=== PATIENT | male | born 1940 | race American Indian/Alaskan Native ===

== ENCOUNTER 2017-07-11 14:10 | Inpatient (IN) | payer MEDICARE, MEDICAID ==
[2017-07-11 15:35] LABS: BASO % 0.4 % (0.0-2.0); EOS % 0.2 % (0.0-4.0); HEMATOCRIT 42.7 % (35.0-51.0); LYMPH # 1.2 K/uL (1.0-4.3); LYMPH % 18.3 % (20.0-40.0); MEAN CELL VOLUME 103.7 fL (80.0-94.0); MEAN CORPUSCULAR HEMOGLOBIN 33.6 pg (27.0-31.0); MEAN CORPUSCULAR HGB CONC 32.4 g/dL (33.0-37.0); MONO # 0.4 K/uL (0.0-0.8); MONO % 6.7 % (0.0-10.0); NRBC % 0.2 % (0.0-2.0); RED CELL DISTRIBUTION WIDTH 15.9 % (11.5-14.5); WHITE BLOOD COUNT 6.5 K/uL (4.8-10.8)
--- NOTE | 2017-07-11 15:38 | C.PDOC ---
History Of Present Illness Jay Aguirre is a 77 y/o male who presents for left knee pain and swelling after falling from standing yesterday. Pain has worsened overnight, with associated worsened swelling of the left upper leg. At baseline patient has lower leg edema, which has been worsening, and increasing dyspnea on exertion which has worsened over the last month. He is compliant with Lasix 40 mg per day and fluid restriction. Time Seen by Provider: 07/11/17 14:55 Chief Complaint (Nursing): Lower Extremity Problem/Injury History Per: Patient History/Exam Limitations: no limitations Onset/Duration Of Symptoms: Worse Since (2 days ago) Current Symptoms Are (Timing): Still Present - Knee Description Of Injury: Fell (from standing) Past Medical History Reviewed: Historical Data, Nursing Documentation, Vital Signs Vital Signs: Last Vital Signs Temp 98.3 F 07/11/17 14:38 Pulse 88 07/11/17 17:35 Resp 18 07/11/17 17:35 BP 121/73 07/11/17 17:35 Pulse Ox 98 07/11/17 18:40 - Medical History PMH: CHF, HTN Other Surgeries: L Knee orthopedic surgery Family History: States: Unknown Family Hx - Social History Hx Tobacco Use: No Hx Alcohol Use: No Hx Substance Use: No - Immunization History Hx Tetanus Toxoid Vaccination: No Hx Influenza Vaccination: No Hx Pneumococcal Vaccination: No Review Of Systems Except As Marked, All Systems Reviewed And Found Negative. Respiratory: Positive for: SOB with Excertion Musculoskeletal: Positive for: Leg Pain (left knee pain and swelling), Other (B/ L lower leg edema, worsening) Physical Exam - Physical Exam Appears: Non-toxic, No Acute Distress, Other (tall, thin, male) Skin: Normal Color, Warm, Dry Head: Atraumatic, Normacephalic Eye(s): bilateral: Normal Inspection, PERRL, EOMI Neck: Other (+ JVD bilaterally) Chest: Symmetrical Cardiovascular: Rhythm Regular Respiratory: Rales Gastrointestinal/Abdominal: Normal Exam, Soft, No Tenderness Extremity: Normal ROM, No Deformity, Swelling (pitting edema to lower legs bilaterally, dependent edema in bilateral thighs) Neurological/Psych: Oriented x3, Normal Speech, Normal Motor, Normal Sensation ED Course And Treatment - Laboratory Results Result Diagrams: 07/11/17 15:30 07/11/17 15:30 Lab Interpretation: Abnormal (d-dimer neg for age, BNP 29,000, trop neg.) ECG: Interpreted By Me ECG Rhythm: Sinus Rhythm ECG Interpretation: Normal Rate From EC O2 Sat by Pulse Oximetry: 98 (RA) Pulse Ox Interpretation: Normal - Radiology CXR: Interpreted by Me CXR Interpretation: Yes: Heart Size (+ megaly, + Mild CHF) - Other Rad L knee X-Ray: Interpreted by Me (no fx, ? small effusion) Lower Ext Venous Dopplers X-Ray: Read By Radiologist (no b/l leg DVT) Progress Note: lasix 40 IV Reevaluation Time: 17:46 Reassessment Condition: Improved - Physician Consult Information Time Consulting Physician Contacted: 15:20 Physician Contacted: Robyn Nguyễn Outcome Of Conversation: d/w Dr. Jeremías De La Paz- defers to Director Of Retail Operations Medicine. d/w Dr. 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 1744 d/w Dr. Dean- Medicine Director Of Retail Operations- ok to admit Medical Decision Making Medical Decision Making: Recent echocardiogram in 07/2016 shows a 35% ejection fraction (severely decreased) and global hypokinesis. Time: 15:15 Plan: EKG Labs Urinalysis Chest x-ray X-ray Left Knee Venous duplex scan of lower extremities Lasix 40 mg IVP 2L of O2 via nasal cannula 1744: minimal urine output after lasix 40 IV, 2nd dose lasix 40 IV ordered Worstening FERNANDEZ and leg edema despite good lasix 40 QD compliance and fluid restriction. 08/13 Card Echo poor EJF 35% with global hypokenisis, pt NOT hypertensive initially. LOW susp of DVT/PE as D-Dimer wnl for age and lower EXt's no DVT's on venous dopplers. Disposition Doctor Will See Patient In The: Office Counseled Patient/Family Regarding: Studies Performed, Diagnosis - Disposition Disposition: HOSPITALIZED Disposition Time: 17:50 Condition: GOOD - Clinical Impression Clinical Impression: CHF (congestive heart failure), Contusion, knee - Scribe Statement The provider has reviewed the documentation as recorded by the Scribe (Daisy Brown) Provider Attestation: All medical record entries made by the Scribe were at my direction and personally dictated by me. I have reviewed the chart and agree that the record accurately reflects my personal performance of the history, physical exam, medical decision making, and the department course for this patient. I have also personally directed, reviewed, and agree with the discharge instructions and disposition.
[2017-07-11 15:44] LABS: INR 1.2
[2017-07-11 15:47] LABS: BILIRUBIN,TOTAL 2.2 mg/dL (0.2-1.3); CALCIUM 8.6 mg/dl (8.6-10.4); POTASSIUM 4.6 mmol/L (3.6-5.2); TOTAL PROTEIN 7.6 g/dL (6.3-8.3)
[2017-07-11 16:00] LABS: TROPONIN I 0.07 ng/mL (0.00-0.120)
[2017-07-11 17:23] LABS: RBC URINE 1 /hpf (0-3); URINE BILIRUBIN NEGATIVE (NEGATIVE); URINE BLOOD NEGATIVE (NEGATIVE); URINE COLOR Straw (YELLOW); URINE GLUCOSE (UA) NORMAL (Normal); URINE KETONE NEGATIVE (NEGATIVE); URINE LEUKOCYTE ESTERASE NEG Leu/uL (Negative); URINE PROTEIN NEGATIVE (NEGATIVE); URINE UROBILINOGEN NORMAL mg/dL (0.2-1.0); WBC URINE < 1 /hpf (0-5)
--- NOTE | 2017-07-11 18:15 | RAD ---
PROCEDURE: CHEST RADIOGRAPH, 1 VIEW HISTORY: SOB COMPARISON: 09/15/2016. FINDINGS: LUNGS: Clear. PLEURA: No pneumothorax or pleural fluid seen. CARDIOVASCULAR: Cardiomegaly. No evidence of acute, significant cardiovascular disease. OSSEOUS STRUCTURES: No significant abnormalities. VISUALIZED UPPER ABDOMEN: Normal. OTHER FINDINGS: None. IMPRESSION: No active disease. No acute/significant interval changes.
--- NOTE | 2017-07-11 18:17 | RAD ---
PROCEDURE: Left Knee Radiographs. HISTORY: Posttraumatic pain COMPARISON: None. FINDINGS: BONES: No acute fracture. Proliferative hypertrophic changes emanating from the femoral condyle and tibial plateau regions. JOINTS: Tricompartmental degenerative changes, severe. JOINT EFFUSION: Small suprapatellar joint effusion. Evidence of osteochondromatosis. OTHER FINDINGS: None. IMPRESSION: No acute findings related to/accounting for the clinical presentation. Concordant results with the preliminary interpretation rendered by the emergency department physician procedure.
[2017-07-11 20:22] VITALS: RESP 20
[2017-07-12] MEDS: Enoxaparin 40 mg Syringe SC SCH (10:06)
[2017-07-13] MEDS: Enoxaparin 40 mg Syringe SC SCH (10:34)
[2017-07-14 06:57] LABS: BASO # 0.1 K/uL (0.0-0.2); BASO % 0.9 % (0.0-2.0); EOS % 0.6 % (0.0-4.0); HEMATOCRIT 36.9 % (35.0-51.0); LYMPH # 1.2 K/uL (1.0-4.3); LYMPH % 20.5 % (20.0-40.0); MEAN CELL VOLUME 102.1 fL (80.0-94.0); MEAN CORPUSCULAR HEMOGLOBIN 34.5 pg (27.0-31.0); MEAN CORPUSCULAR HGB CONC 33.7 g/dL (33.0-37.0); MEAN PLATELET VOLUME 9.8 fL (7.2-11.7); MONO # 0.5 K/uL (0.0-0.8); MONO % 8.1 % (0.0-10.0); NRBC % 0.1 % (0.0-2.0); RED CELL DISTRIBUTION WIDTH 15.1 % (11.5-14.5); WHITE BLOOD COUNT 5.8 K/uL (4.8-10.8)
[2017-07-14 07:44] LABS: ALB/GLOB RATIO 1.2 (1.0-2.1); ALKALINE PHOSPHATASE 50 U/L (38-126); ALT/SGPT 47 U/L (21-72); AST/SGOT 31 U/L (17-59); BILIRUBIN,TOTAL 2.2 mg/dL (0.2-1.3); BLOOD UREA NITROGEN 36 mg/dL (9-20); CALCIUM 7.8 mg/dl (8.6-10.4); CARBON DIOXIDE 27 mmol/L (22-30); CHLORIDE 104 mmol/L (98-107); GFR AFRICAN-AMERICAN > 60; GLUCOSE,RANDOM 86 mg/dL (75-110); MAGNESIUM 1.7 mg/dL (1.6-2.3); PHOSPHOROUS 2.8 mg/dL (2.5-4.5); POTASSIUM 3.8 mmol/L (3.6-5.2); SODIUM 136 mmol/L (132-148)
[2017-07-14] MEDS: Enoxaparin 40 mg Syringe SC SCH (10:12)
--- NOTE | 2017-07-14 10:13 | VASCLAB ---
PROCEDURE: Lower Extremity Venous Duplex Exam. HISTORY: b/l leg edema PRIORS: None. TECHNIQUE: Bilateral common femoral, femoral, popliteal and posterior tibial, peroneal and great saphenous veins were evaluated. Flow was assessed with color Doppler, compressibility, assessment of phasic flow and augmentation response. Report prepared by Jim Mcgovern, RENNY, RVT FINDINGS: RIGHT: 1. Common Femoral Vein: 1.1. Compressibility - Fully compressible: Thrombus - None : Flow - Phasic: Augmentation -Normal: Reflux - None. 2. Femoral Vein: 2.1. Compressibility - Fully compressible: Thrombus - None : Flow - Phasic: Augmentation -Normal: Reflux - None. 3. Popliteal Vein: 3.1. Compressibility - Fully compressible: Thrombus - None : Flow - Phasic: Augmentation -Normal: Reflux - None. 4. Posterior Tibial Vein: 4.1. Compressibility - Fully compressible: Thrombus - None: Flow - Phasic: Augmentation -Normal: Reflux - None. 5. Peroneal Vein: 5.1. Compressibility - Fully compressible: Thrombus - None: Flow - Phasic: Augmentation -Normal: Reflux - None. 6. Great Saphenous Vein: 6.1. Compressibility - Fully compressible: Thrombus - None: Flow - Phasic: Augmentation - Normal: Reflux - None. LEFT: 1. Common Femoral Vein: 1.1. Compressibility - Fully compressible: Thrombus - None: Flow - Phasic: Augmentation -Normal: Reflux - None. 2. Femoral Vein: 2.1. Compressibility - Fully compressible: Thrombus - None: Flow - Phasic: Augmentation -Normal: Reflux - None. 3. Popliteal Vein: 3.1. Compressibility - Fully compressible: Thrombus - None : Flow - Phasic: Augmentation -Normal: Reflux - None. 4. Posterior Tibial Vein: 4.1. Compressibility - Fully compressible: Thrombus - None: Flow - Phasic: Augmentation -Normal: Reflux - None. 5. Peroneal Vein: 5.1. Compressibility - Fully compressible: Thrombus - None: Flow - Phasic: Augmentation -Normal: Reflux - None. 6. Great Saphenous Vein: 6.1. Compressibility - Fully compressible: Thrombus - None: Flow - Phasic: Augmentation - Normal: Reflux - None. OTHER FINDINGS: Right: None significant. Left: None significant. IMPRESSION: Right: No evidence of deep or superficial vein thrombosis of the right lower extremity. Normal valve function noted of the right side. Left: No evidence of deep or superficial vein thrombosis of the left lower extremity. Normal valve function noted of the left side.
--- NOTE | 2017-07-14 10:37 | PN ---
SUBJECTIVE: Patient complaining of knee swelling. This does range of motion. We will order physical therapy. Patient will benefit from inpatient rehab. Leslie Dean MD
--- NOTE | 2017-07-14 10:38 | HP ---
HISTORY OF PRESENT ILLNESS: Mr. Aguirre is a 77-year-old man with history of congestive heart failure, admitted to the hospital with chief complaint of weakness, fatigue, tiredness, and pain in left knee. Patient has . The patient has got severe pain and minimal swelling, unable to walk, came to the ER and advised admission. He has a history of longstanding internal derangement of the left knee injury. Patient uses Lasix for heart failure. PHYSICAL EXAMINATION: GENERAL: Patient is pleasant elderly male. VITAL SIGNS: Temperature 98, pulse 90. HEENT: Within normal limits. NECK: Supple. CHEST: Symmetrical. HEART: Regular. ABDOMEN: Soft. EXTREMITIES: There is swelling noted clinically and the left knee is somewhat swollen, marked decreased range of motion on flexion and extension. ASSESSMENT AND PLAN: Patient suffers from internal derangement of left knee, acute traumatic knee injury, congestive heart failure by history. At this point, gave pain medication, bedrest and evaluation with physical therapy. Leslie Dean MD
--- NOTE | 2017-07-14 12:59 | CP.PCM.PN ---
Subjective - Date & Time of Evaluation Date of Evaluation: 07/14/17 Time of Evaluation: 08:00 - Subjective Subjective: Patient seen and examined at bedside this morning. He stated his breathing was improving. He states he is still having problems bending his knee. He said that he has not seen orthopedics for his leg/knee. States his legs are edematous which is normal for him. He denied fever/chills, SOB, chest pain, abdominal pain. Objective - Vital Signs/Intake and Output Vital Signs (last 24 hours): Temp Pulse Resp BP Pulse Ox 98.1 F 93 H 20 95/76 L 99 07/14/17 08:04 07/14/17 11:39 07/14/17 08:04 07/14/17 10:35 07/14/17 08:04 - Medications Medications: Current Medications Enoxaparin Sodium (Lovenox) 40 mg SC DAILY [facility] Last Admin: 07/14/17 10:12 Dose: 40 mg Furosemide (Lasix) 40 mg PO DAILY [facility] Last Admin: 07/14/17 10:35 Dose: Not Given Losartan Potassium (Cozaar) 50 mg PO DAILY [facility] Last Admin: 07/14/17 10:35 Dose: Not Given Metoprolol Tartrate (Lopressor) 25 mg PO DAILY [facility] Last Admin: 07/14/17 10:35 Dose: Not Given - Labs Labs: 07/14/17 06:46 07/14/17 06:46 PT 13.4 SECONDS (9.7-12.2) H 07/11/17 15:30 INR 1.2 07/11/17 15:30 APTT 32 SECONDS (21-34) 07/11/17 15:30 - Constitutional Appears: Non-toxic, No Acute Distress - Head Exam Head Exam: ATRAUMATIC, NORMAL INSPECTION - Eye Exam Eye Exam: EOMI - ENT Exam ENT Exam: Mucous Membranes Moist - Respiratory Exam Respiratory Exam: Clear to Ausculation Bilateral, NORMAL BREATHING PATTERN. absent: Respiratory Distress - Cardiovascular Exam Cardiovascular Exam: REGULAR RHYTHM, +S1, +S2 - GI/Abdominal Exam GI & Abdominal Exam: Soft, Normal Bowel Sounds. absent: Distended, Firm, Guarding, Tenderness - Extremities Exam Extremities Exam: Pedal Edema. absent: Calf Tenderness Additional comments: Left knee contracted. Sensation in tact, limited range of motion, unable to full extend, mild tenderness throughout joint. Mild effusion, no erythema. - Back Exam Back Exam: NORMAL INSPECTION - Neurological Exam Neurological Exam: Alert, Awake, Oriented x3 - Psychiatric Exam Psychiatric exam: Normal Affect, Normal Mood - Skin Skin Exam: Dry, Intact, Normal Color, Warm Assessment and Plan - Assessment and Plan (Free Text) Assessment: Knee contusion s/p fall Patient is to follow up with orthopedics outpatient X ray - no fracture Physical therapy eval No evidence of DVT CHF chronic with reduced EF f/u repeat Echo cardiology consulted SOB improving BNP [id number] Lasix 40mg SC daily Cozaar 50mg PO daily Lopressor 25 mg PO daily Chest X ray - no active disease Prophylactic Measures Lovenox 40mg SC daily Pepcid 20mg PO BID Heart healthy diet
--- NOTE | 2017-07-14 22:21 | CARD ---
APPROVED REPORT EKG Measurement Heart [id number] <Conclusion> Normal sinus rhythm with sinus arrhythmia Left axis deviation Anterior infarct, age undetermined Abnormal ECG
--- NOTE | 2017-07-14 22:30 | CP.PCM.CON ---
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 Review of Systems - Review of Systems Systems not reviewed;Unavailable: Acuity of Condition - Constitutional Constitutional: Anorexia, Weakness - EENT Eyes: absent: Discharge, Exophthalmos Nose/Mouth/Throat: absent: Nasal Discharge - Cardiovascular Cardiovascular: Dyspnea on Exertion, Edema. absent: Acrocyanosis, Chest Pain, Syncope - Respiratory Respiratory: Dyspnea on Exertion. absent: Cough, Hemoptysis - Gastrointestinal Gastrointestinal: absent: Abdominal Pain, Belching, Diarrhea, Nausea, Vomiting - Genitourinary Genitourinary: absent: Change in Urinary Stream Past Patient History - Infectious Disease Hx of Infectious Diseases: None - Past Medical History & Family History Past Medical History?: Yes - Past Social History Smoking Status: Never Smoked - CARDIAC Hx Congestive Heart Failure: Yes Hx Hypertension: Yes - HEENT Hx HEENT Problems: Yes Hx Glaucoma: Yes Other/Comment: Glaucoma both eyes - MUSCULOSKELETAL/RHEUMATOLOGICAL Hx Falls: Yes - GENITOURINARY/GYNECOLOGICAL Hx Genitourinary Disorders: Yes Hx Prostate Problems: Yes - PSYCHIATRIC Hx Substance Use: No - SURGICAL HISTORY Hx Surgeries: Yes Hx Herniorrhaphy: Yes Hx Orthopedic Surgery: Yes (LEFT KNEE) - ANESTHESIA Hx Anesthesia: Yes Hx Anesthesia Reactions: No Hx Malignant Hyperthermia: No Has any member of the family had a problem w/ anesthesia?: No Meds Allergies/Adverse Reactions: Allergies Allergy/AdvReac Type Severity Reaction Status Date / Time No Known Allergies Allergy Verified 07/11/17 14:40 - Medications Medications: Current Medications Enoxaparin Sodium (Lovenox) 40 mg SC DAILY [facility] Last Admin: 07/14/17 10:12 Dose: 40 mg Famotidine (Pepcid) 20 mg PO BID [facility] Last Admin: 07/14/17 17:38 Dose: Not Given Furosemide (Lasix) 40 mg PO DAILY [facility] Last Admin: 07/14/17 10:35 Dose: Not Given Losartan Potassium (Cozaar) 50 mg PO DAILY [facility] Last Admin: 07/14/17 10:35 Dose: Not Given Metoprolol Tartrate (Lopressor) 25 mg PO DAILY [facility] Last Admin: 07/14/17 10:35 Dose: Not Given Physical Exam - Constitutional Appears: Non-toxic - Head Exam Head Exam: ATRAUMATIC - Eye Exam Eye Exam: EOMI - ENT Exam ENT Exam: Mucous Membranes Moist - Neck Exam Neck exam: Negative for: Lymphadenopathy, Thyromegaly - Respiratory Exam Respiratory Exam: absent: Chest Wall Tenderness, Rales, Wheezes - Cardiovascular Exam Cardiovascular Exam: REGULAR RHYTHM, Systolic Murmur. absent: JVD - GI/Abdominal Exam GI & Abdominal Exam: Normal Bowel Sounds. absent: Organomegaly - Rectal Exam Rectal Exam: Deferred - Extremities Exam Extremities exam: Positive for: normal capillary refill. Negative for: calf tenderness - Neurological Exam Neurological exam: Alert, Oriented x3 - Psychiatric Exam Psychiatric exam: Flat Affect - Skin Skin Exam: Dry Results - Vital Signs Recent Vital Signs: Last Vital Signs Temp 98 F 07/14/17 15:45 Pulse 93 H 07/14/17 16:00 Resp 20 07/14/17 15:45 BP 106/72 07/14/17 15:45 Pulse Ox 96 07/14/17 15:45 - Labs Result Diagrams: 07/14/17 06:46 07/14/17 06:46 Labs: Laboratory Results - last 24 hr 07/14/17 07/14/17 06:46 06:46 WBC 5.8 RBC 3.62 L Hgb 12.5 Hct 36.9 MCV 102.1 H MCH 34.5 H MCHC 33.7 RDW 15.1 H Plt Count 137 MPV 9.8 Neut % (Auto) 69.9 Lymph % (Auto) 20.5 Faulkner % (Auto) 8.1 Eos % (Auto) 0.6 Baso % (Auto) 0.9 Neut # 4.0 Lymph # 1.2 Faulkner # 0.5 Eos # 0.0 Baso # 0.1 Sodium 136 Potassium 3.8 Chloride 104 Carbon Dioxide 27 Anion Gap 8 L BUN 36 H Creatinine 1.3 Est GFR ( Amer) > 60 Est GFR (Non-Af Amer) 54 Random Glucose 86 Calcium 7.8 L Phosphorus 2.8 Magnesium 1.7 Total Bilirubin 2.2 H AST 31 ALT 47 Alkaline Phosphatase 50 Total Protein 5.0 L Albumin 2.7 L D Globulin 2.3 Albumin/Globulin Ratio 1.2 Assessment & Plan (1) CHF (congestive heart failure) Status: Acute Comment: chronic LV syst chf (2) Weakness generalized Status: Acute Comment: low output syndrom
[2017-07-15 01:19] VITALS: O2SAT 97
[2017-07-15 08:32] LABS: BASO % 0.4 % (0.0-2.0); EOS # 0.1 K/uL (0.0-0.7); EOS % 1.7 % (0.0-4.0); HEMATOCRIT 37.8 % (35.0-51.0); LYMPH # 1.8 K/uL (1.0-4.3); LYMPH % 29.1 % (20.0-40.0); MEAN CORPUSCULAR HGB CONC 34.3 g/dL (33.0-37.0); MEAN PLATELET VOLUME 9.3 fL (7.2-11.7); MONO # 0.4 K/uL (0.0-0.8); MONO % 7.2 % (0.0-10.0); NRBC % 0.1 % (0.0-2.0); RED CELL DISTRIBUTION WIDTH 14.5 % (11.5-14.5); WHITE BLOOD COUNT 6.1 K/uL (4.8-10.8)
[2017-07-15 08:48] VITALS: BP 97/65; PULSE 93; TEMP 98
[2017-07-15 08:51] LABS: ALB/GLOB RATIO 0.8 (1.0-2.1); ALKALINE PHOSPHATASE 57 U/L (38-126); ALT/SGPT 48 U/L (21-72); AST/SGOT 34 U/L (17-59); BILIRUBIN,DIRECT 0.5 mg/dL (0.0-0.4); BILIRUBIN,TOTAL 1.2 mg/dL (0.2-1.3); BLOOD UREA NITROGEN 31 mg/dL (9-20); CALCIUM 7.9 mg/dl (8.6-10.4); CARBON DIOXIDE 26 mmol/L (22-30); CHLORIDE 103 mmol/L (98-107); GFR AFRICAN-AMERICAN > 60; GLUCOSE,RANDOM 86 mg/dL (75-110); MAGNESIUM 1.9 mg/dL (1.6-2.3); PHOSPHOROUS 2.8 mg/dL (2.5-4.5); SODIUM 131 mmol/L (132-148); TOTAL PROTEIN 6.4 g/dL (6.3-8.3)
[2017-07-15] MEDS: Enoxaparin 40 mg Syringe SC SCH (11:06)
--- NOTE | 2017-07-15 13:13 | CP.PCM.PN ---
Subjective - Date & Time of Evaluation Date of Evaluation: 07/15/17 Time of Evaluation: 12:00 - Subjective Subjective: Cardiomyopathy on medical treatment doing well, no shortness of breath, for ICD as outpatient, continue therapy for knee pain Objective - Vital Signs/Intake and Output Vital Signs (last 24 hours): Temp Pulse Resp BP Pulse Ox 98 F 93 H 20 97/65 L 97 07/15/17 07:00 07/15/17 07:00 07/15/17 07:00 07/15/17 07:00 07/15/17 07:00 - Medications Medications: Current Medications Enoxaparin Sodium (Lovenox) 40 mg SC DAILY [facility] Last Admin: 07/15/17 11:06 Dose: Not Given Famotidine (Pepcid) 20 mg PO BID [facility] Last Admin: 07/15/17 11:06 Dose: Not Given Furosemide (Lasix) 40 mg PO DAILY [facility] Last Admin: 07/15/17 11:06 Dose: Not Given Losartan Potassium (Cozaar) 50 mg PO DAILY [facility] Last Admin: 07/15/17 11:06 Dose: Not Given Metoprolol Tartrate (Lopressor) 25 mg PO DAILY [facility] Last Admin: 07/15/17 11:06 Dose: Not Given - Labs Labs: 07/15/17 08:17 07/15/17 08:17 PT 13.4 SECONDS (9.7-12.2) H 07/11/17 15:30 INR 1.2 07/11/17 15:30 APTT 32 SECONDS (21-34) 07/11/17 15:30 - Constitutional Appears: Non-toxic - Head Exam Head Exam: ATRAUMATIC - Eye Exam Eye Exam: EOMI - ENT Exam ENT Exam: Mucous Membranes Moist - Neck Exam Neck Exam: absent: Lymphadenopathy, Thyromegaly - Respiratory Exam Respiratory Exam: Clear to Ausculation Bilateral. absent: Rales - Cardiovascular Exam Cardiovascular Exam: REGULAR RHYTHM, Murmur - GI/Abdominal Exam GI & Abdominal Exam: Normal Bowel Sounds. absent: Organomegaly - Rectal Exam Rectal Exam: Deferred - Extremities Exam Extremities Exam: Normal Capillary Refill. absent: Calf Tenderness - Neurological Exam Neurological Exam: Alert, Oriented x3 - Psychiatric Exam Psychiatric exam: Normal Mood - Skin Skin Exam: Dry Assessment and Plan (1) CHF (congestive heart failure) Status: Acute (2) Weakness generalized Status: Acute
--- NOTE | 2017-07-15 13:31 | CP.PCM.PN ---
Subjective - Date & Time of Evaluation Date of Evaluation: 07/15/17 Time of Evaluation: 09:40 - Subjective Subjective: PGY2 Medicine progress note for Dr. Dean Patient seen and examined. Patient admits to pain in quadriceps superior to knee contusion. Patient states he is able to ambulate with physical therapy. Patient refusing admission to [facility] and is agreeable to outpatient physical therapy. Objective - Vital Signs/Intake and Output Vital Signs (last 24 hours): Temp Pulse Resp BP Pulse Ox 98 F 93 H 20 97/65 L 97 07/15/17 07:00 07/15/17 07:00 07/15/17 07:00 07/15/17 07:00 07/15/17 07:00 - Medications Medications: Current Medications Enoxaparin Sodium (Lovenox) 40 mg SC DAILY [facility] Last Admin: 07/15/17 11:06 Dose: Not Given Famotidine (Pepcid) 20 mg PO BID [facility] Last Admin: 07/15/17 11:06 Dose: Not Given Furosemide (Lasix) 40 mg PO DAILY [facility] Last Admin: 07/15/17 11:06 Dose: Not Given Losartan Potassium (Cozaar) 50 mg PO DAILY [facility] Last Admin: 07/15/17 11:06 Dose: Not Given Metoprolol Tartrate (Lopressor) 25 mg PO DAILY [facility] Last Admin: 07/15/17 11:06 Dose: Not Given - Labs Labs: 07/15/17 08:17 07/15/17 08:17 PT 13.4 SECONDS (9.7-12.2) H 07/11/17 15:30 INR 1.2 07/11/17 15:30 APTT 32 SECONDS (21-34) 07/11/17 15:30 - Constitutional Appears: No Acute Distress - Head Exam Head Exam: ATRAUMATIC, NORMOCEPHALIC - Eye Exam Eye Exam: EOMI - ENT Exam ENT Exam: Mucous Membranes Moist - Respiratory Exam Respiratory Exam: Clear to Ausculation Bilateral - Cardiovascular Exam Cardiovascular Exam: +S1, +S2 - GI/Abdominal Exam GI & Abdominal Exam: Soft. absent: Tenderness - Extremities Exam Extremities Exam: Pedal Edema Additional comments: left knee tender to palpation - Neurological Exam Neurological Exam: Alert, Awake - Psychiatric Exam Psychiatric exam: Normal Affect - Skin Skin Exam: Warm Assessment and Plan - Assessment and Plan (Free Text) Assessment: Knee contusion s/p fall Patient is to follow up with orthopedics outpatient X ray - no fracture No evidence of DVT Patient refusing [facility] or TCU as well as home physical therapy. Patient agreeable for outpatient physical therapy CHF chronic with reduced EF Repeat echo report pending pt had stress echo two weeks ago as outpatient per Dr. Nguyễn patient to be discharged home on home medication regimen and follow up as outpatient with Dr. Nguyễn for further evaluation for ICD Lasix 40mg SC daily Cozaar 50mg PO daily Lopressor 25 mg PO daily Chest X ray - no active disease Prophylactic Measures Lovenox 40mg SC daily Pepcid 20mg PO BID Heart healthy diet Patient is stable for discharge home per Dr. Dean and Dr. Nguyễn. Patient is to follow up with his PMD within 7 days of discharge. Patient is to follow up with Dr. Nguyễn within [address] Nguyễn, patient is to resume home cardiac medication regimen. Patient is refusing [facility] or TCU and is agreeable for outpatient physical therapy. Patient is to return to ER if symptoms worsen or reoccur.
--- NOTE | 2017-07-15 18:12 | CARD ---
APPROVED REPORT EXAM: Two-dimensional and M-mode echocardiogram with Doppler and color Doppler. Other Information Quality : GoodRhythm : NSR INDICATION Dyspnea Congestive Heart Failure VERTIGO RISK FACTORS Hypertension 2D DIMENSIONS IVSd1.3 (0.7-1.1cm)Aortic Root (2D)3.7 (2.0-3.7cm) LVDd5.7 (3.9-5.9cm)PWd1.5 (0.7-1.1cm) LVDs5.2 (2.5-4.0cm)FS (%) 9.0 % LVEF (%)19.6 (>50%) M-Mode DIMENSIONS Left Atrium (MM)4.83 (2.5-4.0cm)Aortic Root3.62 (2.2-3.7cm) Aortic Cusp Exc.2.53 (1.5-2.0cm) Aortic Valve AI P 1/2 [id number] Mitral Valve MV E Unknmdqy12.3cm/sMV A Moearuvy60.0cm/sE/A ratio1.9 TDI E/Lateral E'0.0E/Medial E'0.0 Tricuspid Valve TR Peak [id number]/sTR Peak Gr.[id number] LEFT VENTRICLE The left ventricle is mildly dialted. There is mild to moderately increased wall thickness, with deep trabeculations and thicekned papillary muscles The left ventricular function is markedly reduced with diffuse hypokinesis. The left ventricular ejection fraction is about 25%. No regional wall motion abnormalities noted. The left ventricular diastolic function is normal. No left ventricle thrombus noted on this study. There is no ventricular septal defect visualized. There is no left ventricular aneurysm. There is no mass noted in the left ventricle. RIGHT VENTRICLE The right ventricle is moderately dilated. There is normal right ventricular wall thickness. Systolic function is severely reduced. ATRIA The left atrium is severely dilated. The right atrium is moderately dilated. The interatrial septum is intact with no evidence for an atrial septal defect. AORTIC VALVE The aortic valve is normal in structure and function. Mild aortic regurgitation is present. There is no aortic valvular stenosis. There is no aortic valvular vegetation. MITRAL VALVE The mitral valve is normal in structure and function. There is no evidence of mitral valve prolapse. There is no mitral valve stenosis. There is mild mitral valve regurgitation noted. TRICUSPID VALVE The tricuspid valve is normal in structure and function. There is mild tricuspid valve regurgitation noted. Estimated PA systolic pressure is 44 mm Hg There is no tricuspid valve prolapse or vegetation. There is no tricuspid valve stenosis. PULMONIC VALVE The pulmonary valve is normal in structure and function. There is mild pulmonic valvular regurgitation. There is no pulmonic valvular stenosis. GREAT VESSELS The aortic root is normal in size. The ascending aorta is normal in size. The pulmonary artery is normal. The IVC is normal in size and collapses >50% with inspiration. PERICARDIAL EFFUSION The pericardium appears normal. There is no pleural effusion. <Conclusion> There is mild to moderately increased wall thickness, with deep trabeculations and thicekned papillary muscles The left ventricular function is markedly reduced with diffuse hypokinesis. The right ventricle is moderately dilated. Right ventricular Systolic function is severely reduced. The left atrium is severely dilated. The right atrium is moderately dilated. Mild aortic regurgitation is present. There is mild mitral valve regurgitation noted.
== END 2017-07-15 16:30 | disposition home or self-care (01) | DRG 293 ==
LOC: C.ER 14:10 → C.9E 17:43 → C.6T 19:21
PROVIDERS: ADMIT Internal Medicine Pulmonary Disease; ATTEND Internal Medicine Pulmonary Disease
DX: I11.0 Hypertensive heart disease with heart failure (principal); I42.9 Cardiomyopathy, unspecified; I50.23 Acute on chronic systolic (congestive) heart failure; M23.8X2 Other internal derangements of left knee; R53.1 Weakness; Z91.11 Patient's noncompliance with dietary regimen

== ENCOUNTER 2017-09-07 14:53 | Emergency (ER) | payer MEDICARE, MEDICAID ==
[2017-09-07 15:24] VITALS: TEMP 100.7
--- NOTE | 2017-09-07 15:48 | C.PDOC ---
History Of Present Illness 77 y/o male with a past medical history of CHF presents complaining of congestion and coughing, current episode started 3 months ago but subsided and then 2 weeks ago he became increasingly short of breath. Patient has been coughing, but not producing sputum. Associated with chills. Now patient reports he feels weak and fatigued. Patient has severe SOB on exertion. No chest pain or fever. He has chronic swelling of his legs. Time Seen by Provider: 09/07/17 15:22 Chief Complaint (Nursing): Flu-like Symptoms History Per: Patient History/Exam Limitations: no limitations Onset/Duration Of Symptoms: Worse Since (2 weeks ago) Current Symptoms Are (Timing): Still Present Associated Symptoms: Chills, Cough, Nasal Congestion Past Medical History Reviewed: Historical Data, Nursing Documentation, Vital Signs Vital Signs: Last Vital Signs Temp 100.7 F H 09/07/17 15:20 Pulse 97 H 09/07/17 18:23 Resp 24 09/07/17 18:23 BP 129/91 H 09/07/17 18:23 Pulse Ox 97 09/07/17 18:23 - Medical History PMH: CHF, HTN Family History: States: Unknown Family Hx - Social History Hx Tobacco Use: No Hx Alcohol Use: No Hx Substance Use: No - Immunization History Hx Tetanus Toxoid Vaccination: No Hx Influenza Vaccination: No Hx Pneumococcal Vaccination: No Review Of Systems Constitutional: Positive for: Weakness, Other (Fatigue). Negative for: Fever Cardiovascular: Positive for: Edema. Negative for: Chest Pain, Palpitations Respiratory: Positive for: Cough, Shortness of Breath, SOB with Excertion. Negative for: Sputum Gastrointestinal: Negative for: Nausea, Vomiting, Abdominal Pain Physical Exam - Physical Exam Appears: Non-toxic, No Acute Distress, Other (At rest, appears comfortable) Skin: Normal Color, Warm, Dry Head: Atraumatic, Normacephalic Eye(s): bilateral: PERRL, EOMI Chest: Symmetrical Cardiovascular: Rhythm Regular, No Murmur Respiratory: Decreased Breath Sounds (bilaterally), Rales (bibasilar) Gastrointestinal/Abdominal: Normal Exam, Soft, No Tenderness Extremity: Normal ROM, No Deformity, Swelling (Pitting edema up to thighs) Neurological/Psych: Oriented x3, Normal Speech ED Course And Treatment - Laboratory Results Result Diagrams: 09/07/17 16:14 09/07/17 16:14 Lab Interpretation: Abnormal (Renal insufficiency unchanged from prior, BNP 24931, Troponin normal.) ECG: Interpreted By Me ECG Rhythm: Sinus Rhythm (with left axis, Poor R wave to V5 c/w anterior infarct ), ST/T Changes (I, AVL inversion) ECG Interpretation: Abnormal O2 Sat by Pulse Oximetry: 99 (RA) Pulse Ox Interpretation: Normal - Radiology CXR: Viewed By Me, Read By Radiologist CXR Interpretation: Yes: Cardiomegaly Progress Note: Patient given Lasix in ED. Reevaluation Time: 18:43 Reassessment Condition: Unchanged (Patient still with leg swelling and chest congestion. Advised that he should remain in the hopsital for treatment of CHF but he is refusing at this time. 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 He understands that his heart is not functioning normally and he is at risk for OR or cardiac failure including . He is insistent on leaving AMA.) Medical Decision Making Medical Decision Making: Time: 15:34 Initial Plan: * EKG * CMP * Pro BNP * Troponin I * CBC * Chest x-ray * Blood culture * Urinalysis * Lasix 60 mg IVP * Reassessment Disposition Counseled Patient/Family Regarding: Studies Performed, Diagnosis, Need For Followup - Disposition Referrals: Robyn Nguyễn MD [Staff Provider] - Disposition: AGAINST MEDICAL ADVICE Disposition Time: 18:53 Condition: FAIR Instructions: Heart Failure (ED) Forms: [facility] (Monegasque) - Clinical Impression Clinical Impression: CHF (congestive heart failure), Renal insufficiency - Scribe Statement The provider has reviewed the documentation as recorded by the Ko Brown Provider Attestation: All medical record entries made by the Jose Davidibe were at my direction and personally dictated by me. I have reviewed the chart and agree that the record accurately reflects my personal performance of the history, physical exam, medical decision making, and the department course for this patient. I have also personally directed, reviewed, and agree with the discharge instructions and disposition.
--- NOTE | 2017-09-07 16:02 | RAD ---
HISTORY: SOB COMPARISON: Chest x-ray performed 07/11/17 TECHNIQUE: Chest, one view. FINDINGS: Examination limited by habitus. LUNGS: No focal consolidation. Please note that chest x-ray has limited sensitivity for the detection of pulmonary masses. PLEURA: No significant pleural effusion identified. No definite pneumothorax . CARDIOVASCULAR: Cardiomegaly. OSSEOUS STRUCTURES: Degenerative changes. VISUALIZED UPPER ABDOMEN: Unremarkable. OTHER FINDINGS: None. IMPRESSION: Cardiomegaly.
[2017-09-07 16:20] LABS: BASO % 0.9 % (0.0-2.0); EOS % 0.2 % (0.0-4.0); HEMOGLOBIN 12.2 g/dL (12.0-18.0); LYMPH # 0.7 K/uL (1.0-4.3); LYMPH % 18.1 % (20.0-40.0); MEAN CELL VOLUME 103.4 fL (80.0-94.0); MEAN CORPUSCULAR HEMOGLOBIN 34.2 pg (27.0-31.0); MEAN CORPUSCULAR HGB CONC 33.1 g/dL (33.0-37.0); MEAN PLATELET VOLUME 9.7 fL (7.2-11.7); MONO # 0.4 K/uL (0.0-0.8); MONO % 10.4 % (0.0-10.0); NEUT # 2.6 K/uL (1.8-7.0); NEUT % 70.4 % (50.0-75.0); NRBC % 0.2 % (0.0-2.0); RBC 3.57 Mil/uL (4.40-5.90); RED CELL DISTRIBUTION WIDTH 16.3 % (11.5-14.5); WHITE BLOOD COUNT 3.7 K/uL (4.8-10.8)
[2017-09-07 16:37] LABS: ALB/GLOB RATIO 1.1 (1.0-2.1); ALBUMIN 3.3 g/dL (3.5-5.0)
[2017-09-07 16:45] LABS: TROPONIN I 0.106 ng/mL (0.00-0.120)
[2017-09-07 18:24] VITALS: BP 129/91; PULSE 97; RESP 24
[2017-09-07 18:48] VITALS: O2SAT 99
[2017-09-07 19:02] LABS: URINE BACTERIA RARE (<OCC); URINE BILIRUBIN NEGATIVE (NEGATIVE); URINE BLOOD NEGATIVE (NEGATIVE); URINE CLARITY Clear (Clear); URINE COLOR Yellow (YELLOW); URINE GLUCOSE (UA) NORMAL (Normal); URINE LEUKOCYTE ESTERASE NEG Leu/uL (Negative); URINE NITRATE NEGATIVE (NEGATIVE); URINE PROTEIN NEGATIVE (NEGATIVE); URINE UROBILINOGEN NORMAL mg/dL (0.2-1.0)
--- NOTE | 2017-09-08 21:07 | CARD ---
APPROVED REPORT EKG Measurement Heart [id number] <Conclusion> Normal sinus rhythm Left axis deviation Cannot rule out Anterior infarct, age undetermined Lateral ST abnormality, consider ischemia Abnormal ECG
== END 2017-09-07 19:14 | disposition left against medical advice (07) ==
LOC: C.ER 14:53
DX: I50.9 Heart failure, unspecified (principal); N28.9 Disorder of kidney and ureter, unspecified; I10 Essential (primary) hypertension
CPT/HCPCS: 71045; 80053; 81001; 83880; 84484; 85025; 87040; 87149; 87205; 93005; 96374; 99285; J1940

== ENCOUNTER 2017-09-19 18:18 | Emergency (ER) | payer MEDICARE, MEDICAID ==
[2017-09-19 18:34] VITALS: BP 101/70; PULSE 95; RESP 18; TEMP 97.5; O2SAT 98
== END 2017-09-19 18:29 | disposition left against medical advice (07) ==
LOC: C.ER 18:18
DX: Z02.89 Encounter for other administrative examinations (principal); R06.02 Shortness of breath

== ENCOUNTER 2017-12-02 23:52 | Inpatient (IN) | payer MEDICARE, MEDICAID ==
--- NOTE | 2017-12-03 00:46 | C.PDOC ---
History Of Present Illness 77 year old male brought in to the emergency department by [facility] with complaints of worsening shortness of breath and bilateral leg swelling. Patient reports that he is currently on diuretic medications, and states that his shortness of breath is associated with chest pain and is worse when walking. Chief Complaint (Nursing): Shortness Of Breath History Per: Patient History/Exam Limitations: no limitations Current Symptoms Are (Timing): Still Present Quality: "Pain" Exacerbating Factor(s): Other (walking) Current Respiratory Medications: Diuretic Associated Symptoms: Chest Pain, Ankle/Leg Swelling Past Medical History Reviewed: Historical Data, Nursing Documentation, Vital Signs Vital Signs: Last Vital Signs Temp 97.5 F L 12/03/17 00:12 Pulse 103 H 12/03/17 04:13 Resp 20 12/03/17 04:13 BP 128/69 12/03/17 04:13 Pulse Ox 98 12/03/17 04:13 - Medical History PMH: CHF, HTN Surgical History: No Surg Hx Family History: States: No Known Family Hx - Social History Hx Tobacco Use: No Hx Alcohol Use: No Hx Substance Use: No - Immunization History Hx Tetanus Toxoid Vaccination: No Hx Influenza Vaccination: No Hx Pneumococcal Vaccination: No Review Of Systems Except As Marked, All Systems Reviewed And Found Negative. Cardiovascular: Positive for: Chest Pain Respiratory: Positive for: Shortness of Breath Musculoskeletal: Positive for: Leg Pain (swelling) Physical Exam - Physical Exam Appears: Non-toxic, In Acute Distress (mild) Neck: Other (veins are engorged at 45 degree angle) Cardiovascular: Rhythm Irregular Respiratory: Rales Gastrointestinal/Abdominal: Normal Exam, Soft, No Tenderness Extremity: Swelling (bilateral) ED Course And Treatment - Laboratory Results Result Diagrams: 12/03/17 01:17 12/03/17 03:01 O2 Sat by Pulse Oximetry: 98 (RA) Pulse Ox Interpretation: Normal - Radiology CXR: Interpreted by Me, Viewed By Me CXR Interpretation: Yes: Heart Size, Cardiomegaly, Other (no definite pulm. congestion) Medical Decision Making Medical Decision Making: Plan: EKG BNP CMP Troponin CBC CXR Two Views Lasix 40mg IVP Urinalysis Disposition Discussed With : Leslie Dean Doctor Will See Patient In The: Hospital Counseled Patient/Family Regarding: Diagnosis - Disposition Disposition: HOSPITALIZED Disposition Time: 04:34 Condition: STABLE Forms: [facility] (East Timorese) - POA Present On Arrival: None - Clinical Impression Clinical Impression: Congestive heart failure - Scribe Statement The provider has reviewed the documentation as recorded by the Scribe (Antwon Dillon) Provider Attestation: All medical record entries made by the Scribe were at my direction and personally dictated by me. I have reviewed the chart and agree that the record accurately reflects my personal performance of the history, physical exam, medical decision making, and the department course for this patient. I have also personally directed, reviewed, and agree with the discharge instructions and disposition.
[2017-12-03 01:23] LABS: BASO % 0.1 % (0.0-2.0); HEMOGLOBIN 13.8 g/dL (12.0-18.0); LYMPH # 0.7 K/uL (1.0-4.3); LYMPH % 11.4 % (20.0-40.0); MEAN CELL VOLUME 108.9 fL (80.0-94.0); MEAN CORPUSCULAR HEMOGLOBIN 34.9 pg (27.0-31.0); MEAN CORPUSCULAR HGB CONC 32.1 g/dL (33.0-37.0); MEAN PLATELET VOLUME 9.7 fL (7.2-11.7); MONO # 0.3 K/uL (0.0-0.8); MONO % 5.9 % (0.0-10.0); NEUT # 4.8 K/uL (1.8-7.0); NEUT % 82.6 % (50.0-75.0); NRBC % 0.1 % (0.0-2.0); RBC 3.96 Mil/uL (4.40-5.90); RED CELL DISTRIBUTION WIDTH 18.5 % (11.5-14.5); WHITE BLOOD COUNT 5.8 K/uL (4.8-10.8)
[2017-12-03 01:45] LABS: SQUAMOUS EPITHIAL 1 /hpf (0-5); URINE BILIRUBIN NEGATIVE (NEGATIVE); URINE BLOOD NEGATIVE (NEGATIVE); URINE CLARITY Hazy (Clear); URINE COLOR Amber (YELLOW); URINE GLUCOSE (UA) NORMAL (Normal); URINE LEUKOCYTE ESTERASE NEG Leu/uL (Negative); URINE PROTEIN 1+ mg/dL (NEGATIVE)
[2017-12-03 03:36] LABS: TROPONIN I 0.112 ng/mL (0.00-0.120)
[2017-12-03 03:56] LABS: ALBUMIN 3.5 g/dL (3.5-5.0); CALCIUM 9.6 mg/dl (8.6-10.4)
[2017-12-03 07:47] LABS: ALB/GLOB RATIO 0.9 (1.0-2.1); CALCIUM 9.6 mg/dl (8.6-10.4)
--- NOTE | 2017-12-03 09:10 | RAD ---
HISTORY: SOB COMPARISON: Chest radiograph dated 09/07/2017. TECHNIQUE: Chest PA and lateral FINDINGS: LUNGS: Scattered tiny nodular densities both upper lobes. No active pulmonary disease. PLEURA: No significant pleural effusion identified. No pneumothorax apparent. CARDIOVASCULAR: Cardiomediastinal silhouette stably enlarged. OSSEOUS STRUCTURES: Unchanged. VISUALIZED UPPER ABDOMEN: Normal. OTHER FINDINGS: None. IMPRESSION: No active disease. Scattered tiny nodular densities in both upper lobes. CT scan can be obtained for further evaluation on a nonemergent basis. ER notification submitted electronically.
--- NOTE | 2017-12-03 09:40 | CP.PCM.PN ---
Subjective - Date & Time of Evaluation Date of Evaluation: 12/03/17 Time of Evaluation: 09:34 - Subjective Subjective: PGY-[address] Dean's Service Pt seen and examined at bedside. Nursing reports no acute events overnight. Patient admits his SOB has improved after receiving lasix. No chest pain or palpitations, but pt admits legs are "as painful as they've ever been." Patient asking for transfer to [facility] but no accepting doctor at this time. Patient is a 77 yo m, PMHx of severe systolic CHF (refusing ICD), presented to [facility] [place] in early AM on 12/03/17. C/o worsening shortness of breath and bilateral leg swelling. Patient reports that he is currently on diuretic medications, and states that his shortness of breath is associated with chest pain and is worse when walking. Patient on last admission in July was recommended for AICD by Dr. Nguyễn. Pt denies attending follow up appointments with Dr. Nguyễn and states he had his records sent to [facility]. 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 Objective - Vital Signs/Intake and Output Vital Signs (last 24 hours): Temp Pulse Resp BP Pulse Ox 98.0 F 104 H 20 108/73 98 12/03/17 07:35 12/03/17 07:35 12/03/17 07:35 12/03/17 07:35 12/03/17 07:35 Intake and Output: 12/03/17 12/03/17 06:59 18:59 Output Total 200 Balance -200 - Medications Medications: Current Medications Brimonidine Tartrate (Alphagan 0.2% Opht) 0.05 ml OU TID SHAHEED Docusate Sodium (Colace) 100 mg PO BID PRN PRN Reason: Constipation Dorzolamide HCl (Trusopt) 0.05 ml OU AMPM SHAHEED Enoxaparin Sodium (Lovenox) 40 mg SC DAILY SHAHEED Furosemide (Lasix) 40 mg IVP DAILY SHAHEED Home Med (Home Med) 1 unit PO DAILY SHAHEED Home Med (Home Med) 1 unit PO DAILY SHAHEED Home Med (Home Med) 1 unit PO DAILY SHAHEED Home Med (Home Med) 1 unit PO DAILY SHAHEED Latanoprost (Xalatan Opht) 0.05 ml OU HS SHAHEED Losartan Potassium (Cozaar) 100 mg PO DAILY SHAHEED Metoprolol Succinate (Toprol Xl) 25 mg PO DAILY SHAHEED Pneumococcal Polyvalent Vaccine (Pneumovax 23 Vaccine) 0.5 ml IM .ONCE ONE Stop: 12/04/17 10:01 - Labs Labs: 12/03/17 01:17 12/03/17 06:36 - Constitutional Appears: Non-toxic, No Acute Distress - Head Exam Head Exam: ATRAUMATIC, NORMAL INSPECTION - Eye Exam Eye Exam: EOMI. absent: Scleral icterus Pupil Exam: PERRL - ENT Exam ENT Exam: Mucous Membranes Moist - Neck Exam Neck Exam: Full ROM - Respiratory Exam Respiratory Exam: Clear to Ausculation Bilateral, NORMAL BREATHING PATTERN - Cardiovascular Exam Cardiovascular Exam: Tachycardia, +S1, +S2 - GI/Abdominal Exam GI & Abdominal Exam: Soft, Normal Bowel Sounds. absent: Tenderness - Extremities Exam Extremities Exam: Pedal Edema (3+ pitting edema), Tenderness - Back Exam Back Exam: absent: CVA tenderness (L), CVA tenderness (R) - Neurological Exam Neurological Exam: Alert, Awake, Oriented x3 - Psychiatric Exam Psychiatric exam: Normal Affect - Skin Skin Exam: Normal Color (except lower legs as described), Warm Assessment and Plan - Assessment and Plan (Free Text) Plan: HFrEF (Combined CHF exacerbation) Admit on tele Dr. Nguyễn, Cardio Weight Analyst -further evaluation for ICD at last admission in July 2017 - Stress test (08/19/17): EF 21%, global hypokinesis of LV, No ischemia, Dilated cardiomyopathy f/u reccs Troponin negative x 1; f/u x 2 Echo (08/19/17): LV mod dilated, LV severely impaired - EF 10-15%, Grade II filling dynamics, Mild to moderate AR, Mild to moderate MR, Severe pulm HTN EKG (12/03/17): NSR @ 96 bpm; No acute ST changes; Q wave CXR (12/03/17): NAD. Scattered nodular densities in both upper lobes. CT scan for further eval on nonemergent basis. (See full report) Lasix 40mg IV daily HOLD Cozaar 100mg PO daily Lopressor 25 mg PO daily Leg Edema Etiology: most likely 2/2 to chf with chronic venous stasis changes f/u dopplers to R/o DVT GINNA Dr. Chang's group consulted, help appreciated Baseline Cr 1.3, 2 on admission HOLD Cozaar due to pt Cr Glaucoma Dorzolamide drop Brimonidine drop Constipation Colace 100mg PO TID Prophylactic Measures Lovenox 40mg SC daily Pepcid 20mg PO BID SCD C/I Heart healthy diet Disposition: continue diuresis, f/u venous dopplers. f/u trop/ekg x 2. await nephro/cardio consultations. f/u pt speaking w/ [facility] for possible transfer. Vladimir Daily PGY-2 All medical management per Dr. Dean
[2017-12-03] MEDS ORDERED: Home Med 1 UNIT PO SCH ×4 (10:00)
[2017-12-03] MEDS: Dorzolamide 2% Opht Sol 10ml OU SCH ×2 (10:56→18:46)
[2017-12-03] MEDS: Metoprolol Succinate 25 mg XL Tab PO SCH (10:58)
[2017-12-03] MEDS: Brimonidine 0.2% Opth Sol (5ml) OU SCH ×4 (10:58→19:00)
[2017-12-03] MEDS: Enoxaparin 40 mg Syringe SC SCH (10:59)
--- NOTE | 2017-12-03 12:29 | CP.PCM.CON ---
History of Present Illness - History of Present Illness History of Present Illness: 77 year old with dilated ICM, presented with CHF clinically, EST Echo with EF 20 % 08/13, no ischemia improved with medical treatment, yet refused ICD, non compliant with water and NA restriction, admitted with knee pain, after a full, f/u with ortho continue meds, that should include beta kirsten and NICOLE inhibitor , fluid and NA restriction. Daily weights, instruction for further management Review of Systems - Review of Systems Systems not reviewed;Unavailable: Unstable Vital Signs - Constitutional Constitutional: Anorexia, Weakness - EENT Eyes: absent: Discharge Ears: absent: Ear Discharge, Dizziness Nose/Mouth/Throat: absent: Epistaxis - Cardiovascular Cardiovascular: Dyspnea, Leg Edema, Pedal Edema. absent: Acrocyanosis, Diaphoresis, Palpitations, Syncope - Respiratory Respiratory: Dyspnea. absent: Cough, Hemoptysis - Gastrointestinal Gastrointestinal: absent: Abdominal Pain, Diarrhea, Dysphagia, Hematochezia, Nausea, Vomiting - Genitourinary Genitourinary: absent: Change in Urinary Stream Past Patient History - Infectious Disease Hx of Infectious Diseases: None - Past Medical History & Family History Past Medical History?: Yes - Past Social History Smoking Status: Never Smoked - CARDIAC Hx Congestive Heart Failure: Yes Hx Hypertension: Yes - HEENT Hx HEENT Problems: Yes Hx Glaucoma: Yes Other/Comment: Glaucoma both eyes - MUSCULOSKELETAL/RHEUMATOLOGICAL Hx Falls: Yes - GENITOURINARY/GYNECOLOGICAL Hx Genitourinary Disorders: Yes Hx Prostate Problems: Yes - PSYCHIATRIC Hx Substance Use: No - SURGICAL HISTORY Hx Surgeries: Yes Hx Herniorrhaphy: Yes Hx Orthopedic Surgery: Yes (LEFT KNEE) - ANESTHESIA Hx Anesthesia: Yes Hx Anesthesia Reactions: No Hx Malignant Hyperthermia: No Meds Allergies/Adverse Reactions: Allergies Allergy/AdvReac Type Severity Reaction Status Date / Time No Known Allergies Allergy Verified 12/03/17 00:20 - Medications Medications: Current Medications Brimonidine Tartrate (Alphagan 0.2% Opht) 0.05 ml OU TID [facility] Last Admin: 12/03/17 10:58 Dose: 1 drop Docusate Sodium (Colace) 100 mg PO BID PRN PRN Reason: Constipation Dorzolamide HCl (Trusopt) 0.05 ml OU AMPM [facility] Last Admin: 12/03/17 10:56 Dose: 1 drop Enoxaparin Sodium (Lovenox) 40 mg SC DAILY [facility] Last Admin: 12/03/17 10:59 Dose: 40 mg Furosemide (Lasix) 40 mg IVP DAILY [facility] Last Admin: 12/03/17 10:58 Dose: 40 mg Home Med (Home Med) 1 unit PO DAILY [facility] Home Med (Home Med) 1 unit PO DAILY [facility] Home Med (Home Med) 1 unit PO DAILY [facility] Home Med (Home Med) 1 unit PO DAILY [facility] Latanoprost (Xalatan Opht) 0.05 ml OU HS [facility] Losartan Potassium (Cozaar) 100 mg PO HS [facility] Metoprolol Succinate (Toprol Xl) 25 mg PO DAILY [facility] Last Admin: 12/03/17 10:58 Dose: 25 mg Pneumococcal Polyvalent Vaccine (Pneumovax 23 Vaccine) 0.5 ml IM .ONCE ONE Stop: 12/04/17 10:01 Physical Exam - Constitutional Appears: Non-toxic - Head Exam Head Exam: ATRAUMATIC - Eye Exam Eye Exam: EOMI - ENT Exam ENT Exam: Mucous Membranes Moist - Neck Exam Neck exam: Negative for: Lymphadenopathy, Thyromegaly - Respiratory Exam Respiratory Exam: Clear to Auscultation Bilateral, Rales, Wheezes - Cardiovascular Exam Cardiovascular Exam: REGULAR RHYTHM, Systolic Murmur - GI/Abdominal Exam GI & Abdominal Exam: Normal Bowel Sounds. absent: Organomegaly - Rectal Exam Rectal Exam: Deferred - Extremities Exam Extremities exam: Positive for: normal capillary refill. Negative for: calf tenderness - Neurological Exam Neurological exam: Alert, Oriented x3 - Psychiatric Exam Psychiatric exam: Normal Mood - Skin Skin Exam: Dry Results - Vital Signs Recent Vital Signs: Last Vital Signs Temp 98.0 F 12/03/17 07:35 Pulse 101 H 12/03/17 08:00 Resp 20 12/03/17 07:35 BP 108/76 12/03/17 10:58 Pulse Ox 98 12/03/17 07:35 - Labs Result Diagrams: 12/03/17 01:17 12/03/17 06:36 Labs: Laboratory Results - last 24 hr 12/03/17 12/03/17 12/03/17 01:17 01:36 03:01 WBC 5.8 D RBC 3.96 L Hgb 13.8 Hct 43.2 MCV 108.9 H D MCH 34.9 H MCHC 32.1 L RDW 18.5 H Plt Count 160 MPV 9.7 Neut % (Auto) 82.6 H Lymph % (Auto) 11.4 L [place] % (Auto) 5.9 Eos % (Auto) 0.0 Baso % (Auto) 0.1 Neut # (Auto) 4.8 Lymph # (Auto) 0.7 L [place] # (Auto) 0.3 Eos # (Auto) 0.0 Baso # (Auto) 0.0 Sodium 142 Potassium 4.7 Chloride 108 H Carbon Dioxide 17 L Anion Gap 21 H BUN 59 H Creatinine 2.1 H Est GFR ( Amer) 37 Est GFR (Non-Af Amer) 31 Random Glucose 98 Calcium 9.6 Total Bilirubin 5.1 H AST 57 ALT 21 D Alkaline Phosphatase 64 Troponin I NT-Pro-B Natriuret Pep Total Protein 7.0 Albumin 3.5 Globulin 3.5 Albumin/Globulin Ratio 1.0 Urine Color [place]lla Urine Clarity Hazy Urine pH 5.0 Ur Specific [place] 1.018 Urine Protein 1+ H Urine Glucose (UA) Normal Urine Ketones Negative Urine Blood Negative Urine Nitrate Negative Urine Bilirubin Negative Urine Urobilinogen 2.0 Ur Leukocyte Esterase Neg Urine WBC (Auto) 1 Urine RBC (Auto) < 1 Ur Squamous Epith Cells 1 Hyaline Casts 3-5 H 18 12/03/17 03:07 06:36 WBC RBC Hgb Hct MCV MCH MCHC RDW Plt Count MPV Neut % (Auto) Lymph % (Auto) [place] % (Auto) Eos % (Auto) Baso % (Auto) Neut # (Auto) Lymph # (Auto) [place] # (Auto) Eos # (Auto) Baso # (Auto) Sodium 141 Potassium 4.3 Chloride 106 Carbon Dioxide 23 Anion Gap 17 BUN 61 H Creatinine 2.0 H Est GFR ( Amer) 40 Est GFR (Non-Af Amer) 33 Random Glucose 102 Calcium 9.6 Total Bilirubin 4.7 H AST 41 ALT 32 Alkaline Phosphatase 62 Troponin I 0.1120 NT-Pro-B Natriuret Pep 39123 H Total Protein 6.4 Albumin 3.0 L Globulin 3.4 Albumin/Globulin Ratio 0.9 L Urine Color Urine Clarity Urine pH Ur Specific [place] Urine Protein Urine Glucose (UA) Urine Ketones Urine Blood Urine Nitrate Urine Bilirubin Urine Urobilinogen Ur Leukocyte Esterase Urine WBC (Auto) Urine RBC (Auto) Ur Squamous Epith Cells Hyaline Casts Assessment & Plan (1) Acute CHF Status: Acute Comment: Acute over chronic left ventricular systolic heart failure, nonischemic my stress test, on medical management, noncompliant with office visits and diet, refusing ICD.
[2017-12-03] MEDS: Latanoprost 2.5 ml Opht Soln OU SCH (22:19)
--- NOTE | 2017-12-04 02:54 | CP.PCM.PCO ---
Physician Communication Note - Physician Communication Note Physician Communication Note: 10 runs of v tach Assessment & Plan - Assessment and Plan (Free Text) Assessment: Nurse called about patient having 10 runs of v tach on tele monitor. Patient a symptomatic. vital signs checked at the time were BP 110/74, 20 resp and saturating normally. Patient returned to NSR. Will order EKG. - Date & Time Date: 12/04/17 Time: 02:54
[2017-12-04 07:58] LABS: BASO % 0.1 % (0.0-2.0); EOS % 0.1 % (0.0-4.0); HEMOGLOBIN 13.2 g/dL (12.0-18.0); LYMPH # 0.4 K/uL (1.0-4.3); LYMPH % 13.5 % (20.0-40.0); MEAN CORPUSCULAR HEMOGLOBIN 35.2 pg (27.0-31.0); MEAN CORPUSCULAR HGB CONC 34.1 g/dL (33.0-37.0); MEAN PLATELET VOLUME 9.9 fL (7.2-11.7); MONO # 0.1 K/uL (0.0-0.8); MONO % 4.4 % (0.0-10.0); NEUT # 2.3 K/uL (1.8-7.0); NEUT % 81.9 % (50.0-75.0); NRBC % 0.2 % (0.0-2.0); RBC 3.76 Mil/uL (4.40-5.90); RED CELL DISTRIBUTION WIDTH 17.2 % (11.5-14.5)
[2017-12-04 08:02] LABS: MEAN CELL VOLUME 103.1 fL (80.0-94.0); WHITE BLOOD COUNT 2.8 K/uL (4.8-10.8)
[2017-12-04 08:33] LABS: CALCIUM 9.2 mg/dl (8.6-10.4)
[2017-12-04 08:41] LABS: CK-MB 2.17 ng/mL (0.0-3.38)
[2017-12-04 08:46] LABS: TROPONIN I 0.109 ng/mL (0.00-0.120)
[2017-12-04] MEDS ORDERED: Pneumococcal 23-Valent Vaccine IM ONE (10:00)
--- NOTE | 2017-12-04 10:39 | CP.PCM.CON ---
History of Present Illness - History of Present Illness History of Present Illness: 77 year old with dilated ICM, presented with CHF clinically, EST Echo with EF 20 % 08/13, no ischemia improved with medical treatment, yet refused ICD, non compliant with water and NA restriction, admitted with knee pain, after a fall, to f/u with ortho, continue meds, that should include beta kirsten and NICOLE inhibitor, fluid and NA restriction. Daily weights, instruction for further management Has h/o CKD, denies DM, HTN. now s/p venous dopplers- neg for DVT poor historian otherwise Review of Systems - Constitutional Constitutional: Fatigue, Weight Gain, Weakness - EENT Eyes: absent: As Per HPI, Blind Spots, Blurred Vision, Change in Vision, Decreased Night Vision, Diplopia, Discharge, Dry Eye, Exophthalmos, Floaters, Irritation, Itchy Eyes, Loss of Peripheral Vision, Pain, Photophobia, Requires Corrective Lenses, Sees Flashes, Spots in Vision, Tunnel Vision, Other Visual Disturbances, Loss of Vision, Other Ears: absent: As Per HPI, Decreased Hearing, Ear Discharge, Ear Pain, Tinnitus, Abnormal Hearing, Disequilibrium, Dizziness, Other Nose/Mouth/Throat: absent: As Per HPI, Epistaxis, Nasal Congestion, Nasal Discharge, Nasal Obstruction, Nasal Trauma, Nose Pain, Post Nasal Drip, Sinus Pain, Sinus Pressure, Bleeding Gums, Change in Voice, Dental Pain, Dry Mouth, Dysphagia, Halitosis, Hoarsness, Lip Swelling, Mouth Lesions, Mouth Pain, Odynophagia, Sore Throat, Throat Swelling, Tongue Swelling, Facial Pain, Neck Pain, Neck Mass, Other - Cardiovascular Cardiovascular: Dyspnea on Exertion, Orthopnea, Pedal Edema - Respiratory Respiratory: Cough, Dyspnea on Exertion - Gastrointestinal Gastrointestinal: Constipation, Early Satiety - Genitourinary Genitourinary: Change in Urinary Stream - Musculoskeletal Musculoskeletal: Muscle Weakness, Myalgias, Neck Pain - Neurological Neurological: Confusion, Frequent Falls Past Patient History - Infectious Disease Hx of Infectious Diseases: None - Past Medical History & Family History Past Medical History?: Yes - Past Social History Smoking Status: Never Smoked Chewing Tobacco Use: No Cigar Use: No Alcohol: None Drugs: Denies - CARDIAC Hx Congestive Heart Failure: Yes Hx Hypertension: Yes - HEENT Hx HEENT Problems: Yes Hx Glaucoma: Yes Other/Comment: Glaucoma both eyes - MUSCULOSKELETAL/RHEUMATOLOGICAL Hx Falls: Yes - GENITOURINARY/GYNECOLOGICAL Hx Genitourinary Disorders: Yes Hx Prostate Problems: Yes - PSYCHIATRIC Hx Substance Use: No - SURGICAL HISTORY Hx Surgeries: Yes Hx Herniorrhaphy: Yes Hx Orthopedic Surgery: Yes (LEFT KNEE) - ANESTHESIA Hx Anesthesia: Yes Hx Anesthesia Reactions: No Hx Malignant Hyperthermia: No Meds Allergies/Adverse Reactions: Allergies Allergy/AdvReac Type Severity Reaction Status Date / Time No Known Allergies Allergy Verified 12/03/17 00:20 - Medications Medications: Current Medications Brimonidine Tartrate (Alphagan 0.2% Opht) 0.05 ml OU TID [facility] Last Admin: 12/03/17 19:00 Dose: Not Given Docusate Sodium (Colace) 100 mg PO BID PRN PRN Reason: Constipation Dorzolamide HCl (Trusopt) 0.05 ml OU AMPM [facility] Last Admin: 12/03/17 18:46 Dose: 1 drop Enoxaparin Sodium (Lovenox) 40 mg SC DAILY [facility] Last Admin: 12/03/17 10:59 Dose: 40 mg Furosemide (Lasix) 40 mg IVP DAILY [facility] Last Admin: 12/03/17 12:43 Dose: Not Given Latanoprost (Xalatan Opht) 0.05 ml OU HS [facility] Last Admin: 12/03/17 22:19 Dose: 0.05 ml Losartan Potassium (Cozaar) 100 mg PO HS [facility] Metoprolol Succinate (Toprol Xl) 25 mg PO DAILY [facility] Last Admin: 12/03/17 10:58 Dose: 25 mg Pneumococcal Polyvalent Vaccine (Pneumovax 23 Vaccine) 0.5 ml IM .ONCE ONE Stop: 12/06/17 10:01 Physical Exam - Head Exam Head Exam: ATRAUMATIC, NORMAL INSPECTION - Eye Exam Eye Exam: EOMI, Normal appearance - Neck Exam Neck exam: Positive for: Normal Inspection. Negative for: Tenderness - Respiratory Exam Respiratory Exam: Rhonchi, Respiratory Distress - Cardiovascular Exam Cardiovascular Exam: REGULAR RHYTHM, +S1, Systolic Murmur - GI/Abdominal Exam GI & Abdominal Exam: Soft. absent: Tenderness - Extremities Exam Extremities exam: Positive for: pedal edema, tenderness - Neurological Exam Neurological exam: Alert, CN II-XII Intact - Skin Skin Exam: Dry, Warm Results - Vital Signs Recent Vital Signs: Last Vital Signs Temp 97.7 F 12/04/17 09:11 Pulse 99 H 12/04/17 09:11 Resp 20 12/04/17 09:11 BP 99/65 L 12/04/17 09:11 Pulse Ox 96 12/04/17 09:11 - Labs Result Diagrams: 12/04/17 07:16 12/04/17 07:16 Labs: Laboratory Results - last 24 hr 12/03/17 12/03/17 12/04/17 14:21 20:53 07:16 WBC RBC Hgb Hct MCV MCH MCHC RDW Plt Count MPV Neut % (Auto) Lymph % (Auto) [place] % (Auto) Eos % (Auto) Baso % (Auto) Neut # (Auto) Lymph # (Auto) [place] # (Auto) Eos # (Auto) Baso # (Auto) Sodium 141 Potassium 5.5 H Chloride 105 Carbon Dioxide 24 Anion Gap 17 BUN 65 H Creatinine 1.8 H Est GFR ( Amer) 45 Est GFR (Non-Af Amer) 37 Random Glucose 60 L Calcium 9.2 Magnesium 2.7 H Total Creatine Kinase 94 CK-MB (Mass) 2.17 Troponin I 0.1160 0.1140 0.1090 12/04/17 07:16 WBC 2.8 L D RBC 3.76 L Hgb 13.2 Hct 38.8 MCV 103.1 H D MCH 35.2 H MCHC 34.1 RDW 17.2 H Plt Count 177 MPV 9.9 Neut % (Auto) 81.9 H Lymph % (Auto) 13.5 L [place] % (Auto) 4.4 Eos % (Auto) 0.1 Baso % (Auto) 0.1 Neut # (Auto) 2.3 Lymph # (Auto) 0.4 L [place] # (Auto) 0.1 Eos # (Auto) 0.0 Baso # (Auto) 0.0 Sodium Potassium Chloride Carbon Dioxide Anion Gap BUN Creatinine Est GFR ( Amer) Est GFR (Non-Af Amer) Random Glucose Calcium Magnesium Total Creatine Kinase CK-MB (Mass) Troponin I Assessment & Plan (1) Hyperkalemia Status: Acute (2) Cardiorenal disease Status: Acute (3) CKD (chronic kidney disease) stage 3, GFR 30-59 ml/min Status: Acute - Assessment and Plan (Free Text) Plan: rx with diuretics hold NICOLE agents for now as K elevated rx hyperkalemia renal US cardio eval
[2017-12-04] MEDS: Dorzolamide 2% Opht Sol 10ml OU SCH ×2 (10:56→19:33)
[2017-12-04] MEDS: Enoxaparin 40 mg Syringe SC SCH (10:56)
[2017-12-04] MEDS: Brimonidine 0.2% Opth Sol (5ml) OU SCH ×3 (10:56→19:33)
[2017-12-04] MEDS: Metoprolol Succinate 25 mg XL Tab PO SCH (10:56)
[2017-12-04] MEDS: Sod Polystyrene Sulf 15 gm/60 ml Susp PO ONE ×2 (11:17→12:26)
--- NOTE | 2017-12-04 14:57 | CP.PCM.PN ---
Subjective - Date & Time of Evaluation Date of Evaluation: 12/04/17 Time of Evaluation: 11:40 - Subjective Subjective: Progress Note for Dr. Dean Patient seen and examined at bedside. Overnight patient had 2 runs of v-tach (5 and 8 beats), patient was asymptomatic. Patient still reports of fatigue and bilateral LE swelling. Denies shortness of breath or chest pain. Patient refused to take lasix and Kayexalate today. Nursing staff and myself explained to the patient multiple times about the importance of these medication, given his worsening heart condition. Patient became agitated, stating that he does not understand and we are not listening to him. Patient demands to be transfer to [facility]. bark tanner and I explained to the patient in detailed that hospital transfer is not indicated at this time. Patient once again became agitated and wanting to make phone calls to arrange his own transportation with his insurance company. Both patient and I came to an agreement (with nursing staff as witness) if he wants to stay in this hospital, he will be compliant with our treatment plans. Objective - Vital Signs/Intake and Output Vital Signs (last 24 hours): Temp Pulse Resp BP Pulse Ox 97.7 F 102 H 20 95/60 L 96 12/04/17 09:11 12/04/17 12:30 12/04/17 09:11 12/04/17 10:55 12/04/17 09:11 Intake and Output: 12/04/17 12/04/17 06:59 18:59 Intake Total 400 Output Total 600 350 Balance -600 50 - Medications Medications: Current Medications Brimonidine Tartrate (Alphagan 0.2% Opht) 0.05 ml OU TID [facility] Last Admin: 12/04/17 14:28 Dose: 1 drop Docusate Sodium (Colace) 100 mg PO BID PRN PRN Reason: Constipation Dorzolamide HCl (Trusopt) 0.05 ml OU AMPM [facility] Last Admin: 12/04/17 10:56 Dose: 1 drop Enoxaparin Sodium (Lovenox) 40 mg SC DAILY [facility] Last Admin: 12/04/17 10:56 Dose: 40 mg Furosemide (Lasix) 40 mg IVP DAILY [facility] Last Admin: 12/04/17 10:56 Dose: Not Given Latanoprost (Xalatan Opht) 0.05 ml OU HS [facility] Last Admin: 12/03/17 22:19 Dose: 0.05 ml Losartan Potassium (Cozaar) 100 mg PO HS [facility] Metoprolol Succinate (Toprol Xl) 25 mg PO DAILY [facility] Last Admin: 12/04/17 10:56 Dose: Not Given Pneumococcal Polyvalent Vaccine (Pneumovax 23 Vaccine) 0.5 ml IM .ONCE ONE Stop: 12/06/17 10:01 - Labs Labs: 12/04/17 07:16 12/04/17 07:16 - Additional Findings Additional findings: - Constitutional Appears: Non-toxic, No Acute Distress - Head Exam Head Exam: ATRAUMATIC, NORMAL INSPECTION - Eye Exam Eye Exam: EOMI. absent: Scleral icterus Pupil Exam: PERRL - ENT Exam ENT Exam: Mucous Membranes Moist - Neck Exam Neck Exam: Full ROM - Respiratory Exam Respiratory Exam: Clear to Ausculation Bilateral, NORMAL BREATHING PATTERN - Cardiovascular Exam Cardiovascular Exam: Tachycardia, +S1, +S2 - GI/Abdominal Exam GI & Abdominal Exam: Soft, Normal Bowel Sounds. absent: Tenderness - Extremities Exam Extremities Exam: Pedal Edema (3+ pitting edema), Tenderness - Back Exam Back Exam: absent: CVA tenderness (L), CVA tenderness (R) - Neurological Exam Neurological Exam: Alert, Awake, Oriented x3 - Psychiatric Exam Psychiatric exam: Normal Affect - Skin Skin Exam: Warm, dry Assessment and Plan - Assessment and Plan (Free Text) Assessment: HFrEF (Combined CHF exacerbation) Admit on tele Dr. Nguyễn, Cardio Prison Officer -further evaluation for ICD at last admission in July 2017 -Stress test (08/19/17): EF 21%, global hypokinesis of LV, No ischemia, Dilated cardiomyopathy Troponin negative x 3 Echo (08/19/17): LV mod dilated, LV severely impaired - EF 10-15%, Grade II filling dynamics, Mild to moderate AR, Mild to moderate MR, Severe pulm HTN EKG (12/03/17): NSR @ 96 bpm; No acute ST changes; Q wave CXR (12/03/17): NAD. Scattered nodular densities in both upper lobes. CT scan for further eval on nonemergent basis. (See full report) Lasix 40mg IV daily HOLD Cozaar 100mg PO daily Lopressor 25 mg PO daily Poor prognosis, noncompliance Medical noncompliance Refusing Lasix and Kayexalate Patient insists on not understanding the treatment plan after explaining multiple times in layman's term Becomes agitated easily Suspecting impaired capacity to make informed decision Psychiatry consulted, Dr. Bermudez help appreciated CKD stage 3 Dr. Chang's group consulted, help appreciated Baseline Cr 1.3, 2 on admission HOLD Cozaar due to pt Cr Pending renal u/s Hyperkalemia Patient refused kayexalate Avoid NICOLE agents Follow up labs Leg Edema Etiology: most likely 2/2 to chf with chronic venous stasis changes Dopplers negative for DVT Glaucoma Dorzolamide drop Brimonidine drop Constipation Colace 100mg PO TID Prophylactic Measures Lovenox 40mg SC daily Pepcid 20mg PO BID SCD C/I Heart healthy diet Case discussed with attending physician All medical management per Dr. Dean
--- NOTE | 2017-12-04 15:44 | VASCLAB ---
PROCEDURE: Lower Extremity Venous Duplex Exam. HISTORY: Swelling, Pain in limb PRIORS: Lower extremity ultrasound dated 07/11/2017. TECHNIQUE: Bilateral common femoral, femoral, popliteal and posterior tibial, peroneal and great saphenous veins were evaluated. Flow was assessed with color Doppler, compressibility, assessment of phasic flow and augmentation response. Report prepared by SHIRA Lambert FINDINGS: RIGHT: 1. Common Femoral Vein: 1.1. Compressibility - Fully compressible: Thrombus - None : Flow - Phasic: Augmentation -Normal: Reflux - None. 2. Femoral Vein: 2.1. Compressibility - Fully compressible: Thrombus - None : Flow - Phasic: Augmentation -Normal: Reflux - None. 3. Popliteal Vein: 3.1. Compressibility - Fully compressible: Thrombus - None : Flow - Phasic: Augmentation -Normal: Reflux - None. 4. Posterior Tibial Vein: (distal view only) 4.1. Compressibility - Fully compressible: Thrombus - None: Flow - Phasic: Augmentation -Normal: Reflux - None. 5. Peroneal Vein: 5.1. Compressibility - Fully compressible: Thrombus - None: Flow - Phasic: Augmentation -Normal: Reflux - None. 6. Great Saphenous Vein: 6.1. Compressibility - Fully compressible: Thrombus - None: Flow - Phasic: Augmentation - Normal: Reflux - None. LEFT: 1. Common Femoral Vein: 1.1. Compressibility - Fully compressible: Thrombus - None: Flow - Phasic: Augmentation -Normal: Reflux - None. 2. Femoral Vein: 2.1. Compressibility - Fully compressible: Thrombus - None: Flow - Phasic: Augmentation -Normal: Reflux - None. 3. Popliteal Vein: 3.1. Compressibility - Fully compressible: Thrombus - None : Flow - Phasic: Augmentation -Normal: Reflux - None. 4. Posterior Tibial Vein: (distal view only) 4.1. Compressibility - Fully compressible: Thrombus - None: Flow - Phasic: Augmentation -Normal: Reflux - None. 5. Peroneal Vein: 5.1. Unable to visualize due to swelling. 6. Great Saphenous Vein: 6.1. Compressibility - Fully compressible: Thrombus - None: Flow - Phasic: Augmentation - Normal: Reflux - None. OTHER FINDINGS: Right: None significant. Left: None significant. IMPRESSION: Right: No evidence of deep or superficial vein thrombosis of the right lower extremity. Normal valve function noted of the right side. Left: No evidence of deep or superficial vein thrombosis of the left lower extremity. Normal valve function noted of the left side.
--- NOTE | 2017-12-04 17:19 | US ---
PROCEDURE: Ultrasound of the Kidneys HISTORY: Chronic kidney disease. COMPARISON: 07/09/2016 CT abdomen and pelvis. TECHNIQUE: Sonogram of the kidneys. FINDINGS: RIGHT KIDNEY: Measures: 4.9 x 4.7 x 10.4 cm. Normal size kidney, increased echogenicity compatible with medical renal disease. Calculus disease upper pole. Two small calculi none larger than 4 mm identified. Multiple simple renal cysts identified. LEFT KIDNEY: Measures: 5.2 x 5.3 x 11.2 cm. Echogenic left kidney consistent medical Renal disease midpole calculus 4 mm nonobstructing. OTHER FINDINGS: Small volume intra-abdominal ascites. IMPRESSION: No acute findings related to/accounting for the clinical presentation. Additional benign and/or incidental findings described above. Similar findings identified on prior CT scan of the abdomen 07/09/2016
--- NOTE | 2017-12-04 19:55 | CP.PCM.PN ---
Subjective - Date & Time of Evaluation Date of Evaluation: 12/04/17 Time of Evaluation: 14:00 - Subjective Subjective: less sob, had run of NSVT refusing ICD, poor compliance, poor prognosis Objective - Vital Signs/Intake and Output Vital Signs (last 24 hours): Temp Pulse Resp BP Pulse Ox 97.6 F 97 H 20 93/66 L 96 12/04/17 18:21 12/04/17 18:21 12/04/17 18:21 12/04/17 18:21 12/04/17 09:11 Intake and Output: 12/04/17 12/05/17 18:59 06:59 Intake Total 400 Output Total 350 Balance 50 - Medications Medications: Current Medications Brimonidine Tartrate (Alphagan 0.2% Opht) 0.05 ml OU TID [facility] Last Admin: 12/04/17 19:33 Dose: 1 drop Docusate Sodium (Colace) 100 mg PO BID PRN PRN Reason: Constipation Dorzolamide HCl (Trusopt) 0.05 ml OU AMPM [facility] Last Admin: 12/04/17 19:33 Dose: 1 drop Enoxaparin Sodium (Lovenox) 40 mg SC DAILY [facility] Last Admin: 12/04/17 10:56 Dose: 40 mg Furosemide (Lasix) 40 mg IVP DAILY [facility] Last Admin: 12/04/17 10:56 Dose: Not Given Latanoprost (Xalatan Opht) 0.05 ml OU HS [facility] Last Admin: 12/03/17 22:19 Dose: 0.05 ml Losartan Potassium (Cozaar) 100 mg PO [facility] Metoprolol Succinate (Toprol Xl) 25 mg PO DAILY [facility] Last Admin: 12/04/17 10:56 Dose: Not Given Pneumococcal Polyvalent Vaccine (Pneumovax 23 Vaccine) 0.5 ml IM .ONCE ONE Stop: 12/06/17 10:01 - Labs Labs: 12/04/17 07:16 12/04/17 07:16 - Constitutional Appears: Non-toxic - Head Exam Head Exam: ATRAUMATIC - Eye Exam Eye Exam: EOMI - ENT Exam ENT Exam: Mucous Membranes Moist - Neck Exam Neck Exam: absent: Lymphadenopathy, Thyromegaly - Respiratory Exam Respiratory Exam: Clear to Ausculation Bilateral. absent: Rales - Cardiovascular Exam Cardiovascular Exam: REGULAR RHYTHM, Murmur - GI/Abdominal Exam GI & Abdominal Exam: Normal Bowel Sounds. absent: Organomegaly - Rectal Exam Rectal Exam: Deferred - Extremities Exam Extremities Exam: Normal Capillary Refill. absent: Calf Tenderness - Neurological Exam Neurological Exam: Alert, Oriented x3 - Psychiatric Exam Psychiatric exam: Normal Mood - Skin Skin Exam: Dry Assessment and Plan (1) Acute CHF Assessment & Plan: dilated cardiomyopathy poor prognosis Status: Acute
[2017-12-04] MEDS ORDERED: Sod Polystyrene Sulf 15 gm/60 ml Susp PO ONE (20:51)
[2017-12-04] MEDS ORDERED: Calcium Gluconate 4.65 mEq/10 ml Inj IVP ONE (20:51)
[2017-12-04] MEDS: Latanoprost 2.5 ml Opht Soln OU SCH (21:30)
--- NOTE | 2017-12-04 22:12 | CARD ---
APPROVED REPORT EKG Measurement Heart [id number] ID [id number] <Conclusion> Normal sinus rhythm Left axis deviation Low voltage QRS Septal and inferior infarct, age undetermined Abnormal ECG
--- NOTE | 2017-12-04 22:18 | CARD ---
APPROVED REPORT EKG Measurement Heart [id number] <Conclusion> Sinus tachycardia Left axis deviation Low voltage QRS Anteroseptal infarct, age undetermined Abnormal ECG
--- NOTE | 2017-12-04 22:26 | CARD ---
APPROVED REPORT EKG Measurement Heart [id number] <Conclusion> Normal sinus rhythm Left axis deviation Anteroseptal infarct, age undetermined lateral ST abnormality, consider ischemia Abnormal ECG
--- NOTE | 2017-12-05 02:11 | CP.PCM.PCO ---
Physician Communication Note - Physician Communication Note Physician Communication Note: beats of V tach Assessment and Plan - Assessment and Plan (Free Text) Assessment: Paged about pt having 5 episodes of v tach overnight. pt was asymptomatic during the episode. Vital sings were as follows: 97.2, 87/50, 80. Patient denied having any CP, SOB. EKG was ordered which was unchanged from yesterdays EKG. Blood work from this morning showed hyperkalemia, hypermagnesemia. Patient given calcium gluconate and kayexelate.
[2017-12-05 06:19] LABS: HEMOGLOBIN 12.8 g/dL (12.0-18.0); MEAN CELL VOLUME 103.2 fL (80.0-94.0); MEAN CORPUSCULAR HGB CONC 33.9 g/dL (33.0-37.0); MEAN PLATELET VOLUME 10.1 fL (7.2-11.7); RBC 3.64 Mil/uL (4.40-5.90); RED CELL DISTRIBUTION WIDTH 17.5 % (11.5-14.5); WHITE BLOOD COUNT 2.3 K/uL (4.8-10.8)
[2017-12-05 06:37] LABS: IRON 38 ug/dL (49-181)
[2017-12-05 06:39] LABS: ALB/GLOB RATIO 0.9 (1.0-2.1); ALBUMIN 2.9 g/dL (3.5-5.0); CALCIUM 9.2 mg/dl (8.6-10.4)
[2017-12-05 06:45] LABS: TOTAL IRON BINDING CAPACITY 198 ug/dL (250-450)
[2017-12-05 06:48] LABS: % IRON SATURATION 19 (20-55)
[2017-12-05] MEDS: Brimonidine 0.2% Opth Sol (5ml) OU SCH ×3 (09:26→18:23)
[2017-12-05] MEDS: Dorzolamide 2% Opht Sol 10ml OU SCH ×2 (09:27→18:23)
[2017-12-05] MEDS: Metoprolol Succinate 25 mg XL Tab PO SCH (09:28)
[2017-12-05] MEDS: Enoxaparin 40 mg Syringe SC SCH (09:28)
--- NOTE | 2017-12-05 11:58 | PCM.PSYCH ---
Initial Psychiatric Evaluation - Initial Psychiatric Evaluation Type of Admission: Voluntary Legal Status: Capacity History of Present Illness and Precipitating Events: This is a 77 year old male brought in to the emergency department by [facility] with complaints of worsening shortness of breath and bilateral leg swelling. EST Echo with EF 20% 08/13, no ischemia improved with medical treatment, yet refused ICD. Patient was consulted to rule out depression. Patient reports anxiety and irritability because of her medical conditions. However he reports that he wants to know other treatment options, and that's why he refused to testing. He denies any feelings of hopelessness and helplessness. He denies any suicidal ideation or homicidal ideation. He denies any auditory or visual hallucinations or any paranoia. He denies any history of substance abuse. Current Medications: Active Medications Generic Name Dose Route Start Last Admin Trade Name Freq PRN Reason Stop Dose Admin Brimonidine Tartrate 0.05 ml 12/03/17 10:00 12/05/17 09:26 Alphagan 0.2% Opht OU 1 drop TID [facility] Administration Docusate Sodium 100 mg 12/03/17 04:34 Colace PO BID PRN Constipation Dorzolamide HCl 0.05 ml 12/03/17 10:00 12/05/17 09:27 Trusopt OU 1 drop AMPM [facility] Administration Enoxaparin Sodium 40 mg 12/03/17 10:00 12/05/17 09:28 Lovenox SC 40 mg DAILY [facility] Administration Furosemide 40 mg 12/03/17 10:00 12/05/17 09:28 Lasix IVP 40 mg DAILY [facility] Administration Latanoprost 0.05 ml 12/03/17 22:00 12/04/17 21:30 Xalatan Opht OU 0.05 ml HS [facility] Administration Losartan Potassium 100 mg 12/03/17 22:00 Cozaar PO HS [facility] Metoprolol Succinate 25 mg 12/05/17 10:00 12/05/17 09:28 Toprol Xl PO 25 mg DAILY [facility] Administration Pneumococcal Polyvalent Vaccine 0.5 ml 12/06/17 10:00 Pneumovax 23 Vaccine IM 12/06/17 10:01 .ONCE ONE Past Psychiatric History - Past Psychiatric History Previous Treatment History: None Pertinent Medical Hx (Current Medical&Sleep Prob, Allergies): Allergies Allergy/AdvReac Type Severity Reaction Status Date / Time No Known Allergies Allergy Verified 12/03/17 00:20 Alphagan 0.2% Opht 1 d TD DAILY 12/04/13 Azopt 5 ml 1 d BOTHEYES BID 12/04/13 Lumigan 2.5 ml 1 d PO HS 12/04/13 Furosemide [Lasix] 40 mg PO DAILY 09/15/16 Metoprolol Succinate 25 mg PO DAILY 09/15/16 Valsartan [Diovan] 160 mg PO DAILY 07/11/17 Review of Systems - Review of Systems All systems: reviewed and no additional remarkable complaints except - Psychiatric Psychiatric: Anxiety, Irritability. absent: Suicidal Ideation Mental Status Examination - Personal Presentation Personal Presentation: Looks stated age - Affect Affect: Constricted - Motor Activity Motor Activity: Calm - Reliability in Providing Information Reliability in Providing Information: Good - Speech Speech: Organized - Mood Mood: Anxious - Formal Thought Process Formal Thought Process: No Impairment - Obsessions/Compulsions Obsessions: No Compulsions: No - Cognitive Functions Orientation: Person, Place, Situation, Time Sensorium: Alert Attention/Concentration: Attentive Abstract Thinking: [place] Estimate of Intelligence: Below average Judgement: Intact, as evidence by: Good judgement, Intact, as evidence by: Insight regarding need for hospitalization - Risk Risk: Diminished functioning - Limitations Limitations: Living alone DSM 5 DX - DSM 5 DSM 5 Diagnosis: Anxiety disorder NOS - Recommended/Plan of Treatment Treatment Recommendations and Plan of Treatment: Pt psychiatrically stable and cleared for discharge. - Smoking Cessation Smoking Cessation Initiated: No
--- NOTE | 2017-12-05 12:53 | CP.PCM.PN ---
Subjective - Date & Time of Evaluation Date of Evaluation: 12/05/17 Time of Evaluation: 12:00 - Subjective Subjective: Less shortness of breath, noncompliance, refusing ICD. Objective - Vital Signs/Intake and Output Vital Signs (last 24 hours): Temp Pulse Resp BP Pulse Ox 97.3 F L 116 H 20 127/68 96 12/05/17 07:00 12/05/17 09:24 12/05/17 07:00 12/05/17 09:28 12/05/17 07:00 Intake and Output: 12/05/17 12/05/17 06:59 18:59 Intake Total 420 Output Total 750 Balance -330 - Medications Medications: Current Medications Aspirin (Aspirin Chewable) 81 mg PO DAILY [facility] Brimonidine Tartrate (Alphagan 0.2% Opht) 0.05 ml OU TID [facility] Last Admin: 12/05/17 09:26 Dose: 1 drop Docusate Sodium (Colace) 100 mg PO BID PRN PRN Reason: Constipation Dorzolamide HCl (Trusopt) 0.05 ml OU AMPM [facility] Last Admin: 12/05/17 09:27 Dose: 1 drop Enoxaparin Sodium (Lovenox) 40 mg SC DAILY [facility] Last Admin: 12/05/17 09:28 Dose: 40 mg Furosemide (Lasix) 40 mg IVP DAILY [facility] Last Admin: 12/05/17 09:28 Dose: 40 mg Latanoprost (Xalatan Opht) 0.05 ml OU HS [facility] Last Admin: 12/04/17 21:30 Dose: 0.05 ml Losartan Potassium (Cozaar) 100 mg PO [facility] Metoprolol Succinate (Toprol Xl) 25 mg PO DAILY [facility] Last Admin: 12/05/17 09:28 Dose: 25 mg Pneumococcal Polyvalent Vaccine (Pneumovax 23 Vaccine) 0.5 ml IM .ONCE ONE Stop: 12/06/17 10:01 Rosuvastatin Calcium (Crestor) 10 mg PO [facility] - Labs Labs: 12/05/17 06:10 12/05/17 06:10 - Constitutional Appears: Non-toxic - Head Exam Head Exam: ATRAUMATIC - Eye Exam Eye Exam: EOMI - ENT Exam ENT Exam: Mucous Membranes Moist - Neck Exam Neck Exam: absent: Lymphadenopathy, Thyromegaly - Respiratory Exam Respiratory Exam: Clear to Ausculation Bilateral, Rales - Cardiovascular Exam Cardiovascular Exam: REGULAR RHYTHM, Murmur - GI/Abdominal Exam GI & Abdominal Exam: Normal Bowel Sounds. absent: Organomegaly - Rectal Exam Rectal Exam: Deferred - Extremities Exam Extremities Exam: Calf Tenderness, Normal Capillary Refill, Pedal Edema - Neurological Exam Neurological Exam: Alert, Oriented x3 - Psychiatric Exam Psychiatric exam: Normal Mood - Skin Skin Exam: Dry Assessment and Plan (1) Acute CHF Status: Acute
--- NOTE | 2017-12-05 14:33 | CP.PCM.PN ---
<Laura Jefferson - Last Filed: 12/05/17 18:52> Subjective - Date & Time of Evaluation Date of Evaluation: 12/05/17 Time of Evaluation: 10:10 - Subjective Subjective: Progress Note for Dr. Aguillon Patient seen and examined at bedside. Once again patient had runs of v-tach overnight. Patient was asymptomatic. Currently patient complains of worsening bilateral lower extremity edema and fatigue. Patient has been taking medication as prescribed. Had an extensive discussed with the patient about his CHF prognosis if he becomes noncompliant with follow ups and recommendation from cardiology. Objective - Vital Signs/Intake and Output Vital Signs (last 24 hours): Temp Pulse Resp BP Pulse Ox 97.3 F L 116 H 20 127/68 96 12/05/17 07:00 12/05/17 09:24 12/05/17 07:00 12/05/17 09:28 12/05/17 07:00 Intake and Output: 12/05/17 12/05/17 06:59 18:59 Intake Total 420 Output Total 750 Balance -330 - Medications Medications: Current Medications Aspirin (Aspirin Chewable) 81 mg PO DAILY [facility] Brimonidine Tartrate (Alphagan 0.2% Opht) 0.05 ml OU TID [facility] Last Admin: 12/05/17 14:09 Dose: 1 drop Docusate Sodium (Colace) 100 mg PO BID PRN PRN Reason: Constipation Dorzolamide HCl (Trusopt) 0.05 ml OU AMPM [facility] Last Admin: 12/05/17 09:27 Dose: 1 drop Enoxaparin Sodium (Lovenox) 40 mg SC DAILY [facility] Last Admin: 12/05/17 09:28 Dose: 40 mg Furosemide (Lasix) 40 mg IVP DAILY [facility] Last Admin: 12/05/17 09:28 Dose: 40 mg Vancomycin/Sodium Chloride (Vancomycin 1 Gm/Ns 200 Ml) 1 gm in 200 mls @ 133.333 mls/hr IVPB Q24H [facility] PRN Reason: Protocol Stop: 12/10/17 15:31 Latanoprost (Xalatan Opht) 0.05 ml OU HS [facility] Last Admin: 12/04/17 21:30 Dose: 0.05 ml Losartan Potassium (Cozaar) 100 mg PO HS [facility] Metoprolol Succinate (Toprol Xl) 25 mg PO DAILY [facility] Last Admin: 12/05/17 09:28 Dose: 25 mg Pneumococcal Polyvalent Vaccine (Pneumovax 23 Vaccine) 0.5 ml IM .ONCE ONE Stop: 12/06/17 10:01 Rosuvastatin Calcium (Crestor) 10 mg PO HS [facility] - Labs Labs: 12/05/17 06:10 12/05/17 06:10 - Additional Findings Additional findings: - Constitutional Appears: Non-toxic, No Acute Distress - Head Exam Head Exam: ATRAUMATIC, NORMAL INSPECTION - Eye Exam Eye Exam: EOMI. absent: Scleral icterus Pupil Exam: PERRL - ENT Exam ENT Exam: Mucous Membranes Moist - Neck Exam Neck Exam: Full ROM - Respiratory Exam Respiratory Exam: Clear to Ausculation Bilateral, NORMAL BREATHING PATTERN - Cardiovascular Exam Cardiovascular Exam: Tachycardia, +S1, +S2 - GI/Abdominal Exam GI & Abdominal Exam: Soft, Normal Bowel Sounds. absent: Tenderness - Extremities Exam Extremities Exam: Pedal Edema (3+ pitting edema) in bilateral upper and lower extremities, abdomen. Tenderness - Back Exam Back Exam: absent: CVA tenderness (L), CVA tenderness (R) - Neurological Exam Neurological Exam: Alert, Awake, Oriented x3 - Psychiatric Exam Psychiatric exam: Normal Affect - Skin Skin Exam: Warm, bilateral thigh erythema suggesting underlying cellulitis Assessment and Plan - Assessment and Plan (Free Text) Assessment: HFrEF (Combined CHF exacerbation) -Telemetry -Cardiology Consulted, Dr. Nguyễn help appreciated -further evaluation for ICD at last admission in July 2017 -Stress test (08/19/17): EF 21%, global hypokinesis of LV, No ischemia, Dilated cardiomyopathy -Troponin negative x 3 -Echo (08/19/17): LV mod dilated, LV severely impaired - EF 10-15%, Grade II filling dynamics, Mild to moderate AR, Mild to moderate MR, Severe pulm HTN -EKG (12/03/17): NSR @ 96 bpm; No acute ST changes; Q wave -CXR (12/03/17): NAD. Scattered nodular densities in both upper lobes. CT scan for further eval on nonemergent basis. (See full report) -Lasix increased to 40mg IV BID -Lopressor 10 mg PO daily -Daily weight, ins & outs, fluid restriction Leg Edema Etiology: most likely 2/2 to chf with chronic venous stasis changes Dopplers negative for DVT Compression stockings LE elevation B/L LE cellulitis Start Vancomycin 1gm IV daily Start Zosyn 3.375gm IV Q6 Acute on Chronic kidney disease Dr. Chang's group consulted, help appreciated Baseline Cr 1.3, 2 on admission Renal U/S shows no acute findings related to clinical presentation HTN Metoprolol 25mg daily Cozaar 25mg daily TSH normal range ASA 81mg, Crestor 5mg Medical noncompliance Resolved Full capacity to make informed decision Psychiatry consulted, Dr. Bermudez help appreciated Hyperkalemia Stable, 4.0 today Continue to monitor Glaucoma Dorzolamide drop Brimonidine drop Prophylactic Measures Lovenox 40mg SC daily Pepcid 20mg PO BID <Jie Aguillon V - Last Filed: 12/05/17 22:56> Objective - Vital Signs/Intake and Output Vital Signs (last 24 hours): Temp Pulse Resp BP Pulse Ox 97.3 F L 75 22 132/98 H 100 12/05/17 16:00 12/05/17 16:29 12/05/17 16:00 12/05/17 16:00 12/05/17 16:29 Intake and Output: 12/05/17 12/06/17 18:59 06:59 Intake Total 450 Output Total 300 Balance 150 - Medications Medications: Current Medications Aspirin (Aspirin Chewable) 81 mg PO DAILY [facility] Brimonidine Tartrate (Alphagan 0.2% Opht) 0.05 ml OU TID [facility] Last Admin: 12/05/17 18:23 Dose: 1 drop Docusate Sodium (Colace) 100 mg PO BID PRN PRN Reason: Constipation Dorzolamide HCl (Trusopt) 0.05 ml OU AMPM [facility] Last Admin: 12/05/17 18:23 Dose: 1 drop Enoxaparin Sodium (Lovenox) 40 mg SC DAILY [facility] Last Admin: 12/05/17 09:28 Dose: 40 mg Furosemide (Lasix) 40 mg IVP Q12 [facility] Last Admin: 12/05/17 21:27 Dose: Not Given Vancomycin/Sodium Chloride (Vancomycin 1 Gm/Ns 200 Ml) 1 gm in 200 mls @ 133.333 mls/hr IVPB Q24H [facility] PRN Reason: Protocol Stop: 12/10/17 15:31 Last Admin: 12/05/17 18:24 Dose: 133.333 mls/hr Piperacillin Sod/Tazobactam Sod (Zosyn 3.375 Gm Iv Premix) 3.375 gm in 50 mls @ 100 mls/hr IVPB Q6H [facility] PRN Reason: Protocol Last Admin: 12/05/17 18:24 Dose: 100 mls/hr Latanoprost (Xalatan Opht) 0.05 ml OU HS [facility] Last Admin: 12/05/17 21:27 Dose: 0.05 ml Losartan Potassium (Cozaar) 25 mg PO DAILY [facility] Metoprolol Succinate (Toprol Xl) 25 mg PO DAILY [facility] Last Admin: 12/05/17 09:28 Dose: 25 mg Pneumococcal Polyvalent Vaccine (Pneumovax 23 Vaccine) 0.5 ml IM .ONCE ONE Stop: 12/06/17 10:01 Rosuvastatin Calcium (Crestor) 10 mg PO HS [facility] Last Admin: 12/05/17 21:27 Dose: 10 mg - Labs Labs: 12/05/17 06:10 12/05/17 06:10 Attending/Attestation - Attestation I have personally seen and examined this patient.: Yes I have fully participated in the care of the patient.: Yes I have reviewed all pertinent clinical information, including history, physical exam and plan: Yes Notes (Text): Hospitalist Service Covering Dr. Dean until 12/08 This is my first time meeting this patient. Patient comes in following 2 weeks history of bilateral leg swelling. Patient has noted history of noncompliance and has been recommended for AICD by his outpatient epic prelude analyst, Dr Nguyễn. Patient affirms he has refused it in the past and even now. I have explained to the patient that because his heart is weak he will back up fluids in his lungs, abdomen, and even legs. I have advised him he will need fluid restriction, to take his medications, and to heed the advice of his epic prelude analyst in regards to the AICD. Patient's edema is actually at the level of his abdomen and bilateral lower extremities to pit. Patient also has overlying redness over his skin and is quite painful for him on palpation. Will start IV abx to cover for overlying cellulitis. Assessment/Plan 1) Dilated Cardiomyopathy EF: 10-15% * Monitor on Telemetry * Cardiology Consulted, Dr. Nguyễn help appreciated * further evaluation for ICD at last admission in July 2017 * Stress test (1/23/18): EF 21%, global hypokinesis of LV, No ischemia, Dilated cardiomyopathy * Troponin negative x 3 * Echo (08/19/17): LV mod dilated, LV severely impaired - EF 10-15%, Grade II filling dynamics, Mild to moderate AR, Mild to moderate MR, Severe pulm HTN * EKG (12/03/17): NSR @ 96 bpm; No acute ST changes; Q wave * CXR (12/03/17): NAD. Scattered nodular densities in both upper lobes. CT scan for further eval on nonemergent basis. (See full report) * Patient noted to have ventricular tachycardia overnight was asymptomatic; patient refuses AICD today * Daily weight, ins & outs, fluid restriction * Increase lasix 40mg IV Q12H * Aspirin 81mg PO daily * Toprol XL 25mg PO daily * Cozaar 25mg PO daily * Crestor 5mg POqHS 2) Leg Edema * Etiology: most likely 2/2 to chf with chronic venous stasis changes * Dopplers negative for DVT * Compression stockings * LE elevation * Continue diuresis 3) B/L LE cellulitis * Start Vancomycin 1gm IV daily * Start Zosyn 2.25 IV Q 8Hours 4) Acute on Chronic kidney disease * Dr. Chang's group consulted, help appreciated * Baseline Cr 1.3, 2 on admission * Renal U/S shows no acute findings related to clinical presentation * Imrpoving 5) Hypertension * Metoprolol 25mg daily * Cozaar 25mg daily * TSH normal range 6) Medical noncompliance * Psychiatry consulted, Dr. Bermudez help appreciated * Full capacity to make informed decision 7) Hyperkalemia-->resolved * Stable, 4.0 today * Continue to monitor 8) Glaucoma Dorzolamide drop Brimonidine drop 9) Prophylactic Measures Lovenox 40mg SC daily Pepcid 20mg PO daily PT/OT eval Wound care
[2017-12-05] MEDS ORDERED: Piperacill/Tazo 3.375gm in Dex 3.375 GM/50 ML BAG IVPB SCH ×2 (15:00→17:00)
--- NOTE | 2017-12-05 15:04 | CP.PCM.PN ---
Subjective - Date & Time of Evaluation Date of Evaluation: 12/05/17 Time of Evaluation: 15:01 - Subjective Subjective: alert; agitated not dyspneic remains edematous creat same at 1.8 s/p runs of NSVT renal US consistent with CKD Dopplers neg for DVT has proteinuria Objective - Vital Signs/Intake and Output Vital Signs (last 24 hours): Temp Pulse Resp BP Pulse Ox 97.3 F L 116 H 20 127/68 96 12/05/17 07:00 12/05/17 09:24 12/05/17 07:00 12/05/17 09:28 12/05/17 07:00 Intake and Output: 12/05/17 12/05/17 06:59 18:59 Intake Total 420 Output Total 750 Balance -330 - Medications Medications: Current Medications Aspirin (Aspirin Chewable) 81 mg PO DAILY [facility] Brimonidine Tartrate (Alphagan 0.2% Opht) 0.05 ml OU TID [facility] Last Admin: 12/05/17 14:09 Dose: 1 drop Docusate Sodium (Colace) 100 mg PO BID PRN PRN Reason: Constipation Dorzolamide HCl (Trusopt) 0.05 ml OU AMPM [facility] Last Admin: 12/05/17 09:27 Dose: 1 drop Enoxaparin Sodium (Lovenox) 40 mg SC DAILY [facility] [place] Last Admin: 12/05/17 09:28 Dose: 40 mg Furosemide (Lasix) 40 mg IVP DAILY [facility] [place] Last Admin: 12/05/17 09:28 Dose: 40 mg Vancomycin/Sodium Chloride (Vancomycin 1 Gm/Ns 200 Ml) 1 gm in 200 mls @ 133.333 mls/hr IVPB Q24H [facility] PRN Reason: Protocol Stop: 12/10/17 15:31 Piperacillin Sod/Tazobactam Sod (Zosyn 3.375 Gm Iv Premix) 3.375 gm in 50 mls @ 100 mls/hr IVPB Q6H [facility] [place] PRN Reason: Protocol Latanoprost (Xalatan Opht) 0.05 ml OU HS [facility] [place] Last Admin: 12/04/17 21:30 Dose: 0.05 ml Losartan Potassium (Cozaar) 100 mg PO HS [facility] [place] Metoprolol Succinate (Toprol Xl) 25 mg PO DAILY [facility] [place] Last Admin: 12/05/17 09:28 Dose: 25 mg Pneumococcal Polyvalent Vaccine (Pneumovax 23 Vaccine) 0.5 ml IM .ONCE ONE Stop: 12/06/17 10:01 Rosuvastatin Calcium (Crestor) 10 mg PO HS [facility] - Labs Labs: 12/05/17 06:10 12/05/17 06:10 - Constitutional Appears: No Acute Distress, Chronically Ill - Head Exam Head Exam: ATRAUMATIC, NORMAL INSPECTION - Eye Exam Eye Exam: EOMI, Normal appearance - Neck Exam Neck Exam: Normal Inspection. absent: Tenderness - Respiratory Exam Respiratory Exam: Clear to Ausculation Bilateral, NORMAL BREATHING PATTERN - Cardiovascular Exam Cardiovascular Exam: REGULAR RHYTHM, +S1 - GI/Abdominal Exam GI & Abdominal Exam: Soft. absent: Tenderness - Neurological Exam Neurological Exam: Awake, CN II-XII Intact - Skin Skin Exam: Dry, Warm Assessment and Plan (1) Hyperkalemia Status: Acute (2) Cardiorenal disease Status: Acute (3) CKD (chronic kidney disease) stage 3, GFR 30-59 ml/min Status: Acute - Assessment and Plan (Free Text) Plan: Re-add ARB as K normalized Continue diuretics quantify protein excretion f/u chemistries
[2017-12-05] MEDS: Vancomycin 1 gm/NS 200 ml 1 GM/200 ML BAG IVPB SCH (18:24)
--- NOTE | 2017-12-05 19:27 | CARD ---
APPROVED REPORT EKG Measurement Heart [id number] <Conclusion> Sinus rhythm with premature supraventricular complexes Left axis deviation Low voltage QRS Cannot rule out Anteroseptal infarct, age undetermined Nonspecific ST segment abnormality Abnormal ECG
--- NOTE | 2017-12-05 19:28 | CARD ---
APPROVED REPORT EKG Measurement Heart [id number] [place] [id number] <Conclusion> Sinus tachycardia with premature atrial complexes Left axis deviation Low voltage QRS Cannot rule out Anteroseptal infarct, age undetermined Nonspecific ST segment abnormality Abnormal ECG
[2017-12-05] MEDS: Latanoprost 2.5 ml Opht Soln OU SCH (21:27)
[2017-12-05] MEDS ORDERED: Enoxaparin 30 mg Syringe SC SCH (22:58)
[2017-12-06] MEDS: Piperacill/Tazo 2.25gm in Dex 2.25 GM/50 ML BAG IVPB SCH ×3 (02:58→18:12)
[2017-12-06 06:36] LABS: HEMOGLOBIN 11.6 g/dL (12.0-18.0); MEAN CELL VOLUME 102.1 fL (80.0-94.0); MEAN CORPUSCULAR HEMOGLOBIN 34.8 pg (27.0-31.0); MEAN CORPUSCULAR HGB CONC 34.1 g/dL (33.0-37.0); MEAN PLATELET VOLUME 10.4 fL (7.2-11.7); RBC 3.32 Mil/uL (4.40-5.90); RED CELL DISTRIBUTION WIDTH 17.9 % (11.5-14.5); WHITE BLOOD COUNT 2.3 K/uL (4.8-10.8)
[2017-12-06 06:53] LABS: ALB/GLOB RATIO 0.8 (1.0-2.1); ALBUMIN 2.7 g/dL (3.5-5.0); CALCIUM 8.8 mg/dl (8.6-10.4)
[2017-12-06] MEDS ORDERED: Dextrose 50% SYRINGE Inj (50 ml) IV STA (07:04)
--- NOTE | 2017-12-06 08:51 | CP.PCM.PN ---
Subjective - Date & Time of Evaluation Date of Evaluation: 12/06/17 Time of Evaluation: 08:48 - Subjective Subjective: pt seen and examined in bed, no SOB at rest legs swollen says lasix does not work no chest pain or palpitations labs noted 24 hr urine collection in progress ROS- as per HPI, rest 10 point ROS negative Objective - Vital Signs/Intake and Output Vital Signs (last 24 hours): Temp Pulse Resp BP Pulse Ox 97.0 F L 96 H 20 102/70 95 12/06/17 08:13 12/06/17 08:13 12/06/17 08:13 12/06/17 08:13 12/06/17 08:13 Intake and Output: 12/06/17 12/06/17 06:59 18:59 Intake Total 370 Output Total 200 Balance 170 - Medications Medications: Current Medications Aspirin (Aspirin Chewable) 81 mg PO DAILY [facility] Brimonidine Tartrate (Alphagan 0.2% Opht) 0.05 ml OU TID [facility] Last Admin: 12/05/17 18:23 Dose: 1 drop Docusate Sodium (Colace) 100 mg PO BID PRN PRN Reason: Constipation Dorzolamide HCl (Trusopt) 0.05 ml OU AMPM [facility] Last Admin: 12/05/17 18:23 Dose: 1 drop Enoxaparin Sodium (Lovenox) 30 mg SC DAILY [facility] Furosemide (Lasix) 40 mg IVP Q12 [facility] Last Admin: 12/05/17 21:27 Dose: Not Given Vancomycin/Sodium Chloride (Vancomycin 1 Gm/Ns 200 Ml) 1 gm in 200 mls @ 133.333 mls/hr IVPB Q24H [facility] PRN Reason: Protocol Stop: 12/10/17 15:31 Last Admin: 12/05/17 18:24 Dose: 133.333 mls/hr Piperacillin Sod/Tazobactam Sod (Zosyn 2.25 Gm Iv Premix) 2.25 gm in 50 mls @ 100 mls/hr IVPB Q8H [facility] PRN Reason: Protocol Last Admin: 12/06/17 02:58 Dose: 100 mls/hr Latanoprost (Xalatan Opht) 0.05 ml OU HS [facility] Last Admin: 12/05/17 21:27 Dose: 0.05 ml Losartan Potassium (Cozaar) 25 mg PO DAILY [facility] Metoprolol Succinate (Toprol Xl) 25 mg PO DAILY [facility] Last Admin: 12/05/17 09:28 Dose: 25 mg Pneumococcal Polyvalent Vaccine (Pneumovax 23 Vaccine) 0.5 ml IM .ONCE ONE Stop: 12/06/17 10:01 Rosuvastatin Calcium (Crestor) 10 mg PO HS [facility] Last Admin: 12/05/17 21:27 Dose: 10 mg - Labs Labs: 12/06/17 06:32 12/06/17 06:32 - Constitutional Appears: Non-toxic, Chronically Ill - Head Exam Head Exam: ATRAUMATIC, NORMOCEPHALIC - Eye Exam Eye Exam: EOMI, PERRL - ENT Exam ENT Exam: Mucous Membranes Moist - Neck Exam Neck Exam: absent: Lymphadenopathy - Respiratory Exam Respiratory Exam: Clear to Ausculation Bilateral, Wheezes - Cardiovascular Exam Cardiovascular Exam: REGULAR RHYTHM, +S1, +S2 - GI/Abdominal Exam GI & Abdominal Exam: Soft. absent: Distended, Tenderness - Extremities Exam Extremities Exam: Pedal Edema. absent: Tenderness - Neurological Exam Neurological Exam: Alert, Awake, Oriented x3 - Psychiatric Exam Psychiatric exam: Depressed - Skin Skin Exam: Dry, Intact Assessment and Plan (1) Volume overload Status: Acute (2) CHF (congestive heart failure) Status: Acute (3) CKD (chronic kidney disease) stage 3, GFR 30-59 ml/min Status: Acute (4) Cardiorenal disease Status: Acute (5) Hyperkalemia Status: Acute - Assessment and Plan (Free Text) Plan: cr stable - monitor on low dose ARB continue lasix quantify proteinruia fluid restriction daily chemistry
[2017-12-06] MEDS ORDERED: Glucagon Recombinant 1 mg Inj IM PRN (09:06)
[2017-12-06] MEDS ORDERED: Pneumococcal 23-Valent Vaccine IM ONE (10:00)
[2017-12-06] MEDS: Metoprolol Succinate 25 mg XL Tab PO SCH (10:20)
[2017-12-06] MEDS: Dorzolamide 2% Opht Sol 10ml OU SCH ×2 (10:21→18:13)
[2017-12-06] MEDS: Brimonidine 0.2% Opth Sol (5ml) OU SCH ×3 (10:21→18:13)
--- NOTE | 2017-12-06 12:10 | RAD ---
HISTORY: CHF COMPARISON: No prior. FINDINGS: LUNGS: No active pulmonary disease. PLEURA: No significant pleural effusion identified, no pneumothorax apparent. CARDIOVASCULAR: Prominent cardiomegaly appears stable. No pulmonary vascular derangement appreciable. OSSEOUS STRUCTURES: No significant abnormalities. VISUALIZED UPPER ABDOMEN: Normal. OTHER FINDINGS: None. IMPRESSION: Stable cardiomegaly. No acute infiltrate bilaterally.
[2017-12-06] MEDS: Dextrose 50% SYRINGE Inj (50 ml) IVP PRN ×3 (12:16→20:51)
--- NOTE | 2017-12-06 12:56 | CP.PCM.PN ---
<Radha Brand - Last Filed: 12/06/17 12:53> Subjective - Date & Time of Evaluation Date of Evaluation: 12/06/17 Time of Evaluation: 09:00 - Subjective Subjective: Medicine Note for Hospitalist- Dr. Aguillon Patient was and seen and examined at bedside. Patient is lying in bed. No acute complaints. Denied fever, chills, headache, chest pain, abdominal pain, n/v/d/c/ , or urinary symptoms. Objective - Vital Signs/Intake and Output Vital Signs (last 24 hours): Temp Pulse Resp BP Pulse Ox 97.0 F L 96 H 20 102/70 95 12/06/17 08:13 12/06/17 08:13 12/06/17 08:13 12/06/17 10:19 12/06/17 08:13 Intake and Output: 12/06/17 12/06/17 06:59 18:59 Intake Total 370 Output Total 200 Balance 170 - Medications Medications: Current Medications Aspirin (Aspirin Chewable) 81 mg PO DAILY [facility] Last Admin: 12/06/17 10:19 Dose: 81 mg Brimonidine Tartrate (Alphagan 0.2% Opht) 0.05 ml OU TID [facility] Last Admin: 12/06/17 10:21 Dose: 1 drop Dextrose (Dextrose 50% Inj) 0 ml IVP .STAT PRN; Protocol PRN Reason: Hypoglycemia Protocol Last Admin: 12/06/17 12:16 Dose: 50 ml Dextrose (Glutose 15) 0 gm PO .ONCE PRN; Protocol PRN Reason: Hypoglycemia Protocol Docusate Sodium (Colace) 100 mg PO BID PRN PRN Reason: Constipation Dorzolamide HCl (Trusopt) 0.05 ml OU AMPM [facility] Last Admin: 12/06/17 10:21 Dose: 1 drop Enoxaparin Sodium (Lovenox) 30 mg SC DAILY [facility] Last Admin: 12/06/17 10:20 Dose: 30 mg Furosemide (Lasix) 40 mg IVP Q12 [facility] Last Admin: 12/06/17 10:19 Dose: 40 mg Glucagon (Glucagen Diagnostic Kit) 0 mg IM .STAT PRN; Protocol PRN Reason: Hypoglycemia Protocol Vancomycin/Sodium Chloride (Vancomycin 1 Gm/Ns 200 Ml) 1 gm in 200 mls @ 133.333 mls/hr IVPB Q24H [facility] PRN Reason: Protocol Stop: 12/10/17 15:31 Last Admin: 12/05/17 18:24 Dose: 133.333 mls/hr Piperacillin Sod/Tazobactam Sod (Zosyn 2.25 Gm Iv Premix) 2.25 gm in 50 mls @ 100 mls/hr IVPB Q8H [facility] PRN Reason: Protocol Last Admin: 12/06/17 10:38 Dose: 100 mls/hr Dextrose (Dextrose 5% In Water 1000 Ml) 1,000 mls @ 0 mls/hr IV .Q0M PRN; Protocol; Per Protocol PRN Reason: Hypoglycemia Protocol Latanoprost (Xalatan Opht) 0.05 ml OU HS [facility] Last Admin: 12/05/17 21:27 Dose: 0.05 ml Losartan Potassium (Cozaar) 25 mg PO DAILY [facility] Last Admin: 12/06/17 10:20 Dose: 25 mg Metoprolol Succinate (Toprol Xl) 25 mg PO DAILY [facility] Last Admin: 12/06/17 10:20 Dose: 25 mg Rosuvastatin Calcium (Crestor) 10 mg PO HS [facility] Last Admin: 12/05/17 21:27 Dose: 10 mg - Labs Labs: 12/06/17 06:32 12/06/17 06:32 - Additional Findings Additional findings: - Constitutional Appears: Non-toxic, No Acute Distress - Head Exam Head Exam: ATRAUMATIC, NORMAL INSPECTION - Eye Exam Eye Exam: EOMI. absent: Scleral icterus Pupil Exam: PERRL - ENT Exam ENT Exam: Mucous Membranes Moist - Neck Exam Neck Exam: Full ROM - Respiratory Exam Respiratory Exam: Clear to Ausculation Bilateral, NORMAL BREATHING PATTERN - Cardiovascular Exam Cardiovascular Exam: Tachycardia, +S1, +S2 - GI/Abdominal Exam GI & Abdominal Exam: Soft, Normal Bowel Sounds. absent: Tenderness - Extremities Exam Extremities Exam: Pedal Edema (3+ pitting edema) in bilateral upper and lower extremities, abdomen. Tenderness - Back Exam Back Exam: absent: CVA tenderness (L), CVA tenderness (R) - Neurological Exam Neurological Exam: Alert, Awake, Oriented x3 - Psychiatric Exam Psychiatric exam: Normal Affect - Skin Skin Exam: Warm, bilateral thigh erythema suggesting underlying cellulitis; edema bilaterally up to the upper thigh extending to the abdomen Assessment and Plan - Assessment and Plan (Free Text) Plan: 1) Dilated Cardiomyopathy EF: 10-15% * Monitor on Telemetry * Cardiology Consulted, Dr. Nguyễn help appreciated * further evaluation for ICD at last admission in July 2017 * Stress test (08/19/17): EF 21%, global hypokinesis of LV, No ischemia, Dilated cardiomyopathy * Troponin negative x 3 * Echo (08/19/17): LV mod dilated, LV severely impaired - EF 10-15%, Grade II filling dynamics, Mild to moderate AR, Mild to moderate MR, Severe pulm HTN * EKG (12/03/17): NSR @ 96 bpm; No acute ST changes; Q wave * CXR (12/03/17): NAD. Scattered nodular densities in both upper lobes. CT scan for further eval on nonemergent basis. (See full report) * Patient noted to have ventricular tachycardia overnight was asymptomatic; patient refuses AICD today * Daily weight, ins & outs, fluid restriction * Increase lasix 40mg IV Q12H * Aspirin 81mg PO daily * Toprol XL 25mg PO daily * Cozaar 25mg PO daily * Crestor 5mg POqHS 2) Leg Edema * Etiology: most likely 2/2 to chf with chronic venous stasis changes * Dopplers negative for DVT * Compression stockings * LE elevation * Continue diuresis 3) B/L LE cellulitis * Start Vancomycin 1gm IV daily * Start Zosyn 2.25 IV Q 8Hours 4) Acute on Chronic kidney disease * Dr. Chang's group consulted, help appreciated * Baseline Cr 1.3, 2 on admission * Renal U/S shows no acute findings related to clinical presentation * Imrpoving 5) Hypertension * Metoprolol 25mg daily * Cozaar 25mg daily * TSH normal range 6) Medical noncompliance * Psychiatry consulted, Dr. Bermudez help appreciated * Full capacity to make informed decision 7) Hyperkalemia-->resolved * Stable, 4.0 today * Continue to monitor 8) Glaucoma * Dorzolamide drop * Brimonidine drop 9) Prophylactic Measures * Lovenox 40mg SC daily * Pepcid 20mg PO daily * PT/OT eval * Wound care Disposition: Will speak to cardiology about possibly starting a IV diuretic to further diurese DW Radha Canseco DO, PGY-1 <Jie Aguillon V - Last Filed: 12/07/17 08:43> Objective - Vital Signs/Intake and Output Vital Signs (last 24 hours): Temp Pulse Resp BP Pulse Ox 97.0 F L 86 18 75/58 L 99 12/06/17 16:00 12/07/17 07:00 12/07/17 07:00 12/07/17 07:00 12/07/17 07:00 Intake and Output: 12/07/17 12/07/17 06:59 18:59 Intake Total 740 Output Total 151 Balance 589 - Medications Medications: Current Medications Aspirin (Aspirin Chewable) 81 mg PO DAILY [facility] Last Admin: 12/06/17 10:19 Dose: 81 mg Brimonidine Tartrate (Alphagan 0.2% Opht) 0.05 ml OU TID [facility] Last Admin: 12/06/17 18:13 Dose: 1 drop Dextrose (Dextrose 50% Inj) 0 ml IVP .STAT PRN; Protocol PRN Reason: Hypoglycemia Protocol Last Admin: 12/07/17 06:58 Dose: 50 ml Dextrose (Glutose 15) 0 gm PO .ONCE PRN; Protocol PRN Reason: Hypoglycemia Protocol Docusate Sodium (Colace) 100 mg PO BID PRN PRN Reason: Constipation Dorzolamide HCl (Trusopt) 0.05 ml OU AMPM [facility] Last Admin: 12/06/17 18:13 Dose: 1 drop Enoxaparin Sodium (Lovenox) 30 mg SC DAILY [facility] Last Admin: 12/06/17 10:20 Dose: 30 mg Furosemide (Lasix) 40 mg IVP Q12 [facility] Glucagon (Glucagen Diagnostic Kit) 0 mg IM .STAT PRN; Protocol PRN Reason: Hypoglycemia Protocol Vancomycin/Sodium Chloride (Vancomycin 1 Gm/Ns 200 Ml) 1 gm in 200 mls @ 133.333 mls/hr IVPB Q24H [facility] PRN Reason: Protocol Stop: 12/10/17 15:31 Last Admin: 12/06/17 16:34 Dose: 133.333 mls/hr Piperacillin Sod/Tazobactam Sod (Zosyn 2.25 Gm Iv Premix) 2.25 gm in 50 mls @ 100 mls/hr IVPB Q8H [facility] PRN Reason: Protocol Last Admin: 12/07/17 02:28 Dose: 100 mls/hr Dextrose (Dextrose 5% In Water 1000 Ml) 1,000 mls @ 0 mls/hr IV .Q0M PRN; Protocol; Per Protocol PRN Reason: Hypoglycemia Protocol Latanoprost (Xalatan Opht) 0.05 ml OU HS [facility] Last Admin: 12/06/17 22:33 Dose: 0.05 ml Losartan Potassium (Cozaar) 25 mg PO DAILY [facility] Metoprolol Succinate (Toprol Xl) 25 mg PO DAILY [facility] Last Admin: 12/06/17 10:20 Dose: 25 mg Rosuvastatin Calcium (Crestor) 10 mg PO HS [facility] Last Admin: 12/06/17 22:33 Dose: Not Given - Labs Labs: 12/06/17 06:32 12/06/17 06:32 Attending/Attestation - Attestation I have personally seen and examined this patient.: Yes I have fully participated in the care of the patient.: Yes I have reviewed all pertinent clinical information, including history, physical exam and plan: Yes Notes (Text): Hospitalist Service Covering Dr. Dean (until 12/08). This is my second time meeting this patient. Patient comes in following 2 weeks history of bilateral leg swelling. Patient has noted history of noncompliance and has been recommended for AICD by his outpatient flex o writer operator, Dr Nguyễn. Patient affirms he has refused it in the past and continues to refuse today. I have explained to the patient that because his heart is weak he will back up fluids in his lungs, abdomen, and even legs. I have advised him he will need fluid restriction, to take his medications, and to heed the advice of his flex o writer operator in regards to the AICD. Patient's edema is actually at the level of his abdomen and bilateral lower extremities to pit. It is decreasing but minimally. Patient refused Lasix overnight. Patient was hypoglycemic but asymptomatic. Patient does not want us to touch his legs though we have explained it is due to his heart. Patient also has overlying redness over his skin and is quite painful for him on palpation. Will start IV abx to cover for overlying cellulitis. Nephrology has ordered for 24 hour urine collection. Assessment/Plan 1) Dilated Cardiomyopathy EF: 10-15% * Monitor on Telemetry * Cardiology Consulted, Dr. Nguyễn help appreciated * further evaluation for ICD at last admission in July 2017 * Stress test (08/19/17): EF 21%, global hypokinesis of LV, No ischemia, Dilated cardiomyopathy * Troponin negative x 3 * Echo (08/19/17): LV mod dilated, LV severely impaired - EF 10-15%, Grade II filling dynamics, Mild to moderate AR, Mild to moderate MR, Severe pulm HTN * EKG (12/03/17): NSR @ 96 bpm; No acute ST changes; Q wave * CXR (12/03/17): NAD. Scattered nodular densities in both upper lobes. CT scan for further eval on nonemergent basis. (See full report) * Patient noted to have ventricular tachycardia two nights ago; asymptomatic; patient continues to refuse AICD today * Daily weight, ins & outs, fluid restriction * Increase lasix 40mg IV Q12H-->refused dose last night * Aspirin 81mg PO daily * Toprol XL 25mg PO daily-->hold secondary to hypotension * Cozaar 25mg PO daily * Crestor 5mg POqHS 2) Leg Edema * Etiology: most likely 2/2 to chf with chronic venous stasis changes * Dopplers negative for DVT * Compression stockings * LE elevation * Continue diuresis 3) B/L LE cellulitis * Start Vancomycin 1gm IV daily * Start Zosyn 2.25 IV Q 8Hours 4) Acute on Chronic kidney disease * Dr. Chang's group consulted, help appreciated * Baseline Cr 1.3, 2 on admission * Renal U/S shows no acute findings related to clinical presentation * ordered for 24hour urine collection 5) Hypertension * Metoprolol 25mg daily * Cozaar 25mg daily * TSH normal range 6) Medical noncompliance * Psychiatry consulted, Dr. Bermudez help appreciated * Full capacity to make informed decision 7) Hyperkalemia-->resolved * continue to monitor 8) Glaucoma Dorzolamide drop Brimonidine drop 9) Prophylactic Measures Lovenox 40mg SC daily Pepcid 20mg PO daily PT/OT eval Wound care
[2017-12-06] MEDS: Vancomycin 1 gm/NS 200 ml 1 GM/200 ML BAG IVPB SCH (16:34)
[2017-12-06] MEDS: Latanoprost 2.5 ml Opht Soln OU SCH (22:33)
[2017-12-07] MEDS: Dextrose 50% SYRINGE Inj (50 ml) IVP PRN ×5 (02:20→20:37)
[2017-12-07] MEDS: Piperacill/Tazo 2.25gm in Dex 2.25 GM/50 ML BAG IVPB SCH ×2 (02:28→11:17)
[2017-12-07 08:35] LABS: ARTERIAL BLOOD GAS HEMOGLOBIN 11.9 g/dL (11.7-17.4); ARTERIAL BLOOD GAS O2 SAT 99.6 % (95-98); ARTERIAL BLOOD GAS PCO2 26 mm/Hg (35-45); ARTERIAL BLOOD GAS PH 7.44 (7.35-7.45); ARTERIAL BLOOD GAS PO2 194 mm/Hg (80-100); ARTERIAL BLOOD GAS TCO2 18.5 mmol/L (22-28)
[2017-12-07 08:48] LABS: LYMPH # 0.2 K/uL (1.0-4.3); MONO # 0.1 K/uL (0.0-0.8)
[2017-12-07] MEDS ORDERED: DOPamine 400mg/250ml D5W 400 MG/250 ML BAG IV PRN (08:49)
[2017-12-07 08:53] LABS: BASO % 0.2 % (0.0-2.0); EOS % 0.2 % (0.0-4.0); HEMOGLOBIN 12.2 g/dL (12.0-18.0); LYMPH % 3.4 % (20.0-40.0); MEAN CELL VOLUME 100.6 fL (80.0-94.0); MEAN CORPUSCULAR HEMOGLOBIN 35.5 pg (27.0-31.0); MEAN CORPUSCULAR HGB CONC 35.3 g/dL (33.0-37.0); MEAN PLATELET VOLUME 10.2 fL (7.2-11.7); MONO % 1.7 % (0.0-10.0); NEUT # 5.6 K/uL (1.8-7.0); NEUT % 94.5 % (50.0-75.0); RBC 3.44 Mil/uL (4.40-5.90); RED CELL DISTRIBUTION WIDTH 17.8 % (11.5-14.5); WHITE BLOOD COUNT 5.9 K/uL (4.8-10.8)
[2017-12-07 08:55] LABS: PLATELET COUNT 60 K/uL (130-400)
[2017-12-07] MEDS ORDERED: DOBUTamine 500mg/250ml D5W 500 MG/250 ML BAG IV SCH (09:00)
[2017-12-07 09:06] LABS: ALB/GLOB RATIO 0.8 (1.0-2.1); ALBUMIN 2.6 g/dL (3.5-5.0); CALCIUM 8.3 mg/dl (8.6-10.4)
[2017-12-07 09:12] LABS: TROPONIN I 0.09 ng/mL (0.00-0.120)
[2017-12-07] MEDS ORDERED: Digoxin 500 mcg/2ml (0.5 mg/2ml) Inj IVP ONE (09:15)
--- NOTE | 2017-12-07 09:17 | PCM.RRT ---
BREAD DOUGH MIXER Nurses Assessment - Situation Date: 12/07/17 Time BREAD DOUGH MIXER was called: 07:45 BREAD DOUGH M[employer]ER Responder Arrival Time:: 07:46 BREAD DOUGH M[employer]ER Location:: Med/Surg Room Number: 664B [employer] Reason for Call: Hypotension BREAD DOUGH MIXER Called By: RN - IV IV Inserted during BREAD DOUGH MIXER?: No New IV Insertion Tolerance: Good - Respiratory BREAD DOUGH MIXER Delivery Method: Room Air Received Nebulizer Treatments: No Was the Patient Ventilated with Bag/Mask 100% O2?: No Secretions Suctioned?: No Was the Patient Intubated?: No Was the Patient Placed on a Ventilator?: No - Diagnostic Test Ordered EKG: Yes Chest X-Ray: No CT Scan: No - Stat Labs Ordered [employer]READ DOUGH MIXER Stat Labs Ordered: CBC, BMP, TROPONIN, ABG CPR started during BREAD DOUGH MIXER?: No - Vital Signs Vital Signs: Rapid Response Vital Sign Blood Pressure 78/54 Pulse Rate 83 Respiratory Rate 18 - Sepsis Screen Part 1 Sepsis Screen Part 1: Hypotensive - Time BREAD DOUGH MIXER Ended Time BREAD DOUGH MIXER Ended: 08:31 - Vital Signs at end of BREAD DOUGH MIXER Vital Signs at end of BREAD DOUGH MIXER: Rapid Response End Vital Sign Blood Pressure 78/58 Pulse Rate 83 - Recommendations 5) BREAD DOUGH MIXER Level of Care Recommendations: Transfer to ICU Notifications: Attending Physician I.Reason for BREAD DOUGH MIXER - A) Acute Change in Patient: (Select all that apply): Acute change in SBP below - Neurological Status (Select all that apply): Alert, Responsive, Oriented, Verbal, Follows Commands - Respiratory Oxygen Delivery Method: Room Air - Constitutional Appears: Non-toxic, No Acute Distress - Head Head Exam: NORMAL INSPECTION - Eyes Eye Exam: EOMI - Respiratory Exam Respiratory Exam: Decreased Breath Sounds, NORMAL BREATHING PATTERN. absent: Rhonchi, Wheezes, Respiratory Distress - Cardiovascular Exam Cardiovascular Exam: REGULAR RHYTHM, +S1, +S2 - GI/Abdominal Exam GI & Abdominal Exam: Soft, Normal Bowel Sounds. absent: Distended, Firm, Guarding, Rigid, Tenderness, Rebound Additional comments: pitting edema over the lower quadrants - Neurological Exam Neurological Exam: Alert, Awake, Oriented x3 - Extremities Exam Extremities Exam: Pedal Edema, Tenderness (+3 pitting b/l lower extremities up to the abdomen; erythematous) Plan - Assessment of Findings&Treatment Plan Reason called: hypotension Awaiting blood works from this morning result. Unable to give fluid bolus given patient is in acute heart failure at 10-15 percent ejection fraction with apparent edema over the abdomen and lower extremities. patient is aware and alert. Patient placed in [place]. Patient is yelling at us to not touch his legs. Blood pressure: 80s/50s and on repeat 79/50s. Blood pressure medications held. Patient's sugar is 102. Overnight, per nursing patient had urine output of 50cc. We have attempted tripp at bedside; but is swollen, and unable to see any urine out inspite of tripp insertion. in addition for bloodworks for the morning, ordered for LINUS and troponin and ABG. On insect control inspector, patient appears in sinus and no events overnight Critical care consult: patient is hypotension suspecting secondary to congestive heart failure. Patient transferred to critical care for further monitoring and pressors. Attending/Attestation - Attestation I have personally seen and examined this patient.: Yes I have fully participated in the care of the patient.: Yes I have reviewed all pertinent clinical information, including history, physical exam and plan: Yes Notes (Text): Patient was a rapid response for today. Patient had hypotension; blood pressure medications are held. Unable to give fluids since he is in acute CHF. Patient's mental status has not changed. Awake, alert, oriented X3. Patient is hard of hearing which is his baseline. Critical care consult for hypotension. Patient transferred to critical care unit. I have explained to the patient that because his heart is weak he will back up fluids in his lungs, abdomen, and even legs for the past couple of days. I have urged him that he will need a special IV lines to give him medications since his heart is weak. Patient is aware he is recommended for AICD, but has been refusing since I have been seeing him for the past couple of days. Nephrology has ordered for 24 hour urine collection. Nurse reports he is has noted unable to collect urine. Per nursing, patient reported to have 50 cc overnight. We have attempted to insert tripp on the floor but unable to get any return unclear if due to renal function or because is swollen over genitalia to allow for tripp to work. Assessment/Plan 1) Dilated Cardiomyopathy EF: 10-15% * Monitor on Telemetry--->transferred to ICU 12/07 given hypotension * Cardiology Consulted, Dr. Nguyễn help appreciated * further evaluation for ICD at last admission in July 2017 * Stress test (08/19/17): EF 21%, global hypokinesis of LV, No ischemia, Dilated cardiomyopathy * Troponin negative x 3 * Echo (08/19/17): LV mod dilated, LV severely impaired - EF 10-15%, Grade II filling dynamics, Mild to moderate AR, Mild to moderate MR, Severe pulm HTN * EKG (12/03/17): NSR @ 96 bpm; No acute ST changes; Q wave * CXR (12/03/17): NAD. Scattered nodular densities in both upper lobes. CT scan for further eval on nonemergent basis. (See full report) * Patient noted to have ventricular tachycardia two nights ago; asymptomatic; patient continues to refuse AICD today * Daily weight, ins & outs, fluid restriction * Increase lasix 40mg IV Q12H-->refused dose last night * Aspirin 81mg PO daily Held * Toprol XL 25mg PO daily-->hold secondary to hypotension * Cozaar 25mg PO daily * Crestor 5mg POqHS 2) Leg Edema * Etiology: most likely 2/2 to chf with chronic venous stasis changes * Dopplers negative for DVT * Compression stockings * LE elevation * Continue diuresis * Improving mildly 3) B/L LE cellulitis * Start Vancomycin 1gm IV daily * Start Zosyn 2.25 IV Q 8Hours 4) Acute on Chronic kidney disease * Dr. Chang's group consulted, help appreciated * Awaiting blood works from this morning * Renal U/S shows no acute findings related to clinical presentation * ordered for 24hour urine collection 5) Hypertension, history of * 12/07: blood pressure medications held secondary to hypotension * Metoprolol 25mg daily * Cozaar 25mg daily * TSH normal range 6) Medical noncompliance * Psychiatry consulted, Dr. Bermudez help appreciated * Full capacity to make informed decision 7) Hyperkalemia-->resolved * Awaiting blood works from this morning 8) Glaucoma * Dorzolamide drop * Brimonidine drop 9) Prophylactic Measures * Lovenox 30mg SC daily * Pepcid 20mg PO daily * PT/OT eval * Wound care * Fluid restriction * I and Os
[2017-12-07 09:47] VITALS: PULSE 82
[2017-12-07 10:32] LABS: ANISOCYTOSIS SLIGHT; BANDS 21 % (0-2); LYMPHOCYTE 11 % (20-40); METAMYELOCYTE 5 % (0-0); MONOCYTE 4 % (0-10); MYELOCYTE 1 % (0-0); NEUTROPHIL 58 % (50-75); PLATELET ESTIMATE DECREASED (NORMAL); TOTAL CELLS COUNTED 100
[2017-12-07 10:33] LABS: MICROCYTOSIS SLIGHT; POIKILOCYTOSIS MODERATE; POLYCHROMIC SLIGHT
[2017-12-07 10:34] LABS: BURR CELLS SLIGHT; OVALOCYTES MODERATE; SCHISTOCYTES SLIGHT; SPHEROCYTES SLIGHT
--- NOTE | 2017-12-07 10:39 | RAD ---
HISTORY: SOB COMPARISON: No prior. FINDINGS: LUNGS: No active pulmonary disease. PLEURA: No significant pleural effusion identified, no pneumothorax apparent. CARDIOVASCULAR: Prominent cardiomegaly is appears stable. No definite pulmonary vascular congestion. OSSEOUS STRUCTURES: Gross degenerative changes bilateral shoulders. VISUALIZED UPPER ABDOMEN: Normal. OTHER FINDINGS: None. IMPRESSION: Stable cardiomegaly. No acute pulmonary disease appreciable grossly.
[2017-12-07] MEDS: Dorzolamide 2% Opht Sol 10ml OU SCH ×2 (10:45→18:51)
[2017-12-07] MEDS: Brimonidine 0.2% Opth Sol (5ml) OU SCH ×3 (10:45→18:51)
--- NOTE | 2017-12-07 12:37 | PCM.PROC ---
Procedures Attestation:: I certify that I have explained the specified Operation(s) or Procedure(s), risks, benefits and reasonable alternatives to the Patient and/or other person responsible. The opportunity was given to ask questions and all questions answered - Central Line Placement Right Internal Jugular Triple Lumen Catheter Aseptic technique was employed throughout the procedure: Full sterile barriers ( mask, hair cover, sterile gown, sterile gloves), Full body sterile drape, Chloraprep Antiseptic: 30 second prep for IJ or SC sites CVP Time Out Performed: Yes Pt. Placed on Pulse Ox Monitor: Yes Central Line Prep: Chlorhexidine-Alcohol Combination Local Anesthesia Used: Lidocaine 1% Amount of Anesthesia Used (mls): 8 Ultrasound Used for Placement: Yes Central Line Lumen Inserted: triple Central Line Length: 20 cm Post Procedure: Sutured in Place, Good Blood Return, All Ports Aspirated, Flushed, Capped, Sterile Dressing Applied Secured by: Suture Post procedure dressing: Gauze, Clear vapor permeable, Chlorhexidine disc ( Biopatch) Post Procedure X-Ray: Yes Patient Tolerated Procedure: Well Immediate Complications: None
--- NOTE | 2017-12-07 12:43 | CP.PCM.CON ---
History of Present Illness - History of Present Illness History of Present Illness: 77 year old male with pmx of CKD, dilated ICM (refused AICD/Bi-V pacing) (EF ~20 %) presented to [facility] with c/o knee pain. Patient was being treated for heart failur with diuretics and ACEI. 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 Patient was seen and examined at bedside. Patient denies any chest pain, c/o (+)SOB. Patient denies any fevers, denies any dysuria. Patient could not state whether he took any sleeping or pain medications. Limited and unreliable history Review of Systems - Constitutional Constitutional: As Per HPI - Cardiovascular Cardiovascular: Dyspnea on Exertion, Leg Edema, Paroxysmal Nocturnal Dyspnea. absent: Irregular Heart Rhythm - Respiratory Respiratory: Dyspnea - Gastrointestinal Gastrointestinal: absent: Abdominal Pain Past Patient History - Infectious Disease Hx of Infectious Diseases: None - Past Medical History & Family History Past Medical History?: Yes - Past Social History Smoking Status: Never Smoked Chewing Tobacco Use: No Cigar Use: No Alcohol: None Drugs: Denies - CARDIAC Hx Congestive Heart Failure: Yes Hx Hypertension: Yes - HEENT Hx HEENT Problems: Yes Hx Glaucoma: Yes Other/Comment: Glaucoma both eyes - MUSCULOSKELETAL/RHEUMATOLOGICAL Hx Falls: Yes - GENITOURINARY/GYNECOLOGICAL Hx Genitourinary Disorders: Yes Hx Prostate Problems: Yes - PSYCHIATRIC Hx Substance Use: No - SURGICAL HISTORY Hx Surgeries: Yes Hx Herniorrhaphy: Yes Hx Orthopedic Surgery: Yes (LEFT KNEE) - ANESTHESIA Hx Anesthesia: Yes Hx Anesthesia Reactions: No Hx Malignant Hyperthermia: No Meds Allergies/Adverse Reactions: Allergies Allergy/AdvReac Type Severity Reaction Status Date / Time No Known Allergies Allergy Verified 12/03/17 00:20 - Medications Medications: Current Medications Aspirin (Aspirin Chewable) 81 mg PO DAILY [facility] Last Admin: 12/07/17 09:47 Dose: 81 mg Brimonidine Tartrate (Alphagan 0.2% Opht) 0.05 ml OU TID [facility] Last Admin: 12/07/17 10:45 Dose: 1 drop Dextrose (Dextrose 50% Inj) 0 ml IVP .STAT PRN; Protocol PRN Reason: Hypoglycemia Protocol Last Admin: 12/07/17 11:38 Dose: 50 ml Dextrose (Glutose 15) 0 gm PO .ONCE PRN; Protocol PRN Reason: Hypoglycemia Protocol Docusate Sodium (Colace) 100 mg PO BID PRN PRN Reason: Constipation Dorzolamide HCl (Trusopt) 0.05 ml OU AMPM [facility] Last Admin: 12/07/17 10:45 Dose: 1 drop Furosemide (Lasix) 40 mg IVP Q12 [facility] Glucagon (Glucagen Diagnostic Kit) 0 mg IM .STAT PRN; Protocol PRN Reason: Hypoglycemia Protocol Vancomycin/Sodium Chloride (Vancomycin 1 Gm/Ns 200 Ml) 1 gm in 200 mls @ 133.333 mls/hr IVPB Q24H [facility] PRN Reason: Protocol Stop: 12/10/17 15:31 Last Admin: 12/06/17 16:34 Dose: 133.333 mls/hr Piperacillin Sod/Tazobactam Sod (Zosyn 2.25 Gm Iv Premix) 2.25 gm in 50 mls @ 100 mls/hr IVPB Q8H [facility] PRN Reason: Protocol Last Admin: 12/07/17 11:17 Dose: 100 mls/hr Dextrose (Dextrose 5% In Water 1000 Ml) 1,000 mls @ 0 mls/hr IV .Q0M PRN; Protocol; Per Protocol PRN Reason: Hypoglycemia Protocol Dopamine HCl/Dextrose (Dopamine 400mg/250ml D5w) 400 mg in 250 mls @ 7.62 mls/ hr IV .Q24H PRN; Protocol; 2 MCG/KG/MIN PRN Reason: TITRATE PER MD ORDER Last Titration: 12/07/17 10:10 Dose: 5 mcg/kg/min, 19.051 mls/hr Dobutamine HCl/Dextrose (Dobutamine/Dextrose 5% 500mg/250ml) 500 mg in 250 mls @ 7.62 mls/hr IV .Q24H [facility]; 2.5 MCG/KG/MIN PRN Reason: Protocol Last Admin: 12/07/17 09:46 Dose: 2.5 mcg/kg/min, 7.62 mls/hr Latanoprost (Xalatan Opht) 0.05 ml OU HS [facility] Last Admin: 12/06/17 22:33 Dose: 0.05 ml Losartan Potassium (Cozaar) 25 mg PO DAILY [facility] Metoprolol Succinate (Toprol Xl) 25 mg PO DAILY [facility] Last Admin: 12/06/17 10:20 Dose: 25 mg Multivitamins/Minerals (Therapeutic-M Tab) 1 tab PO 0800 [facility] Rosuvastatin Calcium (Crestor) 10 mg PO HS [facility] Last Admin: 12/06/17 22:33 Dose: Not Given Physical Exam - Constitutional Appears: Non-toxic - Head Exam Head Exam: ATRAUMATIC, NORMAL INSPECTION Additional comments: (+)JVD - Respiratory Exam Respiratory Exam: Rales - Cardiovascular Exam Cardiovascular Exam: +S1, +S2, Systolic Murmur - GI/Abdominal Exam GI & Abdominal Exam: Normal Bowel Sounds Additional comments: obese - Extremities Exam Extremities exam: Positive for: pedal edema - Neurological Exam Neurological exam: Alert, CN II-XII Intact, Oriented x3 - Skin Skin Exam: Intact Results - Vital Signs Recent Vital Signs: Last Vital Signs Temp 97.0 F L 12/06/17 16:00 Pulse 82 12/07/17 09:46 Resp 202 H 12/07/17 09:46 BP 79/50 L 12/07/17 09:46 Pulse Ox 99 12/07/17 07:00 - Labs Result Diagrams: 12/07/17 08:39 12/07/17 08:39 Labs: Laboratory Results - last 24 hr 12/06/17 12/06/17 12/06/17 16:19 16:21 16:47 WBC RBC Hgb Hct MCV MCH MCHC RDW Plt Count MPV Neut % (Auto) Lymph % (Auto) Banner % (Auto) Eos % (Auto) Baso % (Auto) Neut # (Auto) Lymph # (Auto) Banner # (Auto) Eos # (Auto) Baso # (Auto) Neutrophils % (Manual) Band Neutrophils % Lymphocytes % (Manual) Monocytes % (Manual) Metamyelocytes % Myelocytes % Platelet Estimate Polychromasia Poikilocytosis (manual Anisocytosis (manual) Microcytosis (manual) Macrocytosis (manual) Spherocytes Ovalocytes Sagola Cells Schistocytes Puncture Site pCO2 pO2 HCO3 ABG pH ABG Total CO2 ABG O2 Saturation ABG Base Excess ABG Hemoglobin ABG Carboxyhemoglobin POC ABG HHb (Measured) ABG Methemoglobin Chavez Test A-a O2 Difference Respiratory Index Hgb O2 Saturation Liter Flow FiO2 Sodium Potassium Chloride Carbon Dioxide Anion Gap BUN Creatinine Est GFR ( Amer) Est GFR (Non-Af Amer) POC Glucose (mg/dL) 38 L* 38 L* 122 H Random Glucose Lactic Acid Calcium Phosphorus Magnesium Total Bilirubin AST ALT Alkaline Phosphatase Troponin I Total Protein Albumin Globulin Albumin/Globulin Ratio TSH 3rd Generation 12/06/17 12/06/17 12/06/17 20:40 20:41 21:19 WBC RBC Hgb Hct MCV MCH MCHC RDW Plt Count MPV Neut % (Auto) Lymph % (Auto) Banner % (Auto) Eos % (Auto) Baso % (Auto) Neut # (Auto) Lymph # (Auto) Banner # (Auto) Eos # (Auto) Baso # (Auto) Neutrophils % (Manual) Band Neutrophils % Lymphocytes % (Manual) Monocytes % (Manual) Metamyelocytes % Myelocytes % Platelet Estimate Polychromasia Poikilocytosis (manual Anisocytosis (manual) Microcytosis (manual) Macrocytosis (manual) Spherocytes Ovalocytes Viv Cells Schistocytes Puncture Site pCO2 pO2 HCO3 ABG pH ABG Total CO2 ABG O2 Saturation ABG Base Excess ABG Hemoglobin ABG Carboxyhemoglobin POC ABG HHb (Measured) ABG Methemoglobin Chavez Test A-a O2 Difference Respiratory Index Hgb O2 Saturation Liter Flow FiO2 Sodium Potassium Chloride Carbon Dioxide Anion Gap BUN Creatinine Est GFR ( Amer) Est GFR (Non-Af Amer) POC Glucose (mg/dL) 52 L 54 L 107 Random Glucose Lactic Acid Calcium Phosphorus Magnesium Total Bilirubin AST ALT Alkaline Phosphatase Troponin I Total Protein Albumin Globulin Albumin/Globulin Ratio [facility] 3rd Generation 12/07/17 12/07/17 12/07/17 02:13 02:17 02:49 WBC RBC Hgb Hct MCV MCH MCHC RDW Plt Count MPV Neut % (Auto) Lymph % (Auto) Banner % (Auto) Eos % (Auto) Baso % (Auto) Neut # (Auto) Lymph # (Auto) Banner # (Auto) Eos # (Auto) Baso # (Auto) Neutrophils % (Manual) Band Neutrophils % Lymphocytes % (Manual) Monocytes % (Manual) Metamyelocytes % Myelocytes % Platelet Estimate Polychromasia Poikilocytosis (manual Anisocytosis (manual) Microcytosis (manual) Macrocytosis (manual) Spherocytes Ovalocytes Sagola Cells Schistocytes Puncture Site pCO2 pO2 HCO3 ABG pH ABG Total CO2 ABG O2 Saturation ABG Base Excess ABG Hemoglobin ABG Carboxyhemoglobin POC ABG HHb (Measured) ABG Methemoglobin Chavez Test A-a O2 Difference Respiratory Index Hgb O2 Saturation Liter Flow FiO2 Sodium Potassium Chloride Carbon Dioxide Anion Gap BUN Creatinine Est GFR ( Amer) Est GFR (Non-Af Amer) POC Glucose (mg/dL) 50 L 49 L 104 Random Glucose Lactic Acid Calcium Phosphorus Magnesium Total Bilirubin AST ALT Alkaline Phosphatase Troponin I Total Protein Albumin Globulin Albumin/Globulin Ratio [facility] 3rd Generation 12/07/17 12/07/17 12/07/17 06:49 06:52 07:42 WBC RBC Hgb Hct MCV MCH MCHC RDW Plt Count MPV Neut % (Auto) Lymph % (Auto) Banner % (Auto) Eos % (Auto) Baso % (Auto) Neut # (Auto) Lymph # (Auto) Banner # (Auto) Eos # (Auto) Baso # (Auto) Neutrophils % (Manual) Band Neutrophils % Lymphocytes % (Manual) Monocytes % (Manual) Metamyelocytes % Myelocytes % Platelet Estimate Polychromasia Poikilocytosis (manual Anisocytosis (manual) Microcytosis (manual) Macrocytosis (manual) Spherocytes Ovalocytes Viv Cells Schistocytes Puncture Site pCO2 pO2 HCO3 ABG pH ABG Total CO2 ABG O2 Saturation ABG Base Excess ABG Hemoglobin ABG Carboxyhemoglobin POC ABG HHb (Measured) ABG Methemoglobin Chavez Test A-a O2 Difference Respiratory Index Hgb O2 Saturation Liter Flow FiO2 Sodium Potassium Chloride Carbon Dioxide Anion Gap BUN Creatinine Est GFR ( Amer) Est GFR (Non-Af Amer) POC Glucose (mg/dL) 68 68 102 Random Glucose Lactic Acid Calcium Phosphorus Magnesium Total Bilirubin AST ALT Alkaline Phosphatase Troponin I Total Protein Albumin Globulin Albumin/Globulin Ratio [facility] 3rd Generation 12/07/17 12/07/17 12/07/17 08:25 08:39 08:39 WBC 5.9 D RBC 3.44 L Hgb 12.2 Hct 34.5 L MCV 100.6 H MCH 35.5 H MCHC 35.3 RDW 17.8 H Plt Count 60 L D MPV 10.2 Neut % (Auto) 94.5 H Lymph % (Auto) 3.4 L Banner % (Auto) 1.7 Eos % (Auto) 0.2 Baso % (Auto) 0.2 Neut # (Auto) 5.6 Lymph # (Auto) 0.2 L Banner # (Auto) 0.1 Eos # (Auto) 0.0 Baso # (Auto) 0.0 Neutrophils % (Manual) 58 Band Neutrophils % 21 H* Lymphocytes % (Manual) 11 L Monocytes % (Manual) 4 Metamyelocytes % 5 H Myelocytes % 1 H Platelet Estimate Decreased L Polychromasia Slight Poikilocytosis (manual Moderate Anisocytosis (manual) Slight Microcytosis (manual) Slight Macrocytosis (manual) Slight Spherocytes Slight Ovalocytes Moderate Sagola Cells Slight Schistocytes Slight Puncture Site Right rad pCO2 26 L pO2 194 H HCO3 21.0 ABG pH 7.44 ABG Total CO2 18.5 L ABG O2 Saturation 99.6 H ABG Base Excess -5.1 L ABG Hemoglobin 11.9 ABG Carboxyhemoglobin 1.6 H POC ABG HHb (Measured) 0.4 ABG Methemoglobin 1.0 Chavez Test Na A-a O2 Difference 23.0 Respiratory Index 0.1 Hgb O2 Saturation 97.0 Liter Flow 5.0 FiO2 35.0 Sodium 139 Potassium 3.4 L Chloride 103 Carbon Dioxide 19 L Anion Gap 20 BUN 79 H Creatinine 2.1 H Est GFR ( Amer) 37 Est GFR (Non-Af Amer) 31 POC Glucose (mg/dL) Random Glucose 74 L Lactic Acid Calcium 8.3 L Phosphorus 5.0 H Magnesium 2.7 H Total Bilirubin 6.3 H AST 51 ALT 28 Alkaline Phosphatase 42 Troponin I 0.0900 Total Protein 5.6 L Albumin 2.6 L Globulin 3.0 Albumin/Globulin Ratio 0.8 L TSH 3rd Generation 2.53 12/07/17 12/07/17 12/07/17 10:11 11:33 11:35 WBC RBC Hgb Hct MCV MCH MCHC RDW Plt Count MPV Neut % (Auto) Lymph % (Auto) Banner % (Auto) Eos % (Auto) Baso % (Auto) Neut # (Auto) Lymph # (Auto) Banner # (Auto) Eos # (Auto) Baso # (Auto) Neutrophils % (Manual) Band Neutrophils % Lymphocytes % (Manual) Monocytes % (Manual) Metamyelocytes % Myelocytes % Platelet Estimate Polychromasia Poikilocytosis (manual Anisocytosis (manual) Microcytosis (manual) Macrocytosis (manual) Spherocytes Ovalocytes Sagola Cells Schistocytes Puncture Site pCO2 pO2 HCO3 ABG pH ABG Total CO2 ABG O2 Saturation ABG Base Excess ABG Hemoglobin ABG Carboxyhemoglobin POC ABG HHb (Measured) ABG Methemoglobin Chavez Test A-a O2 Difference Respiratory Index Hgb O2 Saturation Liter Flow FiO2 Sodium Potassium Chloride Carbon Dioxide Anion Gap BUN Creatinine Est GFR ( Amer) Est GFR (Non-Af Amer) POC Glucose (mg/dL) 61 L 59 L Random Glucose Lactic Acid 2.4 H Calcium Phosphorus Magnesium Total Bilirubin AST ALT Alkaline Phosphatase Troponin I Total Protein Albumin Globulin Albumin/Globulin Ratio TSH 3rd Generation 12/07/17 11:56 WBC RBC Hgb Hct MCV MCH MCHC RDW Plt Count MPV Neut % (Auto) Lymph % (Auto) Banner % (Auto) Eos % (Auto) Baso % (Auto) Neut # (Auto) Lymph # (Auto) Banner # (Auto) Eos # (Auto) Baso # (Auto) Neutrophils % (Manual) Band Neutrophils % Lymphocytes % (Manual) Monocytes % (Manual) Metamyelocytes % Myelocytes % Platelet Estimate Polychromasia Poikilocytosis (manual Anisocytosis (manual) Microcytosis (manual) Macrocytosis (manual) Spherocytes Ovalocytes Viv Cells Schistocytes Puncture Site pCO2 pO2 HCO3 ABG pH ABG Total CO2 ABG O2 Saturation ABG Base Excess ABG Hemoglobin ABG Carboxyhemoglobin POC ABG HHb (Measured) ABG Methemoglobin Chavez Test A-a O2 Difference Respiratory Index Hgb O2 Saturation Liter Flow FiO2 Sodium Potassium Chloride Carbon Dioxide Anion Gap BUN Creatinine Est GFR ( Amer) Est GFR (Non-Af Amer) POC Glucose (mg/dL) 120 H Random Glucose Lactic Acid Calcium Phosphorus Magnesium Total Bilirubin AST ALT Alkaline Phosphatase Troponin I Total Protein Albumin Globulin Albumin/Globulin Ratio [facility] 3rd Generation Assessment & Plan - Assessment and Plan (Free Text) Assessment: -Hypotension: likely combination of cardiogenic and ?septic shock, being diuresed on floor then developed hypotension and brought to ICU after 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[employer]ER LEADER, check serial lactic, keep SCVO2 >70, start norepi to keep MAP >65 and dobutamine to keep SCVO2 >70 -Severe systolic heart failure with cardiorenal syndrome: improve cardiac index , possible combination of inotrope (milrionoe and /or dobutamine), avoid fluids overloaded states, decrease pre-load and after load -CKD: cardiorenal syndrome, avoid nephrotoxic drugs, check UA -Chronic end stage heart failure: Patient will benefit from a heart failure facility where LVAD offered and or bi-V pacing available -?sepsis: leukopenia: continue abx, check vanco per level, and switch from zosyn to cefepime (less salt) -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 cc time 45 minutes Addendum: DOpamine and dobutamine started and patient's HR increased to 130s, will placed central line and start norepi. - Date & Time Date: 12/07/17 Time: 15:27
--- NOTE | 2017-12-07 13:09 | RAD ---
PROCEDURE: CHEST RADIOGRAPH, 1 VIEW HISTORY: Central line insertion COMPARISON: Portable chest 12/07/2017 FINDINGS: LUNGS: Right central venous lines in place by an apparent internal jugular approach with tip turning at the distal superior vena cava. No acute infiltrate identified bilaterally. PLEURA: No pneumothorax or pleural fluid seen. CARDIOVASCULAR: Stable cardiomegaly. No pulmonary vascular congestion appreciable. OSSEOUS STRUCTURES: No significant abnormalities. VISUALIZED UPPER ABDOMEN: Normal. OTHER FINDINGS: None. IMPRESSION: Interval right central venous line placement. No pneumothorax bilaterally. Stable cardiomegaly.
[2017-12-07] MEDS ORDERED: Sodium Chloride 0.9% 500 ML IV ONE (15:11)
[2017-12-07 15:31] LABS: VENOUS BLOOD GAS BASE EXCESS -4.5 mmol/L (0.0-2.0); VENOUS BLOOD GAS PCO2 43 mmHg (40-60); VENOUS BLOOD GAS PO2 37 mm/Hg (30-55); VENOUS BLOOD PH 7.31 (7.32-7.43)
[2017-12-07] MEDS: Vancomycin 1 gm/NS 200 ml 1 GM/200 ML BAG IVPB SCH (15:44)
[2017-12-07] MEDS ORDERED: Dexamethasone 4 mg/1 ml IVP STA (16:08)
[2017-12-07] MEDS: Cefepime IV 1 gm in Dextrose 1 GM/50 ML BAG IVPB SCH (16:31)
[2017-12-07] MEDS ORDERED: Vasopressin 40 UNITS in Dextrose 5% In Water 40 ML IV SCH (17:45)
[2017-12-07 20:15] LABS: SQUAMOUS EPITHIAL < 1 /hpf (0-5); URINE BILIRUBIN NEGATIVE (NEGATIVE); URINE BLOOD NEGATIVE (NEGATIVE); URINE CLARITY Hazy (Clear); URINE COLOR Amber (YELLOW); URINE GLUCOSE (UA) NORMAL (Normal); URINE LEUKOCYTE ESTERASE NEG Leu/uL (Negative); URINE PROTEIN 1+ mg/dL (NEGATIVE); URINE UROBILINOGEN NORMAL mg/dL (0.2-1.0)
[2017-12-07] MEDS: Latanoprost 2.5 ml Opht Soln OU SCH (21:15)
[2017-12-08] MEDS: Cefepime IV 1 gm in Dextrose 1 GM/50 ML BAG IVPB SCH ×2 (03:59→15:54)
[2017-12-08 06:45] LABS: BASO % 0.2 % (0.0-2.0); HEMOGLOBIN 11.5 g/dL (12.0-18.0); LYMPH # 0.1 K/uL (1.0-4.3); LYMPH % 0.9 % (20.0-40.0); MEAN CORPUSCULAR HEMOGLOBIN 34.9 pg (27.0-31.0); MEAN CORPUSCULAR HGB CONC 34.6 g/dL (33.0-37.0); MEAN PLATELET VOLUME 10.8 fL (7.2-11.7); MONO # 0.1 K/uL (0.0-0.8); MONO % 1.6 % (0.0-10.0); NEUT # 8.8 K/uL (1.8-7.0); NEUT % 97.3 % (50.0-75.0); PLATELET COUNT 45 K/uL (130-400); RBC 3.29 Mil/uL (4.40-5.90); RED CELL DISTRIBUTION WIDTH 17.8 % (11.5-14.5)
[2017-12-08 07:02] LABS: ALB/GLOB RATIO 0.8 (1.0-2.1); ALBUMIN 2.2 g/dL (3.5-5.0); CALCIUM 8.3 mg/dl (8.6-10.4)
[2017-12-08] MEDS: Multivitamin With Minerals Tab PO SCH (07:46)
[2017-12-08 08:19] LABS: ANISOCYTOSIS SLIGHT; BANDS 31 % (0-2); BURR CELLS MODERATE; LYMPHOCYTE 1 % (20-40); MONOCYTE 2 % (0-10); NEUTROPHIL 66 % (50-75); OVALOCYTES MODERATE; PLATELET ESTIMATE DECREASED (NORMAL); POIKILOCYTOSIS SLIGHT; TOTAL CELLS COUNTED 100
[2017-12-08 08:20] LABS: TOXIC GRANULATION PRESENT
--- NOTE | 2017-12-08 08:27 | RAD ---
HISTORY: congestion COMPARISON: 12/07/2017 FINDINGS: LUNGS: No active pulmonary disease. PLEURA: No significant pleural effusion identified, no pneumothorax apparent. CARDIOVASCULAR: Borderline heart size. No change right IJ central venous catheter. No congestive change. OSSEOUS STRUCTURES: No significant abnormalities. VISUALIZED UPPER ABDOMEN: Normal. OTHER FINDINGS: None. IMPRESSION: No active disease.
[2017-12-08] MEDS: Sodium Chloride 0.9% 1,000 ML IV SCH (09:56)
[2017-12-08] MEDS: Brimonidine 0.2% Opth Sol (5ml) OU SCH ×3 (09:58→17:21)
[2017-12-08] MEDS: Dorzolamide 2% Opht Sol 10ml OU SCH ×2 (09:59→17:22)
[2017-12-08] MEDS: Clotrimazole 1% Cream(30 gm) TOP SCH ×2 (10:03→17:21)
--- NOTE | 2017-12-08 11:32 | CP.PCM.PN ---
Subjective - Date & Time of Evaluation Date of Evaluation: 12/08/17 Time of Evaluation: 11:30 - Subjective Subjective: Events noted Transferred to ICU due to hypotension Pressors changed to levo 15 mcg/min and IV vaso 2.4 mg renal function about same Renal US c/w CKD Low EF noted Same PE- very edematous Confused now Objective - Vital Signs/Intake and Output Vital Signs (last 24 hours): Temp Pulse Resp BP Pulse Ox 98.6 F 118 H 19 98/59 L 99 12/08/17 08:00 12/08/17 08:00 12/08/17 08:00 12/08/17 07:59 12/08/17 08:00 Intake and Output: 12/08/17 12/08/17 06:59 18:59 Intake Total 818.8 31.3 Output Total 400 0 Balance 418.8 31.3 - Medications Medications: Current Medications Aspirin (Aspirin Chewable) 81 mg PO DAILY [facility] Last Admin: 12/08/17 09:58 Dose: 81 mg Brimonidine Tartrate (Alphagan 0.2% Opht) 0.05 ml OU TID [facility] Last Admin: 12/08/17 09:58 Dose: 1 drop Clotrimazole (Lotrimin 1%) 0 gm TOP BID [facility] Last Admin: 12/08/17 10:03 Dose: 1 applic Dextrose (Dextrose 50% Inj) 0 ml IVP .STAT PRN; Protocol PRN Reason: Hypoglycemia Protocol Last Admin: 12/07/17 20:37 Dose: 50 ml Dextrose (Glutose 15) 0 gm PO .ONCE PRN; Protocol PRN Reason: Hypoglycemia Protocol Docusate Sodium (Colace) 100 mg PO BID PRN PRN Reason: Constipation Dorzolamide HCl (Trusopt) 0.05 ml OU AMPM [facility] Last Admin: 12/08/17 09:59 Dose: 1 drop Glucagon (Glucagen Diagnostic Kit) 0 mg IM .STAT PRN; Protocol PRN Reason: Hypoglycemia Protocol Hydrocortisone Sodium Succinate (Solu-Cortef) 100 mg IV Q8H [facility] Last Admin: 12/08/17 06:43 Dose: 100 mg Vancomycin/Sodium Chloride (Vancomycin 1 Gm/Ns 200 Ml) 1 gm in 200 mls @ 133.333 mls/hr IVPB Q24H [facility] PRN Reason: Protocol Stop: 12/10/17 15:31 Last Admin: 12/07/17 15:44 Dose: 133.333 mls/hr Dextrose (Dextrose 5% In Water 1000 Ml) 1,000 mls @ 0 mls/hr IV .Q0M PRN; Protocol; Per Protocol PRN Reason: Hypoglycemia Protocol Cefepime HCl (Maxipime Iv 1 Gm Premix) 1 gm in 50 mls @ 100 mls/hr IVPB Q12H [facility] PRN Reason: Protocol Last Admin: 12/08/17 03:59 Dose: 100 mls/hr Doxycycline Hyclate 100 mg/ (Sodium Chloride) 100 mls @ 100 mls/hr IVPB Q12H [facility] PRN Reason: Protocol Last Admin: 12/08/17 01:23 Dose: 100 mls/hr Norepinephrine Bitartrate 8 mg (/ Dextrose) 258 mls @ 7.74 mls/hr IV .Q24H PRN ; Protocol; 4 MCG/MIN PRN Reason: TITRATE PER MD ORDER Last Admin: 12/08/17 04:08 Dose: 14.52 mcg/min, 28.1 mls/hr Vasopressin 40 units/ Sodium (Chloride) 42 mls @ 2.52 mls/hr IV .[id number] [facility]; 0.04 UNITS/MIN PRN Reason: Protocol Last Admin: 12/07/17 20:52 Dose: 0.04 units/min, 2.52 mls/hr Sodium Chloride (Sodium Chloride 0.9%) 1,000 mls @ 40 mls/hr IV .Q24H [facility] Last Admin: 12/08/17 09:56 Dose: 40 mls/hr Latanoprost (Xalatan Opht) 0.05 ml OU HS [facility] Last Admin: 12/07/17 21:15 Dose: 0.05 ml Multivitamins/Minerals (Therapeutic-M Tab) 1 tab PO 0800 [facility] Last Admin: 12/08/17 07:46 Dose: 1 tab Rosuvastatin Calcium (Crestor) 10 mg PO HS [facility] Last Admin: 12/07/17 21:14 Dose: 10 mg - Labs Labs: 12/08/17 06:33 12/08/17 06:33 - Constitutional Appears: In Acute Distress, Confused, Chronically Ill - Head Exam Head Exam: ATRAUMATIC, NORMAL INSPECTION - Eye Exam Eye Exam: EOMI, Normal appearance - Neck Exam Neck Exam: Normal Inspection. absent: Tenderness - Respiratory Exam Respiratory Exam: Rhonchi, Respiratory Distress - Cardiovascular Exam Cardiovascular Exam: REGULAR RHYTHM, +S1 - GI/Abdominal Exam GI & Abdominal Exam: Soft. absent: Tenderness - Extremities Exam Extremities Exam: Pedal Edema, Tenderness - Neurological Exam Neurological Exam: Altered, Awake - Skin Skin Exam: Dry, Warm Assessment and Plan (1) Hyperkalemia Status: Acute (2) Cardiorenal disease Status: Acute (3) CKD (chronic kidney disease) stage 3, GFR 30-59 ml/min Status: Acute - Assessment and Plan (Free Text) Plan: Pressor support as per cardio UO low- would retry lasix IV follow chemistries cardiac status poor
[2017-12-08] MEDS: Dextrose 50% SYRINGE Inj (50 ml) IVP PRN (11:53)
--- NOTE | 2017-12-08 12:28 | CP.CCUPN ---
CCU Subjective - Physician Review Subjective (Free Text): Patient seen and examined at bedside. No overnight events reported. Patient more lethargic than yesterday per nursing staff. Patient denies any chest pain or SOB. CCU Objective - Vital Signs / Intake & Output Intake and Output (Last 8hrs): Intake & Output 12/07/17 12/08/17 12/08/17 22:59 06:59 14:59 Intake Total 903.1 592.7 31.3 Output Total 100 300 0 Balance 803.1 292.7 31.3 Weight 220 lb Intake: IV 98 220 Intake, IV Amount 655.1 372.7 31.3 Right Distal Port 339.5 263.1 28.9 Right Forearm 0 Right Medial Port 250 50 Right Proximal Port 60.8 47.6 2.4 right distal port y 4.8 12.0 Oral 150 Output: Urine 100 300 0 Urine, Voided 100 300 0 Other: # Voids Urine, Voided 1 # Bowel Movements 0 - Physical Exam Other physical findings (Free Text): - Constitutional Appears: Confused, Chronically Ill - Head Exam Head Exam: ATRAUMATIC, NORMAL INSPECTION - Eye Exam Eye Exam: EOMI, Normal appearance - Neck Exam Neck Exam: Normal Inspection. absent: Tenderness - Respiratory Exam Respiratory Exam: Rhonchi, Respiratory Distress - Cardiovascular Exam Cardiovascular Exam: REGULAR RHYTHM, Tachycardia, +S1/S2 - GI/Abdominal Exam GI & Abdominal Exam: Soft. absent: Tenderness - Extremities Exam Extremities Exam: Pedal Edema, Tenderness - Neurological Exam Neurological Exam: Altered, Awake - Skin Skin Exam: Dry, Warm - Medications Active Medications: Active Medications Generic Name Dose Route Start Last Admin Trade Name Freq PRN Reason Stop Dose Admin Aspirin 81 mg 12/06/17 10:00 12/08/17 09:58 Aspirin Chewable PO 81 mg DAILY SHAHEED Administration Brimonidine Tartrate 0.05 ml 12/03/17 10:00 12/08/17 09:58 Alphagan 0.2% Opht OU 1 drop TID SHAHEED Administration Clotrimazole 0 gm 12/08/17 10:12/08/17 10:03 Lotrimin 1% TOP 1 applic BID SHAHEED Administration Dextrose 0 ml 12/06/17 09:06 12/08/17 11:53 Dextrose 50% Inj IVP 50 ml .STAT PRN Administration Hypoglycemia Protocol Protocol Dextrose 0 gm 12/06/17 09:06 Glutose 15 PO .ONCE PRN Hypoglycemia Protocol Protocol Docusate Sodium 100 mg 12/03/17 04:34 Colace PO BID PRN Constipation Dorzolamide HCl 0.05 ml 12/03/17 10:00 12/08/17 09:59 Trusopt OU 1 drop AMPM SHAHEED Administration Furosemide 40 mg 12/08/17 11:45 Lasix IVP DAILY SHAHEED Glucagon 0 mg 12/06/17 09:06 Glucagen Diagnostic Kit IM .STAT PRN Hypoglycemia Protocol Protocol Hydrocortisone Sodium Succinate 100 mg 12/08/17 04:30 12/08/17 11:59 Solu-Cortef IV 100 mg Q8H SHAHEED Administration Vancomycin/Sodium Chloride 1 gm in 200 mls @ 133.333 mls/hr 12/05/17 15:30 15:44 Vancomycin 1 Gm/Ns 200 Ml IVPB 12/10/17 15:31 133.333 mls/hr Q24H SHAHEED Administration Protocol Dextrose 1,000 mls @ 0 mls/hr 12/06/17 09:06 Dextrose 5% In Water 1000 Ml IV .Q0M PRN Hypoglycemia Protocol Protocol Per Protocol Cefepime HCl 1 gm in 50 mls @ 100 mls/hr 12/07/17 16:00 12/08/17 03:59 Maxipime Iv 1 Gm Premix IVPB 100 mls/hr Q12H SHAHEED Administration Protocol Doxycycline Hyclate 100 mg/ 100 mls @ 100 mls/hr 12/07/17 14:00 12/08/17 01: 23 Sodium Chloride IVPB 100 mls/hr Q12H SHAHEED Administration Protocol Norepinephrine Bitartrate 8 mg 258 mls @ 7.74 mls/hr 12/07/17 17:47 12/08/17 04:08 / Dextrose IV 14.52 mcg/min .Q24H PRN 28.1 mls/hr TITRATE PER MD ORDER Administration Protocol 4 MCG/MIN Vasopressin 40 units/ Sodium 42 mls @ 2.52 mls/hr 12/07/17 20:45 12/07/17 20: 52 Chloride IV 0.04 units/min .[id number] SHAHEED 2.52 mls/hr Protocol Administration 0.04 UNITS/MIN Sodium Chloride 1,000 mls @ 40 mls/hr 12/08/17 09:45 12/08/17 09:56 Sodium Chloride 0.9% IV 40 mls/hr .Q24H SHAHEED Administration Latanoprost 0.05 ml 12/03/17 22:00 12/07/17 21:15 Xalatan Opht OU 0.05 ml HS SHAHEED Administration Multivitamins/Minerals 1 tab 12/08/17 08:00 12/08/17 07:46 Therapeutic-M Tab PO 1 tab 0800 SHAHEED Administration Rosuvastatin Calcium 10 mg 12/05/17 22:00 12/07/17 21:14 Crestor PO 10 mg HS SHAHEED Administration - Patient Studies Lab Studies: Lab Studies 12/08/17 12/08/17 12/08/17 Range/Units 11:50 11:48 07:32 WBC (4.8-10.8) K/uL RBC (4.40-5.90) Mil/uL Hgb (12.0-18.0) g/dL Hct (35.0-51.0) % MCV (80.0-94.0) fL MCH (27.0-31.0) pg MCHC (33.0-37.0) g/dL RDW (11.5-14.5) % Plt Count (130-400) K/uL MPV (7.2-11.7) fL Neut % (Auto) (50.0-75.0) % Lymph % (Auto) (20.0-40.0) % [place] % (Auto) (0.0-10.0) % Eos % (Auto) (0.0-4.0) % Baso % (Auto) (0.0-2.0) % Neut # (Auto) (1.8-7.0) K/uL Lymph # (Auto) (1.0-4.3) K/uL [place] # (Auto) (0.0-0.8) K/uL Eos # (Auto) (0.0-0.7) K/uL Baso # (Auto) (0.0-0.2) K/uL Neutrophils % (Manual) (50-75) % Band Neutrophils % (0-2) % Lymphocytes % (Manual) (20-40) % Monocytes % (Manual) (0-10) % Toxic Granulation Dohle Bodies Platelet Estimate (NORMAL) Poikilocytosis (manual Anisocytosis (manual) Macrocytosis (manual) Ovalocytes Minor Hill Cells pO2 (30-55) mm/Hg VBG pH (7.32-7.43) VBG pCO2 (40-60) mmHg VBG HCO3 mmol/L VBG Total CO2 (22-28) mmol/L VBG O2 Sat (Calc) (40-65) % VBG Base Excess (0.0-2.0) mmol/L VBG Potassium (3.6-5.2) mmol/L Sodium (132-148) mmol/l Chloride (98-107) mmol/L Glucose (75-110) mg/dl Lactate (0.7-2.1) mmol/L FiO2 % Potassium (3.6-5.2) mmol/L Carbon Dioxide (22-30) mmol/L Anion Gap (10-20) BUN (9-20) mg/dL Creatinine (0.8-1.5) mg/dL Est GFR ( Amer) Est GFR (Non-Af Amer) POC Glucose (mg/dL) 69 66 86 (65-110) mg/dL Random Glucose (75-110) mg/dL Hemoglobin A1c (4.2-6.5) % Lactic Acid (0.7-2.1) mmol/L Calcium (8.6-10.4) mg/dl Phosphorus (2.5-4.5) mg/dL Magnesium (1.6-2.3) mg/dL Total Bilirubin (0.2-1.3) mg/dL AST (17-59) U/L ALT (21-72) U/L Alkaline Phosphatase (38-126) U/L Ammonia (9-33) umol/L Troponin I (0.00-0.120) ng/mL Total Protein (6.3-8.3) g/dL Albumin (3.5-5.0) g/dL Globulin (2.2-3.9) gm/dL Albumin/Globulin Ratio (1.0-2.1) Plasma Cortisol PM (1.7-14.1) ug/dL Venous Blood Potassium (3.6-5.2) mmol/L Urine Color (YELLOW) Urine Clarity (Clear) Urine pH (5.0-8.0) Ur Specific Bison (1.003-1.030) Urine Protein (NEGATIVE) mg/dL Urine Glucose (UA) (Normal) mg/dL Urine Ketones (NEGATIVE) mg/dL Urine Blood (NEGATIVE) Urine Nitrate (NEGATIVE) Urine Bilirubin (NEGATIVE) Urine Urobilinogen (0.2-1.0) mg/dL Ur Leukocyte Esterase (Negative) Paula/uL Urine WBC (Auto) (0-5) /hpf Urine RBC (Auto) (0-3) /hpf Ur Squamous Epith Cells (0-5) /hpf 12/08/17 12/08/17 12/08/17 Range/Units 06:36 06:33 06:33 WBC (4.8-10.8) K/uL RBC (4.40-5.90) Mil/uL Hgb (12.0-18.0) g/dL Hct (35.0-51.0) % MCV (80.0-94.0) fL MCH (27.0-31.0) pg MCHC (33.0-37.0) g/dL RDW (11.5-14.5) % Plt Count (130-400) K/uL MPV (7.2-11.7) fL Neut % (Auto) (50.0-75.0) % Lymph % (Auto) (20.0-40.0) % [place] % (Auto) (0.0-10.0) % Eos % (Auto) (0.0-4.0) % Baso % (Auto) (0.0-2.0) % Neut # (Auto) (1.8-7.0) K/uL Lymph # (Auto) (1.0-4.3) K/uL [place] # (Auto) (0.0-0.8) K/uL Eos # (Auto) (0.0-0.7) K/uL Baso # (Auto) (0.0-0.2) K/uL Neutrophils % (Manual) (50-75) % Band Neutrophils % (0-2) % Lymphocytes % (Manual) (20-40) % Monocytes % (Manual) (0-10) % Toxic Granulation Dohle Bodies Platelet Estimate (NORMAL) Poikilocytosis (manual Anisocytosis (manual) Macrocytosis (manual) Ovalocytes Minor Hill Cells pO2 (30-55) mm/Hg VBG pH (7.32-7.43) VBG pCO2 (40-60) mmHg VBG HCO3 mmol/L VBG Total CO2 (22-28) mmol/L VBG O2 Sat (Calc) (40-65) % VBG Base Excess (0.0-2.0) mmol/L VBG Potassium (3.6-5.2) mmol/L Sodium (132-148) mmol/l Chloride (98-107) mmol/L Glucose (75-110) mg/dl Lactate (0.7-2.1) mmol/L FiO2 % Potassium (3.6-5.2) mmol/L Carbon Dioxide (22-30) mmol/L Anion Gap (10-20) BUN (9-20) mg/dL Creatinine (0.8-1.5) mg/dL Est GFR ( Amer) Est GFR (Non-Af Amer) POC Glucose (mg/dL) (65-110) mg/dL Random Glucose (75-110) mg/dL Hemoglobin A1c 6.2 (4.2-6.5) % Lactic Acid 1.6 (0.7-2.1) mmol/L Calcium (8.6-10.4) mg/dl Phosphorus (2.5-4.5) mg/dL Magnesium (1.6-2.3) mg/dL Total Bilirubin (0.2-1.3) mg/dL AST (17-59) U/L ALT (21-72) U/L Alkaline Phosphatase (38-126) U/L Ammonia (9-33) umol/L Troponin I 0.0780 (0.00-0.120) ng/mL Total Protein (6.3-8.3) g/dL Albumin (3.5-5.0) g/dL Globulin (2.2-3.9) gm/dL Albumin/Globulin Ratio (1.0-2.1) Plasma Cortisol PM (1.7-14.1) ug/dL Venous Blood Potassium (3.6-5.2) mmol/L Urine Color (YELLOW) Urine Clarity (Clear) Urine pH (5.0-8.0) Ur Specific Bison (1.003-1.030) Urine Protein (NEGATIVE) mg/dL Urine Glucose (UA) (Normal) mg/dL Urine Ketones (NEGATIVE) mg/dL Urine Blood (NEGATIVE) Urine Nitrate (NEGATIVE) Urine Bilirubin (NEGATIVE) Urine Urobilinogen (0.2-1.0) mg/dL Ur Leukocyte Esterase (Negative) Paula/uL Urine WBC (Auto) (0-5) /hpf Urine RBC (Auto) (0-3) /hpf Ur Squamous Epith Cells (0-5) /hpf 12/08/17 12/08/17 12/08/17 Range/Units 06:33 06:33 06:33 WBC 9.0 D (4.8-10.8) K/uL RBC 3.29 L (4.40-5.90) Mil/uL Hgb 11.5 L (12.0-18.0) g/dL Hct 33.2 L (35.0-51.0) % MCV 101.0 H (80.0-94.0) fL MCH 34.9 H (27.0-31.0) pg MCHC 34.6 (33.0-37.0) g/dL RDW 17.8 H (11.5-14.5) % Plt Count 45 L (130-400) K/uL MPV 10.8 (7.2-11.7) fL Neut % (Auto) 97.3 H (50.0-75.0) % Lymph % (Auto) 0.9 L (20.0-40.0) % [place] % (Auto) 1.6 (0.0-10.0) % Eos % (Auto) 0.0 (0.0-4.0) % Baso % (Auto) 0.2 (0.0-2.0) % Neut # (Auto) 8.8 H (1.8-7.0) K/uL Lymph # (Auto) 0.1 L (1.0-4.3) K/uL [place] # (Auto) 0.1 (0.0-0.8) K/uL Eos # (Auto) 0.0 (0.0-0.7) K/uL Baso # (Auto) 0.0 (0.0-0.2) K/uL Neutrophils % (Manual) 66 (50-75) % Band Neutrophils % 31 H* (0-2) % Lymphocytes % (Manual) 1 L (20-40) % Monocytes % (Manual) 2 (0-10) % Toxic Granulation Present Dohle Bodies Present Platelet Estimate Decreased L (NORMAL) Poikilocytosis (manual Slight Anisocytosis (manual) Slight Macrocytosis (manual) Moderate Ovalocytes Moderate Minor Hill Cells Moderate pO2 (30-55) mm/Hg VBG pH (7.32-7.43) VBG pCO2 (40-60) mmHg VBG HCO3 mmol/L VBG Total CO2 (22-28) mmol/L VBG O2 Sat (Calc) (40-65) % VBG Base Excess (0.0-2.0) mmol/L VBG Potassium (3.6-5.2) mmol/L Sodium 138 (132-148) mmol/l Chloride 104 (98-107) mmol/L Glucose (75-110) mg/dl Lactate (0.7-2.1) mmol/L FiO2 % Potassium 4.2 (3.6-5.2) mmol/L Carbon Dioxide 24 (22-30) mmol/L Anion Gap 14 (10-20) BUN 87 H (9-20) mg/dL Creatinine 2.0 H (0.8-1.5) mg/dL Est GFR ( Amer) 40 Est GFR (Non-Af Amer) 33 POC Glucose (mg/dL) (65-110) mg/dL Random Glucose 67 L (75-110) mg/dL Hemoglobin A1c (4.2-6.5) % Lactic Acid (0.7-2.1) mmol/L Calcium 8.3 L (8.6-10.4) mg/dl Phosphorus 5.3 H (2.5-4.5) mg/dL Magnesium 2.5 H (1.6-2.3) mg/dL Total Bilirubin 5.7 H (0.2-1.3) mg/dL AST 39 (17-59) U/L ALT 43 (21-72) U/L Alkaline Phosphatase 36 L (38-126) U/L Ammonia 26 (9-33) umol/L Troponin I (0.00-0.120) ng/mL Total Protein 5.0 L (6.3-8.3) g/dL Albumin 2.2 L (3.5-5.0) g/dL Globulin 2.8 (2.2-3.9) gm/dL Albumin/Globulin Ratio 0.8 L (1.0-2.1) Plasma Cortisol PM (1.7-14.1) ug/dL Venous Blood Potassium (3.6-5.2) mmol/L Urine Color (YELLOW) Urine Clarity (Clear) Urine pH (5.0-8.0) Ur Specific Bison (1.003-1.030) Urine Protein (NEGATIVE) mg/dL Urine Glucose (UA) (Normal) mg/dL Urine Ketones (NEGATIVE) mg/dL Urine Blood (NEGATIVE) Urine Nitrate (NEGATIVE) Urine Bilirubin (NEGATIVE) Urine Urobilinogen (0.2-1.0) mg/dL Ur Leukocyte Esterase (Negative) Paula/uL Urine WBC (Auto) (0-5) /hpf Urine RBC (Auto) (0-3) /hpf Ur Squamous Epith Cells (0-5) /hpf 12/08/17 12/08/17 12/07/17 Range/Units 05:20 00:05 20:59 WBC (4.8-10.8) K/uL RBC (4.40-5.90) Mil/uL Hgb (12.0-18.0) g/dL Hct (35.0-51.0) % MCV (80.0-94.0) fL MCH (27.0-31.0) pg MCHC (33.0-37.0) g/dL RDW (11.5-14.5) % Plt Count (130-400) K/uL MPV (7.2-11.7) fL Neut % (Auto) (50.0-75.0) % Lymph % (Auto) (20.0-40.0) % [place] % (Auto) (0.0-10.0) % Eos % (Auto) (0.0-4.0) % Baso % (Auto) (0.0-2.0) % Neut # (Auto) (1.8-7.0) K/uL Lymph # (Auto) (1.0-4.3) K/uL [place] # (Auto) (0.0-0.8) K/uL Eos # (Auto) (0.0-0.7) K/uL Baso # (Auto) (0.0-0.2) K/uL Neutrophils % (Manual) (50-75) % Band Neutrophils % (0-2) % Lymphocytes % (Manual) (20-40) % Monocytes % (Manual) (0-10) % Toxic Granulation Dohle Bodies Platelet Estimate (NORMAL) Poikilocytosis (manual Anisocytosis (manual) Macrocytosis (manual) Ovalocytes Minor Hill Cells pO2 (30-55) mm/Hg VBG pH (7.32-7.43) VBG pCO2 (40-60) mmHg VBG HCO3 mmol/L VBG Total CO2 (22-28) mmol/L VBG O2 Sat (Calc) (40-65) % VBG Base Excess (0.0-2.0) mmol/L VBG Potassium (3.6-5.2) mmol/L Sodium (132-148) mmol/l Chloride (98-107) mmol/L Glucose (75-110) mg/dl Lactate (0.7-2.1) mmol/L FiO2 % Potassium (3.6-5.2) mmol/L Carbon Dioxide (22-30) mmol/L Anion Gap (10-20) BUN (9-20) mg/dL Creatinine (0.8-1.5) mg/dL Est GFR ( Amer) Est GFR (Non-Af Amer) POC Glucose (mg/dL) 71 90 110 (65-110) mg/dL Random Glucose (75-110) mg/dL Hemoglobin A1c (4.2-6.5) % Lactic Acid (0.7-2.1) mmol/L Calcium (8.6-10.4) mg/dl Phosphorus (2.5-4.5) mg/dL Magnesium (1.6-2.3) mg/dL Total Bilirubin (0.2-1.3) mg/dL AST (17-59) U/L ALT (21-72) U/L Alkaline Phosphatase (38-126) U/L Ammonia (9-33) umol/L Troponin I (0.00-0.120) ng/mL Total Protein (6.3-8.3) g/dL Albumin (3.5-5.0) g/dL Globulin (2.2-3.9) gm/dL Albumin/Globulin Ratio (1.0-2.1) Plasma Cortisol PM (1.7-14.1) ug/dL Venous Blood Potassium (3.6-5.2) mmol/L Urine Color (YELLOW) Urine Clarity (Clear) Urine pH (5.0-8.0) Ur Specific Bison (1.003-1.030) Urine Protein (NEGATIVE) mg/dL Urine Glucose (UA) (Normal) mg/dL Urine Ketones (NEGATIVE) mg/dL Urine Blood (NEGATIVE) Urine Nitrate (NEGATIVE) Urine Bilirubin (NEGATIVE) Urine Urobilinogen (0.2-1.0) mg/dL Ur Leukocyte Esterase (Negative) Paula/uL Urine WBC (Auto) (0-5) /hpf Urine RBC (Auto) (0-3) /hpf Ur Squamous Epith Cells (0-5) /hpf 12/07/17 12/07/17 12/07/17 Range/Units 20:34 20:31 19:58 WBC (4.8-10.8) K/uL RBC (4.40-5.90) Mil/uL Hgb (12.0-18.0) g/dL Hct (35.0-51.0) % MCV (80.0-94.0) fL MCH (27.0-31.0) pg MCHC (33.0-37.0) g/dL RDW (11.5-14.5) % Plt Count (130-400) K/uL MPV (7.2-11.7) fL Neut % (Auto) (50.0-75.0) % Lymph % (Auto) (20.0-40.0) % [place] % (Auto) (0.0-10.0) % Eos % (Auto) (0.0-4.0) % Baso % (Auto) (0.0-2.0) % Neut # (Auto) (1.8-7.0) K/uL Lymph # (Auto) (1.0-4.3) K/uL [place] # (Auto) (0.0-0.8) K/uL Eos # (Auto) (0.0-0.7) K/uL Baso # (Auto) (0.0-0.2) K/uL Neutrophils % (Manual) (50-75) % Band Neutrophils % (0-2) % Lymphocytes % (Manual) (20-40) % Monocytes % (Manual) (0-10) % Toxic Granulation Dohle Bodies Platelet Estimate (NORMAL) Poikilocytosis (manual Anisocytosis (manual) Macrocytosis (manual) Ovalocytes Minor Hill Cells pO2 (30-55) mm/Hg VBG pH (7.32-7.43) VBG pCO2 (40-60) mmHg VBG HCO3 mmol/L VBG Total CO2 (22-28) mmol/L VBG O2 Sat (Calc) (40-65) % VBG Base Excess (0.0-2.0) mmol/L VBG Potassium (3.6-5.2) mmol/L Sodium (132-148) mmol/l Chloride (98-107) mmol/L Glucose (75-110) mg/dl Lactate (0.7-2.1) mmol/L FiO2 % Potassium (3.6-5.2) mmol/L Carbon Dioxide (22-30) mmol/L Anion Gap (10-20) BUN (9-20) mg/dL Creatinine (0.8-1.5) mg/dL Est GFR ( Amer) Est GFR (Non-Af Amer) POC Glucose (mg/dL) 53 L 50 L (65-110) mg/dL Random Glucose (75-110) mg/dL Hemoglobin A1c (4.2-6.5) % Lactic Acid (0.7-2.1) mmol/L Calcium (8.6-10.4) mg/dl Phosphorus (2.5-4.5) mg/dL Magnesium (1.6-2.3) mg/dL Total Bilirubin (0.2-1.3) mg/dL AST (17-59) U/L ALT (21-72) U/L Alkaline Phosphatase (38-126) U/L Ammonia (9-33) umol/L Troponin I (0.00-0.120) ng/mL Total Protein (6.3-8.3) g/dL Albumin (3.5-5.0) g/dL Globulin (2.2-3.9) gm/dL Albumin/Globulin Ratio (1.0-2.1) Plasma Cortisol PM (1.7-14.1) ug/dL Venous Blood Potassium (3.6-5.2) mmol/L Urine Color [place]lla (YELLOW) Urine Clarity Hazy (Clear) Urine pH 5.0 (5.0-8.0) Ur Specific Bison 1.012 (1.003-1.030) Urine Protein 1+ H (NEGATIVE) mg/dL Urine Glucose (UA) Normal (Normal) mg/dL Urine Ketones Negative (NEGATIVE) mg/dL Urine Blood Negative (NEGATIVE) Urine Nitrate Negative (NEGATIVE) Urine Bilirubin Negative (NEGATIVE) Urine Urobilinogen Normal (0.2-1.0) mg/dL Ur Leukocyte Esterase Neg (Negative) Paula/uL Urine WBC (Auto) 2 (0-5) /hpf Urine RBC (Auto) 1 (0-3) /hpf Ur Squamous Epith Cells < 1 (0-5) /hpf 12/07/17 12/07/17 12/07/17 Range/Units 16:31 16:31 16:26 WBC (4.8-10.8) K/uL RBC (4.40-5.90) Mil/uL Hgb (12.0-18.0) g/dL Hct (35.0-51.0) % MCV (80.0-94.0) fL MCH (27.0-31.0) pg MCHC (33.0-37.0) g/dL RDW (11.5-14.5) % Plt Count (130-400) K/uL MPV (7.2-11.7) fL Neut % (Auto) (50.0-75.0) % Lymph % (Auto) (20.0-40.0) % [place] % (Auto) (0.0-10.0) % Eos % (Auto) (0.0-4.0) % Baso % (Auto) (0.0-2.0) % Neut # (Auto) (1.8-7.0) K/uL Lymph # (Auto) (1.0-4.3) K/uL [place] # (Auto) (0.0-0.8) K/uL Eos # (Auto) (0.0-0.7) K/uL Baso # (Auto) (0.0-0.2) K/uL Neutrophils % (Manual) (50-75) % Band Neutrophils % (0-2) % Lymphocytes % (Manual) (20-40) % Monocytes % (Manual) (0-10) % Toxic Granulation Dohle Bodies Platelet Estimate (NORMAL) Poikilocytosis (manual Anisocytosis (manual) Macrocytosis (manual) Ovalocytes Minor Hill Cells pO2 (30-55) mm/Hg VBG pH (7.32-7.43) VBG pCO2 (40-60) mmHg VBG HCO3 mmol/L VBG Total CO2 (22-28) mmol/L VBG O2 Sat (Calc) (40-65) % VBG Base Excess (0.0-2.0) mmol/L VBG Potassium (3.6-5.2) mmol/L Sodium (132-148) mmol/l Chloride (98-107) mmol/L Glucose (75-110) mg/dl Lactate (0.7-2.1) mmol/L FiO2 % Potassium (3.6-5.2) mmol/L Carbon Dioxide (22-30) mmol/L Anion Gap (10-20) BUN (9-20) mg/dL Creatinine (0.8-1.5) mg/dL Est GFR ( Amer) Est GFR (Non-Af Amer) POC Glucose (mg/dL) 109 (65-110) mg/dL Random Glucose (75-110) mg/dL Hemoglobin A1c (4.2-6.5) % Lactic Acid 1.7 (0.7-2.1) mmol/L Calcium (8.6-10.4) mg/dl Phosphorus (2.5-4.5) mg/dL Magnesium (1.6-2.3) mg/dL Total Bilirubin (0.2-1.3) mg/dL AST (17-59) U/L ALT (21-72) U/L Alkaline Phosphatase (38-126) U/L Ammonia (9-33) umol/L Troponin I (0.00-0.120) ng/mL Total Protein (6.3-8.3) g/dL Albumin (3.5-5.0) g/dL Globulin (2.2-3.9) gm/dL Albumin/Globulin Ratio (1.0-2.1) Plasma Cortisol PM 85.4 H (1.7-14.1) ug/dL Venous Blood Potassium (3.6-5.2) mmol/L Urine Color (YELLOW) Urine Clarity (Clear) Urine pH (5.0-8.0) Ur Specific Bison (1.003-1.030) Urine Protein (NEGATIVE) mg/dL Urine Glucose (UA) (Normal) mg/dL Urine Ketones (NEGATIVE) mg/dL Urine Blood (NEGATIVE) Urine Nitrate (NEGATIVE) Urine Bilirubin (NEGATIVE) Urine Urobilinogen (0.2-1.0) mg/dL Ur Leukocyte Esterase (Negative) Paula/uL Urine WBC (Auto) (0-5) /hpf Urine RBC (Auto) (0-3) /hpf Ur Squamous Epith Cells (0-5) /hpf 12/07/17 12/07/17 12/07/17 Range/Units 16:04 16:02 15:25 WBC (4.8-10.8) K/uL RBC (4.40-5.90) Mil/uL Hgb (12.0-18.0) g/dL Hct (35.0-51.0) % MCV (80.0-94.0) fL MCH (27.0-31.0) pg MCHC (33.0-37.0) g/dL RDW (11.5-14.5) % Plt Count (130-400) K/uL MPV (7.2-11.7) fL Neut % (Auto) (50.0-75.0) % Lymph % (Auto) (20.0-40.0) % [place] % (Auto) (0.0-10.0) % Eos % (Auto) (0.0-4.0) % Baso % (Auto) (0.0-2.0) % Neut # (Auto) (1.8-7.0) K/uL Lymph # (Auto) (1.0-4.3) K/uL [place] # (Auto) (0.0-0.8) K/uL Eos # (Auto) (0.0-0.7) K/uL Baso # (Auto) (0.0-0.2) K/uL Neutrophils % (Manual) (50-75) % Band Neutrophils % (0-2) % Lymphocytes % (Manual) (20-40) % Monocytes % (Manual) (0-10) % Toxic Granulation Dohle Bodies Platelet Estimate (NORMAL) Poikilocytosis (manual Anisocytosis (manual) Macrocytosis (manual) Ovalocytes [place] Cells pO2 37 (30-55) mm/Hg VBG pH 7.31 L (7.32-7.43) VBG pCO2 43 (40-60) mmHg VBG HCO3 20.5 mmol/L VBG Total CO2 23.0 (22-28) mmol/L VBG O2 Sat (Calc) 68.8 H (40-65) % VBG Base Excess -4.5 L (0.0-2.0) mmol/L VBG Potassium 3.3 L (3.6-5.2) mmol/L Sodium 137.0 (132-148) mmol/l Chloride 104.0 (98-107) mmol/L Glucose 53 L (75-110) mg/dl Lactate 1.6 (0.7-2.1) mmol/L FiO2 21.0 % Potassium (3.6-5.2) mmol/L Carbon Dioxide (22-30) mmol/L Anion Gap (10-20) BUN (9-20) mg/dL Creatinine (0.8-1.5) mg/dL Est GFR ( Amer) Est GFR (Non-Af Amer) POC Glucose (mg/dL) 52 L 56 L (65-110) mg/dL Random Glucose (75-110) mg/dL Hemoglobin A1c (4.2-6.5) % Lactic Acid (0.7-2.1) mmol/L Calcium (8.6-10.4) mg/dl Phosphorus (2.5-4.5) mg/dL Magnesium (1.6-2.3) mg/dL Total Bilirubin (0.2-1.3) mg/dL AST (17-59) U/L ALT (21-72) U/L Alkaline Phosphatase (38-126) U/L Ammonia (9-33) umol/L Troponin I (0.00-0.120) ng/mL Total Protein (6.3-8.3) g/dL Albumin (3.5-5.0) g/dL Globulin (2.2-3.9) gm/dL Albumin/Globulin Ratio (1.0-2.1) Plasma Cortisol PM (1.7-14.1) ug/dL Venous Blood Potassium 3.3 L (3.6-5.2) mmol/L Urine Color (YELLOW) Urine Clarity (Clear) Urine pH (5.0-8.0) Ur Specific Bison (1.003-1.030) Urine Protein (NEGATIVE) mg/dL Urine Glucose (UA) (Normal) mg/dL Urine Ketones (NEGATIVE) mg/dL Urine Blood (NEGATIVE) Urine Nitrate (NEGATIVE) Urine Bilirubin (NEGATIVE) Urine Urobilinogen (0.2-1.0) mg/dL Ur Leukocyte Esterase (Negative) Paula/uL Urine WBC (Auto) (0-5) /hpf Urine RBC (Auto) (0-3) /hpf Ur Squamous Epith Cells (0-5) /hpf 12/07/17 Range/Units 13:40 WBC (4.8-10.8) K/uL RBC (4.40-5.90) Mil/uL Hgb (12.0-18.0) g/dL Hct (35.0-51.0) % MCV (80.0-94.0) fL MCH (27.0-31.0) pg MCHC (33.0-37.0) g/dL RDW (11.5-14.5) % Plt Count (130-400) K/uL MPV (7.2-11.7) fL Neut % (Auto) (50.0-75.0) % Lymph % (Auto) (20.0-40.0) % [place] % (Auto) (0.0-10.0) % Eos % (Auto) (0.0-4.0) % Baso % (Auto) (0.0-2.0) % Neut # (Auto) (1.8-7.0) K/uL Lymph # (Auto) (1.0-4.3) K/uL [place] # (Auto) (0.0-0.8) K/uL Eos # (Auto) (0.0-0.7) K/uL Baso # (Auto) (0.0-0.2) K/uL Neutrophils % (Manual) (50-75) % Band Neutrophils % (0-2) % Lymphocytes % (Manual) (20-40) % Monocytes % (Manual) (0-10) % Toxic Granulation Dohle Bodies Platelet Estimate (NORMAL) Poikilocytosis (manual Anisocytosis (manual) Macrocytosis (manual) Ovalocytes Viv Cells pO2 (30-55) mm/Hg VBG pH (7.32-7.43) VBG pCO2 (40-60) mmHg VBG HCO3 mmol/L VBG Total CO2 (22-28) mmol/L VBG O2 Sat (Calc) (40-65) % VBG Base Excess (0.0-2.0) mmol/L VBG Potassium (3.6-5.2) mmol/L Sodium (132-148) mmol/l Chloride (98-107) mmol/L Glucose (75-110) mg/dl Lactate (0.7-2.1) mmol/L FiO2 % Potassium (3.6-5.2) mmol/L Carbon Dioxide (22-30) mmol/L Anion Gap (10-20) BUN (9-20) mg/dL Creatinine (0.8-1.5) mg/dL Est GFR ( Amer) Est GFR (Non-Af Amer) POC Glucose (mg/dL) (65-110) mg/dL Random Glucose (75-110) mg/dL Hemoglobin A1c (4.2-6.5) % Lactic Acid 1.9 (0.7-2.1) mmol/L Calcium (8.6-10.4) mg/dl Phosphorus (2.5-4.5) mg/dL Magnesium (1.6-2.3) mg/dL Total Bilirubin (0.2-1.3) mg/dL AST (17-59) U/L ALT (21-72) U/L Alkaline Phosphatase (38-126) U/L Ammonia (9-33) umol/L Troponin I (0.00-0.120) ng/mL Total Protein (6.3-8.3) g/dL Albumin (3.5-5.0) g/dL Globulin (2.2-3.9) gm/dL Albumin/Globulin Ratio (1.0-2.1) Plasma Cortisol PM (1.7-14.1) ug/dL Venous Blood Potassium (3.6-5.2) mmol/L Urine Color (YELLOW) Urine Clarity (Clear) Urine pH (5.0-8.0) Ur Specific Bison (1.003-1.030) Urine Protein (NEGATIVE) mg/dL Urine Glucose (UA) (Normal) mg/dL Urine Ketones (NEGATIVE) mg/dL Urine Blood (NEGATIVE) Urine Nitrate (NEGATIVE) Urine Bilirubin (NEGATIVE) Urine Urobilinogen (0.2-1.0) mg/dL Ur Leukocyte Esterase (Negative) Paula/uL Urine WBC (Auto) (0-5) /hpf Urine RBC (Auto) (0-3) /hpf Ur Squamous Epith Cells (0-5) /hpf Laboratory Results - last 24 hr 12/07/17 12/07/17 12/07/17 13:40 15:25 16:02 WBC RBC Hgb Hct MCV MCH MCHC RDW Plt Count MPV Neut % (Auto) Lymph % (Auto) [place] % (Auto) Eos % (Auto) Baso % (Auto) Neut # (Auto) Lymph # (Auto) [place] # (Auto) Eos # (Auto) Baso # (Auto) Neutrophils % (Manual) Band Neutrophils % Lymphocytes % (Manual) Monocytes % (Manual) Toxic Granulation Dohle Bodies Platelet Estimate Poikilocytosis (manual Anisocytosis (manual) Macrocytosis (manual) Ovalocytes Viv Cells pO2 37 VBG pH 7.31 L VBG pCO2 43 VBG HCO3 20.5 VBG Total CO2 23.0 VBG O2 Sat (Calc) 68.8 H VBG Base Excess -4.5 L VBG Potassium 3.3 L Sodium 137.0 Chloride 104.0 Glucose 53 L Lactate 1.6 FiO2 21.0 Potassium Carbon Dioxide Anion Gap BUN Creatinine Est GFR ( Amer) Est GFR (Non-Af Amer) POC Glucose (mg/dL) 56 L Random Glucose Hemoglobin A1c Lactic Acid 1.9 Calcium Phosphorus Magnesium Total Bilirubin AST ALT Alkaline Phosphatase Ammonia Troponin I Total Protein Albumin Globulin Albumin/Globulin Ratio Plasma Cortisol PM Venous Blood Potassium 3.3 L Urine Color Urine Clarity Urine pH Ur Specific Bison Urine Protein Urine Glucose (UA) Urine Ketones Urine Blood Urine Nitrate Urine Bilirubin Urine Urobilinogen Ur Leukocyte Esterase Urine WBC (Auto) Urine RBC (Auto) Ur Squamous Epith Cells 12/07/17 12/07/17 12/07/17 16:04 16:26 16:31 WBC RBC Hgb Hct MCV MCH MCHC RDW Plt Count MPV Neut % (Auto) Lymph % (Auto) [place] % (Auto) Eos % (Auto) Baso % (Auto) Neut # (Auto) Lymph # (Auto) [place] # (Auto) Eos # (Auto) Baso # (Auto) Neutrophils % (Manual) Band Neutrophils % Lymphocytes % (Manual) Monocytes % (Manual) Toxic Granulation Dohle Bodies Platelet Estimate Poikilocytosis (manual Anisocytosis (manual) Macrocytosis (manual) Ovalocytes Viv Cells pO2 VBG pH VBG pCO2 VBG HCO3 VBG Total CO2 VBG O2 Sat (Calc) VBG Base Excess VBG Potassium Sodium Chloride Glucose Lactate FiO2 Potassium Carbon Dioxide Anion Gap BUN Creatinine Est GFR ( Amer) Est GFR (Non-Af Amer) POC Glucose (mg/dL) 52 L 109 Random Glucose Hemoglobin A1c Lactic Acid 1.7 Calcium Phosphorus Magnesium Total Bilirubin AST ALT Alkaline Phosphatase Ammonia Troponin I Total Protein Albumin Globulin Albumin/Globulin Ratio Plasma Cortisol PM Venous Blood Potassium Urine Color Urine Clarity Urine pH Ur Specific Bison Urine Protein Urine Glucose (UA) Urine Ketones Urine Blood Urine Nitrate Urine Bilirubin Urine Urobilinogen Ur Leukocyte Esterase Urine WBC (Auto) Urine RBC (Auto) Ur Squamous Epith Cells 12/07/17 12/07/17 12/07/17 16:31 19:58 20:31 WBC RBC Hgb Hct MCV MCH MCHC RDW Plt Count MPV Neut % (Auto) Lymph % (Auto) [place] % (Auto) Eos % (Auto) Baso % (Auto) Neut # (Auto) Lymph # (Auto) [place] # (Auto) Eos # (Auto) Baso # (Auto) Neutrophils % (Manual) Band Neutrophils % Lymphocytes % (Manual) Monocytes % (Manual) Toxic Granulation Dohle Bodies Platelet Estimate Poikilocytosis (manual Anisocytosis (manual) Macrocytosis (manual) Ovalocytes Viv Cells pO2 VBG pH VBG pCO2 VBG HCO3 VBG Total CO2 VBG O2 Sat (Calc) VBG Base Excess VBG Potassium Sodium Chloride Glucose Lactate FiO2 Potassium Carbon Dioxide Anion Gap BUN Creatinine Est GFR ( Amer) Est GFR (Non-Af Amer) POC Glucose (mg/dL) 50 L Random Glucose Hemoglobin A1c Lactic Acid Calcium Phosphorus Magnesium Total Bilirubin AST ALT Alkaline Phosphatase Ammonia Troponin I Total Protein Albumin Globulin Albumin/Globulin Ratio Plasma Cortisol PM 85.4 H Venous Blood Potassium Urine Color [place] Urine Clarity Hazy Urine pH 5.0 Ur Specific Bison 1.012 Urine Protein 1+ H Urine Glucose (UA) Normal Urine Ketones Negative Urine Blood Negative Urine Nitrate Negative Urine Bilirubin Negative Urine Urobilinogen Normal Ur Leukocyte Esterase Neg Urine WBC (Auto) 2 Urine RBC (Auto) 1 Ur Squamous Epith Cells < 1 12/07/17 12/07/17 12/08/17 20:34 20:59 00:05 WBC RBC Hgb Hct MCV MCH MCHC RDW Plt Count MPV Neut % (Auto) Lymph % (Auto) [place] % (Auto) Eos % (Auto) Baso % (Auto) Neut # (Auto) Lymph # (Auto) [place] # (Auto) Eos # (Auto) Baso # (Auto) Neutrophils % (Manual) Band Neutrophils % Lymphocytes % (Manual) Monocytes % (Manual) Toxic Granulation Dohle Bodies Platelet Estimate Poikilocytosis (manual Anisocytosis (manual) Macrocytosis (manual) Ovalocytes [place] Cells pO2 VBG pH VBG pCO2 VBG HCO3 VBG Total CO2 VBG O2 Sat (Calc) VBG Base Excess VBG Potassium Sodium Chloride Glucose Lactate FiO2 Potassium Carbon Dioxide Anion Gap BUN Creatinine Est GFR ( Amer) Est GFR (Non-Af Amer) POC Glucose (mg/dL) 53 L 110 90 Random Glucose Hemoglobin A1c Lactic Acid Calcium Phosphorus Magnesium Total Bilirubin AST ALT Alkaline Phosphatase Ammonia Troponin I Total Protein Albumin Globulin Albumin/Globulin Ratio Plasma Cortisol PM Venous Blood Potassium Urine Color Urine Clarity Urine pH Ur Specific [place] Urine Protein Urine Glucose (UA) Urine Ketones Urine Blood Urine Nitrate Urine Bilirubin Urine Urobilinogen Ur Leukocyte Esterase Urine WBC (Auto) Urine RBC (Auto) Ur Squamous Epith Cells 12/08/17 12/08/17 12/08/17 05:20 06:33 06:33 WBC 9.0 D RBC 3.29 L Hgb 11.5 L Hct 33.2 L MCV 101.0 H MCH 34.9 H MCHC 34.6 RDW 17.8 H Plt Count 45 L MPV 10.8 Neut % (Auto) 97.3 H Lymph % (Auto) 0.9 L [place] % (Auto) 1.6 Eos % (Auto) 0.0 Baso % (Auto) 0.2 Neut # (Auto) 8.8 H Lymph # (Auto) 0.1 L [place] # (Auto) 0.1 Eos # (Auto) 0.0 Baso # (Auto) 0.0 Neutrophils % (Manual) 66 Band Neutrophils % 31 H* Lymphocytes % (Manual) 1 L Monocytes % (Manual) 2 Toxic Granulation Present Dohle Bodies Present Platelet Estimate Decreased L Poikilocytosis (manual Slight Anisocytosis (manual) Slight Macrocytosis (manual) Moderate Ovalocytes Moderate Viv Cells Moderate pO2 VBG pH VBG pCO2 VBG HCO3 VBG Total CO2 VBG O2 Sat (Calc) VBG Base Excess VBG Potassium Sodium 138 Chloride 104 Glucose Lactate FiO2 Potassium 4.2 Carbon Dioxide 24 Anion Gap 14 BUN 87 H Creatinine 2.0 H Est GFR ( Amer) 40 Est GFR (Non-Af Amer) 33 POC Glucose (mg/dL) 71 Random Glucose 67 L Hemoglobin A1c Lactic Acid Calcium 8.3 L Phosphorus 5.3 H Magnesium 2.5 H Total Bilirubin 5.7 H AST 39 ALT 43 Alkaline Phosphatase 36 L Ammonia Troponin I Total Protein 5.0 L Albumin 2.2 L Globulin 2.8 Albumin/Globulin Ratio 0.8 L Plasma Cortisol PM Venous Blood Potassium Urine Color Urine Clarity Urine pH Ur Specific [place] Urine Protein Urine Glucose (UA) Urine Ketones Urine Blood Urine Nitrate Urine Bilirubin Urine Urobilinogen Ur Leukocyte Esterase Urine WBC (Auto) Urine RBC (Auto) Ur Squamous Epith Cells 12/08/17 12/08/17 12/08/17 06:33 06:33 06:33 WBC RBC Hgb Hct MCV MCH MCHC RDW Plt Count MPV Neut % (Auto) Lymph % (Auto) [place] % (Auto) Eos % (Auto) Baso % (Auto) Neut # (Auto) Lymph # (Auto) [place] # (Auto) Eos # (Auto) Baso # (Auto) Neutrophils % (Manual) Band Neutrophils % Lymphocytes % (Manual) Monocytes % (Manual) Toxic Granulation Dohle Bodies Platelet Estimate Poikilocytosis (manual Anisocytosis (manual) Macrocytosis (manual) Ovalocytes Viv Cells pO2 VBG pH VBG pCO2 VBG HCO3 VBG Total CO2 VBG O2 Sat (Calc) VBG Base Excess VBG Potassium Sodium Chloride Glucose Lactate FiO2 Potassium Carbon Dioxide Anion Gap BUN Creatinine Est GFR ( Amer) Est GFR (Non-Af Amer) POC Glucose (mg/dL) Random Glucose Hemoglobin A1c 6.2 Lactic Acid Calcium Phosphorus Magnesium Total Bilirubin AST ALT Alkaline Phosphatase Ammonia 26 Troponin I 0.0780 Total Protein Albumin Globulin Albumin/Globulin Ratio Plasma Cortisol PM Venous Blood Potassium Urine Color Urine Clarity Urine pH Ur Specific [place] Urine Protein Urine Glucose (UA) Urine Ketones Urine Blood Urine Nitrate Urine Bilirubin Urine Urobilinogen Ur Leukocyte Esterase Urine WBC (Auto) Urine RBC (Auto) Ur Squamous Epith Cells 12/08/17 12/08/17 12/08/17 06:36 07:32 11:48 WBC RBC Hgb Hct MCV MCH MCHC RDW Plt Count MPV Neut % (Auto) Lymph % (Auto) [place] % (Auto) Eos % (Auto) Baso % (Auto) Neut # (Auto) Lymph # (Auto) [place] # (Auto) Eos # (Auto) Baso # (Auto) Neutrophils % (Manual) Band Neutrophils % Lymphocytes % (Manual) Monocytes % (Manual) Toxic Granulation Dohle Bodies Platelet Estimate Poikilocytosis (manual Anisocytosis (manual) Macrocytosis (manual) Ovalocytes [place] Cells pO2 VBG pH VBG pCO2 VBG HCO3 VBG Total CO2 VBG O2 Sat (Calc) VBG Base Excess VBG Potassium Sodium Chloride Glucose Lactate FiO2 Potassium Carbon Dioxide Anion Gap BUN Creatinine Est GFR ( Amer) Est GFR (Non-Af Amer) POC Glucose (mg/dL) 86 66 Random Glucose Hemoglobin A1c Lactic Acid 1.6 Calcium Phosphorus Magnesium Total Bilirubin AST ALT Alkaline Phosphatase Ammonia Troponin I Total Protein Albumin Globulin Albumin/Globulin Ratio Plasma Cortisol PM Venous Blood Potassium Urine Color Urine Clarity Urine pH Ur Specific [place] Urine Protein Urine Glucose (UA) Urine Ketones Urine Blood Urine Nitrate Urine Bilirubin Urine Urobilinogen Ur Leukocyte Esterase Urine WBC (Auto) Urine RBC (Auto) Ur Squamous Epith Cells 12/08/17 11:50 WBC RBC Hgb Hct MCV MCH MCHC RDW Plt Count MPV Neut % (Auto) Lymph % (Auto) [place] % (Auto) Eos % (Auto) Baso % (Auto) Neut # (Auto) Lymph # (Auto) [place] # (Auto) Eos # (Auto) Baso # (Auto) Neutrophils % (Manual) Band Neutrophils % Lymphocytes % (Manual) Monocytes % (Manual) Toxic Granulation Dohle Bodies Platelet Estimate Poikilocytosis (manual Anisocytosis (manual) Macrocytosis (manual) Ovalocytes Viv Cells pO2 VBG pH VBG pCO2 VBG HCO3 VBG Total CO2 VBG O2 Sat (Calc) VBG Base Excess VBG Potassium Sodium Chloride Glucose Lactate FiO2 Potassium Carbon Dioxide Anion Gap BUN Creatinine Est GFR ( Amer) Est GFR (Non-Af Amer) POC Glucose (mg/dL) 69 Random Glucose Hemoglobin A1c Lactic Acid Calcium Phosphorus Magnesium Total Bilirubin AST ALT Alkaline Phosphatase Ammonia Troponin I Total Protein Albumin Globulin Albumin/Globulin Ratio Plasma Cortisol PM Venous Blood Potassium Urine Color Urine Clarity Urine pH Ur Specific [place] Urine Protein Urine Glucose (UA) Urine Ketones Urine Blood Urine Nitrate Urine Bilirubin Urine Urobilinogen Ur Leukocyte Esterase Urine WBC (Auto) Urine RBC (Auto) Ur Squamous Epith Cells Fingerstick Blood Sugar Results: 86 Review of Systems - Cardiovascular Cardiovascular: absent: Chest Pain, Dyspnea - Respiratory Respiratory: UNREMARKABLE. absent: Cough, Dyspnea - Gastrointestinal Gastrointestinal: UNREMARKABLE. absent: Abdominal Pain, Change in Bowel Habits - Genitourinary Genitourinary: absent: Flank Pain, Urinary Frequency Critical Care Progress Note - Nutrition Nutrition: Nutrition Category Date Time Status Heart Healthy Diet [DIET] Diets 12/03/17 Breakfast Active Assessment/Plan - Assessment and Plan (Free Text) Assessment: 77 year old male with PMHx of CKD, CHF, HTN admitted to ICU for evaluation and treatment of Hypotension (on 2 pressors) Plan: Neuro: GCS 14 Cardio A: Hypotension, Chronic End-Stage HF, HLD Continues Vasopressin/Levophed Continue Daily Lasix 40 IV NEGATIVE Troponin today. ASA 81 Crestor Daily Pulm CXR today shows no Active Disease On Venti-mask. GI No Acute Issues. Renal A: CKD, Cardiorenal syndrome Avoid Nephrotoxic Agents US confrimed CKD Nephrology on Consult. Gentle Hydration. 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 Hold Anti-coags. Consider Heme/Onc. Consult. ID B/L Lower extremity Cellulitis Cont. Doxycycline, Meropenem, and Cefepime Wound Care Normal Lactic Acid today F/U [employer]. Endo D50 PRN Proph SCD contraindicated due to lower extremety ulcers No pharmacological DVT proph due to low Plts.
--- NOTE | 2017-12-08 12:41 | CARD ---
APPROVED REPORT EKG Measurement Heart [id number] <Conclusion> Normal sinus rhythm Left axis deviation Low voltage QRS Cannot rule out Anteroseptal infarct, age undetermined Abnormal ECG
[2017-12-08] MEDS: Albumin Human 25% (12.5 gm/50 ml) IV SCH ×5 (14:46→21:55)
[2017-12-08] MEDS: Vancomycin 1 gm/NS 200 ml 1 GM/200 ML BAG IVPB SCH (14:54)
--- NOTE | 2017-12-08 15:40 | CP.PCM.PN ---
Subjective - Date & Time of Evaluation Date of Evaluation: 12/08/17 Time of Evaluation: 15:30 - Subjective Subjective: Patient was seen and examined by me. Hospitalist service is covering Dr Dean today. The patient's prognosis is not good. He has a history of a very low EF and it has not improved with medication (the previous notes report of non compliance)) The patient has had this low EF for sometime and also he has been refusing to have an AICD. Review of telemetry today shows several episodes of VT. He has been moved to the ICU last night after having an episode of severe hypotention. He remains on two IV pressors at this time. He is awake, alert - however confused. Objective - Vital Signs/Intake and Output Vital Signs (last 24 hours): Temp Pulse Resp BP Pulse Ox 98.6 F 115 H 20 84/36 L 96 12/08/17 08:00 12/08/17 13:42 12/08/17 13:30 12/08/17 13:42 12/08/17 13:30 Intake and Output: 12/08/17 12/08/17 06:59 18:59 Intake Total 818.8 331.3 Output Total 400 0 Balance 418.8 331.3 - Medications Medications: Current Medications Albumin Human (Albumin Human 25% (12.5 Gm/50 Ml)) 12.5 gm IV Q2H [facility] Stop: 12/09/17 12:46 Last Admin: 12/08/17 14:46 Dose: 12.5 gm Aspirin (Aspirin Chewable) 81 mg PO DAILY [facility] Last Admin: 12/08/17 09:58 Dose: 81 mg Brimonidine Tartrate (Alphagan 0.2% Opht) 0.05 ml OU TID [facility] Last Admin: 12/08/17 13:19 Dose: 1 drop Clotrimazole (Lotrimin 1%) 0 gm TOP BID [facility] Last Admin: 12/08/17 10:03 Dose: 1 applic Dextrose (Dextrose 50% Inj) 0 ml IVP .STAT PRN; Protocol PRN Reason: Hypoglycemia Protocol Last Admin: 12/08/17 11:53 Dose: 50 ml Dextrose (Glutose 15) 0 gm PO .ONCE PRN; Protocol PRN Reason: Hypoglycemia Protocol Docusate Sodium (Colace) 100 mg PO BID PRN PRN Reason: Constipation Dorzolamide HCl (Trusopt) 0.05 ml OU AMPM SHAHEED Last Admin: 12/08/17 09:59 Dose: 1 drop Furosemide (Lasix) 40 mg IVP DAILY SHAHEED Glucagon (Glucagen Diagnostic Kit) 0 mg IM .STAT PRN; Protocol PRN Reason: Hypoglycemia Protocol Hydrocortisone Sodium Succinate (Solu-Cortef) 100 mg IV Q8H SHAHEED Last Admin: 12/08/17 11:59 Dose: 100 mg Dextrose (Dextrose 5% In Water 1000 Ml) 1,000 mls @ 0 mls/hr IV .Q0M PRN; Protocol; Per Protocol PRN Reason: Hypoglycemia Protocol Cefepime HCl (Maxipime Iv 1 Gm Premix) 1 gm in 50 mls @ 100 mls/hr IVPB Q12H SHAHEED PRN Reason: Protocol Last Admin: 12/08/17 03:59 Dose: 100 mls/hr Doxycycline Hyclate 100 mg/ (Sodium Chloride) 100 mls @ 100 mls/hr IVPB Q12H SHAHEED PRN Reason: Protocol Last Admin: 12/08/17 13:14 Dose: 100 mls/hr Norepinephrine Bitartrate 8 mg (/ Dextrose) 258 mls @ 7.74 mls/hr IV .Q24H PRN ; Protocol; 4 MCG/MIN PRN Reason: TITRATE PER MD ORDER Last Admin: 12/08/17 13:42 Dose: 20 mcg/min, 38.7 mls/hr Vasopressin 40 units/ Sodium (Chloride) 42 mls @ 2.52 mls/hr IV .[id number] SHAHEED; 0.04 UNITS/MIN PRN Reason: Protocol Last Admin: 12/08/17 13:30 Dose: 0.04 units/min, 2.52 mls/hr Sodium Chloride (Sodium Chloride 0.9%) 1,000 mls @ 40 mls/hr IV .Q24H SHAHEED Last Admin: 12/08/17 09:56 Dose: 40 mls/hr Latanoprost (Xalatan Opht) 0.05 ml OU HS [facility] Last Admin: 12/07/17 21:15 Dose: 0.05 ml Multivitamins/Minerals (Therapeutic-M Tab) 1 tab PO 0800 SHAHEED Last Admin: 12/08/17 07:46 Dose: 1 tab Rosuvastatin Calcium (Crestor) 10 mg PO HS [facility] Last Admin: 12/07/17 21:14 Dose: 10 mg - Labs Labs: 12/08/17 06:33 12/08/17 06:33 - Constitutional Appears: Unkempt, Agitated, Chronically Ill - Head Exam Head Exam: NORMAL INSPECTION - Eye Exam Eye Exam: EOMI, Normal appearance - Respiratory Exam Respiratory Exam: Decreased Breath Sounds - Cardiovascular Exam Cardiovascular Exam: Tachycardia - GI/Abdominal Exam GI & Abdominal Exam: Soft, Normal Bowel Sounds - Neurological Exam Neurological Exam: Alert, Awake Neuro motor strength exam: Left Upper Extremity: 4, Right Upper Extremity: 4 Assessment and Plan - Assessment and Plan (Free Text) Assessment: Assessment/Plan 1) Dilated Cardiomyopathy EF: 10-15% * 12/08: Patient now moved to ICU after having SUB MASTER due to hypotention. As mentioned previously he does not want ICD. He is still having short runs of VT on telemetry. There is a pending palliative care consult, because of the runs of VTAC as well as low EF and refusal for ICD. * further evaluation for ICD at last admission in July 2017 * Stress test (08/19/17): EF 21%, global hypokinesis of LV, No ischemia, Dilated cardiomyopathy * Troponin negative x 3 * Echo (08/19/17): LV mod dilated, LV severely impaired - EF 10-15%, Grade II filling dynamics, Mild to moderate AR, Mild to moderate MR, Severe pulm HTN * EKG (12/03/17): NSR @ 96 bpm; No acute ST changes; Q wave * CXR (12/03/17): NAD. Scattered nodular densities in both upper lobes. CT scan for further eval on nonemergent basis. (See full report) * Patient noted to have ventricular tachycardia two nights ago; asymptomatic; patient continues to refuse AICD today * Daily weight, ins & outs, fluid restriction * Aspirin 81mg PO daily * Crestor 5mg POqHS 2) Hypotension, low EF 12/08: Currently on two IV pressor medications. 3) Leg Edema * Etiology: most likely 2/2 to chf with chronic venous stasis changes * Dopplers negative for DVT * Compression stockings * LE elevation 4) B/L LE cellulitis * Start Vancomycin 1gm IV daily * Start Zosyn 2.25 IV Q 8Hours 5) Acute on Chronic kidney disease * Dr. Chang's group consulted, help appreciated * Baseline Cr 1.3, 2 on admission * Renal U/S shows no acute findings related to clinical presentation * ordered for 24hour urine collection 6) Medical noncompliance * Psychiatry consulted, Dr. Bermudez help appreciated * Full capacity to make informed decision 7) Hyperkalemia-->resolved * continue to monitor 8) Glaucoma Dorzolamide drop Brimonidine drop 9) Prophylactic Measures Lovenox 40mg SC daily Pepcid 20mg PO daily PT/OT eval Wound care
--- NOTE | 2017-12-08 15:47 | CP.PCM.CON ---
History of Present Illness - History of Present Illness History of Present Illness: Palliative consult requested by Doctor Lange for goals of care discussion Patient is a 77 yo male admitted with SOB and worsening of LEs edema. SOB was getting worse with walking. CXR and doppler of LEs were non conclusive. Patient was treated for fluid overload and developed Hypotension. ENGINEERING TEST MECHANIC was called X 2 for Low BP. Last ENGINEERING TEST MECHANIC called for BP of 98/59. Patient that transferred to ICU. The tele showd hew runs of v tach while patent was asymptomatic. Patient is treated for Heart faillure, administrative assistant data entry on board. PMH: CHF, HTN Soc. Hx: single, lives alone, one brother in [facility]. hx: Mother from " tumor, pressing on her liver', per bother. Review of Systems - Constitutional Constitutional: Daytime Sleepiness - EENT Eyes: absent: As Per HPI, Blind Spots, Blurred Vision, Change in Vision, Decreased Night Vision, Diplopia, Discharge, Dry Eye, Exophthalmos, Floaters, Irritation, Itchy Eyes, Loss of Peripheral Vision, Pain, Photophobia, Requires Corrective Lenses, Sees Flashes, Spots in Vision, Tunnel Vision, Other Visual Disturbances, Loss of Vision, Other Ears: absent: As Per HPI, Decreased Hearing, Ear Discharge, Ear Pain, Tinnitus, Abnormal Hearing, Disequilibrium, Dizziness, Other Nose/Mouth/Throat: absent: As Per HPI, Epistaxis, Nasal Congestion, Nasal Discharge, Nasal Obstruction, Nasal Trauma, Nose Pain, Post Nasal Drip, Sinus Pain, Sinus Pressure, Bleeding Gums, Change in Voice, Dental Pain, Dry Mouth, Dysphagia, Halitosis, Hoarsness, Lip Swelling, Mouth Lesions, Mouth Pain, Odynophagia, Sore Throat, Throat Swelling, Tongue Swelling, Facial Pain, Neck Pain, Neck Mass, Other - Cardiovascular Cardiovascular: Irregular Heart Rhythm - Respiratory Respiratory: Dyspnea on Exertion, Chest Congestion - Gastrointestinal Gastrointestinal: absent: As Per HPI, Abdominal Pain, Belching, Bloating, Change in Bowel Habits, Change in Stool Character, Coffee Ground Emesis, Constipation, Cramping, Diarrhea, Dyspepsia, Dysphagia, Early Satiety, Excessive Flatus, Fecal Incontinence, Heartburn, Hematemesis, Hematochezia, Loose Stools, Melena, Nausea, Odynophagia, Temesmus, Vomiting, Other - Genitourinary Genitourinary: absent: As Per HPI, Change in Urinary Stream, Difficulty Urinating, Dysuria, Flank Pain, Hematuria, Pyuria, Nocturia, Urinary Incontinence, Urinary Frequency, Urinary Hesitance, Urinary Urgency, Voiding Freq/Small Amts, Freq UTI, Hx Renal/Bladder Calculi, Hx /Renal Surgery, Bladder Distension, Other - Musculoskeletal Musculoskeletal: Limited Range of Motion - Integumentary Integumentary: Dry Skin - Neurological Neurological: Loss of Vision, Weakness - Psychiatric Psychiatric: absent: As Per HPI, Abnormal Sleep Pattern, Anhedonia, Anxiety, Auditory Hallucinations, Behavioral Changes, Change in Appetite, Change in Libido, Confusion, Depression, Difficulty Concentrating, Hallucinations, Homicidal Ideation, Hopelessness, Irritability, Memory Loss, Mood Swings, Panic Attacks, Paranoia, Suicidal Ideation, Visual Hallucinations, Tactile Hallucinations, Other - Endocrine Endocrine: absent: As Per HPI, Change in Body Appearance, Change in Libido, Cold Intolorance, Deepening of Voice, Excessive Sweating, Fatigue, Flushing, Heat Intolorance, Increase in Ring/Shoe/Hat Size, Palpitations, Polydipsia, Polyphagia, Polyuria, Other - Hematologic/Lymphatic Hematologic: absent: As Per HPI, Easy Bleeding, Easy Bruising, Lymphadenopathy, Other Past Patient History - Infectious Disease Hx of Infectious Diseases: None - Past Medical History & Family History Past Medical History?: Yes - Past Social History Smoking Status: Never Smoked Chewing Tobacco Use: No Cigar Use: No Alcohol: None Drugs: Denies - CARDIAC Hx Congestive Heart Failure: Yes Hx Hypertension: Yes - HEENT Hx HEENT Problems: Yes Hx Glaucoma: Yes Other/Comment: Glaucoma both eyes - MUSCULOSKELETAL/RHEUMATOLOGICAL Hx Falls: Yes - GENITOURINARY/GYNECOLOGICAL Hx Genitourinary Disorders: Yes Hx Prostate Problems: Yes - PSYCHIATRIC Hx Substance Use: No - SURGICAL HISTORY Hx Surgeries: Yes Hx Herniorrhaphy: Yes Hx Orthopedic Surgery: Yes (LEFT KNEE) - ANESTHESIA Hx Anesthesia: Yes Hx Anesthesia Reactions: No Hx Malignant Hyperthermia: No Meds Allergies/Adverse Reactions: Allergies Allergy/AdvReac Type Severity Reaction Status Date / Time No Known Allergies Allergy Verified 12/03/17 00:20 - Medications Medications: Current Medications Albumin Human (Albumin Human 25% (12.5 Gm/50 Ml)) 12.5 gm IV Q2H SHAHEED Stop: 12/09/17 12:46 Last Admin: 12/08/17 14:46 Dose: 12.5 gm Aspirin (Aspirin Chewable) 81 mg PO DAILY [facility] Last Admin: 12/08/17 09:58 Dose: 81 mg Brimonidine Tartrate (Alphagan 0.2% Opht) 0.05 ml OU TID [facility] Last Admin: 12/08/17 13:19 Dose: 1 drop Clotrimazole (Lotrimin 1%) 0 gm TOP BID [facility] Last Admin: 12/08/17 10:03 Dose: 1 applic Dextrose (Dextrose 50% Inj) 0 ml IVP .STAT PRN; Protocol PRN Reason: Hypoglycemia Protocol Last Admin: 12/08/17 11:53 Dose: 50 ml Dextrose (Glutose 15) 0 gm PO .ONCE PRN; Protocol PRN Reason: Hypoglycemia Protocol Docusate Sodium (Colace) 100 mg PO BID PRN PRN Reason: Constipation Dorzolamide HCl (Trusopt) 0.05 ml OU AMPM [facility] Last Admin: 12/08/17 09:59 Dose: 1 drop Furosemide (Lasix) 40 mg IVP DAILY [facility] Glucagon (Glucagen Diagnostic Kit) 0 mg IM .STAT PRN; Protocol PRN Reason: Hypoglycemia Protocol Hydrocortisone Sodium Succinate (Solu-Cortef) 100 mg IV Q8H [facility] Last Admin: 12/08/17 11:59 Dose: 100 mg Dextrose (Dextrose 5% In Water 1000 Ml) 1,000 mls @ 0 mls/hr IV .Q0M PRN; Protocol; Per Protocol PRN Reason: Hypoglycemia Protocol Cefepime HCl (Maxipime Iv 1 Gm Premix) 1 gm in 50 mls @ 100 mls/hr IVPB Q12H SHAHEED PRN Reason: Protocol Last Admin: 12/08/17 03:59 Dose: 100 mls/hr Doxycycline Hyclate 100 mg/ (Sodium Chloride) 100 mls @ 100 mls/hr IVPB Q12H [facility] PRN Reason: Protocol Last Admin: 12/08/17 13:14 Dose: 100 mls/hr Norepinephrine Bitartrate 8 mg (/ Dextrose) 258 mls @ 7.74 mls/hr IV .Q24H PRN ; Protocol; 4 MCG/MIN PRN Reason: TITRATE PER MD ORDER Last Admin: 12/08/17 13:42 Dose: 20 mcg/min, 38.7 mls/hr Vasopressin 40 units/ Sodium (Chloride) 42 mls @ 2.52 mls/hr IV .[id number] SHAHEED; 0.04 UNITS/MIN PRN Reason: Protocol Last Admin: 12/08/17 13:30 Dose: 0.04 units/min, 2.52 mls/hr Sodium Chloride (Sodium Chloride 0.9%) 1,000 mls @ 40 mls/hr IV .Q24H [facility] Last Admin: 12/08/17 09:56 Dose: 40 mls/hr Latanoprost (Xalatan Opht) 0.05 ml OU HS [facility] Last Admin: 12/07/17 21:15 Dose: 0.05 ml Multivitamins/Minerals (Therapeutic-M Tab) 1 tab PO 0800 [facility] Last Admin: 12/08/17 07:46 Dose: 1 tab Rosuvastatin Calcium (Crestor) 10 mg PO HS [facility] Last Admin: 12/07/17 21:14 Dose: 10 mg Physical Exam - Constitutional Appears: Chronically Ill - Head Exam Head Exam: ATRAUMATIC, NORMAL INSPECTION, NORMOCEPHALIC - Eye Exam Eye Exam: EOMI, Normal appearance, PERRL Pupil Exam: NORMAL ACCOMODATION, PERRL - ENT Exam ENT Exam: Mucous Membranes Dry - Neck Exam Neck exam: Positive for: Normal Inspection - Respiratory Exam Respiratory Exam: Decreased Breath Sounds - Cardiovascular Exam Cardiovascular Exam: Irregular Rhythm - GI/Abdominal Exam GI & Abdominal Exam: Normal Bowel Sounds - Rectal Exam Rectal Exam: Deferred - Exam Exam: NORMAL INSPECTION - Extremities Exam Extremities exam: Positive for: pedal edema - Back Exam Back exam: NORMAL INSPECTION - Neurological Exam Neurological exam: Alert, Oriented x3 - Psychiatric Exam Psychiatric exam: Normal Affect, Normal Mood - Skin Skin Exam: Normal Color Results - Vital Signs Recent Vital Signs: Last Vital Signs Temp 98.6 F 12/08/17 08:00 Pulse 115 H 12/08/17 13:42 Resp 20 12/08/17 13:30 BP 84/36 L 12/08/17 13:42 Pulse Ox 96 12/08/17 13:30 - Labs Result Diagrams: 12/08/17 06:33 12/08/17 06:33 Labs: Laboratory Results - last 24 hr 12/05/17 12/07/17 12/07/17 06:10 16:02 16:04 WBC RBC Hgb Hct MCV MCH MCHC RDW Plt Count MPV Neut % (Auto) Lymph % (Auto) Morehouse % (Auto) Eos % (Auto) Baso % (Auto) Neut # (Auto) Lymph # (Auto) Morehouse # (Auto) Eos # (Auto) Baso # (Auto) Neutrophils % (Manual) Band Neutrophils % Lymphocytes % (Manual) Monocytes % (Manual) Toxic Granulation Dohle Bodies Platelet Estimate Poikilocytosis (manual Anisocytosis (manual) Macrocytosis (manual) Ovalocytes Blanco Cells D-Dimer, Quantitative Sodium Potassium Chloride Carbon Dioxide Anion Gap BUN Creatinine Est GFR ( Amer) Est GFR (Non-Af Amer) POC Glucose (mg/dL) 56 L 52 L Random Glucose Hemoglobin A1c Lactic Acid Calcium Phosphorus Magnesium Total Bilirubin AST ALT Alkaline Phosphatase Ammonia Troponin I Total Protein Albumin Globulin Albumin/Globulin Ratio PTH Intact Whole Molec 21 Plasma Cortisol PM Urine Color Urine Clarity Urine pH Ur Specific Harrison Urine Protein Urine Glucose (UA) Urine Ketones Urine Blood Urine Nitrate Urine Bilirubin Urine Urobilinogen Ur Leukocyte Esterase Urine WBC (Auto) Urine RBC (Auto) Ur Squamous Epith Cells 12/07/17 12/07/17 12/07/17 16:26 16:31 16:31 WBC RBC Hgb Hct MCV MCH MCHC RDW Plt Count MPV Neut % (Auto) Lymph % (Auto) Morehouse % (Auto) Eos % (Auto) Baso % (Auto) Neut # (Auto) Lymph # (Auto) Morehouse # (Auto) Eos # (Auto) Baso # (Auto) Neutrophils % (Manual) Band Neutrophils % Lymphocytes % (Manual) Monocytes % (Manual) Toxic Granulation Dohle Bodies Platelet Estimate Poikilocytosis (manual Anisocytosis (manual) Macrocytosis (manual) Ovalocytes Viv Cells D-Dimer, Quantitative Sodium Potassium Chloride Carbon Dioxide Anion Gap BUN Creatinine Est GFR ( Amer) Est GFR (Non-Af Amer) POC Glucose (mg/dL) 109 Random Glucose Hemoglobin A1c Lactic Acid 1.7 Calcium Phosphorus Magnesium Total Bilirubin AST ALT Alkaline Phosphatase Ammonia Troponin I Total Protein Albumin Globulin Albumin/Globulin Ratio PTH Intact Whole Molec Plasma Cortisol PM 85.4 H Urine Color Urine Clarity Urine pH Ur Specific Harrison Urine Protein Urine Glucose (UA) Urine Ketones Urine Blood Urine Nitrate Urine Bilirubin Urine Urobilinogen Ur Leukocyte Esterase Urine WBC (Auto) Urine RBC (Auto) Ur Squamous Epith Cells 12/07/17 12/07/17 12/07/17 19:58 20:31 20:34 WBC RBC Hgb Hct MCV MCH MCHC RDW Plt Count MPV Neut % (Auto) Lymph % (Auto) Morehouse % (Auto) Eos % (Auto) Baso % (Auto) Neut # (Auto) Lymph # (Auto) Morehouse # (Auto) Eos # (Auto) Baso # (Auto) Neutrophils % (Manual) Band Neutrophils % Lymphocytes % (Manual) Monocytes % (Manual) Toxic Granulation Dohle Bodies Platelet Estimate Poikilocytosis (manual Anisocytosis (manual) Macrocytosis (manual) Ovalocytes Viv Cells D-Dimer, Quantitative Sodium Potassium Chloride Carbon Dioxide Anion Gap BUN Creatinine Est GFR ( Amer) Est GFR (Non-Af Amer) POC Glucose (mg/dL) 50 L 53 L Random Glucose Hemoglobin A1c Lactic Acid Calcium Phosphorus Magnesium Total Bilirubin AST ALT Alkaline Phosphatase Ammonia Troponin I Total Protein Albumin Globulin Albumin/Globulin Ratio PTH Intact Whole Molec Plasma Cortisol PM Urine Color Fiorella Urine Clarity Hazy Urine pH 5.0 Ur Specific Harrison 1.012 Urine Protein 1+ H Urine Glucose (UA) Normal Urine Ketones Negative Urine Blood Negative Urine Nitrate Negative Urine Bilirubin Negative Urine Urobilinogen Normal Ur Leukocyte Esterase Neg Urine WBC (Auto) 2 Urine RBC (Auto) 1 Ur Squamous Epith Cells < 1 12/07/17 12/08/17 12/08/17 20:59 00:05 05:20 WBC RBC Hgb Hct MCV MCH MCHC RDW Plt Count MPV Neut % (Auto) Lymph % (Auto) Morehouse % (Auto) Eos % (Auto) Baso % (Auto) Neut # (Auto) Lymph # (Auto) Morehouse # (Auto) Eos # (Auto) Baso # (Auto) Neutrophils % (Manual) Band Neutrophils % Lymphocytes % (Manual) Monocytes % (Manual) Toxic Granulation Dohle Bodies Platelet Estimate Poikilocytosis (manual Anisocytosis (manual) Macrocytosis (manual) Ovalocytes Blanco Cells D-Dimer, Quantitative Sodium Potassium Chloride Carbon Dioxide Anion Gap BUN Creatinine Est GFR ( Amer) Est GFR (Non-Af Amer) POC Glucose (mg/dL) 110 90 71 Random Glucose Hemoglobin A1c Lactic Acid Calcium Phosphorus Magnesium Total Bilirubin AST ALT Alkaline Phosphatase Ammonia Troponin I Total Protein Albumin Globulin Albumin/Globulin Ratio PTH Intact Whole Molec Plasma Cortisol PM Urine Color Urine Clarity Urine pH Ur Specific Harrison Urine Protein Urine Glucose (UA) Urine Ketones Urine Blood Urine Nitrate Urine Bilirubin Urine Urobilinogen Ur Leukocyte Esterase Urine WBC (Auto) Urine RBC (Auto) Ur Squamous Epith Cells 12/08/17 12/08/17 12/08/17 06:33 06:33 06:33 WBC 9.0 D RBC 3.29 L Hgb 11.5 L Hct 33.2 L MCV 101.0 H MCH 34.9 H MCHC 34.6 RDW 17.8 H Plt Count 45 L MPV 10.8 Neut % (Auto) 97.3 H Lymph % (Auto) 0.9 L Morehouse % (Auto) 1.6 Eos % (Auto) 0.0 Baso % (Auto) 0.2 Neut # (Auto) 8.8 H Lymph # (Auto) 0.1 L Morehouse # (Auto) 0.1 Eos # (Auto) 0.0 Baso # (Auto) 0.0 Neutrophils % (Manual) 66 Band Neutrophils % 31 H* Lymphocytes % (Manual) 1 L Monocytes % (Manual) 2 Toxic Granulation Present Dohle Bodies Present Platelet Estimate Decreased L Poikilocytosis (manual Slight Anisocytosis (manual) Slight Macrocytosis (manual) Moderate Ovalocytes Moderate Blanco Cells Moderate D-Dimer, Quantitative Sodium 138 Potassium 4.2 Chloride 104 Carbon Dioxide 24 Anion Gap 14 BUN 87 H Creatinine 2.0 H Est GFR ( Amer) 40 Est GFR (Non-Af Amer) 33 POC Glucose (mg/dL) Random Glucose 67 L Hemoglobin A1c Lactic Acid Calcium 8.3 L Phosphorus 5.3 H Magnesium 2.5 H Total Bilirubin 5.7 H AST 39 ALT 43 Alkaline Phosphatase 36 L Ammonia 26 Troponin I Total Protein 5.0 L Albumin 2.2 L Globulin 2.8 Albumin/Globulin Ratio 0.8 L PTH Intact Whole Molec Plasma Cortisol PM Urine Color Urine Clarity Urine pH Ur Specific Harrison Urine Protein Urine Glucose (UA) Urine Ketones Urine Blood Urine Nitrate Urine Bilirubin Urine Urobilinogen Ur Leukocyte Esterase Urine WBC (Auto) Urine RBC (Auto) Ur Squamous Epith Cells 12/08/17 12/08/17 12/08/17 06:33 06:33 06:36 WBC RBC Hgb Hct MCV MCH MCHC RDW Plt Count MPV Neut % (Auto) Lymph % (Auto) Morehouse % (Auto) Eos % (Auto) Baso % (Auto) Neut # (Auto) Lymph # (Auto) Morehouse # (Auto) Eos # (Auto) Baso # (Auto) Neutrophils % (Manual) Band Neutrophils % Lymphocytes % (Manual) Monocytes % (Manual) Toxic Granulation Dohle Bodies Platelet Estimate Poikilocytosis (manual Anisocytosis (manual) Macrocytosis (manual) Ovalocytes Viv Cells D-Dimer, Quantitative Sodium Potassium Chloride Carbon Dioxide Anion Gap BUN Creatinine Est GFR ( Amer) Est GFR (Non-Af Amer) POC Glucose (mg/dL) Random Glucose Hemoglobin A1c 6.2 Lactic Acid 1.6 Calcium Phosphorus Magnesium Total Bilirubin AST ALT Alkaline Phosphatase Ammonia Troponin I 0.0780 Total Protein Albumin Globulin Albumin/Globulin Ratio PTH Intact Whole Molec Plasma Cortisol PM Urine Color Urine Clarity Urine pH Ur Specific Harrison Urine Protein Urine Glucose (UA) Urine Ketones Urine Blood Urine Nitrate Urine Bilirubin Urine Urobilinogen Ur Leukocyte Esterase Urine WBC (Auto) Urine RBC (Auto) Ur Squamous Epith Cells 12/08/17 12/08/17 12/08/17 07:32 11:48 11:50 WBC RBC Hgb Hct MCV MCH MCHC RDW Plt Count MPV Neut % (Auto) Lymph % (Auto) [place]house % (Auto) Eos % (Auto) Baso % (Auto) Neut # (Auto) Lymph # (Auto) Morehouse # (Auto) Eos # (Auto) Baso # (Auto) Neutrophils % (Manual) Band Neutrophils % Lymphocytes % (Manual) Monocytes % (Manual) Toxic Granulation Dohle Bodies Platelet Estimate Poikilocytosis (manual Anisocytosis (manual) Macrocytosis (manual) Ovalocytes Blanco Cells D-Dimer, Quantitative Sodium Potassium Chloride Carbon Dioxide Anion Gap BUN Creatinine Est GFR ( Amer) Est GFR (Non-Af Amer) POC Glucose (mg/dL) 86 66 69 Random Glucose Hemoglobin A1c Lactic Acid Calcium Phosphorus Magnesium Total Bilirubin AST ALT Alkaline Phosphatase Ammonia Troponin I Total Protein Albumin Globulin Albumin/Globulin Ratio PTH Intact Whole Molec Plasma Cortisol PM Urine Color Urine Clarity Urine pH Ur Specific Harrison Urine Protein Urine Glucose (UA) Urine Ketones Urine Blood Urine Nitrate Urine Bilirubin Urine Urobilinogen Ur Leukocyte Esterase Urine WBC (Auto) Urine RBC (Auto) Ur Squamous Epith Cells 12/08/17 12/08/17 12:24 14:54 WBC RBC Hgb Hct MCV MCH MCHC RDW Plt Count MPV Neut % (Auto) Lymph % (Auto) [place]house % (Auto) Eos % (Auto) Baso % (Auto) Neut # (Auto) Lymph # (Auto) [place]house # (Auto) Eos # (Auto) Baso # (Auto) Neutrophils % (Manual) Band Neutrophils % Lymphocytes % (Manual) Monocytes % (Manual) Toxic Granulation Dohle Bodies Platelet Estimate Poikilocytosis (manual Anisocytosis (manual) Macrocytosis (manual) Ovalocytes Blanco Cells D-Dimer, Quantitative 1036 H Sodium Potassium Chloride Carbon Dioxide Anion Gap BUN Creatinine Est GFR ( Amer) Est GFR (Non-Af Amer) POC Glucose (mg/dL) 136 H Random Glucose Hemoglobin A1c Lactic Acid Calcium Phosphorus Magnesium Total Bilirubin AST ALT Alkaline Phosphatase Ammonia Troponin I Total Protein Albumin Globulin Albumin/Globulin Ratio PTH Intact Whole Molec Plasma Cortisol PM Urine Color Urine Clarity Urine pH Ur Specific Harrison Urine Protein Urine Glucose (UA) Urine Ketones Urine Blood Urine Nitrate Urine Bilirubin Urine Urobilinogen Ur Leukocyte Esterase Urine WBC (Auto) Urine RBC (Auto) Ur Squamous Epith Cells Assessment & Plan - Assessment and Plan (Free Text) Assessment: palliative consult Full Code, there is no Advance directive on chart, PPS 30% I reviewed medical records, all diagnostic studies, examined and interviewed patient in the bed Patient is alert, lethargic, with O2via mask on. Patient is alert to se;f but said he was in [place]. Patient knew he was at the hospital. Patient was seen by psych and determined to have decision making capacity. Breath sounds are diminished. Patient able to speak in short sentences. Often patient closes his eyes during discussion and need to be aroused again to continue conversation. Patient seems tired and lethargic. HR are irregular, 118. Abdomen is softly distended. LEs are very swollen. PP not palpable. Doppler exam _ DVT. I felt that further discussion with patient would not be productive due to his frequent falling asleep and I asked if I could talk to his brother about goals of care. With patient's permission I discussed his condition over the phone with his brother Timothy Delacruz, who lives [facility]. Mr. Kavin Aguirre admitted not seeing his brother for about 1 year but often speaking to him . I reviewed patient's clinical presentation and diagnosis of heart failure. I chucho concerns abut poor cardiac condition and risks involved with it, one of them being cardiac arrest. I questioned Mr. Kavin Aguirre if he would want to be a electrical contacts adjuster for the patient in case patient loses decision making capacity. he agreed. Code status discussed. POL introduced. Mr.R. Aguirre suggested that he would want his brother to be resuscitated if it should be needed. ICU contact number as well as my contact number shared with the brother if he would want to further fallow up on his brother's condition. Impression * Chronically ill man with acute worsening of SOB * Edema of LEs * lethargy * Limited mobility * Lack of family support Suggestion * Elevate HOB * Promote skin integrity, turn and reposition * Elevate LEs * Full Code I will return to patient tomorrow and continue goals of care discussion, if patient more able to participate in it. Advance care planing 30 min
[2017-12-08 18:50] LABS: ABG ALLEN TEST UNABLE; ARTERIAL BLOOD GAS HCO3 21.3 mmol/L (21-28); ARTERIAL BLOOD GAS HEMOGLOBIN 11.6 g/dL (11.7-17.4); ARTERIAL BLOOD GAS O2 SAT 99.2 % (95-98); ARTERIAL BLOOD GAS PCO2 31 mm/Hg (35-45); ARTERIAL BLOOD GAS PO2 124 mm/Hg (80-100); ARTERIAL BLOOD GAS TCO2 20.2 mmol/L (22-28)
[2017-12-08] MEDS: Latanoprost 2.5 ml Opht Soln OU SCH (22:00)
[2017-12-09] MEDS: Albumin Human 25% (12.5 gm/50 ml) IV SCH ×7 (00:20→12:53)
[2017-12-09] MEDS: Cefepime IV 1 gm in Dextrose 1 GM/50 ML BAG IVPB SCH ×2 (04:36→16:50)
[2017-12-09 06:47] LABS: BASO # 0.2 K/uL (0.0-0.2); BASO % 0.7 % (0.0-2.0); HEMOGLOBIN 11.2 g/dL (12.0-18.0); LYMPH # 0.4 K/uL (1.0-4.3); LYMPH % 1.8 % (20.0-40.0); MEAN CELL VOLUME 100.9 fL (80.0-94.0); MEAN CORPUSCULAR HEMOGLOBIN 34.3 pg (27.0-31.0); MEAN PLATELET VOLUME 10.3 fL (7.2-11.7); MONO # 0.3 K/uL (0.0-0.8); MONO % 1.2 % (0.0-10.0); NEUT % 96.3 % (50.0-75.0); PLATELET COUNT 31 K/uL (130-400); RBC 3.27 Mil/uL (4.40-5.90); RED CELL DISTRIBUTION WIDTH 17.7 % (11.5-14.5); WHITE BLOOD COUNT 23.9 K/uL (4.8-10.8)
[2017-12-09 07:00] LABS: ALB/GLOB RATIO 1.2 (1.0-2.1); ALBUMIN 3.3 g/dL (3.5-5.0); CALCIUM 8.3 mg/dl (8.6-10.4)
[2017-12-09 08:25] LABS: ANISOCYTOSIS SLIGHT; BANDS 31 % (0-2); MONOCYTE 3 % (0-10); NEUTROPHIL 66 % (50-75); PLATELET ESTIMATE MARKEDLY DECREASED (NORMAL); TOTAL CELLS COUNTED 100
[2017-12-09 08:26] LABS: TOXIC GRANULATION PRESENT
[2017-12-09] MEDS: Multivitamin With Minerals Tab PO SCH (08:35)
[2017-12-09] MEDS: Sodium Chloride 0.9% 1,000 ML IV SCH ×2 (09:45→14:58)
[2017-12-09] MEDS: Clotrimazole 1% Cream(30 gm) TOP SCH ×2 (09:59→18:48)
[2017-12-09] MEDS: Brimonidine 0.2% Opth Sol (5ml) OU SCH ×3 (10:00→18:51)
[2017-12-09] MEDS: Dorzolamide 2% Opht Sol 10ml OU SCH ×2 (10:01→18:48)
--- NOTE | 2017-12-09 10:07 | US ---
HISTORY: ?spleenomegaly, ?nutmeg liver COMPARISON: None. TECHNIQUE: Sonographic evaluation of the abdomen. FINDINGS: LIVER: Measures 17.0 cm. Diffusely increased echogenicity of the liver parenchyma. Consistent with fatty infiltration. No mass. Smooth contour. No biliary dilatation. Normal hepatopetal portal venous flow. Hepatic veins are demonstrated to be patent. GALLBLADDER: Sludge. No cholelithiasis. Diffusely thickened wall, up to 6 mm. No pericholecystic fluid. Negative sonographic Aguirre sign. COMMON BILE DUCT: Measures 3 mm. No stones. No dilatation. PANCREAS: Unremarkable as visualized. No mass. No ductal dilatation. RIGHT KIDNEY: Measures 10.3cm. There are 2 nonobstructing upper pole calcifications, 4 mm each. Upper pole cortical cyst, 1.5 x 1.9 by 1.6 cm. Lower pole cortical cyst, 2.1 x 2.2 x 1.7 cm. No solid mass. No hydronephrosis. Diffusely increased cortical echogenicity. LEFT KIDNEY: Measures 9.3cm. Upper pole cortical cyst, 8 x 9 x 10 mm. No solid mass. No calculus or hydronephrosis. Diffusely increased cortical echogenicity. SPLEEN: Normal in size and contour. No mass. AORTA: No aneurysmal dilatation. IVC: Unremarkable. OTHER FINDINGS: Extensive ascites. IMPRESSION: Diffusely increased renal cortical echogenicity bilaterally consistent with diffuse medical renal disease. No evidence of hepatic veno-occlusive disease. Bilateral renal cortical cysts. Two small nonobstructing right renal calculi. Extensive ascites. Gallbladder sludge with diffuse mural thickening common nonspecific.
--- NOTE | 2017-12-09 10:27 | RAD ---
Chest x-ray single frontal view History: Congestive heart failure. Comparison: 12/08/2017 Findings: Right central venous catheter with tip extending into the right atrium. Moderate venous congestion. Bibasilar airspace opacities with small bilateral pleural effusions. Cardiomegaly. Degenerative changes in the spine and shoulders. Impression: Right central venous catheter with tip extending into the right atrium. Moderate venous congestion. Bibasilar airspace opacities with small bilateral pleural effusions. Cardiomegaly.
--- NOTE | 2017-12-09 11:57 | CP.PCM.PN ---
Subjective - Date & Time of Evaluation Date of Evaluation: 12/09/17 Time of Evaluation: 11:54 - Subjective Subjective: seen and brother, brother at bedside pt is lethargic, responding to questions slowly unable to obtain ros denies any pain anuric at this time labs noted discussed w/ icu team Objective - Vital Signs/Intake and Output Vital Signs (last 24 hours): Temp Pulse Resp BP Pulse Ox 97.4 F L 111 H 20 95/67 L 93 L 12/09/17 08:00 12/09/17 08:00 12/09/17 08:00 12/09/17 09:58 12/09/17 08:00 Intake and Output: 12/09/17 12/09/17 06:59 18:59 Intake Total 1816.8 532.1 Output Total 0 Balance 1816.8 532.1 - Medications Medications: Current Medications Albumin Human (Albumin Human 25% (12.5 Gm/50 Ml)) 12.5 gm IV Q2H [facility] Stop: 12/09/17 12:46 Last Admin: 12/09/17 10:33 Dose: 12.5 gm Aspirin (Aspirin Chewable) 81 mg PO DAILY [facility] Last Admin: 12/09/17 09:58 Dose: 81 mg Brimonidine Tartrate (Alphagan 0.2% Opht) 0.05 ml OU TID [facility] Last Admin: 12/09/17 10:00 Dose: 1 drop Clotrimazole (Lotrimin 1%) 0 gm TOP BID [facility] Last Admin: 12/09/17 09:59 Dose: 1 applic Dextrose (Dextrose 50% Inj) 0 ml IVP .STAT PRN; Protocol PRN Reason: Hypoglycemia Protocol Last Admin: 12/08/17 11:53 Dose: 50 ml Dextrose (Glutose 15) 0 gm PO .ONCE PRN; Protocol PRN Reason: Hypoglycemia Protocol Docusate Sodium (Colace) 100 mg PO BID PRN PRN Reason: Constipation Dorzolamide HCl (Trusopt) 0.05 ml OU AMPM [facility] Last Admin: 12/09/17 10:01 Dose: 1 drop Furosemide (Lasix) 40 mg IVP DAILY [facility] Last Admin: 12/09/17 09:58 Dose: 40 mg Glucagon (Glucagen Diagnostic Kit) 0 mg IM .STAT PRN; Protocol PRN Reason: Hypoglycemia Protocol Hydrocortisone Sodium Succinate (Solu-Cortef) 100 mg IV Q8H [facility] Last Admin: 12/09/17 04:42 Dose: 100 mg Cefepime HCl (Maxipime Iv 1 Gm Premix) 1 gm in 50 mls @ 100 mls/hr IVPB Q12H [facility] PRN Reason: Protocol Last Admin: 12/09/17 04:36 Dose: 100 mls/hr Doxycycline Hyclate 100 mg/ (Sodium Chloride) 100 mls @ 100 mls/hr IVPB Q12H [facility] PRN Reason: Protocol Last Admin: 12/09/17 03:00 Dose: 100 mls/hr Norepinephrine Bitartrate 8 mg (/ Dextrose) 258 mls @ 7.74 mls/hr IV .Q24H PRN ; Protocol; 4 MCG/MIN PRN Reason: TITRATE PER MD ORDER Last Admin: 12/09/17 05:57 Dose: 20 mcg/min, 38.7 mls/hr Vasopressin 40 units/ Sodium (Chloride) 42 mls @ 2.52 mls/hr IV .[id number] [facility]; 0.04 UNITS/MIN PRN Reason: Protocol Last Admin: 12/09/17 05:59 Dose: 0.04 units/min, 2.52 mls/hr Sodium Chloride (Sodium Chloride 0.9%) 1,000 mls @ 40 mls/hr IV .Q24H [facility] Last Admin: 12/09/17 09:45 Dose: Not Given Latanoprost (Xalatan Opht) 0.05 ml OU HS [facility] Last Admin: 12/08/17 22:00 Dose: 0.05 ml Multivitamins/Minerals (Therapeutic-M Tab) 1 tab PO 0800 [facility] Last Admin: 12/09/17 08:35 Dose: 1 tab Rosuvastatin Calcium (Crestor) 10 mg PO HS [facility] Last Admin: 12/08/17 21:56 Dose: 10 mg - Labs Labs: 12/09/17 06:39 12/09/17 06:39 - Constitutional Appears: No Acute Distress, Confused, Chronically Ill - Head Exam Head Exam: NORMAL INSPECTION, NORMOCEPHALIC - Eye Exam Eye Exam: Normal appearance Pupil Exam: PERRL - ENT Exam ENT Exam: Mucous Membranes Dry - Neck Exam Neck Exam: Normal Inspection - Respiratory Exam Respiratory Exam: NORMAL BREATHING PATTERN (decreased breath sounds b/l bases) - Cardiovascular Exam Cardiovascular Exam: Tachycardia, REGULAR RHYTHM - GI/Abdominal Exam GI & Abdominal Exam: Distended, Soft - Extremities Exam Extremities Exam: Pedal Edema (3+ b/l edema ) - Neurological Exam Neurological Exam: Awake. absent: Alert - Skin Skin Exam: Intact (b/l legs wrapped in dressing) Assessment and Plan (1) CHF (congestive heart failure) Status: Acute (2) CKD (chronic kidney disease) stage 3, GFR 30-59 ml/min Status: Acute (3) Cardiorenal disease Status: Acute (4) Volume overload Status: Acute (5) Acute CHF Status: Acute (6) Lethargy Status: Acute - Assessment and Plan (Free Text) Assessment: severe cmp / cardiorenal syndrome. on pressors anuric recommend: bladder scan and tripp if urinary retention\ pt is a poor candidate for hd given extremely low ef and hypotension requiring pressors consider palliative care. very poor prognosis
--- NOTE | 2017-12-09 15:20 | CP.PCM.PN ---
Subjective - Date & Time of Evaluation Date of Evaluation: 12/09/17 Time of Evaluation: 14:58 - Subjective Subjective: Confused. Objective - Vital Signs/Intake and Output Vital Signs (last 24 hours): Temp Pulse Resp BP Pulse Ox 97 F L 108 H 20 89/59 L 85 L 12/09/17 12:00 12/09/17 13:00 12/09/17 13:00 12/09/17 13:00 12/09/17 13:00 Intake and Output: 12/09/17 12/09/17 06:59 18:59 Intake Total 1816.8 1139.8 Output Total 0 Balance 1816.8 1139.8 - Medications Medications: Current Medications Aspirin (Aspirin Chewable) 81 mg PO DAILY [facility] Last Admin: 12/09/17 09:58 Dose: 81 mg Brimonidine Tartrate (Alphagan 0.2% Opht) 0.05 ml OU TID [facility] Last Admin: 12/09/17 13:05 Dose: 1 drop Clotrimazole (Lotrimin 1%) 0 gm TOP BID [facility] Last Admin: 12/09/17 09:59 Dose: 1 applic Dextrose (Dextrose 50% Inj) 0 ml IVP .STAT PRN; Protocol PRN Reason: Hypoglycemia Protocol Last Admin: 12/08/17 11:53 Dose: 50 ml Dextrose (Glutose 15) 0 gm PO .ONCE PRN; Protocol PRN Reason: Hypoglycemia Protocol Docusate Sodium (Colace) 100 mg PO BID PRN PRN Reason: Constipation Dorzolamide HCl (Trusopt) 0.05 ml OU AMPM [facility] Last Admin: 12/09/17 10:01 Dose: 1 drop Furosemide (Lasix) 40 mg IVP DAILY [facility] Last Admin: 12/09/17 09:58 Dose: 40 mg Glucagon (Glucagen Diagnostic Kit) 0 mg IM .STAT PRN; Protocol PRN Reason: Hypoglycemia Protocol Hydrocortisone Sodium Succinate (Solu-Cortef) 100 mg IV Q8H [facility] Last Admin: 12/09/17 13:00 Dose: 100 mg Cefepime HCl (Maxipime Iv 1 Gm Premix) 1 gm in 50 mls @ 100 mls/hr IVPB Q12H [facility] PRN Reason: Protocol Last Admin: 12/09/17 04:36 Dose: 100 mls/hr Doxycycline Hyclate 100 mg/ (Sodium Chloride) 100 mls @ 100 mls/hr IVPB Q12H [facility] PRN Reason: Protocol Last Admin: 12/09/17 13:12 Dose: 100 mls/hr Norepinephrine Bitartrate 8 mg (/ Dextrose) 258 mls @ 7.74 mls/hr IV .Q24H PRN ; Protocol; 4 MCG/MIN PRN Reason: TITRATE PER MD ORDER Last Admin: 12/09/17 12:55 Dose: 20 mcg/min, 38.7 mls/hr Vasopressin 40 units/ Sodium (Chloride) 42 mls @ 2.52 mls/hr IV .[id number] [facility]; 0.04 UNITS/MIN PRN Reason: Protocol Last Admin: 12/09/17 05:59 Dose: 0.04 units/min, 2.52 mls/hr Sodium Chloride (Sodium Chloride 0.9%) 1,000 mls @ 40 mls/hr IV .Q24H [facility] Last Admin: 12/09/17 09:45 Dose: Not Given Latanoprost (Xalatan Opht) 0.05 ml OU [facility] Last Admin: 12/08/17 22:00 Dose: 0.05 ml Multivitamins/Minerals (Therapeutic-M Tab) 1 tab PO 0800 [facility] Last Admin: 12/09/17 08:35 Dose: 1 tab Rosuvastatin Calcium (Crestor) 10 mg PO HS [facility] Last Admin: 12/08/17 21:56 Dose: 10 mg - Labs Labs: 12/09/17 06:39 12/09/17 06:39 - Constitutional Appears: In Acute Distress, Chronically Ill - Head Exam Head Exam: ATRAUMATIC, NORMAL INSPECTION, NORMOCEPHALIC - Eye Exam Eye Exam: EOMI, Normal appearance, PERRL Pupil Exam: NORMAL ACCOMODATION, PERRL - ENT Exam ENT Exam: Mucous Membranes Dry - Neck Exam Neck Exam: Normal Inspection - Respiratory Exam Respiratory Exam: Decreased Breath Sounds, Respiratory Distress - Cardiovascular Exam Cardiovascular Exam: Tachycardia - GI/Abdominal Exam GI & Abdominal Exam: Hypoactive Bowel Sounds - Rectal Exam Rectal Exam: Deferred - Extremities Exam Extremities Exam: Joint Swelling, Pedal Edema - Back Exam Back Exam: NORMAL INSPECTION - Neurological Exam Neurological Exam: Alert, Altered Neuro motor strength exam: Left Upper Extremity: 2/1, Right Upper Extremity: 2/1 , Left Lower Extremity: 2/1, Right Lower Extremity: 08/28 - Psychiatric Exam Psychiatric exam: Flat Affect - Skin Skin Exam: Normal Color Assessment and Plan - Assessment and Plan (Free Text) Assessment: Patient seen and examined in bed. His brother Mr. Timothy Delacruz from [facility] is present. Patient is very confused, more than yesterday. Patient did not recognize his brother. Looks lethargic. O2 Sat drops very low to 70% once the mask taken off. Patient has difficulties eating as it causes respiratory status even worse. The kidney functions are worsening. Platelets level is dangerously low, placing huge risk of bleeding. Edema to LEs persisting. Patient appears to have low back pain due to prolonged bed rest. When was to be repositioned patient screamed in pain asking to be left alone. BP low , in 90'. patient's clinical presentation reviewed with the brother at bed side. I offered more information on poor kidney functions, EF of 15%, and its affect on respirator functions. patient's inability to eat due to respiratory distress discussed as well. The options of HD, and PEG vs. comfort care only ,discussed with the brother Mr. Jayme Aguirre is concerned with his brother's quality of life. He will talk to his sister over the phone and by tomorrow ge will decision about goals of care. Mr. Aguirre is flying back home tomorrow by 3 pm and wishes the goals of care were established at that time. This was shared with Doctor Ulrich and ICU team. Impression * Respiratory distress * Lethargy * Poor PO intake due to respiratory distress * Limited mobility * Back pain * pedal edema * Worsening kidney functions Suggestions * Continue O2 supplemt via mask * Offer soft diet only and assist with feedings, small, frequent meals * Promote skin integrity, turn to side using wedge for support * Oral care * Comfort care only would be appropriate level of care for this sick man with multi organ failure Goals of care discussion to be continued tomorrow in am Advance planing time 30 min
--- NOTE | 2017-12-09 18:25 | CP.CCUPN ---
<Emelia Garrison - Last Filed: 12/10/17 11:40> CCU Subjective - Physician Review Subjective (Free Text): Patient seen and examined at bedside. No overnight events reported. Patient is less lethargic than yesterday. Patient denies any chest pain or SOB. CCU Objective - Vital Signs / Intake & Output Vital Signs (Last 4 hours): Vital Signs Temp Pulse Resp BP Pulse Ox 12/09/17 18:01 90 10 L 125/75 82 L 12/09/17 18:00 89 15 85 L 12/09/17 17:21 90 12/09/17 17:00 93 H 16 96/53 L 89 L 12/09/17 16:00 97.2 F L 92 H 16 102/61 96 12/09/17 15:01 90 18 101/39 L 12/09/17 15:00 91 H 19 105/70 95 Intake and Output (Last 8hrs): Intake & Output 12/09/17 12/09/17 12/09/17 06:59 14:59 22:59 Intake Total 1139.2 1219.7 319.6 Output Total 0 Balance 1139.2 1219.7 319.6 Weight 226 lb 3.108 oz Intake: IV 300 258 Intake, IV Amount 839.2 811.7 319.6 Right Distal Port 300.0 262.5 150.0 Right Medial Port 320 380 160 Right Proximal Port 19.2 19.2 9.6 right distal port y 200 150 Oral 150 0 Output: Urine 0 Urine, Voided 0 Other: # Bowel Movements 1 - Physical Exam Head: Positive for: Atraumatic, Normocephalic Extroacular Muscles: Positive for: EOMI Conjunctiva: Positive for: Normal Respiratory/Chest: Positive for: Clear to Auscultation, Accessory Muscle Use Cardiovascular: Positive for: Regular Rate and Rhythm, Normal S1, S2 Abdomen: Positive for: Normal Bowel Sounds. Negative for: Tenderness, Distention Lower Extremity: Positive for: Edema, Tenderness Neurological: Positive for: GCS=15 Psychiatric: Positive for: Alert, Oriented x 3 - Medications Active Medications: Active Medications Generic Name Dose Route Start Last Admin Trade Name Freq PRN Reason Stop Dose Admin Aspirin 81 mg 12/06/17 10:00 12/09/17 09:58 Aspirin Chewable PO 81 mg DAILY SHAHEED Administration Brimonidine Tartrate 0.05 ml 12/03/17 10:00 12/09/17 13:05 Alphagan 0.2% Opht OU 1 drop TID SHAHEED Administration Clotrimazole 0 gm 12/08/17 10:00 12/09/17 09:59 Lotrimin 1% TOP 1 applic BID SHAHEED Administration Dextrose 0 ml 12/06/17 09:06 12/08/17 11:53 Dextrose 50% Inj IVP 50 ml .STAT PRN Administration Hypoglycemia Protocol Protocol Dextrose 0 gm 12/06/17 09:06 Glutose 15 PO .ONCE PRN Hypoglycemia Protocol Protocol Docusate Sodium 100 mg 12/03/17 04:34 Colace PO BID PRN Constipation Dorzolamide HCl 0.05 ml 12/03/17 10:00 12/09/17 10:01 Trusopt OU 1 drop AMPM SHAHEED Administration Furosemide 40 mg 12/08/17 11:45 12/09/17 09:58 Lasix IVP 40 mg DAILY SHAHEED Administration Glucagon 0 mg 12/06/17 09:06 Glucagen Diagnostic Kit IM .STAT PRN Hypoglycemia Protocol Protocol Hydrocortisone Sodium Succinate 100 mg 12/08/17 04:30 12/09/17 13:00 Solu-Cortef IV 100 mg Q8H SHAHEED Administration Cefepime HCl 1 gm in 50 mls @ 100 mls/hr 12/07/17 16:00 12/09/17 16:50 Maxipime Iv 1 Gm Premix IVPB 100 mls/hr Q12H SHAHEED Administration Protocol Doxycycline Hyclate 100 mg/ 100 mls @ 100 mls/hr 12/07/17 14:00 12/09/17 13: 12 Sodium Chloride IVPB 100 mls/hr Q12H SHAHEED Administration Protocol Norepinephrine Bitartrate 8 mg 258 mls @ 7.74 mls/hr 12/07/17 17:47 12/09/17 12:55 / Dextrose IV 20 mcg/min .Q24H PRN 38.7 mls/hr TITRATE PER MD ORDER Administration Protocol 4 MCG/MIN Vasopressin 40 units/ Sodium 42 mls @ 2.52 mls/hr 12/07/17 20:45 12/09/17 05: 59 Chloride IV 0.04 units/min .[id number] SHAHEED 2.52 mls/hr Protocol Administration 0.04 UNITS/MIN Sodium Chloride 1,000 mls @ 40 mls/hr 12/08/17 09:45 12/09/17 14:58 Sodium Chloride 0.9% IV 40 mls/hr .Q24H SHAHEED Administration Latanoprost 0.05 ml 12/03/17 22:00 12/08/17 22:00 Xalatan Opht OU 0.05 ml HS SHAHEED Administration Multivitamins/Minerals 1 tab 12/08/17 08:00 12/09/17 08:35 Therapeutic-M Tab PO 1 tab 0800 SHAHEED Administration Rosuvastatin Calcium 10 mg 12/05/17 22:00 12/08/17 21:56 Crestor PO 10 mg HS SHAHEED Administration - Patient Studies Lab Studies: Microbiology Studies 12/07/17 13:40 Blood Culture - Preliminary Blood-Venous NO GROWTH AFTER 48 HOURS 12/07/17 13:40 Blood Culture - Preliminary Blood-Venous NO GROWTH AFTER 48 HOURS Lab Studies 12/09/17 12/09/17 12/09/17 Range/Units 17:37 16:16 12:04 WBC (4.8-10.8) K/uL RBC (4.40-5.90) Mil/uL Hgb (12.0-18.0) g/dL Hct (35.0-51.0) % MCV (80.0-94.0) fL MCH (27.0-31.0) pg MCHC (33.0-37.0) g/dL RDW (11.5-14.5) % Plt Count (130-400) K/uL MPV (7.2-11.7) fL Neut % (Auto) (50.0-75.0) % Lymph % (Auto) (20.0-40.0) % Guthrie % (Auto) (0.0-10.0) % Eos % (Auto) (0.0-4.0) % Baso % (Auto) (0.0-2.0) % Neut # (Auto) (1.8-7.0) K/uL Lymph # (Auto) (1.0-4.3) K/uL Guthrie # (Auto) (0.0-0.8) K/uL Eos # (Auto) (0.0-0.7) K/uL Baso # (Auto) (0.0-0.2) K/uL Neutrophils % (Manual) (50-75) % Band Neutrophils % (0-2) % Lymphocytes % (Manual) Monocytes % (Manual) (0-10) % Toxic Granulation Dohle Bodies Platelet Estimate (NORMAL) Anisocytosis (manual) Macrocytosis (manual) Puncture Site pCO2 (35-45) mm/Hg pO2 (80-100) mm/Hg HCO3 (21-28) mmol/L ABG pH (7.35-7.45) ABG Total CO2 (22-28) mmol/L ABG O2 Saturation (95-98) % ABG Base Excess (-2.0-3.0) mmol/L ABG Hemoglobin (11.7-17.4) g/dL ABG Carboxyhemoglobin (0.5-1.5) % POC ABG HHb (Measured) (0.0-5.0) % ABG Methemoglobin (0.0-3.0) % Chavez Test A-a O2 Difference mm/Hg Respiratory Index Hgb O2 Saturation (95.0-98.0) % FiO2 % Sodium (132-148) mmol/L Potassium (3.6-5.2) mmol/L Chloride (98-107) mmol/L Carbon Dioxide (22-30) mmol/L Anion Gap (10-20) BUN (9-20) mg/dL Creatinine (0.8-1.5) mg/dL Est GFR ( Amer) Est GFR (Non-Af Amer) POC Glucose (mg/dL) 96 101 112 H (65-110) mg/dL Random Glucose (75-110) mg/dL Calcium (8.6-10.4) mg/dl Phosphorus (2.5-4.5) mg/dL Magnesium (1.6-2.3) mg/dL Total Bilirubin (0.2-1.3) mg/dL AST (17-59) U/L ALT (21-72) U/L Alkaline Phosphatase (38-126) U/L Total Protein (6.3-8.3) g/dL Albumin (3.5-5.0) g/dL Globulin (2.2-3.9) gm/dL Albumin/Globulin Ratio (1.0-2.1) 12/09/17 12/09/17 12/09/17 Range/Units 07:21 06:39 06:39 WBC 23.9 H D (4.8-10.8) K/uL RBC 3.27 L (4.40-5.90) Mil/uL Hgb 11.2 L (12.0-18.0) g/dL Hct 33.0 L (35.0-51.0) % MCV 100.9 H (80.0-94.0) fL MCH 34.3 H (27.0-31.0) pg MCHC 34.0 (33.0-37.0) g/dL RDW 17.7 H (11.5-14.5) % Plt Count 31 L (130-400) K/uL MPV 10.3 (7.2-11.7) fL Neut % (Auto) 96.3 H (50.0-75.0) % Lymph % (Auto) 1.8 L (20.0-40.0) % Guthrie % (Auto) 1.2 (0.0-10.0) % Eos % (Auto) 0.0 (0.0-4.0) % Baso % (Auto) 0.7 (0.0-2.0) % Neut # (Auto) 23.0 H (1.8-7.0) K/uL Lymph # (Auto) 0.4 L (1.0-4.3) K/uL Guthrie # (Auto) 0.3 (0.0-0.8) K/uL Eos # (Auto) 0.0 (0.0-0.7) K/uL Baso # (Auto) 0.2 (0.0-0.2) K/uL Neutrophils % (Manual) 66 (50-75) % Band Neutrophils % 31 H* (0-2) % Lymphocytes % (Manual) TEST NOT PERFORMED Monocytes % (Manual) 3 (0-10) % Toxic Granulation Present Dohle Bodies Present Platelet Estimate Markedly decreased L (NORMAL) Anisocytosis (manual) Slight Macrocytosis (manual) Moderate Puncture Site pCO2 (35-45) mm/Hg pO2 (80-100) mm/Hg HCO3 (21-28) mmol/L ABG pH (7.35-7.45) ABG Total CO2 (22-28) mmol/L ABG O2 Saturation (95-98) % ABG Base Excess (-2.0-3.0) mmol/L ABG Hemoglobin (11.7-17.4) g/dL ABG Carboxyhemoglobin (0.5-1.5) % POC ABG HHb (Measured) (0.0-5.0) % ABG Methemoglobin (0.0-3.0) % Chavez Test A-a O2 Difference mm/Hg Respiratory Index Hgb O2 Saturation (95.0-98.0) % FiO2 % Sodium 141 (132-148) mmol/L Potassium 4.6 (3.6-5.2) mmol/L Chloride 103 (98-107) mmol/L Carbon Dioxide 20 L (22-30) mmol/L Anion Gap 23 H (10-20) BUN 92 H (9-20) mg/dL Creatinine 2.4 H (0.8-1.5) mg/dL Est GFR ( Amer) 32 Est GFR (Non-Af Amer) 27 POC Glucose (mg/dL) 81 (65-110) mg/dL Random Glucose 83 (75-110) mg/dL Calcium 8.3 L (8.6-10.4) mg/dl Phosphorus 6.4 H (2.5-4.5) mg/dL Magnesium 2.7 H (1.6-2.3) mg/dL Total Bilirubin 6.2 H (0.2-1.3) mg/dL AST 39 (17-59) U/L ALT 33 (21-72) U/L Alkaline Phosphatase 43 (38-126) U/L Total Protein 6.1 L (6.3-8.3) g/dL Albumin 3.3 L D (3.5-5.0) g/dL Globulin 2.8 (2.2-3.9) gm/dL Albumin/Globulin Ratio 1.2 (1.0-2.1) 12/09/17 12/08/17 12/08/17 Range/Units 04:41 23:28 20:21 WBC (4.8-10.8) K/uL RBC (4.40-5.90) Mil/uL Hgb (12.0-18.0) g/dL Hct (35.0-51.0) % MCV (80.0-94.0) fL MCH (27.0-31.0) pg MCHC (33.0-37.0) g/dL RDW (11.5-14.5) % Plt Count (130-400) K/uL MPV (7.2-11.7) fL Neut % (Auto) (50.0-75.0) % Lymph % (Auto) (20.0-40.0) % Guthrie % (Auto) (0.0-10.0) % Eos % (Auto) (0.0-4.0) % Baso % (Auto) (0.0-2.0) % Neut # (Auto) (1.8-7.0) K/uL Lymph # (Auto) (1.0-4.3) K/uL Guthrie # (Auto) (0.0-0.8) K/uL Eos # (Auto) (0.0-0.7) K/uL Baso # (Auto) (0.0-0.2) K/uL Neutrophils % (Manual) (50-75) % Band Neutrophils % (0-2) % Lymphocytes % (Manual) Monocytes % (Manual) (0-10) % Toxic Granulation Dohle Bodies Platelet Estimate (NORMAL) Anisocytosis (manual) Macrocytosis (manual) Puncture Site pCO2 (35-45) mm/Hg pO2 (80-100) mm/Hg HCO3 (21-28) mmol/L ABG pH (7.35-7.45) ABG Total CO2 (22-28) mmol/L ABG O2 Saturation (95-98) % ABG Base Excess (-2.0-3.0) mmol/L ABG Hemoglobin (11.7-17.4) g/dL ABG Carboxyhemoglobin (0.5-1.5) % POC ABG HHb (Measured) (0.0-5.0) % ABG Methemoglobin (0.0-3.0) % Chavez Test A-a O2 Difference mm/Hg Respiratory Index Hgb O2 Saturation (95.0-98.0) % FiO2 % Sodium (132-148) mmol/L Potassium (3.6-5.2) mmol/L Chloride (98-107) mmol/L Carbon Dioxide (22-30) mmol/L Anion Gap (10-20) BUN (9-20) mg/dL Creatinine (0.8-1.5) mg/dL Est GFR ( Amer) Est GFR (Non-Af Amer) POC Glucose (mg/dL) 70 97 94 (65-110) mg/dL Random Glucose (75-110) mg/dL Calcium (8.6-10.4) mg/dl Phosphorus (2.5-4.5) mg/dL Magnesium (1.6-2.3) mg/dL Total Bilirubin (0.2-1.3) mg/dL AST (17-59) U/L ALT (21-72) U/L Alkaline Phosphatase (38-126) U/L Total Protein (6.3-8.3) g/dL Albumin (3.5-5.0) g/dL Globulin (2.2-3.9) gm/dL Albumin/Globulin Ratio (1.0-2.1) / Range/Units 18:47 WBC (4.8-10.8) K/uL RBC (4.40-5.90) Mil/uL Hgb (12.0-18.0) g/dL Hct (35.0-51.0) % MCV (80.0-94.0) fL MCH (27.0-31.0) pg MCHC (33.0-37.0) g/dL RDW (11.5-14.5) % Plt Count (130-400) K/uL MPV (7.2-11.7) fL Neut % (Auto) (50.0-75.0) % Lymph % (Auto) (20.0-40.0) % Guthrie % (Auto) (0.0-10.0) % Eos % (Auto) (0.0-4.0) % Baso % (Auto) (0.0-2.0) % Neut # (Auto) (1.8-7.0) K/uL Lymph # (Auto) (1.0-4.3) K/uL Guthrie # (Auto) (0.0-0.8) K/uL Eos # (Auto) (0.0-0.7) K/uL Baso # (Auto) (0.0-0.2) K/uL Neutrophils % (Manual) (50-75) % Band Neutrophils % (0-2) % Lymphocytes % (Manual) Monocytes % (Manual) (0-10) % Toxic Granulation Dohle Bodies Platelet Estimate (NORMAL) Anisocytosis (manual) Macrocytosis (manual) Puncture Site Rr pCO2 31 L (35-45) mm/Hg pO2 124 H (80-100) mm/Hg HCO3 21.3 (21-28) mmol/L ABG pH 7.40 (7.35-7.45) ABG Total CO2 20.2 L (22-28) mmol/L ABG O2 Saturation 99.2 H (95-98) % ABG Base Excess -4.7 L (-2.0-3.0) mmol/L ABG Hemoglobin 11.6 L (11.7-17.4) g/dL ABG Carboxyhemoglobin 1.3 (0.5-1.5) % POC ABG HHb (Measured) 0.8 (0.0-5.0) % ABG Methemoglobin 1.2 (0.0-3.0) % Chavez Test Unable A-a O2 Difference 122.0 mm/Hg Respiratory Index 1.0 Hgb O2 Saturation 96.7 (95.0-98.0) % FiO2 40.0 % Sodium (132-148) mmol/L Potassium (3.6-5.2) mmol/L Chloride (98-107) mmol/L Carbon Dioxide (22-30) mmol/L Anion Gap (10-20) BUN (9-20) mg/dL Creatinine (0.8-1.5) mg/dL Est GFR ( Amer) Est GFR (Non-Af Amer) POC Glucose (mg/dL) (65-110) mg/dL Random Glucose (75-110) mg/dL Calcium (8.6-10.4) mg/dl Phosphorus (2.5-4.5) mg/dL Magnesium (1.6-2.3) mg/dL Total Bilirubin (0.2-1.3) mg/dL AST (17-59) U/L ALT (21-72) U/L Alkaline Phosphatase (38-126) U/L Total Protein (6.3-8.3) g/dL Albumin (3.5-5.0) g/dL Globulin (2.2-3.9) gm/dL Albumin/Globulin Ratio (1.0-2.1) Laboratory Results - last 24 hr 12/08/17 12/08/17 12/08/17 18:47 20:21 23:28 WBC RBC Hgb Hct MCV MCH MCHC RDW Plt Count MPV Neut % (Auto) Lymph % (Auto) Guthrie % (Auto) Eos % (Auto) Baso % (Auto) Neut # (Auto) Lymph # (Auto) Guthrie # (Auto) Eos # (Auto) Baso # (Auto) Neutrophils % (Manual) Band Neutrophils % Lymphocytes % (Manual) Monocytes % (Manual) Toxic Granulation Dohle Bodies Platelet Estimate Anisocytosis (manual) Macrocytosis (manual) Puncture Site Rr pCO2 31 L pO2 124 H HCO3 21.3 ABG pH 7.40 ABG Total CO2 20.2 L ABG O2 Saturation 99.2 H ABG Base Excess -4.7 L ABG Hemoglobin 11.6 L ABG Carboxyhemoglobin 1.3 POC ABG HHb (Measured) 0.8 ABG Methemoglobin 1.2 Chavez Test Unable A-a O2 Difference 122.0 Respiratory Index 1.0 Hgb O2 Saturation 96.7 FiO2 40.0 Sodium Potassium Chloride Carbon Dioxide Anion Gap BUN Creatinine Est GFR ( Amer) Est GFR (Non-Af Amer) POC Glucose (mg/dL) 94 97 Random Glucose Calcium Phosphorus Magnesium Total Bilirubin AST ALT Alkaline Phosphatase Total Protein Albumin Globulin Albumin/Globulin Ratio 12/09/17 12/09/17 12/09/17 04:41 06:39 06:39 WBC 23.9 H D RBC 3.27 L Hgb 11.2 L Hct 33.0 L MCV 100.9 H MCH 34.3 H MCHC 34.0 RDW 17.7 H Plt Count 31 L MPV 10.3 Neut % (Auto) 96.3 H Lymph % (Auto) 1.8 L Guthrie % (Auto) 1.2 Eos % (Auto) 0.0 Baso % (Auto) 0.7 Neut # (Auto) 23.0 H Lymph # (Auto) 0.4 L Guthrie # (Auto) 0.3 Eos # (Auto) 0.0 Baso # (Auto) 0.2 Neutrophils % (Manual) 66 Band Neutrophils % 31 H* Lymphocytes % (Manual) TEST NOT PERFORMED Monocytes % (Manual) 3 Toxic Granulation Present Dohle Bodies Present Platelet Estimate Markedly decreased L Anisocytosis (manual) Slight Macrocytosis (manual) Moderate Puncture Site pCO2 pO2 HCO3 ABG pH ABG Total CO2 ABG O2 Saturation ABG Base Excess ABG Hemoglobin ABG Carboxyhemoglobin POC ABG HHb (Measured) ABG Methemoglobin Chavez Test A-a O2 Difference Respiratory Index Hgb O2 Saturation FiO2 Sodium 141 Potassium 4.6 Chloride 103 Carbon Dioxide 20 L Anion Gap 23 H BUN 92 H Creatinine 2.4 H Est GFR ( Amer) 32 Est GFR (Non-Af Amer) 27 POC Glucose (mg/dL) 70 Random Glucose 83 Calcium 8.3 L Phosphorus 6.4 H Magnesium 2.7 H Total Bilirubin 6.2 H AST 39 ALT 33 Alkaline Phosphatase 43 Total Protein 6.1 L Albumin 3.3 L D Globulin 2.8 Albumin/Globulin Ratio 1.2 12/09/17 12/09/17 12/09/17 07:21 12:04 16:16 WBC RBC Hgb Hct MCV MCH MCHC RDW Plt Count MPV Neut % (Auto) Lymph % (Auto) Guthrie % (Auto) Eos % (Auto) Baso % (Auto) Neut # (Auto) Lymph # (Auto) Guthrie # (Auto) Eos # (Auto) Baso # (Auto) Neutrophils % (Manual) Band Neutrophils % Lymphocytes % (Manual) Monocytes % (Manual) Toxic Granulation Dohle Bodies Platelet Estimate Anisocytosis (manual) Macrocytosis (manual) Puncture Site pCO2 pO2 HCO3 ABG pH ABG Total CO2 ABG O2 Saturation ABG Base Excess ABG Hemoglobin ABG Carboxyhemoglobin POC ABG HHb (Measured) ABG Methemoglobin Chavez Test A-a O2 Difference Respiratory Index Hgb O2 Saturation FiO2 Sodium Potassium Chloride Carbon Dioxide Anion Gap BUN Creatinine Est GFR ( Amer) Est GFR (Non-Af Amer) POC Glucose (mg/dL) 81 112 H 101 Random Glucose Calcium Phosphorus Magnesium Total Bilirubin AST ALT Alkaline Phosphatase Total Protein Albumin Globulin Albumin/Globulin Ratio 12/09/17 17:37 WBC RBC Hgb Hct MCV MCH MCHC RDW Plt Count MPV Neut % (Auto) Lymph % (Auto) Guthrie % (Auto) Eos % (Auto) Baso % (Auto) Neut # (Auto) Lymph # (Auto) Guthrie # (Auto) Eos # (Auto) Baso # (Auto) Neutrophils % (Manual) Band Neutrophils % Lymphocytes % (Manual) Monocytes % (Manual) Toxic Granulation Dohle Bodies Platelet Estimate Anisocytosis (manual) Macrocytosis (manual) Puncture Site pCO2 pO2 HCO3 ABG pH ABG Total CO2 ABG O2 Saturation ABG Base Excess ABG Hemoglobin ABG Carboxyhemoglobin POC ABG HHb (Measured) ABG Methemoglobin Chavez Test A-a O2 Difference Respiratory Index Hgb O2 Saturation FiO2 Sodium Potassium Chloride Carbon Dioxide Anion Gap BUN Creatinine Est GFR ( Amer) Est GFR (Non-Af Amer) POC Glucose (mg/dL) 96 Random Glucose Calcium Phosphorus Magnesium Total Bilirubin AST ALT Alkaline Phosphatase Total Protein Albumin Globulin Albumin/Globulin Ratio Fingerstick Blood Sugar Results: 96 Review of Systems - Constitutional Constitutional: absent: Fever, Chills - Cardiovascular Cardiovascular: absent: Chest Pain, Irregular Heart Rhythm - Respiratory Respiratory: Dyspnea - Gastrointestinal Gastrointestinal: absent: Abdominal Pain, Nausea, Vomiting - Genitourinary Genitourinary: Difficulty Urinating Critical Care Progress Note - Nutrition Nutrition: Nutrition Category Date Time Status Heart Healthy Diet [DIET] Diets 12/03/17 Breakfast Active Assessment/Plan - Assessment and Plan (Free Text) Assessment: 77 year old male with PMHx of CKD, CHF, HTN admitted to ICU for evaluation and treatment of Hypotension (on 2 pressors) Plan: Neuro: GCS 14 Cardio A: Hypotension, Chronic End-Stage HF, HLD Continues Vasopressin/Levophed Continue Daily Lasix 40 IV NEGATIVE Troponin today. ASA 81 Crestor Daily Pulm CXR today shows no Active Disease On Venti-mask. GI No Acute Issues. Renal A: CKD, Cardiorenal syndrome Avoid Nephrotoxic Agents US confrimed CKD Nephrology on Consult. Gentle Hydration. 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 Hold Anti-coags. Consider Heme/Onc. Consult Consider Plt Transfusion. ID B/L Lower extremity Cellulitis Cont. Doxycycline, Meropenem, and Cefepime Wound Care Normal Lactic Acid today Wound Culture shows Gram Positive Cocci. Will F/U sensitivities Blood Cultures NEGATIVE Endo D50 PRN Proph SCD contraindicated due to lower extremety ulcers No pharmacological DVT proph due to low Plts. <Jefferson Ulrich - Last Filed: 12/10/17 16:48> CCU Objective - Vital Signs / Intake & Output Vital Signs (Last 4 hours): Vital Signs Pulse Resp BP Pulse Ox 12/10/17 16:11 83 20 117/57 L 88 L 12/10/17 15:50 82 15 92 L 12/10/17 15:40 82 16 93 L 12/10/17 15:30 94 H 24 12/10/17 15:20 79 19 92 L 12/10/17 15:10 79 9 L 77 L 12/10/17 15:00 80 13 12/10/17 14:59 81 19 110/53 L 83 L 12/10/17 14:50 81 15 94 L 12/10/17 14:40 87 10 L 12/10/17 14:30 88 14 12/10/17 14:20 88 14 74 L 12/10/17 14:10 97 H 18 12/10/17 14:00 89 16 12/10/17 13:59 90 16 98/56 L 12/10/17 13:50 88 16 12/10/17 13:40 82 16 12/10/17 13:33 88 12 103/62 12/10/17 13:30 92 H 20 12/10/17 13:20 85 15 12/10/17 13:10 87 12 12/10/17 13:00 91 H 17 100/15 L 71 L 12/10/17 12:50 102 H 13 Intake and Output (Last 8hrs): Intake & Output 12/10/17 12/10/17 12/10/17 06:59 14:59 22:59 Intake Total 615.7 854.4 180.6 Output Total 10 10 Balance 615.7 844.4 170.6 Weight 227 lb 1 oz Intake: IV 258 42 Intake, IV Amount 357.7 604.4 138.6 Right Distal Port 198.5 135.2 33.8 Right Medial Port 140 450 100 Right Proximal Port 19.2 19.2 4.8 Oral 250 Output: Urine 10 10 Urethral (Andersen) 10 10 Stool 0 Other: # Bowel Movements 1 - Medications Active Medications: Active Medications Generic Name Dose Route Start Last Admin Trade Name Freq PRN Reason Stop Dose Admin Aspirin 81 mg 12/06/17 10:00 12/10/17 09:20 Aspirin Chewable PO 81 mg DAILY SHAHEED Administration Brimonidine Tartrate 0.05 ml 12/03/17 10:00 12/10/17 13:35 Alphagan 0.2% Opht OU 1 drop TID SHAHEED Administration Clotrimazole 0 gm 12/08/17 10:00 12/10/17 10:00 Lotrimin 1% TOP 1 applic BID SHAHEED Administration Dextrose 0 ml 12/06/17 09:06 12/10/17 08:20 Dextrose 50% Inj IVP 50 ml .STAT PRN Administration Hypoglycemia Protocol Protocol Dextrose 0 gm 12/06/17 09:06 Glutose 15 PO .ONCE PRN Hypoglycemia Protocol Protocol Docusate Sodium 100 mg 12/03/17 04:34 Colace PO BID PRN Constipation Dorzolamide HCl 0.05 ml 12/03/17 10:00 12/10/17 09:12 Trusopt OU 1 drop AMPM SHAHEED Administration Furosemide 40 mg 12/10/17 18:00 Lasix IVP BID SHAHEED Glucagon 0 mg 12/06/17 09:06 Glucagen Diagnostic Kit IM .STAT PRN Hypoglycemia Protocol Protocol Hydrocortisone Sodium Succinate 100 mg 12/08/17 04:30 12/10/17 13:21 Solu-Cortef IV 100 mg Q8H SHAHEED Administration Norepinephrine Bitartrate 8 mg 258 mls @ 7.74 mls/hr 12/07/17 17:47 12/10/17 07:41 / Dextrose IV 20 mcg/min .Q24H PRN 38.7 mls/hr TITRATE PER MD ORDER Administration Protocol 4 MCG/MIN Vasopressin 40 units/ Sodium 42 mls @ 2.52 mls/hr 12/07/17 20:45 12/10/17 16: 11 Chloride IV 0.04 units/min .[id number] SHAHEED 2.52 mls/hr Protocol Administration 0.04 UNITS/MIN Sodium Chloride 1,000 mls @ 40 mls/hr 12/08/17 09:45 12/09/17 14:58 Sodium Chloride 0.9% IV 40 mls/hr .Q24H SHAHEED Administration Latanoprost 0.05 ml 12/03/17 22:00 12/09/17 21:15 Xalatan Opht OU 0.05 ml HS SHAHEED Administration Multivitamins/Minerals 1 tab 12/08/17 08:00 12/10/17 08:07 Therapeutic-M Tab PO 1 tab 0800 SHAHEED Administration Rosuvastatin Calcium 10 mg 12/05/17 22:00 12/09/17 21:49 Crestor PO 10 mg HS SHAHEED Administration - Patient Studies Lab Studies: Microbiology Studies 12/07/17 13:40 Blood Culture - Preliminary Blood-Venous NO GROWTH AFTER 3 DAYS 12/07/17 13:40 Blood Culture - Preliminary Blood-Venous NO GROWTH AFTER 3 DAYS 12/09/17 12:37 Blood Culture - Preliminary Blood NO GROWTH AFTER 24 HOURS 12/09/17 10:30 Blood Culture - Preliminary Blood NO GROWTH AFTER 24 HOURS 12/09/17 12:37 Wound Culture - Preliminary Leg - Right Gram Positive Cocci Lab Studies 12/10/17 12/10/17 12/10/17 Range/Units 16:09 15:54 13:21 WBC (4.8-10.8) K/uL RBC (4.40-5.90) Mil/uL Hgb (12.0-18.0) g/dL Hct (35.0-51.0) % MCV (80.0-94.0) fL MCH (27.0-31.0) pg MCHC (33.0-37.0) g/dL RDW (11.5-14.5) % Plt Count (130-400) K/uL MPV (7.2-11.7) fL Neut % (Auto) (50.0-75.0) % Lymph % (Auto) (20.0-40.0) % Guthrie % (Auto) (0.0-10.0) % Eos % (Auto) (0.0-4.0) % Baso % (Auto) (0.0-2.0) % Neut # (Auto) (1.8-7.0) K/uL Lymph # (Auto) (1.0-4.3) K/uL Guthrie # (Auto) (0.0-0.8) K/uL Eos # (Auto) (0.0-0.7) K/uL Baso # (Auto) (0.0-0.2) K/uL Neutrophils % (Manual) (50-75) % Band Neutrophils % (0-2) % Lymphocytes % (Manual) (20-40) % Monocytes % (Manual) (0-10) % Metamyelocytes % (0-0) % Toxic Granulation Platelet Estimate (NORMAL) Anisocytosis (manual) Macrocytosis (manual) Ovalocytes Viv Cells Puncture Site Rr pCO2 22 L (35-45) mm/Hg pO2 188 H (80-100) mm/Hg HCO3 17.2 L (21-28) mmol/L ABG pH 7.38 (7.35-7.45) ABG Total CO2 13.7 L (22-28) mmol/L ABG O2 Saturation 100.0 H (95-98) % ABG Base Excess -10.0 L (-2.0-3.0) mmol/L Chavez Test Pos ABG Potassium 4.7 (3.6-5.2) mmol/L A-a O2 Difference 141.0 mm/Hg Respiratory Index 0.8 Glucose 124 H (75-110) mg/dl Lactate 2.4 H (0.7-2.1) mmol/L Vent Mode Bipap FiO2 50.0 % Inspiratory BiPAP 12 Expiratory BiPAP 6 Sodium 136.0 (132-148) mmol/L Potassium (3.6-5.2) mmol/L Chloride 108.0 H (98-107) mmol/L Carbon Dioxide (22-30) mmol/L Anion Gap (10-20) BUN (9-20) mg/dL Creatinine (0.8-1.5) mg/dL Est GFR ( Amer) Est GFR (Non-Af Amer) POC Glucose (mg/dL) 95 (65-110) mg/dL Random Glucose (75-110) mg/dL Lactic Acid 2.0 (0.7-2.1) mmol/L Calcium (8.6-10.4) mg/dl Phosphorus (2.5-4.5) mg/dL Magnesium (1.6-2.3) mg/dL Total Bilirubin (0.2-1.3) mg/dL AST (17-59) U/L ALT (21-72) U/L Alkaline Phosphatase (38-126) U/L Total Protein (6.3-8.3) g/dL Albumin (3.5-5.0) g/dL Globulin (2.2-3.9) gm/dL Albumin/Globulin Ratio (1.0-2.1) Arterial Blood Potassium 4.7 (3.6-5.2) mmol/L Urine Color (YELLOW) Urine Clarity (Clear) Urine pH (5.0-8.0) Ur Specific [place] (1.003-1.030) Urine Protein (NEGATIVE) mg/dL Urine Glucose (UA) (Normal) mg/dL Urine Ketones (NEGATIVE) mg/dL Urine Blood (NEGATIVE) Urine Nitrate (NEGATIVE) Urine Bilirubin (NEGATIVE) Urine Urobilinogen (0.2-1.0) mg/dL Ur Leukocyte Esterase (Negative) Paula/uL Urine RBC (Auto) (0-3) /hpf Ur Squamous Epith Cells (0-5) /hpf Amorphous Sediment (<OCC) /ul Urine Bacteria (<OCC) Hyaline Casts (0-2) /lpf Blood Type Antibody Screen 12/10/17 12/10/17 12/10/17 Range/Units 11:22 11:04 10:18 WBC (4.8-10.8) K/uL RBC (4.40-5.90) Mil/uL Hgb (12.0-18.0) g/dL Hct (35.0-51.0) % MCV (80.0-94.0) fL MCH (27.0-31.0) pg MCHC (33.0-37.0) g/dL RDW (11.5-14.5) % Plt Count (130-400) K/uL MPV (7.2-11.7) fL Neut % (Auto) (50.0-75.0) % Lymph % (Auto) (20.0-40.0) % Guthrie % (Auto) (0.0-10.0) % Eos % (Auto) (0.0-4.0) % Baso % (Auto) (0.0-2.0) % Neut # (Auto) (1.8-7.0) K/uL Lymph # (Auto) (1.0-4.3) K/uL Guthrie # (Auto) (0.0-0.8) K/uL Eos # (Auto) (0.0-0.7) K/uL Baso # (Auto) (0.0-0.2) K/uL Neutrophils % (Manual) (50-75) % Band Neutrophils % (0-2) % Lymphocytes % (Manual) (20-40) % Monocytes % (Manual) (0-10) % Metamyelocytes % (0-0) % Toxic Granulation Platelet Estimate (NORMAL) Anisocytosis (manual) Macrocytosis (manual) Ovalocytes Viv Cells Puncture Site pCO2 (35-45) mm/Hg pO2 (80-100) mm/Hg HCO3 (21-28) mmol/L ABG pH (7.35-7.45) ABG Total CO2 (22-28) mmol/L ABG O2 Saturation (95-98) % ABG Base Excess (-2.0-3.0) mmol/L Chavez Test ABG Potassium (3.6-5.2) mmol/L A-a O2 Difference mm/Hg Respiratory Index Glucose (75-110) mg/dl Lactate (0.7-2.1) mmol/L Vent Mode FiO2 % Inspiratory BiPAP Expiratory BiPAP Sodium (132-148) mmol/L Potassium (3.6-5.2) mmol/L Chloride (98-107) mmol/L Carbon Dioxide (22-30) mmol/L Anion Gap (10-20) BUN (9-20) mg/dL Creatinine (0.8-1.5) mg/dL Est GFR ( Amer) Est GFR (Non-Af Amer) POC Glucose (mg/dL) 131 H (65-110) mg/dL Random Glucose (75-110) mg/dL Lactic Acid (0.7-2.1) mmol/L Calcium (8.6-10.4) mg/dl Phosphorus (2.5-4.5) mg/dL Magnesium (1.6-2.3) mg/dL Total Bilirubin (0.2-1.3) mg/dL AST (17-59) U/L ALT (21-72) U/L Alkaline Phosphatase (38-126) U/L Total Protein (6.3-8.3) g/dL Albumin (3.5-5.0) g/dL Globulin (2.2-3.9) gm/dL Albumin/Globulin Ratio (1.0-2.1) Arterial Blood Potassium (3.6-5.2) mmol/L Urine Color [place] (YELLOW) Urine Clarity Turbid (Clear) Urine pH 5.0 (5.0-8.0) Ur Specific [place] 1.017 (1.003-1.030) Urine Protein 2+ H (NEGATIVE) mg/dL Urine Glucose (UA) 1+ H (Normal) mg/dL Urine Ketones Negative (NEGATIVE) mg/dL Urine Blood Negative (NEGATIVE) Urine Nitrate Negative (NEGATIVE) Urine Bilirubin Negative (NEGATIVE) Urine Urobilinogen 2.0 (0.2-1.0) mg/dL Ur Leukocyte Esterase Neg (Negative) Paula/uL Urine RBC (Auto) 4 H (0-3) /hpf Ur Squamous Epith Cells 2 (0-5) /hpf Amorphous Sediment Rare H (<OCC) /ul Urine Bacteria Occ H (<OCC) Hyaline Casts 0-2 (0-2) /lpf Blood Type O POSITIVE Antibody Screen Negative 12/10/17 12/10/17 12/10/17 Range/Units 09:47 08:10 08:08 WBC (4.8-10.8) K/uL RBC (4.40-5.90) Mil/uL Hgb (12.0-18.0) g/dL Hct (35.0-51.0) % MCV (80.0-94.0) fL MCH (27.0-31.0) pg MCHC (33.0-37.0) g/dL RDW (11.5-14.5) % Plt Count (130-400) K/uL MPV (7.2-11.7) fL Neut % (Auto) (50.0-75.0) % Lymph % (Auto) (20.0-40.0) % [place] % (Auto) (0.0-10.0) % Eos % (Auto) (0.0-4.0) % Baso % (Auto) (0.0-2.0) % Neut # (Auto) (1.8-7.0) K/uL Lymph # (Auto) (1.0-4.3) K/uL [place] # (Auto) (0.0-0.8) K/uL Eos # (Auto) (0.0-0.7) K/uL Baso # (Auto) (0.0-0.2) K/uL Neutrophils % (Manual) (50-75) % Band Neutrophils % (0-2) % Lymphocytes % (Manual) (20-40) % Monocytes % (Manual) (0-10) % Metamyelocytes % (0-0) % Toxic Granulation Platelet Estimate (NORMAL) Anisocytosis (manual) Macrocytosis (manual) Ovalocytes Viv Cells Puncture Site Rr pCO2 24 L (35-45) mm/Hg pO2 289 H (80-100) mm/Hg HCO3 18.8 L (21-28) mmol/L ABG pH 7.40 (7.35-7.45) ABG Total CO2 15.6 L (22-28) mmol/L ABG O2 Saturation 100.4 H (95-98) % ABG Base Excess -8.0 L (-2.0-3.0) mmol/L Chavez Test Pos ABG Potassium 5.2 (3.6-5.2) mmol/L A-a O2 Difference 180.0 mm/Hg Respiratory Index 0.6 Glucose 138 H (75-110) mg/dl Lactate 2.3 H (0.7-2.1) mmol/L Vent Mode Bipap FiO2 70.0 % Inspiratory BiPAP 12 Expiratory BiPAP 6 Sodium 132.0 (132-148) mmol/L Potassium (3.6-5.2) mmol/L Chloride 103.0 (98-107) mmol/L Carbon Dioxide (22-30) mmol/L Anion Gap (10-20) BUN (9-20) mg/dL Creatinine (0.8-1.5) mg/dL Est GFR ( Amer) Est GFR (Non-Af Amer) POC Glucose (mg/dL) 56 L 62 L (65-110) mg/dL Random Glucose (75-110) mg/dL Lactic Acid (0.7-2.1) mmol/L Calcium (8.6-10.4) mg/dl Phosphorus (2.5-4.5) mg/dL Magnesium (1.6-2.3) mg/dL Total Bilirubin (0.2-1.3) mg/dL AST (17-59) U/L ALT (21-72) U/L Alkaline Phosphatase (38-126) U/L Total Protein (6.3-8.3) g/dL Albumin (3.5-5.0) g/dL Globulin (2.2-3.9) gm/dL Albumin/Globulin Ratio (1.0-2.1) Arterial Blood Potassium 5.2 (3.6-5.2) mmol/L Urine Color (YELLOW) Urine Clarity (Clear) Urine pH (5.0-8.0) Ur Specific [place] (1.003-1.030) Urine Protein (NEGATIVE) mg/dL Urine Glucose (UA) (Normal) mg/dL Urine Ketones (NEGATIVE) mg/dL Urine Blood (NEGATIVE) Urine Nitrate (NEGATIVE) Urine Bilirubin (NEGATIVE) Urine Urobilinogen (0.2-1.0) mg/dL Ur Leukocyte Esterase (Negative) Paula/uL Urine RBC (Auto) (0-3) /hpf Ur Squamous Epith Cells (0-5) /hpf Amorphous Sediment (<OCC) /ul Urine Bacteria (<OCC) Hyaline Casts (0-2) /lpf Blood Type Antibody Screen 12/10/17 12/10/17 12/10/17 Range/Units 07:33 07:31 06:31 WBC (4.8-10.8) K/uL RBC (4.40-5.90) Mil/uL Hgb (12.0-18.0) g/dL Hct (35.0-51.0) % MCV (80.0-94.0) fL MCH (27.0-31.0) pg MCHC (33.0-37.0) g/dL RDW (11.5-14.5) % Plt Count (130-400) K/uL MPV (7.2-11.7) fL Neut % (Auto) (50.0-75.0) % Lymph % (Auto) (20.0-40.0) % [place] % (Auto) (0.0-10.0) % Eos % (Auto) (0.0-4.0) % Baso % (Auto) (0.0-2.0) % Neut # (Auto) (1.8-7.0) K/uL Lymph # (Auto) (1.0-4.3) K/uL [place] # (Auto) (0.0-0.8) K/uL Eos # (Auto) (0.0-0.7) K/uL Baso # (Auto) (0.0-0.2) K/uL Neutrophils % (Manual) (50-75) % Band Neutrophils % (0-2) % Lymphocytes % (Manual) (20-40) % Monocytes % (Manual) (0-10) % Metamyelocytes % (0-0) % Toxic Granulation Platelet Estimate (NORMAL) Anisocytosis (manual) Macrocytosis (manual) Ovalocytes [place] Cells Puncture Site pCO2 (35-45) mm/Hg pO2 (80-100) mm/Hg HCO3 (21-28) mmol/L ABG pH (7.35-7.45) ABG Total CO2 (22-28) mmol/L ABG O2 Saturation (95-98) % ABG Base Excess (-2.0-3.0) mmol/L Chavez Test ABG Potassium (3.6-5.2) mmol/L A-a O2 Difference mm/Hg Respiratory Index Glucose (75-110) mg/dl Lactate (0.7-2.1) mmol/L Vent Mode FiO2 % Inspiratory BiPAP Expiratory BiPAP Sodium (132-148) mmol/L Potassium (3.6-5.2) mmol/L Chloride (98-107) mmol/L Carbon Dioxide (22-30) mmol/L Anion Gap (10-20) BUN (9-20) mg/dL Creatinine (0.8-1.5) mg/dL Est GFR ( Amer) Est GFR (Non-Af Amer) POC Glucose (mg/dL) 66 62 L 80 (65-110) mg/dL Random Glucose (75-110) mg/dL Lactic Acid (0.7-2.1) mmol/L Calcium (8.6-10.4) mg/dl Phosphorus (2.5-4.5) mg/dL Magnesium (1.6-2.3) mg/dL Total Bilirubin (0.2-1.3) mg/dL AST (17-59) U/L ALT (21-72) U/L Alkaline Phosphatase (38-126) U/L Total Protein (6.3-8.3) g/dL Albumin (3.5-5.0) g/dL Globulin (2.2-3.9) gm/dL Albumin/Globulin Ratio (1.0-2.1) Arterial Blood Potassium (3.6-5.2) mmol/L Urine Color (YELLOW) Urine Clarity (Clear) Urine pH (5.0-8.0) Ur Specific [place] (1.003-1.030) Urine Protein (NEGATIVE) mg/dL Urine Glucose (UA) (Normal) mg/dL Urine Ketones (NEGATIVE) mg/dL Urine Blood (NEGATIVE) Urine Nitrate (NEGATIVE) Urine Bilirubin (NEGATIVE) Urine Urobilinogen (0.2-1.0) mg/dL Ur Leukocyte Esterase (Negative) Paula/uL Urine RBC (Auto) (0-3) /hpf Ur Squamous Epith Cells (0-5) /hpf Amorphous Sediment (<OCC) /ul Urine Bacteria (<OCC) Hyaline Casts (0-2) /lpf Blood Type Antibody Screen 12/10/17 12/10/17 12/10/17 Range/Units 06:15 06:13 04:28 WBC 28.1 H (4.8-10.8) K/uL RBC 3.37 L (4.40-5.90) Mil/uL Hgb 11.5 L (12.0-18.0) g/dL Hct 34.2 L (35.0-51.0) % MCV 101.3 H (80.0-94.0) fL MCH 34.1 H (27.0-31.0) pg MCHC 33.7 (33.0-37.0) g/dL RDW 18.0 H (11.5-14.5) % Plt Count 27 L* (130-400) K/uL MPV 10.3 (7.2-11.7) fL Neut % (Auto) 97.2 H (50.0-75.0) % Lymph % (Auto) 1.1 L (20.0-40.0) % [place] % (Auto) 1.6 (0.0-10.0) % Eos % (Auto) 0.0 (0.0-4.0) % Baso % (Auto) 0.1 (0.0-2.0) % Neut # (Auto) 27.3 H (1.8-7.0) K/uL Lymph # (Auto) 0.3 L (1.0-4.3) K/uL [place] # (Auto) 0.5 (0.0-0.8) K/uL Eos # (Auto) 0.0 (0.0-0.7) K/uL Baso # (Auto) 0.0 (0.0-0.2) K/uL Neutrophils % (Manual) 72 (50-75) % Band Neutrophils % 25 H* (0-2) % Lymphocytes % (Manual) 1 L (20-40) % Monocytes % (Manual) 1 (0-10) % Metamyelocytes % 1 H (0-0) % Toxic Granulation Present Platelet Estimate Markedly decreased L (NORMAL) Anisocytosis (manual) Moderate Macrocytosis (manual) Moderate Ovalocytes Moderate Viv Cells Moderate Puncture Site pCO2 (35-45) mm/Hg pO2 (80-100) mm/Hg HCO3 (21-28) mmol/L ABG pH (7.35-7.45) ABG Total CO2 (22-28) mmol/L ABG O2 Saturation (95-98) % ABG Base Excess (-2.0-3.0) mmol/L Chavez Test ABG Potassium (3.6-5.2) mmol/L A-a O2 Difference mm/Hg Respiratory Index Glucose (75-110) mg/dl Lactate (0.7-2.1) mmol/L Vent Mode FiO2 % Inspiratory BiPAP Expiratory BiPAP Sodium 139 (132-148) mmol/L Potassium 5.4 H (3.6-5.2) mmol/L Chloride 103 (98-107) mmol/L Carbon Dioxide 19 L (22-30) mmol/L Anion Gap 22 H (10-20) BUN 110 H* (9-20) mg/dL Creatinine 3.2 H (0.8-1.5) mg/dL Est GFR ( Amer) 23 Est GFR (Non-Af Amer) 19 POC Glucose (mg/dL) 52 L (65-110) mg/dL Random Glucose 79 (75-110) mg/dL Lactic Acid (0.7-2.1) mmol/L Calcium 7.6 L (8.6-10.4) mg/dl Phosphorus 7.5 H (2.5-4.5) mg/dL Magnesium 2.9 H (1.6-2.3) mg/dL Total Bilirubin 6.3 H (0.2-1.3) mg/dL AST 63 H D (17-59) U/L ALT 37 (21-72) U/L Alkaline Phosphatase 77 (38-126) U/L Total Protein 5.8 L (6.3-8.3) g/dL Albumin 3.0 L (3.5-5.0) g/dL Globulin 2.7 (2.2-3.9) gm/dL Albumin/Globulin Ratio 1.1 (1.0-2.1) Arterial Blood Potassium (3.6-5.2) mmol/L Urine Color (YELLOW) Urine Clarity (Clear) Urine pH (5.0-8.0) Ur Specific [place] (1.003-1.030) Urine Protein (NEGATIVE) mg/dL Urine Glucose (UA) (Normal) mg/dL Urine Ketones (NEGATIVE) mg/dL Urine Blood (NEGATIVE) Urine Nitrate (NEGATIVE) Urine Bilirubin (NEGATIVE) Urine Urobilinogen (0.2-1.0) mg/dL Ur Leukocyte Esterase (Negative) Paula/uL Urine RBC (Auto) (0-3) /hpf Ur Squamous Epith Cells (0-5) /hpf Amorphous Sediment (<OCC) /ul Urine Bacteria (<OCC) Hyaline Casts (0-2) /lpf Blood Type Antibody Screen 12/10/17 12/09/17 12/09/17 Range/Units 04:25 23:59 21:03 WBC (4.8-10.8) K/uL RBC (4.40-5.90) Mil/uL Hgb (12.0-18.0) g/dL Hct (35.0-51.0) % MCV (80.0-94.0) fL MCH (27.0-31.0) pg MCHC (33.0-37.0) g/dL RDW (11.5-14.5) % Plt Count (130-400) K/uL MPV (7.2-11.7) fL Neut % (Auto) (50.0-75.0) % Lymph % (Auto) (20.0-40.0) % [place] % (Auto) (0.0-10.0) % Eos % (Auto) (0.0-4.0) % Baso % (Auto) (0.0-2.0) % Neut # (Auto) (1.8-7.0) K/uL Lymph # (Auto) (1.0-4.3) K/uL [place] # (Auto) (0.0-0.8) K/uL Eos # (Auto) (0.0-0.7) K/uL Baso # (Auto) (0.0-0.2) K/uL Neutrophils % (Manual) (50-75) % Band Neutrophils % (0-2) % Lymphocytes % (Manual) (20-40) % Monocytes % (Manual) (0-10) % Metamyelocytes % (0-0) % Toxic Granulation Platelet Estimate (NORMAL) Anisocytosis (manual) Macrocytosis (manual) Ovalocytes [place] Cells Puncture Site pCO2 (35-45) mm/Hg pO2 (80-100) mm/Hg HCO3 (21-28) mmol/L ABG pH (7.35-7.45) ABG Total CO2 (22-28) mmol/L ABG O2 Saturation (95-98) % ABG Base Excess (-2.0-3.0) mmol/L Chavez Test ABG Potassium (3.6-5.2) mmol/L A-a O2 Difference mm/Hg Respiratory Index Glucose (75-110) mg/dl Lactate (0.7-2.1) mmol/L Vent Mode FiO2 % Inspiratory BiPAP Expiratory BiPAP Sodium (132-148) mmol/L Potassium (3.6-5.2) mmol/L Chloride (98-107) mmol/L Carbon Dioxide (22-30) mmol/L Anion Gap (10-20) BUN (9-20) mg/dL Creatinine (0.8-1.5) mg/dL Est GFR ( Amer) Est GFR (Non-Af Amer) POC Glucose (mg/dL) 40 L 93 76 (65-110) mg/dL Random Glucose (75-110) mg/dL Lactic Acid (0.7-2.1) mmol/L Calcium (8.6-10.4) mg/dl Phosphorus (2.5-4.5) mg/dL Magnesium (1.6-2.3) mg/dL Total Bilirubin (0.2-1.3) mg/dL AST (17-59) U/L ALT (21-72) U/L Alkaline Phosphatase (38-126) U/L Total Protein (6.3-8.3) g/dL Albumin (3.5-5.0) g/dL Globulin (2.2-3.9) gm/dL Albumin/Globulin Ratio (1.0-2.1) Arterial Blood Potassium (3.6-5.2) mmol/L Urine Color (YELLOW) Urine Clarity (Clear) Urine pH (5.0-8.0) Ur Specific [place] (1.003-1.030) Urine Protein (NEGATIVE) mg/dL Urine Glucose (UA) (Normal) mg/dL Urine Ketones (NEGATIVE) mg/dL Urine Blood (NEGATIVE) Urine Nitrate (NEGATIVE) Urine Bilirubin (NEGATIVE) Urine Urobilinogen (0.2-1.0) mg/dL Ur Leukocyte Esterase (Negative) Paula/uL Urine RBC (Auto) (0-3) /hpf Ur Squamous Epith Cells (0-5) /hpf Amorphous Sediment (<OCC) /ul Urine Bacteria (<OCC) Hyaline Casts (0-2) /lpf Blood Type Antibody Screen 12/09/17 Range/Units 17:37 WBC (4.8-10.8) K/uL RBC (4.40-5.90) Mil/uL Hgb (12.0-18.0) g/dL Hct (35.0-51.0) % MCV (80.0-94.0) fL MCH (27.0-31.0) pg MCHC (33.0-37.0) g/dL RDW (11.5-14.5) % Plt Count (130-400) K/uL MPV (7.2-11.7) fL Neut % (Auto) (50.0-75.0) % Lymph % (Auto) (20.0-40.0) % [place] % (Auto) (0.0-10.0) % Eos % (Auto) (0.0-4.0) % Baso % (Auto) (0.0-2.0) % Neut # (Auto) (1.8-7.0) K/uL Lymph # (Auto) (1.0-4.3) K/uL [place] # (Auto) (0.0-0.8) K/uL Eos # (Auto) (0.0-0.7) K/uL Baso # (Auto) (0.0-0.2) K/uL Neutrophils % (Manual) (50-75) % Band Neutrophils % (0-2) % Lymphocytes % (Manual) (20-40) % Monocytes % (Manual) (0-10) % Metamyelocytes % (0-0) % Toxic Granulation Platelet Estimate (NORMAL) Anisocytosis (manual) Macrocytosis (manual) Ovalocytes Viv Cells Puncture Site pCO2 (35-45) mm/Hg pO2 (80-100) mm/Hg HCO3 (21-28) mmol/L ABG pH (7.35-7.45) ABG Total CO2 (22-28) mmol/L ABG O2 Saturation (95-98) % ABG Base Excess (-2.0-3.0) mmol/L Chavez Test ABG Potassium (3.6-5.2) mmol/L A-a O2 Difference mm/Hg Respiratory Index Glucose (75-110) mg/dl Lactate (0.7-2.1) mmol/L Vent Mode FiO2 % Inspiratory BiPAP Expiratory BiPAP Sodium (132-148) mmol/L Potassium (3.6-5.2) mmol/L Chloride (98-107) mmol/L Carbon Dioxide (22-30) mmol/L Anion Gap (10-20) BUN (9-20) mg/dL Creatinine (0.8-1.5) mg/dL Est GFR ( Amer) Est GFR (Non-Af Amer) POC Glucose (mg/dL) 96 (65-110) mg/dL Random Glucose (75-110) mg/dL Lactic Acid (0.7-2.1) mmol/L Calcium (8.6-10.4) mg/dl Phosphorus (2.5-4.5) mg/dL Magnesium (1.6-2.3) mg/dL Total Bilirubin (0.2-1.3) mg/dL AST (17-59) U/L ALT (21-72) U/L Alkaline Phosphatase (38-126) U/L Total Protein (6.3-8.3) g/dL Albumin (3.5-5.0) g/dL Globulin (2.2-3.9) gm/dL Albumin/Globulin Ratio (1.0-2.1) Arterial Blood Potassium (3.6-5.2) mmol/L Urine Color (YELLOW) Urine Clarity (Clear) Urine pH (5.0-8.0) Ur Specific [place] (1.003-1.030) Urine Protein (NEGATIVE) mg/dL Urine Glucose (UA) (Normal) mg/dL Urine Ketones (NEGATIVE) mg/dL Urine Blood (NEGATIVE) Urine Nitrate (NEGATIVE) Urine Bilirubin (NEGATIVE) Urine Urobilinogen (0.2-1.0) mg/dL Ur Leukocyte Esterase (Negative) Paula/uL Urine RBC (Auto) (0-3) /hpf Ur Squamous Epith Cells (0-5) /hpf Amorphous Sediment (<OCC) /ul Urine Bacteria (<OCC) Hyaline Casts (0-2) /lpf Blood Type Antibody Screen Laboratory Results - last 24 hr 12/09/17 12/09/17 12/09/17 17:37 21:03 23:59 WBC RBC Hgb Hct MCV MCH MCHC RDW Plt Count MPV Neut % (Auto) Lymph % (Auto) [place] % (Auto) Eos % (Auto) Baso % (Auto) Neut # (Auto) Lymph # (Auto) [place] # (Auto) Eos # (Auto) Baso # (Auto) Neutrophils % (Manual) Band Neutrophils % Lymphocytes % (Manual) Monocytes % (Manual) Metamyelocytes % Toxic Granulation Platelet Estimate Anisocytosis (manual) Macrocytosis (manual) Ovalocytes [place] Cells Puncture Site pCO2 pO2 HCO3 ABG pH ABG Total CO2 ABG O2 Saturation ABG Base Excess Chavez Test ABG Potassium A-a O2 Difference Respiratory Index Glucose Lactate Vent Mode FiO2 Inspiratory BiPAP Expiratory BiPAP Sodium Potassium Chloride Carbon Dioxide Anion Gap BUN Creatinine Est GFR ( Amer) Est GFR (Non-Af Amer) POC Glucose (mg/dL) 96 76 93 Random Glucose Lactic Acid Calcium Phosphorus Magnesium Total Bilirubin AST ALT Alkaline Phosphatase Total Protein Albumin Globulin Albumin/Globulin Ratio Arterial Blood Potassium Urine Color Urine Clarity Urine pH Ur Specific [place] Urine Protein Urine Glucose (UA) Urine Ketones Urine Blood Urine Nitrate Urine Bilirubin Urine Urobilinogen Ur Leukocyte Esterase Urine RBC (Auto) Ur Squamous Epith Cells Amorphous Sediment Urine Bacteria Hyaline Casts Blood Type Antibody Screen 12/10/17 12/10/17 12/10/17 04:25 04:28 06:13 WBC 28.1 H RBC 3.37 L Hgb 11.5 L Hct 34.2 L MCV 101.3 H MCH 34.1 H MCHC 33.7 RDW 18.0 H Plt Count 27 L* MPV 10.3 Neut % (Auto) 97.2 H Lymph % (Auto) 1.1 L [place] % (Auto) 1.6 Eos % (Auto) 0.0 Baso % (Auto) 0.1 Neut # (Auto) 27.3 H Lymph # (Auto) 0.3 L [place] # (Auto) 0.5 Eos # (Auto) 0.0 Baso # (Auto) 0.0 Neutrophils % (Manual) 72 Band Neutrophils % 25 H* Lymphocytes % (Manual) 1 L Monocytes % (Manual) 1 Metamyelocytes % 1 H Toxic Granulation Present Platelet Estimate Markedly decreased L Anisocytosis (manual) Moderate Macrocytosis (manual) Moderate Ovalocytes Moderate Viv Cells Moderate Puncture Site pCO2 pO2 HCO3 ABG pH ABG Total CO2 ABG O2 Saturation ABG Base Excess Chavez Test ABG Potassium A-a O2 Difference Respiratory Index Glucose Lactate Vent Mode FiO2 Inspiratory BiPAP Expiratory BiPAP Sodium Potassium Chloride Carbon Dioxide Anion Gap BUN Creatinine Est GFR ( Amer) Est GFR (Non-Af Amer) POC Glucose (mg/dL) 40 L 52 L Random Glucose Lactic Acid Calcium Phosphorus Magnesium Total Bilirubin AST ALT Alkaline Phosphatase Total Protein Albumin Globulin Albumin/Globulin Ratio Arterial Blood Potassium Urine Color Urine Clarity Urine pH Ur Specific [place] Urine Protein Urine Glucose (UA) Urine Ketones Urine Blood Urine Nitrate Urine Bilirubin Urine Urobilinogen Ur Leukocyte Esterase Urine RBC (Auto) Ur Squamous Epith Cells Amorphous Sediment Urine Bacteria Hyaline Casts Blood Type Antibody Screen 12/10/17 12/10/17 12/10/17 06:15 06:31 07:31 WBC RBC Hgb Hct MCV MCH MCHC RDW Plt Count MPV Neut % (Auto) Lymph % (Auto) [place] % (Auto) Eos % (Auto) Baso % (Auto) Neut # (Auto) Lymph # (Auto) [place] # (Auto) Eos # (Auto) Baso # (Auto) Neutrophils % (Manual) Band Neutrophils % Lymphocytes % (Manual) Monocytes % (Manual) Metamyelocytes % Toxic Granulation Platelet Estimate Anisocytosis (manual) Macrocytosis (manual) Ovalocytes [place] Cells Puncture Site pCO2 pO2 HCO3 ABG pH ABG Total CO2 ABG O2 Saturation ABG Base Excess Chavez Test ABG Potassium A-a O2 Difference Respiratory Index Glucose Lactate Vent Mode FiO2 Inspiratory BiPAP Expiratory BiPAP Sodium 139 Potassium 5.4 H Chloride 103 Carbon Dioxide 19 L Anion Gap 22 H BUN 110 H* Creatinine 3.2 H Est GFR ( Amer) 23 Est GFR (Non-Af Amer) 19 POC Glucose (mg/dL) 80 62 L Random Glucose 79 Lactic Acid Calcium 7.6 L Phosphorus 7.5 H Magnesium 2.9 H Total Bilirubin 6.3 H AST 63 H D ALT 37 Alkaline Phosphatase 77 Total Protein 5.8 L Albumin 3.0 L Globulin 2.7 Albumin/Globulin Ratio 1.1 Arterial Blood Potassium Urine Color Urine Clarity Urine pH Ur Specific [place] Urine Protein Urine Glucose (UA) Urine Ketones Urine Blood Urine Nitrate Urine Bilirubin Urine Urobilinogen Ur Leukocyte Esterase Urine RBC (Auto) Ur Squamous Epith Cells Amorphous Sediment Urine Bacteria Hyaline Casts Blood Type Antibody Screen 12/10/17 12/10/17 12/10/17 07:33 08:08 08:10 WBC RBC Hgb Hct MCV MCH MCHC RDW Plt Count MPV Neut % (Auto) Lymph % (Auto) [place] % (Auto) Eos % (Auto) Baso % (Auto) Neut # (Auto) Lymph # (Auto) [place] # (Auto) Eos # (Auto) Baso # (Auto) Neutrophils % (Manual) Band Neutrophils % Lymphocytes % (Manual) Monocytes % (Manual) Metamyelocytes % Toxic Granulation Platelet Estimate Anisocytosis (manual) Macrocytosis (manual) Ovalocytes Viv Cells Puncture Site pCO2 pO2 HCO3 ABG pH ABG Total CO2 ABG O2 Saturation ABG Base Excess Chavez Test ABG Potassium A-a O2 Difference Respiratory Index Glucose Lactate Vent Mode FiO2 Inspiratory BiPAP Expiratory BiPAP Sodium Potassium Chloride Carbon Dioxide Anion Gap BUN Creatinine Est GFR ( Amer) Est GFR (Non-Af Amer) POC Glucose (mg/dL) 66 62 L 56 L Random Glucose Lactic Acid Calcium Phosphorus Magnesium Total Bilirubin AST ALT Alkaline Phosphatase Total Protein Albumin Globulin Albumin/Globulin Ratio Arterial Blood Potassium Urine Color Urine Clarity Urine pH Ur Specific [place] Urine Protein Urine Glucose (UA) Urine Ketones Urine Blood Urine Nitrate Urine Bilirubin Urine Urobilinogen Ur Leukocyte Esterase Urine RBC (Auto) Ur Squamous Epith Cells Amorphous Sediment Urine Bacteria Hyaline Casts Blood Type Antibody Screen 12/10/17 12/10/17 12/10/17 09:47 10:18 11:04 WBC RBC Hgb Hct MCV MCH MCHC RDW Plt Count MPV Neut % (Auto) Lymph % (Auto) [place] % (Auto) Eos % (Auto) Baso % (Auto) Neut # (Auto) Lymph # (Auto) [place] # (Auto) Eos # (Auto) Baso # (Auto) Neutrophils % (Manual) Band Neutrophils % Lymphocytes % (Manual) Monocytes % (Manual) Metamyelocytes % Toxic Granulation Platelet Estimate Anisocytosis (manual) Macrocytosis (manual) Ovalocytes Viv Cells Puncture Site Rr pCO2 24 L pO2 289 H HCO3 18.8 L ABG pH 7.40 ABG Total CO2 15.6 L ABG O2 Saturation 100.4 H ABG Base Excess -8.0 L Chavez Test Pos ABG Potassium 5.2 A-a O2 Difference 180.0 Respiratory Index 0.6 Glucose 138 H Lactate 2.3 H Vent Mode Bipap FiO2 70.0 Inspiratory BiPAP 12 Expiratory BiPAP 6 Sodium 132.0 Potassium Chloride 103.0 Carbon Dioxide Anion Gap BUN Creatinine Est GFR ( Amer) Est GFR (Non-Af Amer) POC Glucose (mg/dL) Random Glucose Lactic Acid Calcium Phosphorus Magnesium Total Bilirubin AST ALT Alkaline Phosphatase Total Protein Albumin Globulin Albumin/Globulin Ratio Arterial Blood Potassium 5.2 Urine Color [place] Urine Clarity Turbid Urine pH 5.0 Ur Specific [place] 1.017 Urine Protein 2+ H Urine Glucose (UA) 1+ H Urine Ketones Negative Urine Blood Negative Urine Nitrate Negative Urine Bilirubin Negative Urine Urobilinogen 2.0 Ur Leukocyte Esterase Neg Urine RBC (Auto) 4 H Ur Squamous Epith Cells 2 Amorphous Sediment Rare H Urine Bacteria Occ H Hyaline Casts 0-2 Blood Type O POSITIVE Antibody Screen Negative 12/10/17 12/10/17 12/10/17 11:22 13:21 15:54 WBC RBC Hgb Hct MCV MCH MCHC RDW Plt Count MPV Neut % (Auto) Lymph % (Auto) [place] % (Auto) Eos % (Auto) Baso % (Auto) Neut # (Auto) Lymph # (Auto) [place] # (Auto) Eos # (Auto) Baso # (Auto) Neutrophils % (Manual) Band Neutrophils % Lymphocytes % (Manual) Monocytes % (Manual) Metamyelocytes % Toxic Granulation Platelet Estimate Anisocytosis (manual) Macrocytosis (manual) Ovalocytes [place] Cells Puncture Site Rr pCO2 22 L pO2 188 H HCO3 17.2 L ABG pH 7.38 ABG Total CO2 13.7 L ABG O2 Saturation 100.0 H ABG Base Excess -10.0 L Chavez Test Pos ABG Potassium 4.7 A-a O2 Difference 141.0 Respiratory Index 0.8 Glucose 124 H Lactate 2.4 H Vent Mode Bipap FiO2 50.0 Inspiratory BiPAP 12 Expiratory BiPAP 6 Sodium 136.0 Potassium Chloride 108.0 H Carbon Dioxide Anion Gap BUN Creatinine Est GFR ( Amer) Est GFR (Non-Af Amer) POC Glucose (mg/dL) 131 H Random Glucose Lactic Acid 2.0 Calcium Phosphorus Magnesium Total Bilirubin AST ALT Alkaline Phosphatase Total Protein Albumin Globulin Albumin/Globulin Ratio Arterial Blood Potassium 4.7 Urine Color Urine Clarity Urine pH Ur Specific [place] Urine Protein Urine Glucose (UA) Urine Ketones Urine Blood Urine Nitrate Urine Bilirubin Urine Urobilinogen Ur Leukocyte Esterase Urine RBC (Auto) Ur Squamous Epith Cells Amorphous Sediment Urine Bacteria Hyaline Casts Blood Type Antibody Screen 12/10/17 16:09 WBC RBC Hgb Hct MCV MCH MCHC RDW Plt Count MPV Neut % (Auto) Lymph % (Auto) [place] % (Auto) Eos % (Auto) Baso % (Auto) Neut # (Auto) Lymph # (Auto) [place] # (Auto) Eos # (Auto) Baso # (Auto) Neutrophils % (Manual) Band Neutrophils % Lymphocytes % (Manual) Monocytes % (Manual) Metamyelocytes % Toxic Granulation Platelet Estimate Anisocytosis (manual) Macrocytosis (manual) Ovalocytes [place] Cells Puncture Site pCO2 pO2 HCO3 ABG pH ABG Total CO2 ABG O2 Saturation ABG Base Excess Chavez Test ABG Potassium A-a O2 Difference Respiratory Index Glucose Lactate Vent Mode FiO2 Inspiratory BiPAP Expiratory BiPAP Sodium Potassium Chloride Carbon Dioxide Anion Gap BUN Creatinine Est GFR ( Amer) Est GFR (Non-Af Amer) POC Glucose (mg/dL) 95 Random Glucose Lactic Acid Calcium Phosphorus Magnesium Total Bilirubin AST ALT Alkaline Phosphatase Total Protein Albumin Globulin Albumin/Globulin Ratio Arterial Blood Potassium Urine Color Urine Clarity Urine pH Ur Specific [place] Urine Protein Urine Glucose (UA) Urine Ketones Urine Blood Urine Nitrate Urine Bilirubin Urine Urobilinogen Ur Leukocyte Esterase Urine RBC (Auto) Ur Squamous Epith Cells Amorphous Sediment Urine Bacteria Hyaline Casts Blood Type Antibody Screen Critical Care Progress Note - Nutrition Nutrition: Nutrition Category Date Time Status Heart Healthy Diet [DIET] Diets 12/03/17 Breakfast Active Attending/Attestation - Attestation I have personally seen and examined this patient.: Yes I have fully participated in the care of the patient.: Yes I have reviewed all pertinent clinical information: Yes Notes (Text): patient seen and examined in the intensive care unit. Case discussed with house staff in the morning around. Patient on BiPAP placed last night for shortness of breath Extremely low ejection fraction Worsening renal function and may need dialysis Dropping platelet count most likely sepsis On IV antibiotics
[2017-12-09] MEDS: Latanoprost 2.5 ml Opht Soln OU SCH (21:15)
[2017-12-10] MEDS: Cefepime IV 1 gm in Dextrose 1 GM/50 ML BAG IVPB SCH ×3 (03:04→22:44)
[2017-12-10 06:19] LABS: BASO % 0.1 % (0.0-2.0); HEMOGLOBIN 11.5 g/dL (12.0-18.0); LYMPH # 0.3 K/uL (1.0-4.3); LYMPH % 1.1 % (20.0-40.0); MEAN CELL VOLUME 101.3 fL (80.0-94.0); MEAN CORPUSCULAR HEMOGLOBIN 34.1 pg (27.0-31.0); MEAN CORPUSCULAR HGB CONC 33.7 g/dL (33.0-37.0); MEAN PLATELET VOLUME 10.3 fL (7.2-11.7); MONO # 0.5 K/uL (0.0-0.8); MONO % 1.6 % (0.0-10.0); NEUT # 27.3 K/uL (1.8-7.0); NEUT % 97.2 % (50.0-75.0); RBC 3.37 Mil/uL (4.40-5.90); WHITE BLOOD COUNT 28.1 K/uL (4.8-10.8)
[2017-12-10 06:29] LABS: PLATELET COUNT 27 K/uL (130-400)
[2017-12-10 06:52] LABS: ALB/GLOB RATIO 1.1 (1.0-2.1); CALCIUM 7.6 mg/dl (8.6-10.4)
[2017-12-10] MEDS: Multivitamin With Minerals Tab PO SCH (08:07)
[2017-12-10] MEDS ORDERED: Dextrose 50% SYRINGE Inj (50 ml) IV STA (08:13)
[2017-12-10 08:15] LABS: ANISOCYTOSIS MODERATE; BANDS 25 % (0-2); LYMPHOCYTE 1 % (20-40); METAMYELOCYTE 1 % (0-0); MONOCYTE 1 % (0-10); NEUTROPHIL 72 % (50-75); PLATELET ESTIMATE MARKEDLY DECREASED (NORMAL); TOTAL CELLS COUNTED 100
[2017-12-10 08:16] LABS: BURR CELLS MODERATE; OVALOCYTES MODERATE; TOXIC GRANULATION PRESENT
[2017-12-10] MEDS: Dextrose 50% SYRINGE Inj (50 ml) IVP PRN (08:20)
--- NOTE | 2017-12-10 09:11 | CP.PCM.CON ---
Past Patient History - Infectious Disease Hx of Infectious Diseases: None - Past Medical History & Family History Past Medical History?: Yes - Past Social History Smoking Status: Never Smoked Chewing Tobacco Use: No Cigar Use: No Alcohol: None Drugs: Denies - CARDIAC Hx Congestive Heart Failure: Yes Hx Hypertension: Yes - HEENT Hx HEENT Problems: Yes Hx Glaucoma: Yes Other/Comment: Glaucoma both eyes - MUSCULOSKELETAL/RHEUMATOLOGICAL Hx Falls: Yes - GENITOURINARY/GYNECOLOGICAL Hx Genitourinary Disorders: Yes Hx Prostate Problems: Yes - PSYCHIATRIC Hx Substance Use: No - SURGICAL HISTORY Hx Surgeries: Yes Hx Herniorrhaphy: Yes Hx Orthopedic Surgery: Yes (LEFT KNEE) - ANESTHESIA Hx Anesthesia: Yes Hx Anesthesia Reactions: No Hx Malignant Hyperthermia: No Meds Allergies/Adverse Reactions: Allergies Allergy/AdvReac Type Severity Reaction Status Date / Time No Known Allergies Allergy Verified 12/03/17 00:20 - Medications Medications: Current Medications Aspirin (Aspirin Chewable) 81 mg PO DAILY [facility] Last Admin: 12/09/17 09:58 Dose: 81 mg Brimonidine Tartrate (Alphagan 0.2% Opht) 0.05 ml OU TID [facility] Last Admin: 12/09/17 18:51 Dose: 1 drop Clotrimazole (Lotrimin 1%) 0 gm TOP BID [facility] Last Admin: 12/09/17 18:48 Dose: 1 applic Dextrose (Dextrose 50% Inj) 0 ml IVP .STAT PRN; Protocol PRN Reason: Hypoglycemia Protocol Last Admin: 12/10/17 08:20 Dose: 50 ml Dextrose (Glutose 15) 0 gm PO .ONCE PRN; Protocol PRN Reason: Hypoglycemia Protocol Docusate Sodium (Colace) 100 mg PO BID PRN PRN Reason: Constipation Dorzolamide HCl (Trusopt) 0.05 ml OU AMPM [facility] Last Admin: 12/09/17 18:48 Dose: 1 drop Furosemide (Lasix) 40 mg IVP DAILY [facility] Last Admin: 12/09/17 09:58 Dose: 40 mg Glucagon (Glucagen Diagnostic Kit) 0 mg IM .STAT PRN; Protocol PRN Reason: Hypoglycemia Protocol Hydrocortisone Sodium Succinate (Solu-Cortef) 100 mg IV Q8H [facility] Last Admin: 12/10/17 04:35 Dose: 100 mg Cefepime HCl (Maxipime Iv 1 Gm Premix) 1 gm in 50 mls @ 100 mls/hr IVPB Q12H [facility] PRN Reason: Protocol Last Admin: 12/10/17 03:04 Dose: 100 mls/hr Doxycycline Hyclate 100 mg/ (Sodium Chloride) 100 mls @ 100 mls/hr IVPB Q12H [facility] PRN Reason: Protocol Last Admin: 12/10/17 01:00 Dose: 100 mls/hr Norepinephrine Bitartrate 8 mg (/ Dextrose) 258 mls @ 7.74 mls/hr IV .Q24H PRN ; Protocol; 4 MCG/MIN PRN Reason: TITRATE PER MD ORDER Last Admin: 12/10/17 07:41 Dose: 20 mcg/min, 38.7 mls/hr Vasopressin 40 units/ Sodium (Chloride) 42 mls @ 2.52 mls/hr IV .[id number] [facility]; 0.04 UNITS/MIN PRN Reason: Protocol Last Admin: 12/09/17 22:27 Dose: 0.04 units/min, 2.52 mls/hr Sodium Chloride (Sodium Chloride 0.9%) 1,000 mls @ 40 mls/hr IV .Q24H [facility] Last Admin: 12/09/17 14:58 Dose: 40 mls/hr Dextrose (Dextrose 5% In Water) 500 mls @ 50 mls/hr IV .Q10H [facility] Stop: 12/10/17 14:59 Last Admin: 12/10/17 05:00 Dose: 50 mls/hr Latanoprost (Xalatan Opht) 0.05 ml OU HS [facility] Last Admin: 12/09/17 21:15 Dose: 0.05 ml Multivitamins/Minerals (Therapeutic-M Tab) 1 tab PO 0800 [facility] Last Admin: 12/10/17 08:07 Dose: 1 tab Rosuvastatin Calcium (Crestor) 10 mg PO HS [facility] Last Admin: 12/09/17 21:49 Dose: 10 mg Results - Vital Signs Recent Vital Signs: Last Vital Signs Temp 98.5 F 12/10/17 04:00 Pulse 86 12/10/17 07:40 Resp 17 12/10/17 07:41 BP 95/71 L 12/10/17 07:58 Pulse Ox 88 L 12/10/17 07:40 - Labs Result Diagrams: 12/10/17 06:13 12/10/17 06:15 Labs: Laboratory Results - last 24 hr 12/09/17 12/09/17 12/09/17 12:04 16:16 17:37 WBC RBC Hgb Hct MCV MCH MCHC RDW Plt Count MPV Neut % (Auto) Lymph % (Auto) [place] % (Auto) Eos % (Auto) Baso % (Auto) Neut # (Auto) Lymph # (Auto) [place] # (Auto) Eos # (Auto) Baso # (Auto) Neutrophils % (Manual) Band Neutrophils % Lymphocytes % (Manual) Monocytes % (Manual) Metamyelocytes % Toxic Granulation Platelet Estimate Anisocytosis (manual) Macrocytosis (manual) Ovalocytes [place] Cells Sodium Potassium Chloride Carbon Dioxide Anion Gap BUN Creatinine Est GFR ( Amer) Est GFR (Non-Af Amer) POC Glucose (mg/dL) 112 H 101 96 Random Glucose Calcium Phosphorus Magnesium Total Bilirubin AST ALT Alkaline Phosphatase Total Protein Albumin Globulin Albumin/Globulin Ratio 12/09/17 12/09/17 12/10/17 21:03 23:59 04:25 WBC RBC Hgb Hct MCV MCH MCHC RDW Plt Count MPV Neut % (Auto) Lymph % (Auto) [place] % (Auto) Eos % (Auto) Baso % (Auto) Neut # (Auto) Lymph # (Auto) [place] # (Auto) Eos # (Auto) Baso # (Auto) Neutrophils % (Manual) Band Neutrophils % Lymphocytes % (Manual) Monocytes % (Manual) Metamyelocytes % Toxic Granulation Platelet Estimate Anisocytosis (manual) Macrocytosis (manual) Ovalocytes [place] Cells Sodium Potassium Chloride Carbon Dioxide Anion Gap BUN Creatinine Est GFR ( Amer) Est GFR (Non-Af Amer) POC Glucose (mg/dL) 76 93 40 L Random Glucose Calcium Phosphorus Magnesium Total Bilirubin AST ALT Alkaline Phosphatase Total Protein Albumin Globulin Albumin/Globulin Ratio 12/10/17 12/10/17 12/10/17 04:28 06:13 06:15 WBC 28.1 H RBC 3.37 L Hgb 11.5 L Hct 34.2 L MCV 101.3 H MCH 34.1 H MCHC 33.7 RDW 18.0 H Plt Count 27 L* MPV 10.3 Neut % (Auto) 97.2 H Lymph % (Auto) 1.1 L [place] % (Auto) 1.6 Eos % (Auto) 0.0 Baso % (Auto) 0.1 Neut # (Auto) 27.3 H Lymph # (Auto) 0.3 L [place] # (Auto) 0.5 Eos # (Auto) 0.0 Baso # (Auto) 0.0 Neutrophils % (Manual) 72 Band Neutrophils % 25 H* Lymphocytes % (Manual) 1 L Monocytes % (Manual) 1 Metamyelocytes % 1 H Toxic Granulation Present Platelet Estimate Markedly decreased L Anisocytosis (manual) Moderate Macrocytosis (manual) Moderate Ovalocytes Moderate Viv Cells Moderate Sodium 139 Potassium 5.4 H Chloride 103 Carbon Dioxide 19 L Anion Gap 22 H BUN 110 H* Creatinine 3.2 H Est GFR ( Amer) 23 Est GFR (Non-Af Amer) 19 POC Glucose (mg/dL) 52 L Random Glucose 79 Calcium 7.6 L Phosphorus 7.5 H Magnesium 2.9 H Total Bilirubin 6.3 H AST 63 H D ALT 37 Alkaline Phosphatase 77 Total Protein 5.8 L Albumin 3.0 L Globulin 2.7 Albumin/Globulin Ratio 1.1 12/10/17 12/10/17 12/10/17 06:31 07:31 07:33 WBC RBC Hgb Hct MCV MCH MCHC RDW Plt Count MPV Neut % (Auto) Lymph % (Auto) [place] % (Auto) Eos % (Auto) Baso % (Auto) Neut # (Auto) Lymph # (Auto) [place] # (Auto) Eos # (Auto) Baso # (Auto) Neutrophils % (Manual) Band Neutrophils % Lymphocytes % (Manual) Monocytes % (Manual) Metamyelocytes % Toxic Granulation Platelet Estimate Anisocytosis (manual) Macrocytosis (manual) Ovalocytes [place] Cells Sodium Potassium Chloride Carbon Dioxide Anion Gap BUN Creatinine Est GFR ( Amer) Est GFR (Non-Af Amer) POC Glucose (mg/dL) 80 62 L 66 Random Glucose Calcium Phosphorus Magnesium Total Bilirubin AST ALT Alkaline Phosphatase Total Protein Albumin Globulin Albumin/Globulin Ratio 12/10/17 12/10/17 08:08 08:10 WBC RBC Hgb Hct MCV MCH MCHC RDW Plt Count MPV Neut % (Auto) Lymph % (Auto) [place] % (Auto) Eos % (Auto) Baso % (Auto) Neut # (Auto) Lymph # (Auto) [place] # (Auto) Eos # (Auto) Baso # (Auto) Neutrophils % (Manual) Band Neutrophils % Lymphocytes % (Manual) Monocytes % (Manual) Metamyelocytes % Toxic Granulation Platelet Estimate Anisocytosis (manual) Macrocytosis (manual) Ovalocytes [place] Cells Sodium Potassium Chloride Carbon Dioxide Anion Gap BUN Creatinine Est GFR ( Amer) Est GFR (Non-Af Amer) POC Glucose (mg/dL) 62 L 56 L Random Glucose Calcium Phosphorus Magnesium Total Bilirubin AST ALT Alkaline Phosphatase Total Protein Albumin Globulin Albumin/Globulin Ratio Assessment & Plan - Assessment and Plan (Free Text) Assessment: IMP: CHF CKD Edema Phimosis Andersen catheter inserted YS - Date & Time Date: 12/10/17 Time: 08:50
[2017-12-10] MEDS: Dorzolamide 2% Opht Sol 10ml OU SCH ×2 (09:12→19:00)
[2017-12-10] MEDS: Brimonidine 0.2% Opth Sol (5ml) OU SCH ×3 (09:12→18:54)
[2017-12-10 10:00] LABS: ABG ALLEN TEST POS; ARTERIAL BLOOD GAS HCO3 18.8 mmol/L (21-28); ARTERIAL BLOOD GAS O2 SAT 100.4 % (95-98); ARTERIAL BLOOD GAS PCO2 24 mm/Hg (35-45); ARTERIAL BLOOD GAS PO2 289 mm/Hg (80-100); ARTERIAL BLOOD GAS TCO2 15.6 mmol/L (22-28)
[2017-12-10] MEDS: Clotrimazole 1% Cream(30 gm) TOP SCH ×2 (10:00→18:54)
--- NOTE | 2017-12-10 10:27 | CP.PCM.PN ---
Subjective - Date & Time of Evaluation Date of Evaluation: 12/10/17 Time of Evaluation: 10:15 - Subjective Subjective: Patient seen and examined in bed, lethargic, on 60 % o2 via Bipap. BP remains low, still on pressors. Andersen Cath inserted by Doctor Hubbard and urine output significantly low, about 10 oz only over 2 hr period. Patient's brother Jayme Aguirre at bed side. He reports that at some point yesterday when patient was more alert, he spoke to him about his condition and its severity. Per brother, patient was clearly saying that he would want all agressive measures to be done, including HD, CPR, and intubation. Another meeting held this morning attended by brother, Doctor Ulrich and myself. Doctor Ulrich presented very complex condition of the patient due to multi organ failure. We reassured the brother that patient's wishes will be respected to the best possible level. I chucho concerns that despite all aggressive interventions, patient may as result of very poor condition. Brother sated understanding. Impression * Lethargy worse than yesterday * Acute respiratory faillure, on BiPap * Edema * Urinary retention * Hypotension * The brother is undecided about goals of care, as he tries to fallow patient's wishes for Full Code * I feel that patient may on this admission due to multi organ failure, and further agressive interventions will only prolong his suffering Suggestions * Continue biPap * Continue Pressors * Full Code * Intubate if neccassary, Patient's brother may be leaving today for [facility]. I shared contact information with him for further goals of care discussion Advance planing 30 min. Objective - Vital Signs/Intake and Output Vital Signs (last 24 hours): Temp Pulse Resp BP Pulse Ox 98.5 F 86 17 111/63 88 L 12/10/17 04:00 12/10/17 07:40 12/10/17 07:41 12/10/17 09:24 12/10/17 07:40 Intake and Output: 12/10/17 12/10/17 06:59 18:59 Intake Total 1235.3 69.3 Balance 1235.3 69.3 - Medications Medications: Current Medications Aspirin (Aspirin Chewable) 81 mg PO DAILY [facility] Last Admin: 12/10/17 09:20 Dose: 81 mg Brimonidine Tartrate (Alphagan 0.2% Opht) 0.05 ml OU TID [facility] Last Admin: 12/10/17 09:12 Dose: 1 drop Clotrimazole (Lotrimin 1%) 0 gm TOP BID [facility] Last Admin: 12/09/17 18:48 Dose: 1 applic Dextrose (Dextrose 50% Inj) 0 ml IVP .STAT PRN; Protocol PRN Reason: Hypoglycemia Protocol Last Admin: 12/10/17 08:20 Dose: 50 ml Dextrose (Glutose 15) 0 gm PO .ONCE PRN; Protocol PRN Reason: Hypoglycemia Protocol Docusate Sodium (Colace) 100 mg PO BID PRN PRN Reason: Constipation Dorzolamide HCl (Trusopt) 0.05 ml OU AMPM [facility] Last Admin: 12/10/17 09:12 Dose: 1 drop Furosemide (Lasix) 40 mg IVP DAILY [facility] Last Admin: 12/10/17 09:24 Dose: 40 mg Glucagon (Glucagen Diagnostic Kit) 0 mg IM .STAT PRN; Protocol PRN Reason: Hypoglycemia Protocol Hydrocortisone Sodium Succinate (Solu-Cortef) 100 mg IV Q8H [facility] Last Admin: 12/10/17 04:35 Dose: 100 mg Cefepime HCl (Maxipime Iv 1 Gm Premix) 1 gm in 50 mls @ 100 mls/hr IVPB Q12H [facility] PRN Reason: Protocol Last Admin: 12/10/17 03:04 Dose: 100 mls/hr Doxycycline Hyclate 100 mg/ (Sodium Chloride) 100 mls @ 100 mls/hr IVPB Q12H [facility] PRN Reason: Protocol Last Admin: 12/10/17 01:00 Dose: 100 mls/hr Norepinephrine Bitartrate 8 mg (/ Dextrose) 258 mls @ 7.74 mls/hr IV .Q24H PRN ; Protocol; 4 MCG/MIN PRN Reason: TITRATE PER MD ORDER Last Admin: 12/10/17 07:41 Dose: 20 mcg/min, 38.7 mls/hr Vasopressin 40 units/ Sodium (Chloride) 42 mls @ 2.52 mls/hr IV .[id number] [facility]; 0.04 UNITS/MIN PRN Reason: Protocol Last Admin: 12/09/17 22:27 Dose: 0.04 units/min, 2.52 mls/hr Sodium Chloride (Sodium Chloride 0.9%) 1,000 mls @ 40 mls/hr IV .Q24H [facility] Last Admin: 12/09/17 14:58 Dose: 40 mls/hr Dextrose (Dextrose 5% In Water) 500 mls @ 50 mls/hr IV .Q10H [facility] Stop: 12/10/17 14:59 Last Admin: 12/10/17 05:00 Dose: 50 mls/hr Latanoprost (Xalatan Opht) 0.05 ml OU [facility] Last Admin: 12/09/17 21:15 Dose: 0.05 ml Multivitamins/Minerals (Therapeutic-M Tab) 1 tab PO 0800 [facility] Last Admin: 12/10/17 08:07 Dose: 1 tab Rosuvastatin Calcium (Crestor) 10 mg PO HS [facility] Last Admin: 12/09/17 21:49 Dose: 10 mg - Labs Labs: 12/10/17 06:13 12/10/17 06:15
[2017-12-10 10:53] LABS: SQUAMOUS EPITHIAL 2 /hpf (0-5); URINE AMORPHOUS SEDIMENT RARE /ul (<OCC); URINE BACTERIA OCC (<OCC); URINE BILIRUBIN NEGATIVE (NEGATIVE); URINE BLOOD NEGATIVE (NEGATIVE); URINE CLARITY Turbid (Clear); URINE COLOR Amber (YELLOW); URINE GLUCOSE (UA) 1+ mg/dL (Normal); URINE HYALINE CAST 0-2 /lpf (0-2); URINE LEUKOCYTE ESTERASE NEG Leu/uL (Negative); URINE PROTEIN 2+ mg/dL (NEGATIVE)
--- NOTE | 2017-12-10 11:40 | CP.CCUPN ---
<Emelia Garrison - Last Filed: 12/10/17 12:21> CCU Subjective - Physician Review Subjective (Free Text): Patient seen and examined at bedside. No overnight events reported. Currently tolerating BiPAP. Denies any chest pain. States his dyspnea has not improved. He denies any abdominal pain or nausea. Complains of difficulty urinating. CCU Objective - Vital Signs / Intake & Output Vital Signs (Last 4 hours): Vital Signs Temp Pulse Resp BP Pulse Ox 12/10/17 11:30 91 H 19 79 L 12/10/17 11:20 91 H 14 12/10/17 11:10 95 H 13 12/10/17 11:00 92 H 15 107/36 L 96 12/10/17 10:50 91 H 16 76 L 12/10/17 10:40 91 H 15 12/10/17 10:30 86 13 100 12/10/17 10:20 86 13 100 12/10/17 10:10 86 20 91 L 12/10/17 10:00 87 20 100 12/10/17 09:58 88 17 103/67 87 L 12/10/17 09:50 85 12 12/10/17 09:40 84 14 75 L 12/10/17 09:30 84 14 69 L 12/10/17 09:24 111/63 12/10/17 09:20 85 19 80 L 12/10/17 09:10 91 H 17 84 L 12/10/17 09:00 85 15 78 L 12/10/17 08:58 84 16 111/63 83 L 12/10/17 08:50 84 18 82 L 12/10/17 08:40 85 13 77 L 12/10/17 08:30 84 18 83 L 12/10/17 08:20 85 16 91 L 12/10/17 08:10 84 13 93 L 12/10/17 08:00 96.8 F L 84 18 87 L 12/10/17 07:58 95/71 L 12/10/17 07:41 17 100/56 L 12/10/17 07:40 86 14 88 L Intake and Output (Last 8hrs): Intake & Output 12/09/17 12/10/17 12/10/17 22:59 06:59 14:59 Intake Total 939.2 615.7 596.5 Output Total 10 Balance 939.2 615.7 586.5 Weight 227 lb 1 oz Intake: IV 300 258 Intake, IV Amount 639.2 357.7 346.5 Right Distal Port 300.0 198.5 84.5 Right Medial Port 320 140 250 Right Proximal Port 19.2 19.2 12.0 Oral 0 250 Output: Urine 10 Urethral (Andersen) 10 Stool 0 Other: # Bowel Movements 1 - Physical Exam Head: Positive for: Atraumatic, Normocephalic. Negative for: Tenderness Extroacular Muscles: Positive for: EOMI Conjunctiva: Positive for: Normal Mouth: Positive for: Moist Mucous Membranes Respiratory/Chest: Positive for: Accessory Muscle Use, Decreased Breath Sounds, Rhonchi. Negative for: Clear to Auscultation, Wheezes Cardiovascular: Positive for: Regular Rate and Rhythm, Normal S1, S2 Abdomen: Positive for: Distention, Other (Firm with Hypoactive Bowel Sounds. ). Negative for: Tenderness Lower Extremity: Positive for: Edema Neurological: Negative for: GCS=15 (GCS =14) Psychiatric: Positive for: Alert, Oriented x 3, Anxious, Agitated - Medications Active Medications: Active Medications Generic Name Dose Route Start Last Admin Trade Name Freq PRN Reason Stop Dose Admin Aspirin 81 mg 12/06/17 10:00 12/10/17 09:20 Aspirin Chewable PO 81 mg DAILY SHAHEED Administration Brimonidine Tartrate 0.05 ml 12/03/17 10:00 12/10/17 09:12 Alphagan 0.2% Opht OU 1 drop TID SHAHEED Administration Clotrimazole 0 gm 12/08/17 10:00 12/09/17 18:48 Lotrimin 1% TOP 1 applic BID SHAHEED Administration Dextrose 0 ml 12/06/17 09:06 12/10/17 08:20 Dextrose 50% Inj IVP 50 ml .STAT PRN Administration Hypoglycemia Protocol Protocol Dextrose 0 gm 12/06/17 09:06 Glutose 15 PO .ONCE PRN Hypoglycemia Protocol Protocol Docusate Sodium 100 mg 12/03/17 04:34 Colace PO BID PRN Constipation Dorzolamide HCl 0.05 ml 12/03/17 10:00 12/10/17 09:12 Trusopt OU 1 drop AMPM SHAHEED Administration Furosemide 40 mg 12/08/17 11:45 12/10/17 09:24 Lasix IVP 40 mg DAILY SHAHEED Administration Glucagon 0 mg 12/06/17 09:06 Glucagen Diagnostic Kit IM .STAT PRN Hypoglycemia Protocol Protocol Hydrocortisone Sodium Succinate 100 mg 12/08/17 04:30 12/10/17 04:35 Solu-Cortef IV 100 mg Q8H SHAHEED Administration Cefepime HCl 1 gm in 50 mls @ 100 mls/hr 12/07/17 16:00 12/10/17 03:04 Maxipime Iv 1 Gm Premix IVPB 100 mls/hr Q12H SHAHEED Administration Protocol Doxycycline Hyclate 100 mg/ 100 mls @ 100 mls/hr 12/07/17 14:00 12/10/17 01: 00 Sodium Chloride IVPB 100 mls/hr Q12H SHAHEED Administration Protocol Norepinephrine Bitartrate 8 mg 258 mls @ 7.74 mls/hr 12/07/17 17:47 12/10/17 07:41 / Dextrose IV 20 mcg/min .Q24H PRN 38.7 mls/hr TITRATE PER MD ORDER Administration Protocol 4 MCG/MIN Vasopressin 40 units/ Sodium 42 mls @ 2.52 mls/hr 12/07/17 20:45 12/09/17 22: 27 Chloride IV 0.04 units/min .[id number] SHAHEED 2.52 mls/hr Protocol Administration 0.04 UNITS/MIN Sodium Chloride 1,000 mls @ 40 mls/hr 12/08/17 09:45 12/09/17 14:58 Sodium Chloride 0.9% IV 40 mls/hr .Q24H SHAHEED Administration Dextrose 500 mls @ 50 mls/hr 12/10/17 05:00 12/10/17 05:00 Dextrose 5% In Water IV 12/10/17 14:59 50 mls/hr .Q10H SHAHEED Administration Latanoprost 0.05 ml 12/03/17 22:00 12/09/17 21:15 Xalatan Opht OU 0.05 ml HS SHAHEED Administration Multivitamins/Minerals 1 tab 12/08/17 08:00 12/10/17 08:07 Therapeutic-M Tab PO 1 tab 0800 SHAHEED Administration Rosuvastatin Calcium 10 mg 12/05/17 22:00 12/09/17 21:49 Crestor PO 10 mg HS SHAHEED Administration - Patient Studies Lab Studies: Microbiology Studies 12/09/17 12:37 Wound Culture - Preliminary Leg - Right Gram Positive Cocci 12/07/17 13:40 Blood Culture - Preliminary Blood-Venous NO GROWTH AFTER 48 HOURS 12/07/17 13:40 Blood Culture - Preliminary Blood-Venous NO GROWTH AFTER 48 HOURS Lab Studies 12/10/17 12/10/17 12/10/17 Range/Units 11:22 10:18 09:47 WBC (4.8-10.8) K/uL RBC (4.40-5.90) Mil/uL Hgb (12.0-18.0) g/dL Hct (35.0-51.0) % MCV (80.0-94.0) fL MCH (27.0-31.0) pg MCHC (33.0-37.0) g/dL RDW (11.5-14.5) % Plt Count (130-400) K/uL MPV (7.2-11.7) fL Neut % (Auto) (50.0-75.0) % Lymph % (Auto) (20.0-40.0) % [place] % (Auto) (0.0-10.0) % Eos % (Auto) (0.0-4.0) % Baso % (Auto) (0.0-2.0) % Neut # (Auto) (1.8-7.0) K/uL Lymph # (Auto) (1.0-4.3) K/uL [place] # (Auto) (0.0-0.8) K/uL Eos # (Auto) (0.0-0.7) K/uL Baso # (Auto) (0.0-0.2) K/uL Neutrophils % (Manual) (50-75) % Band Neutrophils % (0-2) % Lymphocytes % (Manual) (20-40) % Monocytes % (Manual) (0-10) % Metamyelocytes % (0-0) % Toxic Granulation Platelet Estimate (NORMAL) Anisocytosis (manual) Macrocytosis (manual) Ovalocytes Viv Cells Puncture Site Rr pCO2 24 L (35-45) mm/Hg pO2 289 H (80-100) mm/Hg HCO3 18.8 L (21-28) mmol/L ABG pH 7.40 (7.35-7.45) ABG Total CO2 15.6 L (22-28) mmol/L ABG O2 Saturation 100.4 H (95-98) % ABG Base Excess -8.0 L (-2.0-3.0) mmol/L Chavez Test Pos ABG Potassium 5.2 (3.6-5.2) mmol/L A-a O2 Difference 180.0 mm/Hg Respiratory Index 0.6 Glucose 138 H (75-110) mg/dl Lactate 2.3 H (0.7-2.1) mmol/L Vent Mode Bipap FiO2 70.0 % Inspiratory BiPAP 12 Expiratory BiPAP 6 Sodium 132.0 (132-148) mmol/L Potassium (3.6-5.2) mmol/L Chloride 103.0 (98-107) mmol/L Carbon Dioxide (22-30) mmol/L Anion Gap (10-20) BUN (9-20) mg/dL Creatinine (0.8-1.5) mg/dL Est GFR ( Amer) Est GFR (Non-Af Amer) POC Glucose (mg/dL) 131 H (65-110) mg/dL Random Glucose (75-110) mg/dL Calcium (8.6-10.4) mg/dl Phosphorus (2.5-4.5) mg/dL Magnesium (1.6-2.3) mg/dL Total Bilirubin (0.2-1.3) mg/dL AST (17-59) U/L ALT (21-72) U/L Alkaline Phosphatase (38-126) U/L Total Protein (6.3-8.3) g/dL Albumin (3.5-5.0) g/dL Globulin (2.2-3.9) gm/dL Albumin/Globulin Ratio (1.0-2.1) Arterial Blood Potassium 5.2 (3.6-5.2) mmol/L Urine Color [place] (YELLOW) Urine Clarity Turbid (Clear) Urine pH 5.0 (5.0-8.0) Ur Specific [place] 1.017 (1.003-1.030) Urine Protein 2+ H (NEGATIVE) mg/dL Urine Glucose (UA) 1+ H (Normal) mg/dL Urine Ketones Negative (NEGATIVE) mg/dL Urine Blood Negative (NEGATIVE) Urine Nitrate Negative (NEGATIVE) Urine Bilirubin Negative (NEGATIVE) Urine Urobilinogen 2.0 (0.2-1.0) mg/dL Ur Leukocyte Esterase Neg (Negative) Paula/uL Urine RBC (Auto) 4 H (0-3) /hpf Ur Squamous Epith Cells 2 (0-5) /hpf Amorphous Sediment Rare H (<OCC) /ul Urine Bacteria Occ H (<OCC) Hyaline Casts 0-2 (0-2) /lpf 12/10/17 12/10/17 12/10/17 Range/Units 08:10 08:08 07:33 WBC (4.8-10.8) K/uL RBC (4.40-5.90) Mil/uL Hgb (12.0-18.0) g/dL Hct (35.0-51.0) % MCV (80.0-94.0) fL MCH (27.0-31.0) pg MCHC (33.0-37.0) g/dL RDW (11.5-14.5) % Plt Count (130-400) K/uL MPV (7.2-11.7) fL Neut % (Auto) (50.0-75.0) % Lymph % (Auto) (20.0-40.0) % [place] % (Auto) (0.0-10.0) % Eos % (Auto) (0.0-4.0) % Baso % (Auto) (0.0-2.0) % Neut # (Auto) (1.8-7.0) K/uL Lymph # (Auto) (1.0-4.3) K/uL [place] # (Auto) (0.0-0.8) K/uL Eos # (Auto) (0.0-0.7) K/uL Baso # (Auto) (0.0-0.2) K/uL Neutrophils % (Manual) (50-75) % Band Neutrophils % (0-2) % Lymphocytes % (Manual) (20-40) % Monocytes % (Manual) (0-10) % Metamyelocytes % (0-0) % Toxic Granulation Platelet Estimate (NORMAL) Anisocytosis (manual) Macrocytosis (manual) Ovalocytes Viv Cells Puncture Site pCO2 (35-45) mm/Hg pO2 (80-100) mm/Hg HCO3 (21-28) mmol/L ABG pH (7.35-7.45) ABG Total CO2 (22-28) mmol/L ABG O2 Saturation (95-98) % ABG Base Excess (-2.0-3.0) mmol/L Chavez Test ABG Potassium (3.6-5.2) mmol/L A-a O2 Difference mm/Hg Respiratory Index Glucose (75-110) mg/dl Lactate (0.7-2.1) mmol/L Vent Mode FiO2 % Inspiratory BiPAP Expiratory BiPAP Sodium (132-148) mmol/L Potassium (3.6-5.2) mmol/L Chloride (98-107) mmol/L Carbon Dioxide (22-30) mmol/L Anion Gap (10-20) BUN (9-20) mg/dL Creatinine (0.8-1.5) mg/dL Est GFR ( Amer) Est GFR (Non-Af Amer) POC Glucose (mg/dL) 56 L 62 L 66 (65-110) mg/dL Random Glucose (75-110) mg/dL Calcium (8.6-10.4) mg/dl Phosphorus (2.5-4.5) mg/dL Magnesium (1.6-2.3) mg/dL Total Bilirubin (0.2-1.3) mg/dL AST (17-59) U/L ALT (21-72) U/L Alkaline Phosphatase (38-126) U/L Total Protein (6.3-8.3) g/dL Albumin (3.5-5.0) g/dL Globulin (2.2-3.9) gm/dL Albumin/Globulin Ratio (1.0-2.1) Arterial Blood Potassium (3.6-5.2) mmol/L Urine Color (YELLOW) Urine Clarity (Clear) Urine pH (5.0-8.0) Ur Specific [place] (1.003-1.030) Urine Protein (NEGATIVE) mg/dL Urine Glucose (UA) (Normal) mg/dL Urine Ketones (NEGATIVE) mg/dL Urine Blood (NEGATIVE) Urine Nitrate (NEGATIVE) Urine Bilirubin (NEGATIVE) Urine Urobilinogen (0.2-1.0) mg/dL Ur Leukocyte Esterase (Negative) Paula/uL Urine RBC (Auto) (0-3) /hpf Ur Squamous Epith Cells (0-5) /hpf Amorphous Sediment (<OCC) /ul Urine Bacteria (<OCC) Hyaline Casts (0-2) /lpf 12/10/17 12/10/17 12/10/17 Range/Units 07:31 06:31 06:15 WBC (4.8-10.8) K/uL RBC (4.40-5.90) Mil/uL Hgb (12.0-18.0) g/dL Hct (35.0-51.0) % MCV (80.0-94.0) fL MCH (27.0-31.0) pg MCHC (33.0-37.0) g/dL RDW (11.5-14.5) % Plt Count (130-400) K/uL MPV (7.2-11.7) fL Neut % (Auto) (50.0-75.0) % Lymph % (Auto) (20.0-40.0) % [place] % (Auto) (0.0-10.0) % Eos % (Auto) (0.0-4.0) % Baso % (Auto) (0.0-2.0) % Neut # (Auto) (1.8-7.0) K/uL Lymph # (Auto) (1.0-4.3) K/uL [place] # (Auto) (0.0-0.8) K/uL Eos # (Auto) (0.0-0.7) K/uL Baso # (Auto) (0.0-0.2) K/uL Neutrophils % (Manual) (50-75) % Band Neutrophils % (0-2) % Lymphocytes % (Manual) (20-40) % Monocytes % (Manual) (0-10) % Metamyelocytes % (0-0) % Toxic Granulation Platelet Estimate (NORMAL) Anisocytosis (manual) Macrocytosis (manual) Ovalocytes [place] Cells Puncture Site pCO2 (35-45) mm/Hg pO2 (80-100) mm/Hg HCO3 (21-28) mmol/L ABG pH (7.35-7.45) ABG Total CO2 (22-28) mmol/L ABG O2 Saturation (95-98) % ABG Base Excess (-2.0-3.0) mmol/L Chavez Test ABG Potassium (3.6-5.2) mmol/L A-a O2 Difference mm/Hg Respiratory Index Glucose (75-110) mg/dl Lactate (0.7-2.1) mmol/L Vent Mode FiO2 % Inspiratory BiPAP Expiratory BiPAP Sodium 139 (132-148) mmol/L Potassium 5.4 H (3.6-5.2) mmol/L Chloride 103 (98-107) mmol/L Carbon Dioxide 19 L (22-30) mmol/L Anion Gap 22 H (10-20) BUN 110 H* (9-20) mg/dL Creatinine 3.2 H (0.8-1.5) mg/dL Est GFR ( Amer) 23 Est GFR (Non-Af Amer) 19 POC Glucose (mg/dL) 62 L 80 (65-110) mg/dL Random Glucose 79 (75-110) mg/dL Calcium 7.6 L (8.6-10.4) mg/dl Phosphorus 7.5 H (2.5-4.5) mg/dL Magnesium 2.9 H (1.6-2.3) mg/dL Total Bilirubin 6.3 H (0.2-1.3) mg/dL AST 63 H D (17-59) U/L ALT 37 (21-72) U/L Alkaline Phosphatase 77 (38-126) U/L Total Protein 5.8 L (6.3-8.3) g/dL Albumin 3.0 L (3.5-5.0) g/dL Globulin 2.7 (2.2-3.9) gm/dL Albumin/Globulin Ratio 1.1 (1.0-2.1) Arterial Blood Potassium (3.6-5.2) mmol/L Urine Color (YELLOW) Urine Clarity (Clear) Urine pH (5.0-8.0) Ur Specific [place] (1.003-1.030) Urine Protein (NEGATIVE) mg/dL Urine Glucose (UA) (Normal) mg/dL Urine Ketones (NEGATIVE) mg/dL Urine Blood (NEGATIVE) Urine Nitrate (NEGATIVE) Urine Bilirubin (NEGATIVE) Urine Urobilinogen (0.2-1.0) mg/dL Ur Leukocyte Esterase (Negative) Paula/uL Urine RBC (Auto) (0-3) /hpf Ur Squamous Epith Cells (0-5) /hpf Amorphous Sediment (<OCC) /ul Urine Bacteria (<OCC) Hyaline Casts (0-2) /lpf 12/10/17 12/10/17 12/10/17 Range/Units 06:13 04:28 04:25 WBC 28.1 H (4.8-10.8) K/uL RBC 3.37 L (4.40-5.90) Mil/uL Hgb 11.5 L (12.0-18.0) g/dL Hct 34.2 L (35.0-51.0) % MCV 101.3 H (80.0-94.0) fL MCH 34.1 H (27.0-31.0) pg MCHC 33.7 (33.0-37.0) g/dL RDW 18.0 H (11.5-14.5) % Plt Count 27 L* (130-400) K/uL MPV 10.3 (7.2-11.7) fL Neut % (Auto) 97.2 H (50.0-75.0) % Lymph % (Auto) 1.1 L (20.0-40.0) % [place] % (Auto) 1.6 (0.0-10.0) % Eos % (Auto) 0.0 (0.0-4.0) % Baso % (Auto) 0.1 (0.0-2.0) % Neut # (Auto) 27.3 H (1.8-7.0) K/uL Lymph # (Auto) 0.3 L (1.0-4.3) K/uL [place] # (Auto) 0.5 (0.0-0.8) K/uL Eos # (Auto) 0.0 (0.0-0.7) K/uL Baso # (Auto) 0.0 (0.0-0.2) K/uL Neutrophils % (Manual) 72 (50-75) % Band Neutrophils % 25 H* (0-2) % Lymphocytes % (Manual) 1 L (20-40) % Monocytes % (Manual) 1 (0-10) % Metamyelocytes % 1 H (0-0) % Toxic Granulation Present Platelet Estimate Markedly decreased L (NORMAL) Anisocytosis (manual) Moderate Macrocytosis (manual) Moderate Ovalocytes Moderate Viv Cells Moderate Puncture Site pCO2 (35-45) mm/Hg pO2 (80-100) mm/Hg HCO3 (21-28) mmol/L ABG pH (7.35-7.45) ABG Total CO2 (22-28) mmol/L ABG O2 Saturation (95-98) % ABG Base Excess (-2.0-3.0) mmol/L Chavez Test ABG Potassium (3.6-5.2) mmol/L A-a O2 Difference mm/Hg Respiratory Index Glucose (75-110) mg/dl Lactate (0.7-2.1) mmol/L Vent Mode FiO2 % Inspiratory BiPAP Expiratory BiPAP Sodium (132-148) mmol/L Potassium (3.6-5.2) mmol/L Chloride (98-107) mmol/L Carbon Dioxide (22-30) mmol/L Anion Gap (10-20) BUN (9-20) mg/dL Creatinine (0.8-1.5) mg/dL Est GFR ( Amer) Est GFR (Non-Af Amer) POC Glucose (mg/dL) 52 L 40 L (65-110) mg/dL Random Glucose (75-110) mg/dL Calcium (8.6-10.4) mg/dl Phosphorus (2.5-4.5) mg/dL Magnesium (1.6-2.3) mg/dL Total Bilirubin (0.2-1.3) mg/dL AST (17-59) U/L ALT (21-72) U/L Alkaline Phosphatase (38-126) U/L Total Protein (6.3-8.3) g/dL Albumin (3.5-5.0) g/dL Globulin (2.2-3.9) gm/dL Albumin/Globulin Ratio (1.0-2.1) Arterial Blood Potassium (3.6-5.2) mmol/L Urine Color (YELLOW) Urine Clarity (Clear) Urine pH (5.0-8.0) Ur Specific [place] (1.003-1.030) Urine Protein (NEGATIVE) mg/dL Urine Glucose (UA) (Normal) mg/dL Urine Ketones (NEGATIVE) mg/dL Urine Blood (NEGATIVE) Urine Nitrate (NEGATIVE) Urine Bilirubin (NEGATIVE) Urine Urobilinogen (0.2-1.0) mg/dL Ur Leukocyte Esterase (Negative) Paula/uL Urine RBC (Auto) (0-3) /hpf Ur Squamous Epith Cells (0-5) /hpf Amorphous Sediment (<OCC) /ul Urine Bacteria (<OCC) Hyaline Casts (0-2) /lpf 12/09/17 12/09/17 12/09/17 Range/Units 23:59 21:03 17:37 WBC (4.8-10.8) K/uL RBC (4.40-5.90) Mil/uL Hgb (12.0-18.0) g/dL Hct (35.0-51.0) % MCV (80.0-94.0) fL MCH (27.0-31.0) pg MCHC (33.0-37.0) g/dL RDW (11.5-14.5) % Plt Count (130-400) K/uL MPV (7.2-11.7) fL Neut % (Auto) (50.0-75.0) % Lymph % (Auto) (20.0-40.0) % [place] % (Auto) (0.0-10.0) % Eos % (Auto) (0.0-4.0) % Baso % (Auto) (0.0-2.0) % Neut # (Auto) (1.8-7.0) K/uL Lymph # (Auto) (1.0-4.3) K/uL [place] # (Auto) (0.0-0.8) K/uL Eos # (Auto) (0.0-0.7) K/uL Baso # (Auto) (0.0-0.2) K/uL Neutrophils % (Manual) (50-75) % Band Neutrophils % (0-2) % Lymphocytes % (Manual) (20-40) % Monocytes % (Manual) (0-10) % Metamyelocytes % (0-0) % Toxic Granulation Platelet Estimate (NORMAL) Anisocytosis (manual) Macrocytosis (manual) Ovalocytes Viv Cells Puncture Site pCO2 (35-45) mm/Hg pO2 (80-100) mm/Hg HCO3 (21-28) mmol/L ABG pH (7.35-7.45) ABG Total CO2 (22-28) mmol/L ABG O2 Saturation (95-98) % ABG Base Excess (-2.0-3.0) mmol/L Chavez Test ABG Potassium (3.6-5.2) mmol/L A-a O2 Difference mm/Hg Respiratory Index Glucose (75-110) mg/dl Lactate (0.7-2.1) mmol/L Vent Mode FiO2 % Inspiratory BiPAP Expiratory BiPAP Sodium (132-148) mmol/L Potassium (3.6-5.2) mmol/L Chloride (98-107) mmol/L Carbon Dioxide (22-30) mmol/L Anion Gap (10-20) BUN (9-20) mg/dL Creatinine (0.8-1.5) mg/dL Est GFR ( Amer) Est GFR (Non-Af Amer) POC Glucose (mg/dL) 93 76 96 (65-110) mg/dL Random Glucose (75-110) mg/dL Calcium (8.6-10.4) mg/dl Phosphorus (2.5-4.5) mg/dL Magnesium (1.6-2.3) mg/dL Total Bilirubin (0.2-1.3) mg/dL AST (17-59) U/L ALT (21-72) U/L Alkaline Phosphatase (38-126) U/L Total Protein (6.3-8.3) g/dL Albumin (3.5-5.0) g/dL Globulin (2.2-3.9) gm/dL Albumin/Globulin Ratio (1.0-2.1) Arterial Blood Potassium (3.6-5.2) mmol/L Urine Color (YELLOW) Urine Clarity (Clear) Urine pH (5.0-8.0) Ur Specific [place] (1.003-1.030) Urine Protein (NEGATIVE) mg/dL Urine Glucose (UA) (Normal) mg/dL Urine Ketones (NEGATIVE) mg/dL Urine Blood (NEGATIVE) Urine Nitrate (NEGATIVE) Urine Bilirubin (NEGATIVE) Urine Urobilinogen (0.2-1.0) mg/dL Ur Leukocyte Esterase (Negative) Paula/uL Urine RBC (Auto) (0-3) /hpf Ur Squamous Epith Cells (0-5) /hpf Amorphous Sediment (<OCC) /ul Urine Bacteria (<OCC) Hyaline Casts (0-2) /lpf 12/09/17 12/09/17 Range/Units 16:16 12:04 WBC (4.8-10.8) K/uL RBC (4.40-5.90) Mil/uL Hgb (12.0-18.0) g/dL Hct (35.0-51.0) % MCV (80.0-94.0) fL MCH (27.0-31.0) pg MCHC (33.0-37.0) g/dL RDW (11.5-14.5) % Plt Count (130-400) K/uL MPV (7.2-11.7) fL Neut % (Auto) (50.0-75.0) % Lymph % (Auto) (20.0-40.0) % [place] % (Auto) (0.0-10.0) % Eos % (Auto) (0.0-4.0) % Baso % (Auto) (0.0-2.0) % Neut # (Auto) (1.8-7.0) K/uL Lymph # (Auto) (1.0-4.3) K/uL [place] # (Auto) (0.0-0.8) K/uL Eos # (Auto) (0.0-0.7) K/uL Baso # (Auto) (0.0-0.2) K/uL Neutrophils % (Manual) (50-75) % Band Neutrophils % (0-2) % Lymphocytes % (Manual) (20-40) % Monocytes % (Manual) (0-10) % Metamyelocytes % (0-0) % Toxic Granulation Platelet Estimate (NORMAL) Anisocytosis (manual) Macrocytosis (manual) Ovalocytes [place] Cells Puncture Site pCO2 (35-45) mm/Hg pO2 (80-100) mm/Hg HCO3 (21-28) mmol/L ABG pH (7.35-7.45) ABG Total CO2 (22-28) mmol/L ABG O2 Saturation (95-98) % ABG Base Excess (-2.0-3.0) mmol/L Chavez Test ABG Potassium (3.6-5.2) mmol/L A-a O2 Difference mm/Hg Respiratory Index Glucose (75-110) mg/dl Lactate (0.7-2.1) mmol/L Vent Mode FiO2 % Inspiratory BiPAP Expiratory BiPAP Sodium (132-148) mmol/L Potassium (3.6-5.2) mmol/L Chloride (98-107) mmol/L Carbon Dioxide (22-30) mmol/L Anion Gap (10-20) BUN (9-20) mg/dL Creatinine (0.8-1.5) mg/dL Est GFR ( Amer) Est GFR (Non-Af Amer) POC Glucose (mg/dL) 101 112 H (65-110) mg/dL Random Glucose (75-110) mg/dL Calcium (8.6-10.4) mg/dl Phosphorus (2.5-4.5) mg/dL Magnesium (1.6-2.3) mg/dL Total Bilirubin (0.2-1.3) mg/dL AST (17-59) U/L ALT (21-72) U/L Alkaline Phosphatase (38-126) U/L Total Protein (6.3-8.3) g/dL Albumin (3.5-5.0) g/dL Globulin (2.2-3.9) gm/dL Albumin/Globulin Ratio (1.0-2.1) Arterial Blood Potassium (3.6-5.2) mmol/L Urine Color (YELLOW) Urine Clarity (Clear) Urine pH (5.0-8.0) Ur Specific [place] (1.003-1.030) Urine Protein (NEGATIVE) mg/dL Urine Glucose (UA) (Normal) mg/dL Urine Ketones (NEGATIVE) mg/dL Urine Blood (NEGATIVE) Urine Nitrate (NEGATIVE) Urine Bilirubin (NEGATIVE) Urine Urobilinogen (0.2-1.0) mg/dL Ur Leukocyte Esterase (Negative) Paula/uL Urine RBC (Auto) (0-3) /hpf Ur Squamous Epith Cells (0-5) /hpf Amorphous Sediment (<OCC) /ul Urine Bacteria (<OCC) Hyaline Casts (0-2) /lpf Laboratory Results - last 24 hr 12/09/17 12/09/17 12/09/17 12:04 16:16 17:37 WBC RBC Hgb Hct MCV MCH MCHC RDW Plt Count MPV Neut % (Auto) Lymph % (Auto) [place] % (Auto) Eos % (Auto) Baso % (Auto) Neut # (Auto) Lymph # (Auto) [place] # (Auto) Eos # (Auto) Baso # (Auto) Neutrophils % (Manual) Band Neutrophils % Lymphocytes % (Manual) Monocytes % (Manual) Metamyelocytes % Toxic Granulation Platelet Estimate Anisocytosis (manual) Macrocytosis (manual) Ovalocytes [place] Cells Puncture Site pCO2 pO2 HCO3 ABG pH ABG Total CO2 ABG O2 Saturation ABG Base Excess [place] Test ABG Potassium A-a O2 Difference Respiratory Index Glucose Lactate Vent Mode FiO2 Inspiratory BiPAP Expiratory BiPAP Sodium Potassium Chloride Carbon Dioxide Anion Gap BUN Creatinine Est GFR ( Amer) Est GFR (Non-Af Amer) POC Glucose (mg/dL) 112 H 101 96 Random Glucose Calcium Phosphorus Magnesium Total Bilirubin AST ALT Alkaline Phosphatase Total Protein Albumin Globulin Albumin/Globulin Ratio Arterial Blood Potassium Urine Color Urine Clarity Urine pH Ur Specific [place] Urine Protein Urine Glucose (UA) Urine Ketones Urine Blood Urine Nitrate Urine Bilirubin Urine Urobilinogen Ur Leukocyte Esterase Urine RBC (Auto) Ur Squamous Epith Cells Amorphous Sediment Urine Bacteria Hyaline Casts 12/09/17 12/09/17 12/10/17 21:03 23:59 04:25 WBC RBC Hgb Hct MCV MCH MCHC RDW Plt Count MPV Neut % (Auto) Lymph % (Auto) [place] % (Auto) Eos % (Auto) Baso % (Auto) Neut # (Auto) Lymph # (Auto) [place] # (Auto) Eos # (Auto) Baso # (Auto) Neutrophils % (Manual) Band Neutrophils % Lymphocytes % (Manual) Monocytes % (Manual) Metamyelocytes % Toxic Granulation Platelet Estimate Anisocytosis (manual) Macrocytosis (manual) Ovalocytes [place] Cells Puncture Site pCO2 pO2 HCO3 ABG pH ABG Total CO2 ABG O2 Saturation ABG Base Excess [place] Test ABG Potassium A-a O2 Difference Respiratory Index Glucose Lactate Vent Mode FiO2 Inspiratory BiPAP Expiratory BiPAP Sodium Potassium Chloride Carbon Dioxide Anion Gap BUN Creatinine Est GFR ( Amer) Est GFR (Non-Af Amer) POC Glucose (mg/dL) 76 93 40 L Random Glucose Calcium Phosphorus Magnesium Total Bilirubin AST ALT Alkaline Phosphatase Total Protein Albumin Globulin Albumin/Globulin Ratio Arterial Blood Potassium Urine Color Urine Clarity Urine pH Ur Specific [place] Urine Protein Urine Glucose (UA) Urine Ketones Urine Blood Urine Nitrate Urine Bilirubin Urine Urobilinogen Ur Leukocyte Esterase Urine RBC (Auto) Ur Squamous Epith Cells Amorphous Sediment Urine Bacteria Hyaline Casts 12/10/17 12/10/17 12/10/17 04:28 06:13 06:15 WBC 28.1 H RBC 3.37 L Hgb 11.5 L Hct 34.2 L MCV 101.3 H MCH 34.1 H MCHC 33.7 RDW 18.0 H Plt Count 27 L* MPV 10.3 Neut % (Auto) 97.2 H Lymph % (Auto) 1.1 L [place] % (Auto) 1.6 Eos % (Auto) 0.0 Baso % (Auto) 0.1 Neut # (Auto) 27.3 H Lymph # (Auto) 0.3 L [place] # (Auto) 0.5 Eos # (Auto) 0.0 Baso # (Auto) 0.0 Neutrophils % (Manual) 72 Band Neutrophils % 25 H* Lymphocytes % (Manual) 1 L Monocytes % (Manual) 1 Metamyelocytes % 1 H Toxic Granulation Present Platelet Estimate Markedly decreased L Anisocytosis (manual) Moderate Macrocytosis (manual) Moderate Ovalocytes Moderate Viv Cells Moderate Puncture Site pCO2 pO2 HCO3 ABG pH ABG Total CO2 ABG O2 Saturation ABG Base Excess [place] Test ABG Potassium A-a O2 Difference Respiratory Index Glucose Lactate Vent Mode FiO2 Inspiratory BiPAP Expiratory BiPAP Sodium 139 Potassium 5.4 H Chloride 103 Carbon Dioxide 19 L Anion Gap 22 H BUN 110 H* Creatinine 3.2 H Est GFR ( Amer) 23 Est GFR (Non-Af Amer) 19 POC Glucose (mg/dL) 52 L Random Glucose 79 Calcium 7.6 L Phosphorus 7.5 H Magnesium 2.9 H Total Bilirubin 6.3 H AST 63 H D ALT 37 Alkaline Phosphatase 77 Total Protein 5.8 L Albumin 3.0 L Globulin 2.7 Albumin/Globulin Ratio 1.1 Arterial Blood Potassium Urine Color Urine Clarity Urine pH Ur Specific [place] Urine Protein Urine Glucose (UA) Urine Ketones Urine Blood Urine Nitrate Urine Bilirubin Urine Urobilinogen Ur Leukocyte Esterase Urine RBC (Auto) Ur Squamous Epith Cells Amorphous Sediment Urine Bacteria Hyaline Casts 12/10/17 12/10/17 12/10/17 06:31 07:31 07:33 WBC RBC Hgb Hct MCV MCH MCHC RDW Plt Count MPV Neut % (Auto) Lymph % (Auto) [place] % (Auto) Eos % (Auto) Baso % (Auto) Neut # (Auto) Lymph # (Auto) [place] # (Auto) Eos # (Auto) Baso # (Auto) Neutrophils % (Manual) Band Neutrophils % Lymphocytes % (Manual) Monocytes % (Manual) Metamyelocytes % Toxic Granulation Platelet Estimate Anisocytosis (manual) Macrocytosis (manual) Ovalocytes [place] Cells Puncture Site pCO2 pO2 HCO3 ABG pH ABG Total CO2 ABG O2 Saturation ABG Base Excess [place] Test ABG Potassium A-a O2 Difference Respiratory Index Glucose Lactate Vent Mode FiO2 Inspiratory BiPAP Expiratory BiPAP Sodium Potassium Chloride Carbon Dioxide Anion Gap BUN Creatinine Est GFR ( Amer) Est GFR (Non-Af Amer) POC Glucose (mg/dL) 80 62 L 66 Random Glucose Calcium Phosphorus Magnesium Total Bilirubin AST ALT Alkaline Phosphatase Total Protein Albumin Globulin Albumin/Globulin Ratio Arterial Blood Potassium Urine Color Urine Clarity Urine pH Ur Specific [place] Urine Protein Urine Glucose (UA) Urine Ketones Urine Blood Urine Nitrate Urine Bilirubin Urine Urobilinogen Ur Leukocyte Esterase Urine RBC (Auto) Ur Squamous Epith Cells Amorphous Sediment Urine Bacteria Hyaline Casts 12/10/17 12/10/17 12/10/17 08:08 08:10 09:47 WBC RBC Hgb Hct MCV MCH MCHC RDW Plt Count MPV Neut % (Auto) Lymph % (Auto) [place] % (Auto) Eos % (Auto) Baso % (Auto) Neut # (Auto) Lymph # (Auto) [place] # (Auto) Eos # (Auto) Baso # (Auto) Neutrophils % (Manual) Band Neutrophils % Lymphocytes % (Manual) Monocytes % (Manual) Metamyelocytes % Toxic Granulation Platelet Estimate Anisocytosis (manual) Macrocytosis (manual) Ovalocytes Viv Cells Puncture Site Rr pCO2 24 L pO2 289 H HCO3 18.8 L ABG pH 7.40 ABG Total CO2 15.6 L ABG O2 Saturation 100.4 H ABG Base Excess -8.0 L Chavez Test Pos ABG Potassium 5.2 A-a O2 Difference 180.0 Respiratory Index 0.6 Glucose 138 H Lactate 2.3 H Vent Mode Bipap FiO2 70.0 Inspiratory BiPAP 12 Expiratory BiPAP 6 Sodium 132.0 Potassium Chloride 103.0 Carbon Dioxide Anion Gap BUN Creatinine Est GFR ( Amer) Est GFR (Non-Af Amer) POC Glucose (mg/dL) 62 L 56 L Random Glucose Calcium Phosphorus Magnesium Total Bilirubin AST ALT Alkaline Phosphatase Total Protein Albumin Globulin Albumin/Globulin Ratio Arterial Blood Potassium 5.2 Urine Color Urine Clarity Urine pH Ur Specific [place] Urine Protein Urine Glucose (UA) Urine Ketones Urine Blood Urine Nitrate Urine Bilirubin Urine Urobilinogen Ur Leukocyte Esterase Urine RBC (Auto) Ur Squamous Epith Cells Amorphous Sediment Urine Bacteria Hyaline Casts 12/10/17 12/10/17 10:18 11:22 WBC RBC Hgb Hct MCV MCH MCHC RDW Plt Count MPV Neut % (Auto) Lymph % (Auto) [place] % (Auto) Eos % (Auto) Baso % (Auto) Neut # (Auto) Lymph # (Auto) [place] # (Auto) Eos # (Auto) Baso # (Auto) Neutrophils % (Manual) Band Neutrophils % Lymphocytes % (Manual) Monocytes % (Manual) Metamyelocytes % Toxic Granulation Platelet Estimate Anisocytosis (manual) Macrocytosis (manual) Ovalocytes Viv Cells Puncture Site pCO2 pO2 HCO3 ABG pH ABG Total CO2 ABG O2 Saturation ABG Base Excess Chavez Test ABG Potassium A-a O2 Difference Respiratory Index Glucose Lactate Vent Mode FiO2 Inspiratory BiPAP Expiratory BiPAP Sodium Potassium Chloride Carbon Dioxide Anion Gap BUN Creatinine Est GFR ( Amer) Est GFR (Non-Af Amer) POC Glucose (mg/dL) 131 H Random Glucose Calcium Phosphorus Magnesium Total Bilirubin AST ALT Alkaline Phosphatase Total Protein Albumin Globulin Albumin/Globulin Ratio Arterial Blood Potassium Urine Color [place] Urine Clarity Turbid Urine pH 5.0 Ur Specific [place] 1.017 Urine Protein 2+ H Urine Glucose (UA) 1+ H Urine Ketones Negative Urine Blood Negative Urine Nitrate Negative Urine Bilirubin Negative Urine Urobilinogen 2.0 Ur Leukocyte Esterase Neg Urine RBC (Auto) 4 H Ur Squamous Epith Cells 2 Amorphous Sediment Rare H Urine Bacteria Occ H Hyaline Casts 0-2 Fingerstick Blood Sugar Results: 50 Review of Systems - Constitutional Constitutional: absent: Fever, Chills - Cardiovascular Cardiovascular: Dyspnea. absent: Chest Pain - Respiratory Respiratory: Dyspnea. absent: Wheezing - Gastrointestinal Gastrointestinal: absent: Abdominal Pain, Change in Bowel Habits - Genitourinary Genitourinary: Difficulty Urinating - Neurological Neurological: Confusion Critical Care Progress Note - Nutrition Nutrition: Nutrition Category Date Time Status Heart Healthy Diet [DIET] Diets 12/03/17 Breakfast Active Assessment/Plan - Assessment and Plan (Free Text) Assessment: 77 year old male with PMHx of CKD, CHF, HTN admitted to ICU for evaluation and treatment of Hypotension (on 2 pressors) Plan: Neuro: GCS 14 Sedation: None Cardio A: Hypotension, Chronic End-Stage HF, HLD Continues Vasopressin/Levophed Continue Daily Lasix 40 IV ASA 81 Crestor Daily Pulm Portable CXR - F/U On BiPAP ABG (12/10): 7.40/24/289/18.8 GI A: Abdominal Distension and Firmness Abdominal Flat Plate. Consider CT Abd/Pelvis Consider GI Consult Renal A: CKD, Cardiorenal syndrome, Oligouria Avoid Nephrotoxic Agents US confrimed CKD Nephrology on Consulted, Recs Appreciated Urology Consulted, F/U with Recs. Gentle Hydration. Dialysis today after transfusion. 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 Hold Anti-coags. Consider Heme/Onc. Consult Plt Transfusion Today. ID B/L Lower extremity Cellulitis, Worsening Leukocytosis, Band (improved) Cont. Doxycycline, Meropenem, and Cefepime Wound Care Normal Lactic Acid today Wound Culture shows Gram Positive Cocci. Will F/U sensitivities Blood Cultures NEGATIVE Blood Cultures (12/09): Pending Endo D50 PRN Proph SCD contraindicated due to lower extremety ulcers No pharmacological DVT proph due to low Plts. Patient discussed with ICU Attending Emelia Garrison, PGY -1 <Jefferson Ulrich S - Last Filed: 12/10/17 17:25> CCU Objective - Vital Signs / Intake & Output Vital Signs (Last 4 hours): Vital Signs Pulse Resp BP Pulse Ox 12/10/17 16:11 83 20 117/57 L 88 L 12/10/17 15:50 82 15 92 L 12/10/17 15:40 82 16 93 L 12/10/17 15:30 94 H 24 12/10/17 15:20 79 19 92 L 12/10/17 15:10 79 9 L 77 L 12/10/17 15:00 80 13 12/10/17 14:59 81 19 110/53 L 83 L 12/10/17 14:50 81 15 94 L 12/10/17 14:40 87 10 L 12/10/17 14:30 88 14 12/10/17 14:20 88 14 74 L 12/10/17 14:10 97 H 18 12/10/17 14:00 89 16 12/10/17 13:59 90 16 98/56 L 12/10/17 13:50 88 16 12/10/17 13:40 82 16 12/10/17 13:33 88 12 103/62 12/10/17 13:30 92 H 20 Intake and Output (Last 8hrs): Intake & Output 12/10/17 12/10/17 12/10/17 06:59 14:59 22:59 Intake Total 615.7 854.4 180.6 Output Total 10 10 Balance 615.7 844.4 170.6 Weight 227 lb 1 oz Intake: IV 258 42 Intake, IV Amount 357.7 604.4 138.6 Right Distal Port 198.5 135.2 33.8 Right Medial Port 140 450 100 Right Proximal Port 19.2 19.2 4.8 Oral 250 Output: Urine 10 10 Urethral (Andersen) 10 10 Stool 0 Other: # Bowel Movements 1 - Medications Active Medications: Active Medications Generic Name Dose Route Start Last Admin Trade Name Freq PRN Reason Stop Dose Admin Aspirin 81 mg 12/06/17 10:00 12/10/17 09:20 Aspirin Chewable PO 81 mg DAILY SHAHEED Administration Brimonidine Tartrate 0.05 ml 12/03/17 10:00 12/10/17 13:35 Alphagan 0.2% Opht OU 1 drop TID SHAHEED Administration Clotrimazole 0 gm 12/08/17 10:00 12/10/17 10:00 Lotrimin 1% TOP 1 applic BID SHAHEED Administration Dextrose 0 ml 12/06/17 09:06 12/10/17 08:20 Dextrose 50% Inj IVP 50 ml .STAT PRN Administration Hypoglycemia Protocol Protocol Dextrose 0 gm 12/06/17 09:06 Glutose 15 PO .ONCE PRN Hypoglycemia Protocol Protocol Docusate Sodium 100 mg 12/03/17 04:34 Colace PO BID PRN Constipation Dorzolamide HCl 0.05 ml 12/03/17 10:00 12/10/17 09:12 Trusopt OU 1 drop AMPM SHAHEED Administration Furosemide 40 mg 12/10/17 18:00 Lasix IVP BID SHAHEED Glucagon 0 mg 12/06/17 09:06 Glucagen Diagnostic Kit IM .STAT PRN Hypoglycemia Protocol Protocol Hydrocortisone Sodium Succinate 100 mg 12/08/17 04:30 12/10/17 13:21 Solu-Cortef IV 100 mg Q8H SHAHEED Administration Norepinephrine Bitartrate 8 mg 258 mls @ 7.74 mls/hr 12/07/17 17:47 12/10/17 07:41 / Dextrose IV 20 mcg/min .Q24H PRN 38.7 mls/hr TITRATE PER MD ORDER Administration Protocol 4 MCG/MIN Vasopressin 40 units/ Sodium 42 mls @ 2.52 mls/hr 12/07/17 20:45 12/10/17 16: 11 Chloride IV 0.04 units/min .[id number] SHAHEED 2.52 mls/hr Protocol Administration 0.04 UNITS/MIN Sodium Chloride 1,000 mls @ 40 mls/hr 12/08/17 09:45 12/09/17 14:58 Sodium Chloride 0.9% IV 40 mls/hr .Q24H SHAHEED Administration Dexmedetomidine HCl 200 mcg/ 50 mls @ 5.14 mls/hr 12/10/17 17:07 Sodium Chloride IV TITR PRN Agitation Protocol 0.2 MCG/KG/HR Latanoprost 0.05 ml 12/03/17 22:00 12/09/17 21:15 Xalatan Opht OU 0.05 ml HS SHAHEED Administration Multivitamins/Minerals 1 tab 12/08/17 08:00 12/10/17 08:07 Therapeutic-M Tab PO 1 tab 0800 SHAHEED Administration Rosuvastatin Calcium 10 mg 12/05/17 22:00 12/09/17 21:49 Crestor PO 10 mg HS SHAHEED Administration - Patient Studies Lab Studies: Microbiology Studies 12/07/17 13:40 Blood Culture - Preliminary Blood-Venous NO GROWTH AFTER 3 DAYS 12/07/17 13:40 Blood Culture - Preliminary Blood-Venous NO GROWTH AFTER 3 DAYS 12/09/17 12:37 Blood Culture - Preliminary Blood NO GROWTH AFTER 24 HOURS 12/09/17 10:30 Blood Culture - Preliminary Blood NO GROWTH AFTER 24 HOURS 12/09/17 12:37 Wound Culture - Preliminary Leg - Right Gram Positive Cocci Lab Studies 12/10/17 12/10/17 12/10/17 Range/Units 16:09 15:54 13:21 WBC (4.8-10.8) K/uL RBC (4.40-5.90) Mil/uL Hgb (12.0-18.0) g/dL Hct (35.0-51.0) % MCV (80.0-94.0) fL MCH (27.0-31.0) pg MCHC (33.0-37.0) g/dL RDW (11.5-14.5) % Plt Count (130-400) K/uL MPV (7.2-11.7) fL Neut % (Auto) (50.0-75.0) % Lymph % (Auto) (20.0-40.0) % [place] % (Auto) (0.0-10.0) % Eos % (Auto) (0.0-4.0) % Baso % (Auto) (0.0-2.0) % Neut # (Auto) (1.8-7.0) K/uL Lymph # (Auto) (1.0-4.3) K/uL [place] # (Auto) (0.0-0.8) K/uL Eos # (Auto) (0.0-0.7) K/uL Baso # (Auto) (0.0-0.2) K/uL Neutrophils % (Manual) (50-75) % Band Neutrophils % (0-2) % Lymphocytes % (Manual) (20-40) % Monocytes % (Manual) (0-10) % Metamyelocytes % (0-0) % Toxic Granulation Platelet Estimate (NORMAL) Anisocytosis (manual) Macrocytosis (manual) Ovalocytes Viv Cells Puncture Site Rr pCO2 22 L (35-45) mm/Hg pO2 188 H (80-100) mm/Hg HCO3 17.2 L (21-28) mmol/L ABG pH 7.38 (7.35-7.45) ABG Total CO2 13.7 L (22-28) mmol/L ABG O2 Saturation 100.0 H (95-98) % ABG Base Excess -10.0 L (-2.0-3.0) mmol/L Chavez Test Pos ABG Potassium 4.7 (3.6-5.2) mmol/L A-a O2 Difference 141.0 mm/Hg Respiratory Index 0.8 Glucose 124 H (75-110) mg/dl Lactate 2.4 H (0.7-2.1) mmol/L Vent Mode Bipap FiO2 50.0 % Inspiratory BiPAP 12 Expiratory BiPAP 6 Sodium 136.0 (132-148) mmol/L Potassium (3.6-5.2) mmol/L Chloride 108.0 H (98-107) mmol/L Carbon Dioxide (22-30) mmol/L Anion Gap (10-20) BUN (9-20) mg/dL Creatinine (0.8-1.5) mg/dL Est GFR ( Amer) Est GFR (Non-Af Amer) POC Glucose (mg/dL) 95 (65-110) mg/dL Random Glucose (75-110) mg/dL Lactic Acid 2.0 (0.7-2.1) mmol/L Calcium (8.6-10.4) mg/dl Phosphorus (2.5-4.5) mg/dL Magnesium (1.6-2.3) mg/dL Total Bilirubin (0.2-1.3) mg/dL AST (17-59) U/L ALT (21-72) U/L Alkaline Phosphatase (38-126) U/L Total Protein (6.3-8.3) g/dL Albumin (3.5-5.0) g/dL Globulin (2.2-3.9) gm/dL Albumin/Globulin Ratio (1.0-2.1) Arterial Blood Potassium 4.7 (3.6-5.2) mmol/L Urine Color (YELLOW) Urine Clarity (Clear) Urine pH (5.0-8.0) Ur Specific [place] (1.003-1.030) Urine Protein (NEGATIVE) mg/dL Urine Glucose (UA) (Normal) mg/dL Urine Ketones (NEGATIVE) mg/dL Urine Blood (NEGATIVE) Urine Nitrate (NEGATIVE) Urine Bilirubin (NEGATIVE) Urine Urobilinogen (0.2-1.0) mg/dL Ur Leukocyte Esterase (Negative) Paula/uL Urine RBC (Auto) (0-3) /hpf Ur Squamous Epith Cells (0-5) /hpf Amorphous Sediment (<OCC) /ul Urine Bacteria (<OCC) Hyaline Casts (0-2) /lpf Blood Type Antibody Screen 12/10/17 12/10/17 12/10/17 Range/Units 11:22 11:04 10:18 WBC (4.8-10.8) K/uL RBC (4.40-5.90) Mil/uL Hgb (12.0-18.0) g/dL Hct (35.0-51.0) % MCV (80.0-94.0) fL MCH (27.0-31.0) pg MCHC (33.0-37.0) g/dL RDW (11.5-14.5) % Plt Count (130-400) K/uL MPV (7.2-11.7) fL Neut % (Auto) (50.0-75.0) % Lymph % (Auto) (20.0-40.0) % [place] % (Auto) (0.0-10.0) % Eos % (Auto) (0.0-4.0) % Baso % (Auto) (0.0-2.0) % Neut # (Auto) (1.8-7.0) K/uL Lymph # (Auto) (1.0-4.3) K/uL [place] # (Auto) (0.0-0.8) K/uL Eos # (Auto) (0.0-0.7) K/uL Baso # (Auto) (0.0-0.2) K/uL Neutrophils % (Manual) (50-75) % Band Neutrophils % (0-2) % Lymphocytes % (Manual) (20-40) % Monocytes % (Manual) (0-10) % Metamyelocytes % (0-0) % Toxic Granulation Platelet Estimate (NORMAL) Anisocytosis (manual) Macrocytosis (manual) Ovalocytes Viv Cells Puncture Site pCO2 (35-45) mm/Hg pO2 (80-100) mm/Hg HCO3 (21-28) mmol/L ABG pH (7.35-7.45) ABG Total CO2 (22-28) mmol/L ABG O2 Saturation (95-98) % ABG Base Excess (-2.0-3.0) mmol/L Chavez Test ABG Potassium (3.6-5.2) mmol/L A-a O2 Difference mm/Hg Respiratory Index Glucose (75-110) mg/dl Lactate (0.7-2.1) mmol/L Vent Mode FiO2 % Inspiratory BiPAP Expiratory BiPAP Sodium (132-148) mmol/L Potassium (3.6-5.2) mmol/L Chloride (98-107) mmol/L Carbon Dioxide (22-30) mmol/L Anion Gap (10-20) BUN (9-20) mg/dL Creatinine (0.8-1.5) mg/dL Est GFR ( Amer) Est GFR (Non-Af Amer) POC Glucose (mg/dL) 131 H (65-110) mg/dL Random Glucose (75-110) mg/dL Lactic Acid (0.7-2.1) mmol/L Calcium (8.6-10.4) mg/dl Phosphorus (2.5-4.5) mg/dL Magnesium (1.6-2.3) mg/dL Total Bilirubin (0.2-1.3) mg/dL AST (17-59) U/L ALT (21-72) U/L Alkaline Phosphatase (38-126) U/L Total Protein (6.3-8.3) g/dL Albumin (3.5-5.0) g/dL Globulin (2.2-3.9) gm/dL Albumin/Globulin Ratio (1.0-2.1) Arterial Blood Potassium (3.6-5.2) mmol/L Urine Color [place] (YELLOW) Urine Clarity Turbid (Clear) Urine pH 5.0 (5.0-8.0) Ur Specific [place] 1.017 (1.003-1.030) Urine Protein 2+ H (NEGATIVE) mg/dL Urine Glucose (UA) 1+ H (Normal) mg/dL Urine Ketones Negative (NEGATIVE) mg/dL Urine Blood Negative (NEGATIVE) Urine Nitrate Negative (NEGATIVE) Urine Bilirubin Negative (NEGATIVE) Urine Urobilinogen 2.0 (0.2-1.0) mg/dL Ur Leukocyte Esterase Neg (Negative) Paula/uL Urine RBC (Auto) 4 H (0-3) /hpf Ur Squamous Epith Cells 2 (0-5) /hpf Amorphous Sediment Rare H (<OCC) /ul Urine Bacteria Occ H (<OCC) Hyaline Casts 0-2 (0-2) /lpf Blood Type O POSITIVE Antibody Screen Negative 12/10/17 12/10/17 12/10/17 Range/Units 09:47 08:10 08:08 WBC (4.8-10.8) K/uL RBC (4.40-5.90) Mil/uL Hgb (12.0-18.0) g/dL Hct (35.0-51.0) % MCV (80.0-94.0) fL MCH (27.0-31.0) pg MCHC (33.0-37.0) g/dL RDW (11.5-14.5) % Plt Count (130-400) K/uL MPV (7.2-11.7) fL Neut % (Auto) (50.0-75.0) % Lymph % (Auto) (20.0-40.0) % [place] % (Auto) (0.0-10.0) % Eos % (Auto) (0.0-4.0) % Baso % (Auto) (0.0-2.0) % Neut # (Auto) (1.8-7.0) K/uL Lymph # (Auto) (1.0-4.3) K/uL [place] # (Auto) (0.0-0.8) K/uL Eos # (Auto) (0.0-0.7) K/uL Baso # (Auto) (0.0-0.2) K/uL Neutrophils % (Manual) (50-75) % Band Neutrophils % (0-2) % Lymphocytes % (Manual) (20-40) % Monocytes % (Manual) (0-10) % Metamyelocytes % (0-0) % Toxic Granulation Platelet Estimate (NORMAL) Anisocytosis (manual) Macrocytosis (manual) Ovalocytes [place] Cells Puncture Site Rr pCO2 24 L (35-45) mm/Hg pO2 289 H (80-100) mm/Hg HCO3 18.8 L (21-28) mmol/L ABG pH 7.40 (7.35-7.45) ABG Total CO2 15.6 L (22-28) mmol/L ABG O2 Saturation 100.4 H (95-98) % ABG Base Excess -8.0 L (-2.0-3.0) mmol/L Chavez Test Pos ABG Potassium 5.2 (3.6-5.2) mmol/L A-a O2 Difference 180.0 mm/Hg Respiratory Index 0.6 Glucose 138 H (75-110) mg/dl Lactate 2.3 H (0.7-2.1) mmol/L Vent Mode Bipap FiO2 70.0 % Inspiratory BiPAP 12 Expiratory BiPAP 6 Sodium 132.0 (132-148) mmol/L Potassium (3.6-5.2) mmol/L Chloride 103.0 (98-107) mmol/L Carbon Dioxide (22-30) mmol/L Anion Gap (10-20) BUN (9-20) mg/dL Creatinine (0.8-1.5) mg/dL Est GFR ( Amer) Est GFR (Non-Af Amer) POC Glucose (mg/dL) 56 L 62 L (65-110) mg/dL Random Glucose (75-110) mg/dL Lactic Acid (0.7-2.1) mmol/L Calcium (8.6-10.4) mg/dl Phosphorus (2.5-4.5) mg/dL Magnesium (1.6-2.3) mg/dL Total Bilirubin (0.2-1.3) mg/dL AST (17-59) U/L ALT (21-72) U/L Alkaline Phosphatase (38-126) U/L Total Protein (6.3-8.3) g/dL Albumin (3.5-5.0) g/dL Globulin (2.2-3.9) gm/dL Albumin/Globulin Ratio (1.0-2.1) Arterial Blood Potassium 5.2 (3.6-5.2) mmol/L Urine Color (YELLOW) Urine Clarity (Clear) Urine pH (5.0-8.0) Ur Specific [place] (1.003-1.030) Urine Protein (NEGATIVE) mg/dL Urine Glucose (UA) (Normal) mg/dL Urine Ketones (NEGATIVE) mg/dL Urine Blood (NEGATIVE) Urine Nitrate (NEGATIVE) Urine Bilirubin (NEGATIVE) Urine Urobilinogen (0.2-1.0) mg/dL Ur Leukocyte Esterase (Negative) Paula/uL Urine RBC (Auto) (0-3) /hpf Ur Squamous Epith Cells (0-5) /hpf Amorphous Sediment (<OCC) /ul Urine Bacteria (<OCC) Hyaline Casts (0-2) /lpf Blood Type Antibody Screen 12/10/17 12/10/17 12/10/17 Range/Units 07:33 07:31 06:31 WBC (4.8-10.8) K/uL RBC (4.40-5.90) Mil/uL Hgb (12.0-18.0) g/dL Hct (35.0-51.0) % MCV (80.0-94.0) fL MCH (27.0-31.0) pg MCHC (33.0-37.0) g/dL RDW (11.5-14.5) % Plt Count (130-400) K/uL MPV (7.2-11.7) fL Neut % (Auto) (50.0-75.0) % Lymph % (Auto) (20.0-40.0) % [place] % (Auto) (0.0-10.0) % Eos % (Auto) (0.0-4.0) % Baso % (Auto) (0.0-2.0) % Neut # (Auto) (1.8-7.0) K/uL Lymph # (Auto) (1.0-4.3) K/uL [place] # (Auto) (0.0-0.8) K/uL Eos # (Auto) (0.0-0.7) K/uL Baso # (Auto) (0.0-0.2) K/uL Neutrophils % (Manual) (50-75) % Band Neutrophils % (0-2) % Lymphocytes % (Manual) (20-40) % Monocytes % (Manual) (0-10) % Metamyelocytes % (0-0) % Toxic Granulation Platelet Estimate (NORMAL) Anisocytosis (manual) Macrocytosis (manual) Ovalocytes [place] Cells Puncture Site pCO2 (35-45) mm/Hg pO2 (80-100) mm/Hg HCO3 (21-28) mmol/L ABG pH (7.35-7.45) ABG Total CO2 (22-28) mmol/L ABG O2 Saturation (95-98) % ABG Base Excess (-2.0-3.0) mmol/L Chavez Test ABG Potassium (3.6-5.2) mmol/L A-a O2 Difference mm/Hg Respiratory Index Glucose (75-110) mg/dl Lactate (0.7-2.1) mmol/L Vent Mode FiO2 % Inspiratory BiPAP Expiratory BiPAP Sodium (132-148) mmol/L Potassium (3.6-5.2) mmol/L Chloride (98-107) mmol/L Carbon Dioxide (22-30) mmol/L Anion Gap (10-20) BUN (9-20) mg/dL Creatinine (0.8-1.5) mg/dL Est GFR ( Amer) Est GFR (Non-Af Amer) POC Glucose (mg/dL) 66 62 L 80 (65-110) mg/dL Random Glucose (75-110) mg/dL Lactic Acid (0.7-2.1) mmol/L Calcium (8.6-10.4) mg/dl Phosphorus (2.5-4.5) mg/dL Magnesium (1.6-2.3) mg/dL Total Bilirubin (0.2-1.3) mg/dL AST (17-59) U/L ALT (21-72) U/L Alkaline Phosphatase (38-126) U/L Total Protein (6.3-8.3) g/dL Albumin (3.5-5.0) g/dL Globulin (2.2-3.9) gm/dL Albumin/Globulin Ratio (1.0-2.1) Arterial Blood Potassium (3.6-5.2) mmol/L Urine Color (YELLOW) Urine Clarity (Clear) Urine pH (5.0-8.0) Ur Specific [place] (1.003-1.030) Urine Protein (NEGATIVE) mg/dL Urine Glucose (UA) (Normal) mg/dL Urine Ketones (NEGATIVE) mg/dL Urine Blood (NEGATIVE) Urine Nitrate (NEGATIVE) Urine Bilirubin (NEGATIVE) Urine Urobilinogen (0.2-1.0) mg/dL Ur Leukocyte Esterase (Negative) Paula/uL Urine RBC (Auto) (0-3) /hpf Ur Squamous Epith Cells (0-5) /hpf Amorphous Sediment (<OCC) /ul Urine Bacteria (<OCC) Hyaline Casts (0-2) /lpf Blood Type Antibody Screen 12/10/17 12/10/17 12/10/17 Range/Units 06:15 06:13 04:28 WBC 28.1 H (4.8-10.8) K/uL RBC 3.37 L (4.40-5.90) Mil/uL Hgb 11.5 L (12.0-18.0) g/dL Hct 34.2 L (35.0-51.0) % MCV 101.3 H (80.0-94.0) fL MCH 34.1 H (27.0-31.0) pg MCHC 33.7 (33.0-37.0) g/dL RDW 18.0 H (11.5-14.5) % Plt Count 27 L* (130-400) K/uL MPV 10.3 (7.2-11.7) fL Neut % (Auto) 97.2 H (50.0-75.0) % Lymph % (Auto) 1.1 L (20.0-40.0) % [place] % (Auto) 1.6 (0.0-10.0) % Eos % (Auto) 0.0 (0.0-4.0) % Baso % (Auto) 0.1 (0.0-2.0) % Neut # (Auto) 27.3 H (1.8-7.0) K/uL Lymph # (Auto) 0.3 L (1.0-4.3) K/uL [place] # (Auto) 0.5 (0.0-0.8) K/uL Eos # (Auto) 0.0 (0.0-0.7) K/uL Baso # (Auto) 0.0 (0.0-0.2) K/uL Neutrophils % (Manual) 72 (50-75) % Band Neutrophils % 25 H* (0-2) % Lymphocytes % (Manual) 1 L (20-40) % Monocytes % (Manual) 1 (0-10) % Metamyelocytes % 1 H (0-0) % Toxic Granulation Present Platelet Estimate Markedly decreased L (NORMAL) Anisocytosis (manual) Moderate Macrocytosis (manual) Moderate Ovalocytes Moderate Viv Cells Moderate Puncture Site pCO2 (35-45) mm/Hg pO2 (80-100) mm/Hg HCO3 (21-28) mmol/L ABG pH (7.35-7.45) ABG Total CO2 (22-28) mmol/L ABG O2 Saturation (95-98) % ABG Base Excess (-2.0-3.0) mmol/L Chavez Test ABG Potassium (3.6-5.2) mmol/L A-a O2 Difference mm/Hg Respiratory Index Glucose (75-110) mg/dl Lactate (0.7-2.1) mmol/L Vent Mode FiO2 % Inspiratory BiPAP Expiratory BiPAP Sodium 139 (132-148) mmol/L Potassium 5.4 H (3.6-5.2) mmol/L Chloride 103 (98-107) mmol/L Carbon Dioxide 19 L (22-30) mmol/L Anion Gap 22 H (10-20) BUN 110 H* (9-20) mg/dL Creatinine 3.2 H (0.8-1.5) mg/dL Est GFR ( Amer) 23 Est GFR (Non-Af Amer) 19 POC Glucose (mg/dL) 52 L (65-110) mg/dL Random Glucose 79 (75-110) mg/dL Lactic Acid (0.7-2.1) mmol/L Calcium 7.6 L (8.6-10.4) mg/dl Phosphorus 7.5 H (2.5-4.5) mg/dL Magnesium 2.9 H (1.6-2.3) mg/dL Total Bilirubin 6.3 H (0.2-1.3) mg/dL AST 63 H D (17-59) U/L ALT 37 (21-72) U/L Alkaline Phosphatase 77 (38-126) U/L Total Protein 5.8 L (6.3-8.3) g/dL Albumin 3.0 L (3.5-5.0) g/dL Globulin 2.7 (2.2-3.9) gm/dL Albumin/Globulin Ratio 1.1 (1.0-2.1) Arterial Blood Potassium (3.6-5.2) mmol/L Urine Color (YELLOW) Urine Clarity (Clear) Urine pH (5.0-8.0) Ur Specific [place] (1.003-1.030) Urine Protein (NEGATIVE) mg/dL Urine Glucose (UA) (Normal) mg/dL Urine Ketones (NEGATIVE) mg/dL Urine Blood (NEGATIVE) Urine Nitrate (NEGATIVE) Urine Bilirubin (NEGATIVE) Urine Urobilinogen (0.2-1.0) mg/dL Ur Leukocyte Esterase (Negative) Paula/uL Urine RBC (Auto) (0-3) /hpf Ur Squamous Epith Cells (0-5) /hpf Amorphous Sediment (<OCC) /ul Urine Bacteria (<OCC) Hyaline Casts (0-2) /lpf Blood Type Antibody Screen 12/10/17 12/09/17 12/09/17 Range/Units 04:25 23:59 21:03 WBC (4.8-10.8) K/uL RBC (4.40-5.90) Mil/uL Hgb (12.0-18.0) g/dL Hct (35.0-51.0) % MCV (80.0-94.0) fL MCH (27.0-31.0) pg MCHC (33.0-37.0) g/dL RDW (11.5-14.5) % Plt Count (130-400) K/uL MPV (7.2-11.7) fL Neut % (Auto) (50.0-75.0) % Lymph % (Auto) (20.0-40.0) % [place] % (Auto) (0.0-10.0) % Eos % (Auto) (0.0-4.0) % Baso % (Auto) (0.0-2.0) % Neut # (Auto) (1.8-7.0) K/uL Lymph # (Auto) (1.0-4.3) K/uL [place] # (Auto) (0.0-0.8) K/uL Eos # (Auto) (0.0-0.7) K/uL Baso # (Auto) (0.0-0.2) K/uL Neutrophils % (Manual) (50-75) % Band Neutrophils % (0-2) % Lymphocytes % (Manual) (20-40) % Monocytes % (Manual) (0-10) % Metamyelocytes % (0-0) % Toxic Granulation Platelet Estimate (NORMAL) Anisocytosis (manual) Macrocytosis (manual) Ovalocytes [place] Cells Puncture Site pCO2 (35-45) mm/Hg pO2 (80-100) mm/Hg HCO3 (21-28) mmol/L ABG pH (7.35-7.45) ABG Total CO2 (22-28) mmol/L ABG O2 Saturation (95-98) % ABG Base Excess (-2.0-3.0) mmol/L Chavez Test ABG Potassium (3.6-5.2) mmol/L A-a O2 Difference mm/Hg Respiratory Index Glucose (75-110) mg/dl Lactate (0.7-2.1) mmol/L Vent Mode FiO2 % Inspiratory BiPAP Expiratory BiPAP Sodium (132-148) mmol/L Potassium (3.6-5.2) mmol/L Chloride (98-107) mmol/L Carbon Dioxide (22-30) mmol/L Anion Gap (10-20) BUN (9-20) mg/dL Creatinine (0.8-1.5) mg/dL Est GFR ( Amer) Est GFR (Non-Af Amer) POC Glucose (mg/dL) 40 L 93 76 (65-110) mg/dL Random Glucose (75-110) mg/dL Lactic Acid (0.7-2.1) mmol/L Calcium (8.6-10.4) mg/dl Phosphorus (2.5-4.5) mg/dL Magnesium (1.6-2.3) mg/dL Total Bilirubin (0.2-1.3) mg/dL AST (17-59) U/L ALT (21-72) U/L Alkaline Phosphatase (38-126) U/L Total Protein (6.3-8.3) g/dL Albumin (3.5-5.0) g/dL Globulin (2.2-3.9) gm/dL Albumin/Globulin Ratio (1.0-2.1) Arterial Blood Potassium (3.6-5.2) mmol/L Urine Color (YELLOW) Urine Clarity (Clear) Urine pH (5.0-8.0) Ur Specific [place] (1.003-1.030) Urine Protein (NEGATIVE) mg/dL Urine Glucose (UA) (Normal) mg/dL Urine Ketones (NEGATIVE) mg/dL Urine Blood (NEGATIVE) Urine Nitrate (NEGATIVE) Urine Bilirubin (NEGATIVE) Urine Urobilinogen (0.2-1.0) mg/dL Ur Leukocyte Esterase (Negative) Paula/uL Urine RBC (Auto) (0-3) /hpf Ur Squamous Epith Cells (0-5) /hpf Amorphous Sediment (<OCC) /ul Urine Bacteria (<OCC) Hyaline Casts (0-2) /lpf Blood Type Antibody Screen 12/09/17 Range/Units 17:37 WBC (4.8-10.8) K/uL RBC (4.40-5.90) Mil/uL Hgb (12.0-18.0) g/dL Hct (35.0-51.0) % MCV (80.0-94.0) fL MCH (27.0-31.0) pg MCHC (33.0-37.0) g/dL RDW (11.5-14.5) % Plt Count (130-400) K/uL MPV (7.2-11.7) fL Neut % (Auto) (50.0-75.0) % Lymph % (Auto) (20.0-40.0) % [place] % (Auto) (0.0-10.0) % Eos % (Auto) (0.0-4.0) % Baso % (Auto) (0.0-2.0) % Neut # (Auto) (1.8-7.0) K/uL Lymph # (Auto) (1.0-4.3) K/uL [place] # (Auto) (0.0-0.8) K/uL Eos # (Auto) (0.0-0.7) K/uL Baso # (Auto) (0.0-0.2) K/uL Neutrophils % (Manual) (50-75) % Band Neutrophils % (0-2) % Lymphocytes % (Manual) (20-40) % Monocytes % (Manual) (0-10) % Metamyelocytes % (0-0) % Toxic Granulation Platelet Estimate (NORMAL) Anisocytosis (manual) Macrocytosis (manual) Ovalocytes [place] Cells Puncture Site pCO2 (35-45) mm/Hg pO2 (80-100) mm/Hg HCO3 (21-28) mmol/L ABG pH (7.35-7.45) ABG Total CO2 (22-28) mmol/L ABG O2 Saturation (95-98) % ABG Base Excess (-2.0-3.0) mmol/L Chavez Test ABG Potassium (3.6-5.2) mmol/L A-a O2 Difference mm/Hg Respiratory Index Glucose (75-110) mg/dl Lactate (0.7-2.1) mmol/L Vent Mode FiO2 % Inspiratory BiPAP Expiratory BiPAP Sodium (132-148) mmol/L Potassium (3.6-5.2) mmol/L Chloride (98-107) mmol/L Carbon Dioxide (22-30) mmol/L Anion Gap (10-20) BUN (9-20) mg/dL Creatinine (0.8-1.5) mg/dL Est GFR ( Amer) Est GFR (Non-Af Amer) POC Glucose (mg/dL) 96 (65-110) mg/dL Random Glucose (75-110) mg/dL Lactic Acid (0.7-2.1) mmol/L Calcium (8.6-10.4) mg/dl Phosphorus (2.5-4.5) mg/dL Magnesium (1.6-2.3) mg/dL Total Bilirubin (0.2-1.3) mg/dL AST (17-59) U/L ALT (21-72) U/L Alkaline Phosphatase (38-126) U/L Total Protein (6.3-8.3) g/dL Albumin (3.5-5.0) g/dL Globulin (2.2-3.9) gm/dL Albumin/Globulin Ratio (1.0-2.1) Arterial Blood Potassium (3.6-5.2) mmol/L Urine Color (YELLOW) Urine Clarity (Clear) Urine pH (5.0-8.0) Ur Specific [place] (1.003-1.030) Urine Protein (NEGATIVE) mg/dL Urine Glucose (UA) (Normal) mg/dL Urine Ketones (NEGATIVE) mg/dL Urine Blood (NEGATIVE) Urine Nitrate (NEGATIVE) Urine Bilirubin (NEGATIVE) Urine Urobilinogen (0.2-1.0) mg/dL Ur Leukocyte Esterase (Negative) Paula/uL Urine RBC (Auto) (0-3) /hpf Ur Squamous Epith Cells (0-5) /hpf Amorphous Sediment (<OCC) /ul Urine Bacteria (<OCC) Hyaline Casts (0-2) /lpf Blood Type Antibody Screen Laboratory Results - last 24 hr 12/09/17 12/09/17 12/09/17 17:37 21:03 23:59 WBC RBC Hgb Hct MCV MCH MCHC RDW Plt Count MPV Neut % (Auto) Lymph % (Auto) [place] % (Auto) Eos % (Auto) Baso % (Auto) Neut # (Auto) Lymph # (Auto) [place] # (Auto) Eos # (Auto) Baso # (Auto) Neutrophils % (Manual) Band Neutrophils % Lymphocytes % (Manual) Monocytes % (Manual) Metamyelocytes % Toxic Granulation Platelet Estimate Anisocytosis (manual) Macrocytosis (manual) Ovalocytes Viv Cells Puncture Site pCO2 pO2 HCO3 ABG pH ABG Total CO2 ABG O2 Saturation ABG Base Excess [place]avez Test ABG Potassium A-a O2 Difference Respiratory Index Glucose Lactate Vent Mode FiO2 Inspiratory BiPAP Expiratory BiPAP Sodium Potassium Chloride Carbon Dioxide Anion Gap BUN Creatinine Est GFR ( Amer) Est GFR (Non-Af Amer) POC Glucose (mg/dL) 96 76 93 Random Glucose Lactic Acid Calcium Phosphorus Magnesium Total Bilirubin AST ALT Alkaline Phosphatase Total Protein Albumin Globulin Albumin/Globulin Ratio Arterial Blood Potassium Urine Color Urine Clarity Urine pH Ur Specific [place] Urine Protein Urine Glucose (UA) Urine Ketones Urine Blood Urine Nitrate Urine Bilirubin Urine Urobilinogen Ur Leukocyte Esterase Urine RBC (Auto) Ur Squamous Epith Cells Amorphous Sediment Urine Bacteria Hyaline Casts Blood Type Antibody Screen 12/10/17 12/10/17 12/10/17 04:25 04:28 06:13 WBC 28.1 H RBC 3.37 L Hgb 11.5 L Hct 34.2 L MCV 101.3 H MCH 34.1 H MCHC 33.7 RDW 18.0 H Plt Count 27 L* MPV 10.3 Neut % (Auto) 97.2 H Lymph % (Auto) 1.1 L [place] % (Auto) 1.6 Eos % (Auto) 0.0 Baso % (Auto) 0.1 Neut # (Auto) 27.3 H Lymph # (Auto) 0.3 L [place] # (Auto) 0.5 Eos # (Auto) 0.0 Baso # (Auto) 0.0 Neutrophils % (Manual) 72 Band Neutrophils % 25 H* Lymphocytes % (Manual) 1 L Monocytes % (Manual) 1 Metamyelocytes % 1 H Toxic Granulation Present Platelet Estimate Markedly decreased L Anisocytosis (manual) Moderate Macrocytosis (manual) Moderate Ovalocytes Moderate [place] Cells Moderate Puncture Site pCO2 pO2 HCO3 ABG pH ABG Total CO2 ABG O2 Saturation ABG Base Excess [place] Test ABG Potassium A-a O2 Difference Respiratory Index Glucose Lactate Vent Mode FiO2 Inspiratory BiPAP Expiratory BiPAP Sodium Potassium Chloride Carbon Dioxide Anion Gap BUN Creatinine Est GFR ( Amer) Est GFR (Non-Af Amer) POC Glucose (mg/dL) 40 L 52 L Random Glucose Lactic Acid Calcium Phosphorus Magnesium Total Bilirubin AST ALT Alkaline Phosphatase Total Protein Albumin Globulin Albumin/Globulin Ratio Arterial Blood Potassium Urine Color Urine Clarity Urine pH Ur Specific [place] Urine Protein Urine Glucose (UA) Urine Ketones Urine Blood Urine Nitrate Urine Bilirubin Urine Urobilinogen Ur Leukocyte Esterase Urine RBC (Auto) Ur Squamous Epith Cells Amorphous Sediment Urine Bacteria Hyaline Casts Blood Type Antibody Screen 12/10/17 12/10/17 12/10/17 06:15 06:31 07:31 WBC RBC Hgb Hct MCV MCH MCHC RDW Plt Count MPV Neut % (Auto) Lymph % (Auto) [place] % (Auto) Eos % (Auto) Baso % (Auto) Neut # (Auto) Lymph # (Auto) [place] # (Auto) Eos # (Auto) Baso # (Auto) Neutrophils % (Manual) Band Neutrophils % Lymphocytes % (Manual) Monocytes % (Manual) Metamyelocytes % Toxic Granulation Platelet Estimate Anisocytosis (manual) Macrocytosis (manual) Ovalocytes [place] Cells Puncture Site pCO2 pO2 HCO3 ABG pH ABG Total CO2 ABG O2 Saturation ABG Base Excess [place] Test ABG Potassium A-a O2 Difference Respiratory Index Glucose Lactate Vent Mode FiO2 Inspiratory BiPAP Expiratory BiPAP Sodium 139 Potassium 5.4 H Chloride 103 Carbon Dioxide 19 L Anion Gap 22 H BUN 110 H* Creatinine 3.2 H Est GFR ( Amer) 23 Est GFR (Non-Af Amer) 19 POC Glucose (mg/dL) 80 62 L Random Glucose 79 Lactic Acid Calcium 7.6 L Phosphorus 7.5 H Magnesium 2.9 H Total Bilirubin 6.3 H AST 63 H D ALT 37 Alkaline Phosphatase 77 Total Protein 5.8 L Albumin 3.0 L Globulin 2.7 Albumin/Globulin Ratio 1.1 Arterial Blood Potassium Urine Color Urine Clarity Urine pH Ur Specific [place] Urine Protein Urine Glucose (UA) Urine Ketones Urine Blood Urine Nitrate Urine Bilirubin Urine Urobilinogen Ur Leukocyte Esterase Urine RBC (Auto) Ur Squamous Epith Cells Amorphous Sediment Urine Bacteria Hyaline Casts Blood Type Antibody Screen 12/10/17 12/10/17 12/10/17 07:33 08:08 08:10 WBC RBC Hgb Hct MCV MCH MCHC RDW Plt Count MPV Neut % (Auto) Lymph % (Auto) [place] % (Auto) Eos % (Auto) Baso % (Auto) Neut # (Auto) Lymph # (Auto) [place] # (Auto) Eos # (Auto) Baso # (Auto) Neutrophils % (Manual) Band Neutrophils % Lymphocytes % (Manual) Monocytes % (Manual) Metamyelocytes % Toxic Granulation Platelet Estimate Anisocytosis (manual) Macrocytosis (manual) Ovalocytes [place] Cells Puncture Site pCO2 pO2 HCO3 ABG pH ABG Total CO2 ABG O2 Saturation ABG Base Excess [place] Test ABG Potassium A-a O2 Difference Respiratory Index Glucose Lactate Vent Mode FiO2 Inspiratory BiPAP Expiratory BiPAP Sodium Potassium Chloride Carbon Dioxide Anion Gap BUN Creatinine Est GFR ( Amer) Est GFR (Non-Af Amer) POC Glucose (mg/dL) 66 62 L 56 L Random Glucose Lactic Acid Calcium Phosphorus Magnesium Total Bilirubin AST ALT Alkaline Phosphatase Total Protein Albumin Globulin Albumin/Globulin Ratio Arterial Blood Potassium Urine Color Urine Clarity Urine pH Ur Specific [place] Urine Protein Urine Glucose (UA) Urine Ketones Urine Blood Urine Nitrate Urine Bilirubin Urine Urobilinogen Ur Leukocyte Esterase Urine RBC (Auto) Ur Squamous Epith Cells Amorphous Sediment Urine Bacteria Hyaline Casts Blood Type Antibody Screen 12/10/17 12/10/17 12/10/17 09:47 10:18 11:04 WBC RBC Hgb Hct MCV MCH MCHC RDW Plt Count MPV Neut % (Auto) Lymph % (Auto) [place] % (Auto) Eos % (Auto) Baso % (Auto) Neut # (Auto) Lymph # (Auto) [place] # (Auto) Eos # (Auto) Baso # (Auto) Neutrophils % (Manual) Band Neutrophils % Lymphocytes % (Manual) Monocytes % (Manual) Metamyelocytes % Toxic Granulation Platelet Estimate Anisocytosis (manual) Macrocytosis (manual) Ovalocytes Viv Cells Puncture Site Rr pCO2 24 L pO2 289 H HCO3 18.8 L ABG pH 7.40 ABG Total CO2 15.6 L ABG O2 Saturation 100.4 H ABG Base Excess -8.0 L Chavez Test Pos ABG Potassium 5.2 A-a O2 Difference 180.0 Respiratory Index 0.6 Glucose 138 H Lactate 2.3 H Vent Mode Bipap FiO2 70.0 Inspiratory BiPAP 12 Expiratory BiPAP 6 Sodium 132.0 Potassium Chloride 103.0 Carbon Dioxide Anion Gap BUN Creatinine Est GFR ( Amer) Est GFR (Non-Af Amer) POC Glucose (mg/dL) Random Glucose Lactic Acid Calcium Phosphorus Magnesium Total Bilirubin AST ALT Alkaline Phosphatase Total Protein Albumin Globulin Albumin/Globulin Ratio Arterial Blood Potassium 5.2 Urine Color [place] Urine Clarity Turbid Urine pH 5.0 Ur Specific [place] 1.017 Urine Protein 2+ H Urine Glucose (UA) 1+ H Urine Ketones Negative Urine Blood Negative Urine Nitrate Negative Urine Bilirubin Negative Urine Urobilinogen 2.0 Ur Leukocyte Esterase Neg Urine RBC (Auto) 4 H Ur Squamous Epith Cells 2 Amorphous Sediment Rare H Urine Bacteria Occ H Hyaline Casts 0-2 Blood Type O POSITIVE Antibody Screen Negative 12/10/17 12/10/17 12/10/17 11:22 13:21 15:54 WBC RBC Hgb Hct MCV MCH MCHC RDW Plt Count MPV Neut % (Auto) Lymph % (Auto) [place] % (Auto) Eos % (Auto) Baso % (Auto) Neut # (Auto) Lymph # (Auto) [place] # (Auto) Eos # (Auto) Baso # (Auto) Neutrophils % (Manual) Band Neutrophils % Lymphocytes % (Manual) Monocytes % (Manual) Metamyelocytes % Toxic Granulation Platelet Estimate Anisocytosis (manual) Macrocytosis (manual) Ovalocytes Viv Cells Puncture Site Rr pCO2 22 L pO2 188 H HCO3 17.2 L ABG pH 7.38 ABG Total CO2 13.7 L ABG O2 Saturation 100.0 H ABG Base Excess -10.0 L Chavez Test Pos ABG Potassium 4.7 A-a O2 Difference 141.0 Respiratory Index 0.8 Glucose 124 H Lactate 2.4 H Vent Mode Bipap FiO2 50.0 Inspiratory BiPAP 12 Expiratory BiPAP 6 Sodium 136.0 Potassium Chloride 108.0 H Carbon Dioxide Anion Gap BUN Creatinine Est GFR ( Amer) Est GFR (Non-Af Amer) POC Glucose (mg/dL) 131 H Random Glucose Lactic Acid 2.0 Calcium Phosphorus Magnesium Total Bilirubin AST ALT Alkaline Phosphatase Total Protein Albumin Globulin Albumin/Globulin Ratio Arterial Blood Potassium 4.7 Urine Color Urine Clarity Urine pH Ur Specific [place] Urine Protein Urine Glucose (UA) Urine Ketones Urine Blood Urine Nitrate Urine Bilirubin Urine Urobilinogen Ur Leukocyte Esterase Urine RBC (Auto) Ur Squamous Epith Cells Amorphous Sediment Urine Bacteria Hyaline Casts Blood Type Antibody Screen 12/10/17 16:09 WBC RBC Hgb Hct MCV MCH MCHC RDW Plt Count MPV Neut % (Auto) Lymph % (Auto) [place] % (Auto) Eos % (Auto) Baso % (Auto) Neut # (Auto) Lymph # (Auto) [place] # (Auto) Eos # (Auto) Baso # (Auto) Neutrophils % (Manual) Band Neutrophils % Lymphocytes % (Manual) Monocytes % (Manual) Metamyelocytes % Toxic Granulation Platelet Estimate Anisocytosis (manual) Macrocytosis (manual) Ovalocytes Viv Cells Puncture Site pCO2 pO2 HCO3 ABG pH ABG Total CO2 ABG O2 Saturation ABG Base Excess [place] Test ABG Potassium A-a O2 Difference Respiratory Index Glucose Lactate Vent Mode FiO2 Inspiratory BiPAP Expiratory BiPAP Sodium Potassium Chloride Carbon Dioxide Anion Gap BUN Creatinine Est GFR ( Amer) Est GFR (Non-Af Amer) POC Glucose (mg/dL) 95 Random Glucose Lactic Acid Calcium Phosphorus Magnesium Total Bilirubin AST ALT Alkaline Phosphatase Total Protein Albumin Globulin Albumin/Globulin Ratio Arterial Blood Potassium Urine Color Urine Clarity Urine pH Ur Specific [place] Urine Protein Urine Glucose (UA) Urine Ketones Urine Blood Urine Nitrate Urine Bilirubin Urine Urobilinogen Ur Leukocyte Esterase Urine RBC (Auto) Ur Squamous Epith Cells Amorphous Sediment Urine Bacteria Hyaline Casts Blood Type Antibody Screen Critical Care Progress Note - Nutrition Nutrition: Nutrition Category Date Time Status Heart Healthy Diet [DIET] Diets 12/03/17 Breakfast Active Attending/Attestation - Attestation I have personally seen and examined this patient.: Yes I have fully participated in the care of the patient.: Yes I have reviewed all pertinent clinical information: Yes Notes (Text): 12/10/17 17:24 Patient seen and examined in the intensive care unit. He remained on BiPAP worsening renal function and thrombocytopenia On Levophed drip Patient intubated and placed on ventilatory support after discussing with brother Dialysis catheter after platelets Transfusion continue IV antibiotics Prognosis poor
[2017-12-10 13:24] LABS: ABG ALLEN TEST POS; ARTERIAL BLOOD GAS HCO3 17.2 mmol/L (21-28); ARTERIAL BLOOD GAS PCO2 22 mm/Hg (35-45); ARTERIAL BLOOD GAS PH 7.38 (7.35-7.45); ARTERIAL BLOOD GAS PO2 188 mm/Hg (80-100); ARTERIAL BLOOD GAS TCO2 13.7 mmol/L (22-28)
--- NOTE | 2017-12-10 13:50 | RAD ---
HISTORY: SOB, Rhonchi COMPARISON: Chest radiograph dated 12/09/2017. FINDINGS: LUNGS: Pulmonary vascular congestion. Left basilar atelectasis. PLEURA: Small left pleural effusion. No pneumothorax apparent. CARDIOVASCULAR: Atherosclerotic aortic calcifications. Cardiomediastinal silhouette stably enlarged. OSSEOUS STRUCTURES: Unchanged. VISUALIZED UPPER ABDOMEN: Normal. OTHER FINDINGS: Right internal jugular access central venous catheter, unchanged. IMPRESSION: Small left pleural effusion.
--- NOTE | 2017-12-10 13:51 | RAD ---
HISTORY: Firm Abdomen. COMPARISON: CT scan of the chest, abdomen and pelvis dated 07/09/2016. FINDINGS: BOWEL: Centralization of bowel loops. No obstruction. No free air. BONES: Normal. OTHER FINDINGS: None. IMPRESSION: Centralization of bowel loops suggesting ascites. No evidence of obstruction.
--- NOTE | 2017-12-10 14:17 | CP.PCM.PN ---
Subjective - Date & Time of Evaluation Date of Evaluation: 12/10/17 Time of Evaluation: 14:14 - Subjective Subjective: on biPAP, now anuric- despite tripp insertion remains on pressors GPC wound infection noted palliative care involved Objective - Vital Signs/Intake and Output Vital Signs (last 24 hours): Temp Pulse Resp BP Pulse Ox 96.9 F L 85 15 100/15 L 71 L 12/10/17 12:00 12/10/17 13:20 12/10/17 13:20 12/10/17 13:00 12/10/17 13:00 Intake and Output: 12/10/17 12/10/17 06:59 18:59 Intake Total 1235.3 835.1 Output Total 10 Balance 1235.3 825.1 - Medications Medications: Current Medications Aspirin (Aspirin Chewable) 81 mg PO DAILY [facility] Last Admin: 12/10/17 09:20 Dose: 81 mg Brimonidine Tartrate (Alphagan 0.2% Opht) 0.05 ml OU TID [facility] Last Admin: 12/10/17 13:35 Dose: 1 drop Clotrimazole (Lotrimin 1%) 0 gm TOP BID [facility] Last Admin: 12/10/17 10:00 Dose: 1 applic Dextrose (Dextrose 50% Inj) 0 ml IVP .STAT PRN; Protocol PRN Reason: Hypoglycemia Protocol Last Admin: 12/10/17 08:20 Dose: 50 ml Dextrose (Glutose 15) 0 gm PO .ONCE PRN; Protocol PRN Reason: Hypoglycemia Protocol Docusate Sodium (Colace) 100 mg PO BID PRN PRN Reason: Constipation Dorzolamide HCl (Trusopt) 0.05 ml OU AMPM [facility] Last Admin: 12/10/17 09:12 Dose: 1 drop Furosemide (Lasix) 40 mg IVP DAILY [facility] Last Admin: 12/10/17 09:24 Dose: 40 mg Glucagon (Glucagen Diagnostic Kit) 0 mg IM .STAT PRN; Protocol PRN Reason: Hypoglycemia Protocol Hydrocortisone Sodium Succinate (Solu-Cortef) 100 mg IV Q8H [facility] Last Admin: 12/10/17 13:21 Dose: 100 mg Cefepime HCl (Maxipime Iv 1 Gm Premix) 1 gm in 50 mls @ 100 mls/hr IVPB Q12H [facility] PRN Reason: Protocol Last Admin: 12/10/17 03:04 Dose: 100 mls/hr Norepinephrine Bitartrate 8 mg (/ Dextrose) 258 mls @ 7.74 mls/hr IV .Q24H PRN ; Protocol; 4 MCG/MIN PRN Reason: TITRATE PER MD ORDER Last Admin: 12/10/17 07:41 Dose: 20 mcg/min, 38.7 mls/hr Vasopressin 40 units/ Sodium (Chloride) 42 mls @ 2.52 mls/hr IV .[id number] SHAHEED; 0.04 UNITS/MIN PRN Reason: Protocol Last Admin: 12/09/17 22:27 Dose: 0.04 units/min, 2.52 mls/hr Sodium Chloride (Sodium Chloride 0.9%) 1,000 mls @ 40 mls/hr IV .Q24H SHAHEED Last Admin: 12/09/17 14:58 Dose: 40 mls/hr Dextrose (Dextrose 5% In Water) 500 mls @ 50 mls/hr IV .Q10H SHAHEED Stop: 12/10/17 14:59 Last Admin: 12/10/17 05:00 Dose: 50 mls/hr Latanoprost (Xalatan Opht) 0.05 ml OU HS SHAHEED Last Admin: 12/09/17 21:15 Dose: 0.05 ml Multivitamins/Minerals (Therapeutic-M Tab) 1 tab PO 0800 SHAHEED Last Admin: 12/10/17 08:07 Dose: 1 tab Rosuvastatin Calcium (Crestor) 10 mg PO HS SHAHEED Last Admin: 12/09/17 21:49 Dose: 10 mg - Labs Labs: 12/10/17 06:13 12/10/17 06:15 - Constitutional Appears: In Acute Distress, Chronically Ill - Head Exam Head Exam: ATRAUMATIC, NORMAL INSPECTION - Eye Exam Eye Exam: EOMI, Normal appearance - Neck Exam Neck Exam: Normal Inspection. absent: Tenderness - Respiratory Exam Respiratory Exam: Rhonchi, Respiratory Distress - Cardiovascular Exam Cardiovascular Exam: Tachycardia, +S1 - GI/Abdominal Exam GI & Abdominal Exam: Soft. absent: Tenderness - Extremities Exam Extremities Exam: Pedal Edema, Tenderness - Neurological Exam Neurological Exam: Altered - Skin Skin Exam: Dry, Warm Assessment and Plan (1) Hyperkalemia Status: Acute (2) Cardiorenal disease Status: Acute (3) CKD (chronic kidney disease) stage 3, GFR 30-59 ml/min Status: Acute - Assessment and Plan (Free Text) Plan: continue IV lasix, pressors IV ABs supportive care otherwise
[2017-12-10] MEDS ORDERED: Propofol 10 mg/ml Inj (20 ML) ONE (17:03)
[2017-12-10] MEDS ORDERED: Etomidate 20 mg/10ml Inj IV ONE (17:07)
--- NOTE | 2017-12-10 17:26 | PCM.PROC ---
Procedures Attestation:: I certify that I have explained the specified Operation(s) or Procedure(s), risks, benefits and reasonable alternatives to the Patient and/or other person responsible. The opportunity was given to ask questions and all questions answered - Intubation Time Out Performed: Yes Sedative: Etomidate Laryngoscope: Raman ET Tube Size: 8.0 ET Tube Uncuffed: No ET Tube Secured at Depth: 23 ET Tube Secured [place]: Lips ET Tube Placement Confirmation: Visualized Passing Through Cords, Breath Sounds Equal Bilaterally, No Breath Sounds Over Epigastrum, Confirmation w/Capnometry Patient Tolerated Procedure: Well Procedure Immediate Complications: None
[2017-12-10] MEDS: Dexmedetomidine Hydrochloride 200 MCG in Sodium Chloride 0.9% 48 ML IV PRN ×3 (17:42→22:15)
--- NOTE | 2017-12-10 18:39 | RAD ---
HISTORY: Intubation COMPARISON: 12/10/2017 at 1:30 p.m. FINDINGS: LUNGS: Hazy opacity throughout right vianey thorax, possibly dependent pleural fluid. . Unchanged. No focal consolidation. PLEURA: Possible dependent right pleural effusion. CARDIOVASCULAR: Mild cardiomegaly. Endotracheal tube tip approximately 2.8 cm above the tracheal brennen. Right IJ multi lumen central venous catheter unchanged. OSSEOUS STRUCTURES: No significant abnormalities. VISUALIZED UPPER ABDOMEN: Normal. OTHER FINDINGS: None. IMPRESSION: Endotracheal tube tip 2.8 cm above tracheal brennen. Possible dependent right pleural effusion, small.
[2017-12-10] MEDS ORDERED: Dextrose 5%/0.9% NS 1,000 ML IV ONE (21:41)
[2017-12-10] MEDS: Latanoprost 2.5 ml Opht Soln OU SCH (22:04)
[2017-12-11] MEDS: Dexmedetomidine Hydrochloride 200 MCG in Sodium Chloride 0.9% 48 ML IV PRN (01:03)
[2017-12-11] MEDS: Dextrose 50% SYRINGE Inj (50 ml) IVP PRN ×2 (04:05→09:12)
[2017-12-11 06:34] LABS: ARTERIAL BLOOD GAS HCO3 15.3 mmol/L (21-28); ARTERIAL BLOOD GAS O2 SAT 42.4 % (95-98); ARTERIAL BLOOD GAS PCO2 43 mm/Hg (35-45); ARTERIAL BLOOD GAS PH 7.21 (7.35-7.45); ARTERIAL BLOOD GAS PO2 28 mm/Hg (80-100); ARTERIAL BLOOD GAS TCO2 18.5 mmol/L (22-28)
[2017-12-11 06:46] LABS: BASO % 0.3 % (0.0-2.0); EOS % 0.1 % (0.0-4.0); LYMPH # 0.3 K/uL (1.0-4.3); LYMPH % 1.7 % (20.0-40.0); MEAN CELL VOLUME 103.1 fL (80.0-94.0); MEAN PLATELET VOLUME 10.4 fL (7.2-11.7); MONO # 0.1 K/uL (0.0-0.8); NEUT # 14.3 K/uL (1.8-7.0); NEUT % 96.9 % (50.0-75.0); PLATELET COUNT 37 K/uL (130-400); RBC 1.95 Mil/uL (4.40-5.90); RED CELL DISTRIBUTION WIDTH 18.9 % (11.5-14.5); WHITE BLOOD COUNT 14.7 K/uL (4.8-10.8)
[2017-12-11 06:50] LABS: HEMOGLOBIN 6.6 g/dL (12.0-18.0)
[2017-12-11 07:45] LABS: ALB/GLOB RATIO 0.9 (1.0-2.1); ALBUMIN 1.2 g/dL (3.5-5.0); CALCIUM 6.1 mg/dl (8.6-10.4)
[2017-12-11] MEDS: Multivitamin With Minerals Tab PO SCH (07:52)
--- NOTE | 2017-12-11 08:32 | RAD ---
Chest x-ray single frontal view History: Intubated. Comparison: 12/10/2017 Findings: Endotracheal tube extending into the midthoracic trachea. NG tube extending into the stomach. Right central venous catheter extending into the proximal right SVC. Moderate venous congestion. Moderate loculated right pleural effusion. Patchy bibasilar airspace opacities. Cardiomegaly. Degenerative changes in the spine and shoulders. Impression: Endotracheal tube extending into the midthoracic trachea. NG tube extending into the stomach. Right central venous catheter extending into the proximal right SVC. Moderate venous congestion. Moderate loculated right pleural effusion. Patchy bibasilar airspace opacities. Cardiomegaly.
[2017-12-11] MEDS: DOPamine 400mg/250ml D5W 400 MG/250 ML BAG IV PRN ×2 (08:43→21:16)
[2017-12-11] MEDS ORDERED: Dextrose 50% SYRINGE Inj (50 ml) ONE (09:34)
[2017-12-11] MEDS ORDERED: Sod Polystyrene Sulf 15 gm/60 ml Susp GT ONE ×2 (09:34→11:15)
--- NOTE | 2017-12-11 09:34 | CP.PCM.PN ---
Subjective - Date & Time of Evaluation Date of Evaluation: 12/11/17 Time of Evaluation: 09:31 - Subjective Subjective: now intubated on 3 pressors still anuric azotemia worse K elevated spoke with family at bedside- explained poor prognosis Objective - Vital Signs/Intake and Output Vital Signs (last 24 hours): Temp Pulse Resp BP Pulse Ox 97.8 F 95 H 15 134/22 L 76 L 12/11/17 08:00 12/11/17 09:00 12/11/17 09:00 12/11/17 08:59 12/11/17 09:00 Intake and Output: 12/11/17 12/11/17 06:59 18:59 Intake Total 2083.0 320.5 Output Total 5 5 Balance 2078.0 315.5 - Medications Medications: Current Medications Aspirin (Aspirin Chewable) 81 mg PO DAILY [facility] Last Admin: 12/11/17 09:17 Dose: Not Given Brimonidine Tartrate (Alphagan 0.2% Opht) 0.05 ml OU TID [facility] Last Admin: 12/10/17 18:54 Dose: 1 drop Clotrimazole (Lotrimin 1%) 0 gm TOP BID [facility] Last Admin: 12/10/17 18:54 Dose: 1 applic Dextrose (Dextrose 50% Inj) 0 ml IVP .STAT PRN; Protocol PRN Reason: Hypoglycemia Protocol Last Admin: 12/11/17 09:12 Dose: 50 ml Dextrose (Glutose 15) 0 gm PO .ONCE PRN; Protocol PRN Reason: Hypoglycemia Protocol Docusate Sodium (Colace) 100 mg PO BID PRN PRN Reason: Constipation Dorzolamide HCl (Trusopt) 0.05 ml OU AMPM [facility] Last Admin: 12/10/17 19:00 Dose: 1 drop Furosemide (Lasix) 40 mg IVP BID [facility] Last Admin: 12/10/17 20:03 Dose: Not Given Glucagon (Glucagen Diagnostic Kit) 0 mg IM .STAT PRN; Protocol PRN Reason: Hypoglycemia Protocol Hydrocortisone Sodium Succinate (Solu-Cortef) 100 mg IV Q8H [facility] Last Admin: 12/11/17 04:32 Dose: 100 mg Norepinephrine Bitartrate 8 mg (/ Dextrose) 258 mls @ 7.74 mls/hr IV .Q24H PRN ; Protocol; 4 MCG/MIN PRN Reason: TITRATE PER MD ORDER Last Admin: 12/11/17 07:32 Dose: 30 mcg/min, 58.05 mls/hr Vasopressin 40 units/ Sodium (Chloride) 42 mls @ 2.52 mls/hr IV .[id number] SHAHEED; 0.04 UNITS/MIN PRN Reason: Protocol Last Admin: 12/10/17 16:11 Dose: 0.04 units/min, 2.52 mls/hr Sodium Chloride (Sodium Chloride 0.9%) 1,000 mls @ 40 mls/hr IV .Q24H SHAHEED Last Admin: 12/09/17 14:58 Dose: 40 mls/hr Dexmedetomidine HCl 200 mcg/ (Sodium Chloride) 50 mls @ 5.14 mls/hr IV TITR PRN ; Protocol; 0.2 MCG/KG/HR PRN Reason: Agitation Last Titration: 12/11/17 03:30 Dose: 0 mcg/kg/hr, 0 mls/hr Dextrose/Sodium Chloride (Dextrose 5%/0.9% Ns 1000 Ml) 1,000 mls @ 40 mls/hr IV .Q24H ONE Stop: 12/11/17 21:40 Last Admin: 12/10/17 22:00 Dose: 40 mls/hr Cefepime HCl (Maxipime Iv 1 Gm Premix) 1 gm in 50 mls @ 100 mls/hr IVPB Q12H SHAHEED PRN Reason: Protocol Last Admin: 12/10/17 22:44 Dose: 100 mls/hr Doxycycline Hyclate 100 mg/ (Sodium Chloride) 100 mls @ 100 mls/hr IVPB Q12H SHAHEED PRN Reason: Protocol Last Admin: 12/10/17 22:44 Dose: 100 mls/hr Dopamine HCl/Dextrose (Dopamine 400mg/250ml D5w) 400 mg in 250 mls @ 7.725 mls/ hr IV .Q24H PRN; Protocol; 2 MCG/KG/MIN PRN Reason: TITRATE PER MD ORDER Last Admin: 12/11/17 08:43 Dose: 5 mcg/kg/min, 19.311 mls/hr Latanoprost (Xalatan Opht) 0.05 ml OU HS SHAHEED Last Admin: 12/10/17 22:04 Dose: 0.05 ml Multivitamins/Minerals (Therapeutic-M Tab) 1 tab PO 0800 [facility] Last Admin: 12/11/17 07:52 Dose: Not Given Pantoprazole Sodium (Protonix Inj) 40 mg IVP Q12H [facility] Last Admin: 12/10/17 22:29 Dose: 40 mg Rosuvastatin Calcium (Crestor) 10 mg PO HS [facility] Last Admin: 12/10/17 22:07 Dose: Not Given - Labs Labs: 12/11/17 06:42 12/11/17 06:42 - Constitutional Appears: In Acute Distress, Chronically Ill - Head Exam Head Exam: ATRAUMATIC, NORMAL INSPECTION - Neck Exam Neck Exam: Normal Inspection. absent: Tenderness - Respiratory Exam Respiratory Exam: Rhonchi, Respiratory Distress - GI/Abdominal Exam GI & Abdominal Exam: Soft. absent: Tenderness - Extremities Exam Extremities Exam: Pedal Edema, Tenderness - Neurological Exam Neurological Exam: Altered - Skin Skin Exam: Dry, Warm Assessment and Plan (1) Hyperkalemia Status: Acute (2) Cardiorenal disease Status: Acute (3) CKD (chronic kidney disease) stage 3, GFR 30-59 ml/min Status: Acute - Assessment and Plan (Free Text) Plan: repeat kayexalate poor px- unable to provide [employer] due to hypotension- explained to pt
[2017-12-11] MEDS ORDERED: Dextrose 50% SYRINGE Inj (50 ml) IV STA (09:36)
[2017-12-11 09:43] LABS: ANISOCYTOSIS MODERATE; BANDS 9 % (0-2); LYMPHOCYTE 4 % (20-40); MONOCYTE 1 % (0-10); MYELOCYTE 1 % (0-0); NEUTROPHIL 85 % (50-75); PLATELET ESTIMATE DECREASED (NORMAL); TOTAL CELLS COUNTED 100
[2017-12-11 09:44] LABS: BURR CELLS MODERATE; HYPOCHROMIC SLIGHT; OVALOCYTES SLIGHT; TOXIC GRANULATION PRESENT
[2017-12-11] MEDS: Clotrimazole 1% Cream(30 gm) TOP SCH ×2 (10:43→17:32)
[2017-12-11] MEDS: Brimonidine 0.2% Opth Sol (5ml) OU SCH ×3 (10:43→17:32)
[2017-12-11] MEDS: Dorzolamide 2% Opht Sol 10ml OU SCH ×2 (10:44→17:32)
[2017-12-11] MEDS: Cefepime IV 1 gm in Dextrose 1 GM/50 ML BAG IVPB SCH ×2 (10:44→21:43)
[2017-12-11 10:57] LABS: MEAN CELL VOLUME 101.4 fL (80.0-94.0); MEAN CORPUSCULAR HEMOGLOBIN 33.7 pg (27.0-31.0); MEAN CORPUSCULAR HGB CONC 33.2 g/dL (33.0-37.0); MEAN PLATELET VOLUME 10.5 fL (7.2-11.7); RBC 3.48 Mil/uL (4.40-5.90); RED CELL DISTRIBUTION WIDTH 18.3 % (11.5-14.5)
[2017-12-11 11:01] LABS: HEMOGLOBIN 11.7 g/dL (12.0-18.0); WHITE BLOOD COUNT 26.3 K/uL (4.8-10.8)
[2017-12-11 11:14] LABS: VENOUS BLOOD GAS BASE EXCESS -14.4 mmol/L (0.0-2.0); VENOUS BLOOD GAS PCO2 24 mmHg (40-60); VENOUS BLOOD GAS PO2 36 mm/Hg (30-55); VENOUS BLOOD PH 7.26 (7.32-7.43)
--- NOTE | 2017-12-11 14:21 | CP.CCUPN ---
CCU Subjective - Physician Review Subjective (Free Text): Patient seen and examined at bedside. Patient intubated on multiple pressors. 12/11/17 14:10 Critical Care Time Spent (in minutes): 45 CCU Objective - Vital Signs / Intake & Output Vital Signs (Last 4 hours): Vital Signs Temp Pulse Resp BP Pulse Ox 12/11/17 14:00 108 H 26 H 83 L 12/11/17 13:59 106 H 19 66/40 L 74 L 12/11/17 13:30 109 H 25 H 108/80 12/11/17 13:15 108 H 24 69/49 L 78 L 12/11/17 13:00 107 H 25 H 77 L 12/11/17 12:31 108 H 28 H 76 L 12/11/17 12:16 106 H 24 100/73 12/11/17 12:12 107 H 19 100/73 12/11/17 12:02 109 H 20 75 L 12/11/17 12:00 98.7 F 110 H 32 H 64 L 12/11/17 11:57 110 H 18 111/50 L 12/11/17 11:29 110 H 22 111/50 L 69 L 12/11/17 11:00 111 H 26 H 72 L 12/11/17 10:59 109 H 19 101/65 73 L 12/11/17 10:31 111 H 25 H 102/51 L 67 L Intake and Output (Last 8hrs): Intake & Output 12/10/17 12/11/17 12/11/17 22:59 06:59 14:59 Intake Total 962.5 1572.8 1458.0 Output Total 15 75 Balance 947.5 1572.8 1383.0 Weight 220 lb 0.341 oz Intake: IV 400 606 300 Intake, IV Amount 562.5 966.8 1008.0 Right Distal Port 277.5 464.8 464.8 Right Medial Port 213.4 102.8 Right Proximal Port 64.4 380 410 right distal port y 7.2 19.2 133.2 Blood Product 0 Apheresis Plts Acda Lr 0 Irr Unit [id number] Other 150 Output: Gastric Amount 70 Bilateral Stomach 70 Urine 15 5 Urethral (Andersen) 15 5 Other: # Bowel Movements 1 - Physical Exam Head: Positive for: Atraumatic, Normocephalic. Negative for: Tenderness Extroacular Muscles: Positive for: EOMI Conjunctiva: Positive for: Normal Mouth: Positive for: Moist Mucous Membranes Respiratory/Chest: Positive for: Accessory Muscle Use, Decreased Breath Sounds, Rhonchi. Negative for: Clear to Auscultation, Wheezes Cardiovascular: Positive for: Regular Rate and Rhythm, Normal S1, S2 Abdomen: Positive for: Distention, Other (Firm with Hypoactive Bowel Sounds. ). Negative for: Tenderness Lower Extremity: Positive for: Edema Neurological: Negative for: GCS=15 (GCS =14) Psychiatric: Positive for: Alert, Oriented x 3, Anxious, Agitated - Medications Active Medications: Active Medications Generic Name Dose Route Start Last Admin Trade Name Freq PRN Reason Stop Dose Admin Brimonidine Tartrate 0.05 ml 12/03/17 10:00 12/11/17 10:43 Alphagan 0.2% Opht OU 1 drop TID SHAHEED Administration Clotrimazole 0 gm 12/08/17 10:00 12/11/17 10:43 Lotrimin 1% TOP 1 applic BID SHAHEED Administration Dextrose 0 ml 12/06/17 09:06 12/11/17 09:12 Dextrose 50% Inj IVP 50 ml .STAT PRN Administration Hypoglycemia Protocol Protocol Dextrose 0 gm 12/06/17 09:06 Glutose 15 PO .ONCE PRN Hypoglycemia Protocol Protocol Docusate Sodium 100 mg 12/03/17 04:34 Colace PO BID PRN Constipation Dorzolamide HCl 0.05 ml 12/03/17 10:00 12/11/17 10:44 Trusopt OU 1 drop AMPM SHAHEED Administration Furosemide 40 mg 12/10/17 18:00 12/11/17 10:46 Lasix IVP Not Given BID SHAHEED Glucagon 0 mg 12/06/17 09:06 Glucagen Diagnostic Kit IM .STAT PRN Hypoglycemia Protocol Protocol Hydrocortisone Sodium Succinate 100 mg 12/08/17 04:30 12/11/17 12:15 Solu-Cortef IV 100 mg Q8H SHAHEED Administration Norepinephrine Bitartrate 8 mg 258 mls @ 7.74 mls/hr 12/07/17 17:47 12/11/17 12:16 / Dextrose IV 30 mcg/min .Q24H PRN 58.05 mls/hr TITRATE PER MD ORDER Administration Protocol 4 MCG/MIN Vasopressin 40 units/ Sodium 42 mls @ 2.52 mls/hr 12/07/17 20:45 12/11/17 11: 57 Chloride IV 0.04 units/min .[id number] SHAHEED 2.52 mls/hr Protocol Administration 0.04 UNITS/MIN Dexmedetomidine HCl 200 mcg/ 50 mls @ 5.14 mls/hr 12/10/17 21:39 12/11/17 03: 30 Sodium Chloride IV 0 mcg/kg/hr TITR PRN 0 mls/hr Agitation Titration Protocol 0.2 MCG/KG/HR Dextrose/Sodium Chloride 1,000 mls @ 40 mls/hr 12/10/17 21:41 12/10/17 22:00 Dextrose 5%/0.9% Ns 1000 Ml IV 12/11/17 21:40 40 mls/hr .Q24H ONE Administration Cefepime HCl 1 gm in 50 mls @ 100 mls/hr 12/10/17 22:30 12/11/17 10:44 Maxipime Iv 1 Gm Premix IVPB 100 mls/hr Q12H SHAHEED Administration Protocol Doxycycline Hyclate 100 mg/ 100 mls @ 100 mls/hr 12/10/17 22:45 12/11/17 10: 47 Sodium Chloride IVPB 100 mls/hr Q12H SHAHEED Administration Protocol Dopamine HCl/Dextrose 400 mg in 250 mls @ 7.725 mls/hr 12/11/17 03:16 08:43 Dopamine 400mg/250ml D5w IV 5 mcg/kg/min .Q24H PRN 19.311 mls/hr TITRATE PER MD ORDER Administration Protocol 2 MCG/KG/MIN Multivitamins/Vitamin C 10 ml/ 1,011 mls @ 42 mls/hr 12/11/17 18:00 Chromium/Copper/Manganese/ IV Zinc 1 ml/ Amino Acids .Q24H SHAHEED Vancomycin/Sodium Chloride 1 gm in 200 mls @ 133 mls/hr 12/11/17 15:00 Vancomycin 1 Gm/Ns 200 Ml IVPB 12/11/17 16:30 ONCE ONE Protocol Latanoprost 0.05 ml 12/03/17 22:00 12/10/17 22:04 Xalatan Opht OU 0.05 ml HS SHAHEED Administration Multivitamins/Minerals 1 tab 12/08/17 08:00 12/11/17 07:52 Therapeutic-M Tab PO Not Given 0800 SHAHEED Pantoprazole Sodium 40 mg 12/10/17 22:00 12/11/17 10:44 Protonix Inj IVP 40 mg Q12H SHAHEED Administration Rosuvastatin Calcium 10 mg 12/05/17 22:00 12/10/17 22:07 Crestor PO Not Given HS SHAHEED Sodium Bicarbonate 650 mg 12/11/17 18:00 Sodium Bicarbonate Tab NG Q6 SHAHEED - Patient Studies Lab Studies: Microbiology Studies 12/07/17 13:40 Blood Culture - Preliminary Blood-Venous NO GROWTH AFTER 4 DAYS 12/07/17 13:40 Blood Culture - Preliminary Blood-Venous NO GROWTH AFTER 4 DAYS 12/09/17 12:37 Blood Culture - Preliminary Blood NO GROWTH AFTER 48 HOURS 12/09/17 12:37 Gram Stain - Final Leg - Right Wound Culture - Final Staphylococcus Epidermidis 12/09/17 10:30 Blood Culture - Preliminary Blood NO GROWTH AFTER 48 HOURS 12/10/17 13:50 Urine Culture - Final Urine,Catheterized No Growth (<1,000 CFU/ML) Lab Studies 12/11/17 12/11/17 12/11/17 Range/Units 12:10 12:02 12:00 WBC (4.8-10.8) K/uL RBC (4.40-5.90) Mil/uL Hgb (12.0-18.0) g/dL Hct (35.0-51.0) % MCV (80.0-94.0) fL MCH (27.0-31.0) pg MCHC (33.0-37.0) g/dL RDW (11.5-14.5) % Plt Count (130-400) K/uL MPV (7.2-11.7) fL Neut % (Auto) (50.0-75.0) % Lymph % (Auto) (20.0-40.0) % Finney % (Auto) (0.0-10.0) % Eos % (Auto) (0.0-4.0) % Baso % (Auto) (0.0-2.0) % Neut # (Auto) (1.8-7.0) K/uL Lymph # (Auto) (1.0-4.3) K/uL Finney # (Auto) (0.0-0.8) K/uL Eos # (Auto) (0.0-0.7) K/uL Baso # (Auto) (0.0-0.2) K/uL Neutrophils % (Manual) (50-75) % Band Neutrophils % (0-2) % Lymphocytes % (Manual) (20-40) % Monocytes % (Manual) (0-10) % Myelocytes % (0-0) % Toxic Granulation Platelet Estimate (NORMAL) Hypochromasia (manual) Anisocytosis (manual) Macrocytosis (manual) Ovalocytes Mullin Cells Puncture Site pCO2 (35-45) mm/Hg pO2 (80-100) mm/Hg HCO3 (21-28) mmol/L ABG pH (7.35-7.45) ABG Total CO2 (22-28) mmol/L ABG O2 Saturation (95-98) % ABG Base Excess (-2.0-3.0) mmol/L Chavez Test ABG Potassium (3.6-5.2) mmol/L VBG pH (7.32-7.43) VBG pCO2 (40-60) mmHg VBG HCO3 mmol/L VBG Total CO2 (22-28) mmol/L VBG O2 Sat (Calc) (40-65) % VBG Base Excess (0.0-2.0) mmol/L VBG Potassium (3.6-5.2) mmol/L A-a O2 Difference mm/Hg Respiratory Index Sodium (132-148) mmol/l Chloride (98-107) mmol/L Glucose (75-110) mg/dl Lactate (0.7-2.1) mmol/L Vent Mode Mechanical Rate FiO2 % Tidal Volume PEEP Crit Value Called To Crit Value Called By Crit Value Read Back Blood Gas Notified Time Potassium (3.6-5.2) mmol/L Carbon Dioxide (22-30) mmol/L Anion Gap (10-20) BUN (9-20) mg/dL Creatinine (0.8-1.5) mg/dL Est GFR ( Amer) Est GFR (Non-Af Amer) POC Glucose (mg/dL) 203 H 66 39 L (65-110) mg/dL Random Glucose (75-110) mg/dL Lactic Acid (0.7-2.1) mmol/L Calcium (8.6-10.4) mg/dl Phosphorus (2.5-4.5) mg/dL Magnesium (1.6-2.3) mg/dL Total Bilirubin (0.2-1.3) mg/dL AST (17-59) U/L ALT (21-72) U/L Alkaline Phosphatase (38-126) U/L Total Protein (6.3-8.3) g/dL Albumin (3.5-5.0) g/dL Globulin (2.2-3.9) gm/dL Albumin/Globulin Ratio (1.0-2.1) Arterial Blood Potassium (3.6-5.2) mmol/L Venous Blood Potassium (3.6-5.2) mmol/L Random Vancomycin ug/mL Blood Type Antibody Screen 12/11/17 12/11/17 12/11/17 Range/Units 11:11 11:05 10:54 WBC 26.3 H D (4.8-10.8) K/uL RBC 3.48 L (4.40-5.90) Mil/uL Hgb 11.7 L D (12.0-18.0) g/dL Hct 35.3 (35.0-51.0) % MCV 101.4 H (80.0-94.0) fL MCH 33.7 H (27.0-31.0) pg MCHC 33.2 (33.0-37.0) g/dL RDW 18.3 H (11.5-14.5) % Plt Count 53 L (130-400) K/uL MPV 10.5 (7.2-11.7) fL Neut % (Auto) (50.0-75.0) % Lymph % (Auto) (20.0-40.0) % Finney % (Auto) (0.0-10.0) % Eos % (Auto) (0.0-4.0) % Baso % (Auto) (0.0-2.0) % Neut # (Auto) (1.8-7.0) K/uL Lymph # (Auto) (1.0-4.3) K/uL Finney # (Auto) (0.0-0.8) K/uL Eos # (Auto) (0.0-0.7) K/uL Baso # (Auto) (0.0-0.2) K/uL Neutrophils % (Manual) (50-75) % Band Neutrophils % (0-2) % Lymphocytes % (Manual) (20-40) % Monocytes % (Manual) (0-10) % Myelocytes % (0-0) % Toxic Granulation Platelet Estimate (NORMAL) Hypochromasia (manual) Anisocytosis (manual) Macrocytosis (manual) Ovalocytes Mullin Cells Puncture Site pCO2 (35-45) mm/Hg pO2 36 (80-100) mm/Hg HCO3 (21-28) mmol/L ABG pH (7.35-7.45) ABG Total CO2 (22-28) mmol/L ABG O2 Saturation (95-98) % ABG Base Excess (-2.0-3.0) mmol/L Chavez Test ABG Potassium (3.6-5.2) mmol/L VBG pH 7.26 L (7.32-7.43) VBG pCO2 24 L (40-60) mmHg VBG HCO3 12.6 mmol/L VBG Total CO2 11.5 L (22-28) mmol/L VBG O2 Sat (Calc) 62.9 (40-65) % VBG Base Excess -14.4 L (0.0-2.0) mmol/L VBG Potassium 3.4 L (3.6-5.2) mmol/L A-a O2 Difference mm/Hg Respiratory Index Sodium 143.0 (132-148) mmol/l Chloride 116.0 H (98-107) mmol/L Glucose 139 H (75-110) mg/dl Lactate 1.6 (0.7-2.1) mmol/L Vent Mode Mechanical Rate FiO2 100.0 % Tidal Volume PEEP 5 Crit Value Called To Dr serrano Crit Value Called By Federico henry [facility] Crit Value Read Back Y Blood Gas Notified Time 1115 Potassium (3.6-5.2) mmol/L Carbon Dioxide (22-30) mmol/L Anion Gap (10-20) BUN (9-20) mg/dL Creatinine (0.8-1.5) mg/dL Est GFR ( Amer) Est GFR (Non-Af Amer) POC Glucose (mg/dL) (65-110) mg/dL Random Glucose (75-110) mg/dL Lactic Acid (0.7-2.1) mmol/L Calcium (8.6-10.4) mg/dl Phosphorus (2.5-4.5) mg/dL Magnesium (1.6-2.3) mg/dL Total Bilirubin (0.2-1.3) mg/dL AST (17-59) U/L ALT (21-72) U/L Alkaline Phosphatase (38-126) U/L Total Protein (6.3-8.3) g/dL Albumin (3.5-5.0) g/dL Globulin (2.2-3.9) gm/dL Albumin/Globulin Ratio (1.0-2.1) Arterial Blood Potassium (3.6-5.2) mmol/L Venous Blood Potassium 3.4 L (3.6-5.2) mmol/L Random Vancomycin 10.5 ug/mL Blood Type Antibody Screen 12/11/17 12/11/17 12/11/17 Range/Units 09:55 09:28 09:26 WBC (4.8-10.8) K/uL RBC (4.40-5.90) Mil/uL Hgb (12.0-18.0) g/dL Hct (35.0-51.0) % MCV (80.0-94.0) fL MCH (27.0-31.0) pg MCHC (33.0-37.0) g/dL RDW (11.5-14.5) % Plt Count (130-400) K/uL MPV (7.2-11.7) fL Neut % (Auto) (50.0-75.0) % Lymph % (Auto) (20.0-40.0) % Finney % (Auto) (0.0-10.0) % Eos % (Auto) (0.0-4.0) % Baso % (Auto) (0.0-2.0) % Neut # (Auto) (1.8-7.0) K/uL Lymph # (Auto) (1.0-4.3) K/uL Finney # (Auto) (0.0-0.8) K/uL Eos # (Auto) (0.0-0.7) K/uL Baso # (Auto) (0.0-0.2) K/uL Neutrophils % (Manual) (50-75) % Band Neutrophils % (0-2) % Lymphocytes % (Manual) (20-40) % Monocytes % (Manual) (0-10) % Myelocytes % (0-0) % Toxic Granulation Platelet Estimate (NORMAL) Hypochromasia (manual) Anisocytosis (manual) Macrocytosis (manual) Ovalocytes Mullin Cells Puncture Site pCO2 (35-45) mm/Hg pO2 (80-100) mm/Hg HCO3 (21-28) mmol/L ABG pH (7.35-7.45) ABG Total CO2 (22-28) mmol/L ABG O2 Saturation (95-98) % ABG Base Excess (-2.0-3.0) mmol/L Chavez Test ABG Potassium (3.6-5.2) mmol/L VBG pH (7.32-7.43) VBG pCO2 (40-60) mmHg VBG HCO3 mmol/L VBG Total CO2 (22-28) mmol/L VBG O2 Sat (Calc) (40-65) % VBG Base Excess (0.0-2.0) mmol/L VBG Potassium (3.6-5.2) mmol/L A-a O2 Difference mm/Hg Respiratory Index Sodium (132-148) mmol/l Chloride (98-107) mmol/L Glucose (75-110) mg/dl Lactate (0.7-2.1) mmol/L Vent Mode Mechanical Rate FiO2 % Tidal Volume PEEP Crit Value Called To Crit Value Called By Crit Value Read Back Blood Gas Notified Time Potassium (3.6-5.2) mmol/L Carbon Dioxide (22-30) mmol/L Anion Gap (10-20) BUN (9-20) mg/dL Creatinine (0.8-1.5) mg/dL Est GFR ( Amer) Est GFR (Non-Af Amer) POC Glucose (mg/dL) 335 H 23 L* 40 L (65-110) mg/dL Random Glucose (75-110) mg/dL Lactic Acid (0.7-2.1) mmol/L Calcium (8.6-10.4) mg/dl Phosphorus (2.5-4.5) mg/dL Magnesium (1.6-2.3) mg/dL Total Bilirubin (0.2-1.3) mg/dL AST (17-59) U/L ALT (21-72) U/L Alkaline Phosphatase (38-126) U/L Total Protein (6.3-8.3) g/dL Albumin (3.5-5.0) g/dL Globulin (2.2-3.9) gm/dL Albumin/Globulin Ratio (1.0-2.1) Arterial Blood Potassium (3.6-5.2) mmol/L Venous Blood Potassium (3.6-5.2) mmol/L Random Vancomycin ug/mL Blood Type Antibody Screen 12/11/17 12/11/17 12/11/17 Range/Units 09:03 09:01 07:46 WBC (4.8-10.8) K/uL RBC (4.40-5.90) Mil/uL Hgb (12.0-18.0) g/dL Hct (35.0-51.0) % MCV (80.0-94.0) fL MCH (27.0-31.0) pg MCHC (33.0-37.0) g/dL RDW (11.5-14.5) % Plt Count (130-400) K/uL MPV (7.2-11.7) fL Neut % (Auto) (50.0-75.0) % Lymph % (Auto) (20.0-40.0) % Finney % (Auto) (0.0-10.0) % Eos % (Auto) (0.0-4.0) % Baso % (Auto) (0.0-2.0) % Neut # (Auto) (1.8-7.0) K/uL Lymph # (Auto) (1.0-4.3) K/uL Finney # (Auto) (0.0-0.8) K/uL Eos # (Auto) (0.0-0.7) K/uL Baso # (Auto) (0.0-0.2) K/uL Neutrophils % (Manual) (50-75) % Band Neutrophils % (0-2) % Lymphocytes % (Manual) (20-40) % Monocytes % (Manual) (0-10) % Myelocytes % (0-0) % Toxic Granulation Platelet Estimate (NORMAL) Hypochromasia (manual) Anisocytosis (manual) Macrocytosis (manual) Ovalocytes Mullin Cells Puncture Site pCO2 (35-45) mm/Hg pO2 (80-100) mm/Hg HCO3 (21-28) mmol/L ABG pH (7.35-7.45) ABG Total CO2 (22-28) mmol/L ABG O2 Saturation (95-98) % ABG Base Excess (-2.0-3.0) mmol/L Chavez Test ABG Potassium (3.6-5.2) mmol/L VBG pH (7.32-7.43) VBG pCO2 (40-60) mmHg VBG HCO3 mmol/L VBG Total CO2 (22-28) mmol/L VBG O2 Sat (Calc) (40-65) % VBG Base Excess (0.0-2.0) mmol/L VBG Potassium (3.6-5.2) mmol/L A-a O2 Difference mm/Hg Respiratory Index Sodium (132-148) mmol/l Chloride (98-107) mmol/L Glucose (75-110) mg/dl Lactate (0.7-2.1) mmol/L Vent Mode Mechanical Rate FiO2 % Tidal Volume PEEP Crit Value Called To Crit Value Called By Crit Value Read Back Blood Gas Notified Time Potassium (3.6-5.2) mmol/L Carbon Dioxide (22-30) mmol/L Anion Gap (10-20) BUN (9-20) mg/dL Creatinine (0.8-1.5) mg/dL Est GFR ( Amer) Est GFR (Non-Af Amer) POC Glucose (mg/dL) 42 L 52 L 72 (65-110) mg/dL Random Glucose (75-110) mg/dL Lactic Acid (0.7-2.1) mmol/L Calcium (8.6-10.4) mg/dl Phosphorus (2.5-4.5) mg/dL Magnesium (1.6-2.3) mg/dL Total Bilirubin (0.2-1.3) mg/dL AST (17-59) U/L ALT (21-72) U/L Alkaline Phosphatase (38-126) U/L Total Protein (6.3-8.3) g/dL Albumin (3.5-5.0) g/dL Globulin (2.2-3.9) gm/dL Albumin/Globulin Ratio (1.0-2.1) Arterial Blood Potassium (3.6-5.2) mmol/L Venous Blood Potassium (3.6-5.2) mmol/L Random Vancomycin ug/mL Blood Type Antibody Screen 12/11/17 12/11/17 12/11/17 Range/Units 06:42 06:42 06:21 WBC 14.7 H (4.8-10.8) K/uL RBC 1.95 L (4.40-5.90) Mil/uL Hgb 6.6 L D (12.0-18.0) g/dL Hct 20.1 L (35.0-51.0) % MCV 103.1 H (80.0-94.0) fL MCH 34.0 H (27.0-31.0) pg MCHC 33.0 (33.0-37.0) g/dL RDW 18.9 H (11.5-14.5) % Plt Count 37 L (130-400) K/uL MPV 10.4 (7.2-11.7) fL Neut % (Auto) 96.9 H (50.0-75.0) % Lymph % (Auto) 1.7 L (20.0-40.0) % Finney % (Auto) 1.0 (0.0-10.0) % Eos % (Auto) 0.1 (0.0-4.0) % Baso % (Auto) 0.3 (0.0-2.0) % Neut # (Auto) 14.3 H (1.8-7.0) K/uL Lymph # (Auto) 0.3 L (1.0-4.3) K/uL Finney # (Auto) 0.1 (0.0-0.8) K/uL Eos # (Auto) 0.0 (0.0-0.7) K/uL Baso # (Auto) 0.0 (0.0-0.2) K/uL Neutrophils % (Manual) 85 H (50-75) % Band Neutrophils % 9 H (0-2) % Lymphocytes % (Manual) 4 L (20-40) % Monocytes % (Manual) 1 (0-10) % Myelocytes % 1 H (0-0) % Toxic Granulation Present Platelet Estimate Decreased L (NORMAL) Hypochromasia (manual) Slight Anisocytosis (manual) Moderate Macrocytosis (manual) Moderate Ovalocytes Slight Mullin Cells Moderate Puncture Site pCO2 (35-45) mm/Hg pO2 (80-100) mm/Hg HCO3 (21-28) mmol/L ABG pH (7.35-7.45) ABG Total CO2 (22-28) mmol/L ABG O2 Saturation (95-98) % ABG Base Excess (-2.0-3.0) mmol/L Chavez Test ABG Potassium (3.6-5.2) mmol/L VBG pH (7.32-7.43) VBG pCO2 (40-60) mmHg VBG HCO3 mmol/L VBG Total CO2 (22-28) mmol/L VBG O2 Sat (Calc) (40-65) % VBG Base Excess (0.0-2.0) mmol/L VBG Potassium (3.6-5.2) mmol/L A-a O2 Difference mm/Hg Respiratory Index Sodium 133 (132-148) mmol/l Chloride 106 (98-107) mmol/L Glucose (75-110) mg/dl Lactate (0.7-2.1) mmol/L Vent Mode Mechanical Rate FiO2 % Tidal Volume PEEP Crit Value Called To Crit Value Called By Crit Value Read Back Blood Gas Notified Time Potassium 6.5 H* D (3.6-5.2) mmol/L Carbon Dioxide 18 L (22-30) mmol/L Anion Gap 16 (10-20) BUN 142 H* D (9-20) mg/dL Creatinine 3.2 H (0.8-1.5) mg/dL Est GFR ( Amer) 23 Est GFR (Non-Af Amer) 19 POC Glucose (mg/dL) 132 H (65-110) mg/dL Random Glucose 107 (75-110) mg/dL Lactic Acid (0.7-2.1) mmol/L Calcium 6.1 L (8.6-10.4) mg/dl Phosphorus 8.9 H (2.5-4.5) mg/dL Magnesium 2.8 H (1.6-2.3) mg/dL Total Bilirubin 3.1 H (0.2-1.3) mg/dL AST 68 H (17-59) U/L ALT 43 (21-72) U/L Alkaline Phosphatase 34 L D (38-126) U/L Total Protein 2.5 L (6.3-8.3) g/dL Albumin 1.2 L D (3.5-5.0) g/dL Globulin 1.3 L (2.2-3.9) gm/dL Albumin/Globulin Ratio 0.9 L (1.0-2.1) Arterial Blood Potassium (3.6-5.2) mmol/L Venous Blood Potassium (3.6-5.2) mmol/L Random Vancomycin ug/mL Blood Type Antibody Screen 12/11/17 12/11/17 12/11/17 Range/Units 06:18 05:09 04:28 WBC (4.8-10.8) K/uL RBC (4.40-5.90) Mil/uL Hgb (12.0-18.0) g/dL Hct (35.0-51.0) % MCV (80.0-94.0) fL MCH (27.0-31.0) pg MCHC (33.0-37.0) g/dL RDW (11.5-14.5) % Plt Count (130-400) K/uL MPV (7.2-11.7) fL Neut % (Auto) (50.0-75.0) % Lymph % (Auto) (20.0-40.0) % Finney % (Auto) (0.0-10.0) % Eos % (Auto) (0.0-4.0) % Baso % (Auto) (0.0-2.0) % Neut # (Auto) (1.8-7.0) K/uL Lymph # (Auto) (1.0-4.3) K/uL Finney # (Auto) (0.0-0.8) K/uL Eos # (Auto) (0.0-0.7) K/uL Baso # (Auto) (0.0-0.2) K/uL Neutrophils % (Manual) (50-75) % Band Neutrophils % (0-2) % Lymphocytes % (Manual) (20-40) % Monocytes % (Manual) (0-10) % Myelocytes % (0-0) % Toxic Granulation Platelet Estimate (NORMAL) Hypochromasia (manual) Anisocytosis (manual) Macrocytosis (manual) Ovalocytes Mullin Cells Puncture Site Rb pCO2 43 (35-45) mm/Hg pO2 28 L* (80-100) mm/Hg HCO3 15.3 L (21-28) mmol/L ABG pH 7.21 L (7.35-7.45) ABG Total CO2 18.5 L (22-28) mmol/L ABG O2 Saturation 42.4 L (95-98) % ABG Base Excess -10.3 L (-2.0-3.0) mmol/L Chavez Test Na ABG Potassium 6.2 H* (3.6-5.2) mmol/L VBG pH (7.32-7.43) VBG pCO2 (40-60) mmHg VBG HCO3 mmol/L VBG Total CO2 (22-28) mmol/L VBG O2 Sat (Calc) (40-65) % VBG Base Excess (0.0-2.0) mmol/L VBG Potassium (3.6-5.2) mmol/L A-a O2 Difference 346.0 mm/Hg Respiratory Index 12.4 Sodium 131.0 L (132-148) mmol/l Chloride 100.0 (98-107) mmol/L Glucose 112 H (75-110) mg/dl Lactate 3.4 H (0.7-2.1) mmol/L Vent Mode Prvc Mechanical Rate 14 FiO2 60.0 % Tidal Volume 550 PEEP 5 Crit Value Called To Dr green Crit Value Called By Elsi winkler rt Crit Value Read Back Y Blood Gas Notified Time 635 Potassium (3.6-5.2) mmol/L Carbon Dioxide (22-30) mmol/L Anion Gap (10-20) BUN (9-20) mg/dL Creatinine (0.8-1.5) mg/dL Est GFR ( Amer) Est GFR (Non-Af Amer) POC Glucose (mg/dL) 56 L 71 (65-110) mg/dL Random Glucose (75-110) mg/dL Lactic Acid (0.7-2.1) mmol/L Calcium (8.6-10.4) mg/dl Phosphorus (2.5-4.5) mg/dL Magnesium (1.6-2.3) mg/dL Total Bilirubin (0.2-1.3) mg/dL AST (17-59) U/L ALT (21-72) U/L Alkaline Phosphatase (38-126) U/L Total Protein (6.3-8.3) g/dL Albumin (3.5-5.0) g/dL Globulin (2.2-3.9) gm/dL Albumin/Globulin Ratio (1.0-2.1) Arterial Blood Potassium 6.2 H* (3.6-5.2) mmol/L Venous Blood Potassium (3.6-5.2) mmol/L Random Vancomycin ug/mL Blood Type Antibody Screen 12/11/17 12/11/17 12/11/17 Range/Units 04:25 04:02 04:00 WBC (4.8-10.8) K/uL RBC (4.40-5.90) Mil/uL Hgb (12.0-18.0) g/dL Hct (35.0-51.0) % MCV (80.0-94.0) fL MCH (27.0-31.0) pg MCHC (33.0-37.0) g/dL RDW (11.5-14.5) % Plt Count (130-400) K/uL MPV (7.2-11.7) fL Neut % (Auto) (50.0-75.0) % Lymph % (Auto) (20.0-40.0) % Finney % (Auto) (0.0-10.0) % Eos % (Auto) (0.0-4.0) % Baso % (Auto) (0.0-2.0) % Neut # (Auto) (1.8-7.0) K/uL Lymph # (Auto) (1.0-4.3) K/uL Finney # (Auto) (0.0-0.8) K/uL Eos # (Auto) (0.0-0.7) K/uL Baso # (Auto) (0.0-0.2) K/uL Neutrophils % (Manual) (50-75) % Band Neutrophils % (0-2) % Lymphocytes % (Manual) (20-40) % Monocytes % (Manual) (0-10) % Myelocytes % (0-0) % Toxic Granulation Platelet Estimate (NORMAL) Hypochromasia (manual) Anisocytosis (manual) Macrocytosis (manual) Ovalocytes Mullin Cells Puncture Site pCO2 (35-45) mm/Hg pO2 (80-100) mm/Hg HCO3 (21-28) mmol/L ABG pH (7.35-7.45) ABG Total CO2 (22-28) mmol/L ABG O2 Saturation (95-98) % ABG Base Excess (-2.0-3.0) mmol/L Chavez Test ABG Potassium (3.6-5.2) mmol/L VBG pH (7.32-7.43) VBG pCO2 (40-60) mmHg VBG HCO3 mmol/L VBG Total CO2 (22-28) mmol/L VBG O2 Sat (Calc) (40-65) % VBG Base Excess (0.0-2.0) mmol/L VBG Potassium (3.6-5.2) mmol/L A-a O2 Difference mm/Hg Respiratory Index Sodium (132-148) mmol/l Chloride (98-107) mmol/L Glucose (75-110) mg/dl Lactate (0.7-2.1) mmol/L Vent Mode Mechanical Rate FiO2 % Tidal Volume PEEP Crit Value Called To Crit Value Called By Crit Value Read Back Blood Gas Notified Time Potassium (3.6-5.2) mmol/L Carbon Dioxide (22-30) mmol/L Anion Gap (10-20) BUN (9-20) mg/dL Creatinine (0.8-1.5) mg/dL Est GFR ( Amer) Est GFR (Non-Af Amer) POC Glucose (mg/dL) 43 L 36 L* 38 L* (65-110) mg/dL Random Glucose (75-110) mg/dL Lactic Acid (0.7-2.1) mmol/L Calcium (8.6-10.4) mg/dl Phosphorus (2.5-4.5) mg/dL Magnesium (1.6-2.3) mg/dL Total Bilirubin (0.2-1.3) mg/dL AST (17-59) U/L ALT (21-72) U/L Alkaline Phosphatase (38-126) U/L Total Protein (6.3-8.3) g/dL Albumin (3.5-5.0) g/dL Globulin (2.2-3.9) gm/dL Albumin/Globulin Ratio (1.0-2.1) Arterial Blood Potassium (3.6-5.2) mmol/L Venous Blood Potassium (3.6-5.2) mmol/L Random Vancomycin ug/mL Blood Type Antibody Screen 12/11/17 12/11/17 12/10/17 Range/Units 00:07 00:04 20:17 WBC (4.8-10.8) K/uL RBC (4.40-5.90) Mil/uL Hgb (12.0-18.0) g/dL Hct (35.0-51.0) % MCV (80.0-94.0) fL MCH (27.0-31.0) pg MCHC (33.0-37.0) g/dL RDW (11.5-14.5) % Plt Count (130-400) K/uL MPV (7.2-11.7) fL Neut % (Auto) (50.0-75.0) % Lymph % (Auto) (20.0-40.0) % Finney % (Auto) (0.0-10.0) % Eos % (Auto) (0.0-4.0) % Baso % (Auto) (0.0-2.0) % Neut # (Auto) (1.8-7.0) K/uL Lymph # (Auto) (1.0-4.3) K/uL Finney # (Auto) (0.0-0.8) K/uL Eos # (Auto) (0.0-0.7) K/uL Baso # (Auto) (0.0-0.2) K/uL Neutrophils % (Manual) (50-75) % Band Neutrophils % (0-2) % Lymphocytes % (Manual) (20-40) % Monocytes % (Manual) (0-10) % Myelocytes % (0-0) % Toxic Granulation Platelet Estimate (NORMAL) Hypochromasia (manual) Anisocytosis (manual) Macrocytosis (manual) Ovalocytes Viv Cells Puncture Site pCO2 (35-45) mm/Hg pO2 (80-100) mm/Hg HCO3 (21-28) mmol/L ABG pH (7.35-7.45) ABG Total CO2 (22-28) mmol/L ABG O2 Saturation (95-98) % ABG Base Excess (-2.0-3.0) mmol/L Chavez Test ABG Potassium (3.6-5.2) mmol/L VBG pH (7.32-7.43) VBG pCO2 (40-60) mmHg VBG HCO3 mmol/L VBG Total CO2 (22-28) mmol/L VBG O2 Sat (Calc) (40-65) % VBG Base Excess (0.0-2.0) mmol/L VBG Potassium (3.6-5.2) mmol/L A-a O2 Difference mm/Hg Respiratory Index Sodium (132-148) mmol/l Chloride (98-107) mmol/L Glucose (75-110) mg/dl Lactate (0.7-2.1) mmol/L Vent Mode Mechanical Rate FiO2 % Tidal Volume PEEP Crit Value Called To Crit Value Called By Crit Value Read Back Blood Gas Notified Time Potassium (3.6-5.2) mmol/L Carbon Dioxide (22-30) mmol/L Anion Gap (10-20) BUN (9-20) mg/dL Creatinine (0.8-1.5) mg/dL Est GFR ( Amer) Est GFR (Non-Af Amer) POC Glucose (mg/dL) 74 59 L 84 (65-110) mg/dL Random Glucose (75-110) mg/dL Lactic Acid (0.7-2.1) mmol/L Calcium (8.6-10.4) mg/dl Phosphorus (2.5-4.5) mg/dL Magnesium (1.6-2.3) mg/dL Total Bilirubin (0.2-1.3) mg/dL AST (17-59) U/L ALT (21-72) U/L Alkaline Phosphatase (38-126) U/L Total Protein (6.3-8.3) g/dL Albumin (3.5-5.0) g/dL Globulin (2.2-3.9) gm/dL Albumin/Globulin Ratio (1.0-2.1) Arterial Blood Potassium (3.6-5.2) mmol/L Venous Blood Potassium (3.6-5.2) mmol/L Random Vancomycin ug/mL Blood Type Antibody Screen 12/10/17 12/10/17 12/10/17 Range/Units 16:09 15:54 11:04 WBC (4.8-10.8) K/uL RBC (4.40-5.90) Mil/uL Hgb (12.0-18.0) g/dL Hct (35.0-51.0) % MCV (80.0-94.0) fL MCH (27.0-31.0) pg MCHC (33.0-37.0) g/dL RDW (11.5-14.5) % Plt Count (130-400) K/uL MPV (7.2-11.7) fL Neut % (Auto) (50.0-75.0) % Lymph % (Auto) (20.0-40.0) % Finney % (Auto) (0.0-10.0) % Eos % (Auto) (0.0-4.0) % Baso % (Auto) (0.0-2.0) % Neut # (Auto) (1.8-7.0) K/uL Lymph # (Auto) (1.0-4.3) K/uL Finney # (Auto) (0.0-0.8) K/uL Eos # (Auto) (0.0-0.7) K/uL Baso # (Auto) (0.0-0.2) K/uL Neutrophils % (Manual) (50-75) % Band Neutrophils % (0-2) % Lymphocytes % (Manual) (20-40) % Monocytes % (Manual) (0-10) % Myelocytes % (0-0) % Toxic Granulation Platelet Estimate (NORMAL) Hypochromasia (manual) Anisocytosis (manual) Macrocytosis (manual) Ovalocytes Mullin Cells Puncture Site pCO2 (35-45) mm/Hg pO2 (80-100) mm/Hg HCO3 (21-28) mmol/L ABG pH (7.35-7.45) ABG Total CO2 (22-28) mmol/L ABG O2 Saturation (95-98) % ABG Base Excess (-2.0-3.0) mmol/L Chavez Test ABG Potassium (3.6-5.2) mmol/L VBG pH (7.32-7.43) VBG pCO2 (40-60) mmHg VBG HCO3 mmol/L VBG Total CO2 (22-28) mmol/L VBG O2 Sat (Calc) (40-65) % VBG Base Excess (0.0-2.0) mmol/L VBG Potassium (3.6-5.2) mmol/L A-a O2 Difference mm/Hg Respiratory Index Sodium (132-148) mmol/l Chloride (98-107) mmol/L Glucose (75-110) mg/dl Lactate (0.7-2.1) mmol/L Vent Mode Mechanical Rate FiO2 % Tidal Volume PEEP Crit Value Called To Crit Value Called By Crit Value Read Back Blood Gas Notified Time Potassium (3.6-5.2) mmol/L Carbon Dioxide (22-30) mmol/L Anion Gap (10-20) BUN (9-20) mg/dL Creatinine (0.8-1.5) mg/dL Est GFR ( Amer) Est GFR (Non-Af Amer) POC Glucose (mg/dL) 95 (65-110) mg/dL Random Glucose (75-110) mg/dL Lactic Acid 2.0 (0.7-2.1) mmol/L Calcium (8.6-10.4) mg/dl Phosphorus (2.5-4.5) mg/dL Magnesium (1.6-2.3) mg/dL Total Bilirubin (0.2-1.3) mg/dL AST (17-59) U/L ALT (21-72) U/L Alkaline Phosphatase (38-126) U/L Total Protein (6.3-8.3) g/dL Albumin (3.5-5.0) g/dL Globulin (2.2-3.9) gm/dL Albumin/Globulin Ratio (1.0-2.1) Arterial Blood Potassium (3.6-5.2) mmol/L Venous Blood Potassium (3.6-5.2) mmol/L Random Vancomycin ug/mL Blood Type O POSITIVE Antibody Screen Negative Laboratory Results - last 24 hr 12/10/17 12/10/17 12/10/17 11:04 15:54 16:09 WBC RBC Hgb Hct MCV MCH MCHC RDW Plt Count MPV Neut % (Auto) Lymph % (Auto) Finney % (Auto) Eos % (Auto) Baso % (Auto) Neut # (Auto) Lymph # (Auto) Finney # (Auto) Eos # (Auto) Baso # (Auto) Neutrophils % (Manual) Band Neutrophils % Lymphocytes % (Manual) Monocytes % (Manual) Myelocytes % Toxic Granulation Platelet Estimate Hypochromasia (manual) Anisocytosis (manual) Macrocytosis (manual) Ovalocytes Mullin Cells Puncture Site pCO2 pO2 HCO3 ABG pH ABG Total CO2 ABG O2 Saturation ABG Base Excess Chavez Test ABG Potassium VBG pH VBG pCO2 VBG HCO3 VBG Total CO2 VBG O2 Sat (Calc) VBG Base Excess VBG Potassium A-a O2 Difference Respiratory Index Sodium Chloride Glucose Lactate Vent Mode Mechanical Rate FiO2 Tidal Volume PEEP Crit Value Called To Crit Value Called By Crit Value Read Back Blood Gas Notified Time Potassium Carbon Dioxide Anion Gap BUN Creatinine Est GFR ( Amer) Est GFR (Non-Af Amer) POC Glucose (mg/dL) 95 Random Glucose Lactic Acid 2.0 Calcium Phosphorus Magnesium Total Bilirubin AST ALT Alkaline Phosphatase Total Protein Albumin Globulin Albumin/Globulin Ratio Arterial Blood Potassium Venous Blood Potassium Random Vancomycin Blood Type O POSITIVE Antibody Screen Negative 12/10/17 12/11/17 12/11/17 20:17 00:04 00:07 WBC RBC Hgb Hct MCV MCH MCHC RDW Plt Count MPV Neut % (Auto) Lymph % (Auto) Finney % (Auto) Eos % (Auto) Baso % (Auto) Neut # (Auto) Lymph # (Auto) Finney # (Auto) Eos # (Auto) Baso # (Auto) Neutrophils % (Manual) Band Neutrophils % Lymphocytes % (Manual) Monocytes % (Manual) Myelocytes % Toxic Granulation Platelet Estimate Hypochromasia (manual) Anisocytosis (manual) Macrocytosis (manual) Ovalocytes Mullin Cells Puncture Site pCO2 pO2 HCO3 ABG pH ABG Total CO2 ABG O2 Saturation ABG Base Excess Chavez Test ABG Potassium VBG pH VBG pCO2 VBG HCO3 VBG Total CO2 VBG O2 Sat (Calc) VBG Base Excess VBG Potassium A-a O2 Difference Respiratory Index Sodium Chloride Glucose Lactate Vent Mode Mechanical Rate FiO2 Tidal Volume PEEP Crit Value Called To Crit Value Called By Crit Value Read Back Blood Gas Notified Time Potassium Carbon Dioxide Anion Gap BUN Creatinine Est GFR ( Amer) Est GFR (Non-Af Amer) POC Glucose (mg/dL) 84 59 L 74 Random Glucose Lactic Acid Calcium Phosphorus Magnesium Total Bilirubin AST ALT Alkaline Phosphatase Total Protein Albumin Globulin Albumin/Globulin Ratio Arterial Blood Potassium Venous Blood Potassium Random Vancomycin Blood Type Antibody Screen 12/11/17 12/11/17 12/11/17 04:00 04:02 04:25 WBC RBC Hgb Hct MCV MCH MCHC RDW Plt Count MPV Neut % (Auto) Lymph % (Auto) Finney % (Auto) Eos % (Auto) Baso % (Auto) Neut # (Auto) Lymph # (Auto) Finney # (Auto) Eos # (Auto) Baso # (Auto) Neutrophils % (Manual) Band Neutrophils % Lymphocytes % (Manual) Monocytes % (Manual) Myelocytes % Toxic Granulation Platelet Estimate Hypochromasia (manual) Anisocytosis (manual) Macrocytosis (manual) Ovalocytes Viv Cells Puncture Site pCO2 pO2 HCO3 ABG pH ABG Total CO2 ABG O2 Saturation ABG Base Excess Chavez Test ABG Potassium VBG pH VBG pCO2 VBG HCO3 VBG Total CO2 VBG O2 Sat (Calc) VBG Base Excess VBG Potassium A-a O2 Difference Respiratory Index Sodium Chloride Glucose Lactate Vent Mode Mechanical Rate FiO2 Tidal Volume PEEP Crit Value Called To Crit Value Called By Crit Value Read Back Blood Gas Notified Time Potassium Carbon Dioxide Anion Gap BUN Creatinine Est GFR ( Amer) Est GFR (Non-Af Amer) POC Glucose (mg/dL) 38 L* 36 L* 43 L Random Glucose Lactic Acid Calcium Phosphorus Magnesium Total Bilirubin AST ALT Alkaline Phosphatase Total Protein Albumin Globulin Albumin/Globulin Ratio Arterial Blood Potassium Venous Blood Potassium Random Vancomycin Blood Type Antibody Screen 12/11/17 12/11/17 12/11/17 04:28 05:09 06:18 WBC RBC Hgb Hct MCV MCH MCHC RDW Plt Count MPV Neut % (Auto) Lymph % (Auto) Finney % (Auto) Eos % (Auto) Baso % (Auto) Neut # (Auto) Lymph # (Auto) Finney # (Auto) Eos # (Auto) Baso # (Auto) Neutrophils % (Manual) Band Neutrophils % Lymphocytes % (Manual) Monocytes % (Manual) Myelocytes % Toxic Granulation Platelet Estimate Hypochromasia (manual) Anisocytosis (manual) Macrocytosis (manual) Ovalocytes Mullin Cells Puncture Site Rb pCO2 43 pO2 28 L* HCO3 15.3 L ABG pH 7.21 L ABG Total CO2 18.5 L ABG O2 Saturation 42.4 L ABG Base Excess -10.3 L Chavez Test Na ABG Potassium 6.2 H* VBG pH VBG pCO2 VBG HCO3 VBG Total CO2 VBG O2 Sat (Calc) VBG Base Excess VBG Potassium A-a O2 Difference 346.0 Respiratory Index 12.4 Sodium 131.0 L Chloride 100.0 Glucose 112 H Lactate 3.4 H Vent Mode Prvc Mechanical Rate 14 FiO2 60.0 Tidal Volume 550 PEEP 5 Crit Value Called To Dr green Crit Value Called By Elsi winkler rt Crit Value Read Back Y Blood Gas Notified Time 635 Potassium Carbon Dioxide Anion Gap BUN Creatinine Est GFR ( Amer) Est GFR (Non-Af Amer) POC Glucose (mg/dL) 71 56 L Random Glucose Lactic Acid Calcium Phosphorus Magnesium Total Bilirubin AST ALT Alkaline Phosphatase Total Protein Albumin Globulin Albumin/Globulin Ratio Arterial Blood Potassium 6.2 H* Venous Blood Potassium Random Vancomycin Blood Type Antibody Screen 12/11/17 12/11/17 12/11/17 06:21 06:42 06:42 WBC 14.7 H RBC 1.95 L Hgb 6.6 L D Hct 20.1 L MCV 103.1 H MCH 34.0 H MCHC 33.0 RDW 18.9 H Plt Count 37 L MPV 10.4 Neut % (Auto) 96.9 H Lymph % (Auto) 1.7 L Finney % (Auto) 1.0 Eos % (Auto) 0.1 Baso % (Auto) 0.3 Neut # (Auto) 14.3 H Lymph # (Auto) 0.3 L Finney # (Auto) 0.1 Eos # (Auto) 0.0 Baso # (Auto) 0.0 Neutrophils % (Manual) 85 H Band Neutrophils % 9 H Lymphocytes % (Manual) 4 L Monocytes % (Manual) 1 Myelocytes % 1 H Toxic Granulation Present Platelet Estimate Decreased L Hypochromasia (manual) Slight Anisocytosis (manual) Moderate Macrocytosis (manual) Moderate Ovalocytes Slight Mullin Cells Moderate Puncture Site pCO2 pO2 HCO3 ABG pH ABG Total CO2 ABG O2 Saturation ABG Base Excess Chavez Test ABG Potassium VBG pH VBG pCO2 VBG HCO3 VBG Total CO2 VBG O2 Sat (Calc) VBG Base Excess VBG Potassium A-a O2 Difference Respiratory Index Sodium 133 Chloride 106 Glucose Lactate Vent Mode Mechanical Rate FiO2 Tidal Volume PEEP Crit Value Called To Crit Value Called By Crit Value Read Back Blood Gas Notified Time Potassium 6.5 H* D Carbon Dioxide 18 L Anion Gap 16 BUN 142 H* D Creatinine 3.2 H Est GFR ( Amer) 23 Est GFR (Non-Af Amer) 19 POC Glucose (mg/dL) 132 H Random Glucose 107 Lactic Acid Calcium 6.1 L Phosphorus 8.9 H Magnesium 2.8 H Total Bilirubin 3.1 H AST 68 H ALT 43 Alkaline Phosphatase 34 L D Total Protein 2.5 L Albumin 1.2 L D Globulin 1.3 L Albumin/Globulin Ratio 0.9 L Arterial Blood Potassium Venous Blood Potassium Random Vancomycin Blood Type Antibody Screen 12/11/17 12/11/17 12/11/17 07:46 09:01 09:03 WBC RBC Hgb Hct MCV MCH MCHC RDW Plt Count MPV Neut % (Auto) Lymph % (Auto) Finney % (Auto) Eos % (Auto) Baso % (Auto) Neut # (Auto) Lymph # (Auto) Finney # (Auto) Eos # (Auto) Baso # (Auto) Neutrophils % (Manual) Band Neutrophils % Lymphocytes % (Manual) Monocytes % (Manual) Myelocytes % Toxic Granulation Platelet Estimate Hypochromasia (manual) Anisocytosis (manual) Macrocytosis (manual) Ovalocytes Viv Cells Puncture Site pCO2 pO2 HCO3 ABG pH ABG Total CO2 ABG O2 Saturation ABG Base Excess Chavez Test ABG Potassium VBG pH VBG pCO2 VBG HCO3 VBG Total CO2 VBG O2 Sat (Calc) VBG Base Excess VBG Potassium A-a O2 Difference Respiratory Index Sodium Chloride Glucose Lactate Vent Mode Mechanical Rate FiO2 Tidal Volume PEEP Crit Value Called To Crit Value Called By Crit Value Read Back Blood Gas Notified Time Potassium Carbon Dioxide Anion Gap BUN Creatinine Est GFR ( Amer) Est GFR (Non-Af Amer) POC Glucose (mg/dL) 72 52 L 42 L Random Glucose Lactic Acid Calcium Phosphorus Magnesium Total Bilirubin AST ALT Alkaline Phosphatase Total Protein Albumin Globulin Albumin/Globulin Ratio Arterial Blood Potassium Venous Blood Potassium Random Vancomycin Blood Type Antibody Screen 12/11/17 12/11/17 12/11/17 09:26 09:28 09:55 WBC RBC Hgb Hct MCV MCH MCHC RDW Plt Count MPV Neut % (Auto) Lymph % (Auto) Finney % (Auto) Eos % (Auto) Baso % (Auto) Neut # (Auto) Lymph # (Auto) Finney # (Auto) Eos # (Auto) Baso # (Auto) Neutrophils % (Manual) Band Neutrophils % Lymphocytes % (Manual) Monocytes % (Manual) Myelocytes % Toxic Granulation Platelet Estimate Hypochromasia (manual) Anisocytosis (manual) Macrocytosis (manual) Ovalocytes Viv Cells Puncture Site pCO2 pO2 HCO3 ABG pH ABG Total CO2 ABG O2 Saturation ABG Base Excess Chavez Test ABG Potassium VBG pH VBG pCO2 VBG HCO3 VBG Total CO2 VBG O2 Sat (Calc) VBG Base Excess VBG Potassium A-a O2 Difference Respiratory Index Sodium Chloride Glucose Lactate Vent Mode Mechanical Rate FiO2 Tidal Volume PEEP Crit Value Called To Crit Value Called By Crit Value Read Back Blood Gas Notified Time Potassium Carbon Dioxide Anion Gap BUN Creatinine Est GFR ( Amer) Est GFR (Non-Af Amer) POC Glucose (mg/dL) 40 L 23 L* 335 H Random Glucose Lactic Acid Calcium Phosphorus Magnesium Total Bilirubin AST ALT Alkaline Phosphatase Total Protein Albumin Globulin Albumin/Globulin Ratio Arterial Blood Potassium Venous Blood Potassium Random Vancomycin Blood Type Antibody Screen 12/11/17 12/11/17 12/11/17 10:54 11:05 11:11 WBC 26.3 H D RBC 3.48 L Hgb 11.7 L D Hct 35.3 MCV 101.4 H MCH 33.7 H MCHC 33.2 RDW 18.3 H Plt Count 53 L MPV 10.5 Neut % (Auto) Lymph % (Auto) Finney % (Auto) Eos % (Auto) Baso % (Auto) Neut # (Auto) Lymph # (Auto) Finney # (Auto) Eos # (Auto) Baso # (Auto) Neutrophils % (Manual) Band Neutrophils % Lymphocytes % (Manual) Monocytes % (Manual) Myelocytes % Toxic Granulation Platelet Estimate Hypochromasia (manual) Anisocytosis (manual) Macrocytosis (manual) Ovalocytes Viv Cells Puncture Site pCO2 pO2 36 HCO3 ABG pH ABG Total CO2 ABG O2 Saturation ABG Base Excess Chavez Test ABG Potassium VBG pH 7.26 L VBG pCO2 24 L VBG HCO3 12.6 VBG Total CO2 11.5 L VBG O2 Sat (Calc) 62.9 VBG Base Excess -14.4 L VBG Potassium 3.4 L A-a O2 Difference Respiratory Index Sodium 143.0 Chloride 116.0 H Glucose 139 H Lactate 1.6 Vent Mode Mechanical Rate FiO2 100.0 Tidal Volume PEEP 5 Crit Value Called To Dr serrano Crit Value Called By Federico henry [facility] Crit Value Read Back Y Blood Gas Notified Time 1115 Potassium Carbon Dioxide Anion Gap BUN Creatinine Est GFR ( Amer) Est GFR (Non-Af Amer) POC Glucose (mg/dL) Random Glucose Lactic Acid Calcium Phosphorus Magnesium Total Bilirubin AST ALT Alkaline Phosphatase Total Protein Albumin Globulin Albumin/Globulin Ratio Arterial Blood Potassium Venous Blood Potassium 3.4 L Random Vancomycin 10.5 Blood Type Antibody Screen 12/11/17 12/11/17 12/11/17 12:00 12:02 12:10 WBC RBC Hgb Hct MCV MCH MCHC RDW Plt Count MPV Neut % (Auto) Lymph % (Auto) Finney % (Auto) Eos % (Auto) Baso % (Auto) Neut # (Auto) Lymph # (Auto) Finney # (Auto) Eos # (Auto) Baso # (Auto) Neutrophils % (Manual) Band Neutrophils % Lymphocytes % (Manual) Monocytes % (Manual) Myelocytes % Toxic Granulation Platelet Estimate Hypochromasia (manual) Anisocytosis (manual) Macrocytosis (manual) Ovalocytes Mullin Cells Puncture Site pCO2 pO2 HCO3 ABG pH ABG Total CO2 ABG O2 Saturation ABG Base Excess Chavez Test ABG Potassium VBG pH VBG pCO2 VBG HCO3 VBG Total CO2 VBG O2 Sat (Calc) VBG Base Excess VBG Potassium A-a O2 Difference Respiratory Index Sodium Chloride Glucose Lactate Vent Mode Mechanical Rate FiO2 Tidal Volume PEEP Crit Value Called To Crit Value Called By Crit Value Read Back Blood Gas Notified Time Potassium Carbon Dioxide Anion Gap BUN Creatinine Est GFR ( Amer) Est GFR (Non-Af Amer) POC Glucose (mg/dL) 39 L 66 203 H Random Glucose Lactic Acid Calcium Phosphorus Magnesium Total Bilirubin AST ALT Alkaline Phosphatase Total Protein Albumin Globulin Albumin/Globulin Ratio Arterial Blood Potassium Venous Blood Potassium Random Vancomycin Blood Type Antibody Screen Fingerstick Blood Sugar Results: 39 Assessment/Plan - Assessment and Plan (Free Text) Assessment: -Shock: likely combination of cardiogenic and septic shock, check serial lactic , keep SCVO2 >70, start norepi to keep MAP >65 and dopamine to keep SCVO2 >70 -Severe systolic heart failure with cardiorenal syndrome: improve cardiac index , possible combination of inotrope (milrionoe and /or dobutamine), avoid fluids overloaded states, decrease pre-load and after load -CKD with uremia: cardiorenal syndrome, avoid nephrotoxic drugs, nephrology eval -Chronic end stage heart failure: Patient will benefit from a heart failure facility where LVAD offered and or bi-V pacing available -sepsis/Right lower lobe PNA: leukocytosis, obtain sputum culture: continue abx, vanco level 10, dosed 1 gm today, and continue cefepime, obtain sputum culture -thrombocytopenia: cause unknown, US spleen normal, hold heparin SQ, SCDS -hypoglycemia: check cortisol level, tsh, BGM measure on fingers falsely low, reqeusted nursing to measure blood from central venous blood -Us liver reveals CKD kidney changes -DVT ppx SCDS -PUD ppx pepcid Patient's prognosis poor as patient does not have any reserve in heart function and patient remains non-compliant with previous medical advice. cc time 55 minutes Addendum: Nephrology advised patient will not be able to tolerate HD given poor EF and multiple pressors. - Date & Time Date: 12/11/17 Time: 11:00
[2017-12-11] MEDS ORDERED: Vancomycin 1 gm/NS 200 ml 1 GM/200 ML BAG IVPB ONE (15:00)
[2017-12-11] MEDS ORDERED: (Novolog) Insulin Aspart, Recombinant 100 u/ml 10 ml vial SC SCH (16:15)
[2017-12-11] MEDS: (Novolog) Insulin Aspart, Recombinant 100 u/ml 10 ml vial SC SCH ×2 (16:25→17:39)
--- NOTE | 2017-12-11 16:41 | PCM.PROC ---
Procedures Attestation:: I certify that I have explained the specified Operation(s) or Procedure(s), risks, benefits and reasonable alternatives to the Patient and/or other person responsible. The opportunity was given to ask questions and all questions answered - Arterial Line Right Radial Aseptic technique was employed throughout the procedure: Full sterile barriers ( mask, hair cover, sterile gown, sterile gloves), Chloraprep Antiseptic: 30 second prep for IJ or SC sites Time Out Performed: Yes Pt. placed on Pulse Ox Monitor: Yes Central Line Prep: Chlorhexidine-Alcohol Combination Local Anesthesia Used: Lidocaine 1% Amount of Anesthesia Used (mls): 5 Ultrasound Used for Placement: No Gauge (Size): 20 gauge Technique Used: Guide Wire Technique Secured by: Suture Post procedure dressing: Clear vapor permeable, Chlorhexidine disc (Biopatch) Patient Tolerated Procedure: well Immediate Complications: none
[2017-12-11] MEDS ORDERED: EPINEPHrine- 1 MG in Sodium Chloride 0.9% 250 ML IV PRN (17:42)
[2017-12-11] MEDS ORDERED: PPN #1 IV SCH (18:00)
[2017-12-11] MEDS: EPINEPHrine- 1 MG in Sodium Chloride 0.9% 250 ML IV PRN (18:31)
[2017-12-11] MEDS: Latanoprost 2.5 ml Opht Soln OU SCH (21:04)
[2017-12-12] MEDS: DOPamine 400mg/250ml D5W 400 MG/250 ML BAG IV PRN ×6 (01:45→20:59)
[2017-12-12] MEDS: EPINEPHrine- 1 MG in Sodium Chloride 0.9% 250 ML IV PRN ×3 (01:47→19:57)
[2017-12-12 05:43] LABS: ARTERIAL BLOOD GAS HCO3 11.6 mmol/L (21-28); ARTERIAL BLOOD GAS HEMOGLOBIN 11.2 g/dL (11.7-17.4); ARTERIAL BLOOD GAS O2 SAT 100.8 % (95-98); ARTERIAL BLOOD GAS PCO2 27 mm/Hg (35-45); ARTERIAL BLOOD GAS PH 7.17 (7.35-7.45); ARTERIAL BLOOD GAS PO2 279 mm/Hg (80-100); ARTERIAL BLOOD GAS TCO2 10.6 mmol/L (22-28)
[2017-12-12] MEDS: Dextrose 50% SYRINGE Inj (50 ml) IVP PRN (05:57)
[2017-12-12] MEDS ORDERED: Dextrose 50% SYRINGE Inj (50 ml) ONE (05:59)
[2017-12-12 06:16] LABS: BASO % 0.2 % (0.0-2.0); HEMOGLOBIN 11.4 g/dL (12.0-18.0); LYMPH # 0.2 K/uL (1.0-4.3); MEAN CELL VOLUME 102.7 fL (80.0-94.0); MEAN CORPUSCULAR HEMOGLOBIN 34.1 pg (27.0-31.0); MEAN CORPUSCULAR HGB CONC 33.2 g/dL (33.0-37.0); MEAN PLATELET VOLUME 11.1 fL (7.2-11.7); MONO # 0.1 K/uL (0.0-0.8); MONO % 0.6 % (0.0-10.0); NEUT % 98.2 % (50.0-75.0); NRBC % 0.1 % (0.0-2.0); PLATELET COUNT 45 K/uL (130-400); RBC 3.33 Mil/uL (4.40-5.90); RED CELL DISTRIBUTION WIDTH 18.8 % (11.5-14.5); WHITE BLOOD COUNT 22.5 K/uL (4.8-10.8)
[2017-12-12] MEDS ORDERED: Sodium Bicarbonate (8.4%) 50 Meq Syringe IVP ONE ×2 (06:53→06:54)
[2017-12-12 06:54] LABS: ALB/GLOB RATIO 0.9 (1.0-2.1); ALBUMIN 2.9 g/dL (3.5-5.0); CALCIUM 6.5 mg/dl (8.6-10.4)
[2017-12-12] MEDS: (Novolog) Insulin Aspart, Recombinant 100 u/ml 10 ml vial SC SCH ×4 (07:26→17:54)
[2017-12-12] MEDS: Multivitamin With Minerals Tab PO SCH (08:01)
[2017-12-12] MEDS: Dorzolamide 2% Opht Sol 10ml OU SCH ×2 (09:17→17:58)
[2017-12-12] MEDS: Brimonidine 0.2% Opth Sol (5ml) OU SCH ×3 (09:18→17:58)
[2017-12-12] MEDS: Clotrimazole 1% Cream(30 gm) TOP SCH ×2 (09:19→17:58)
[2017-12-12] MEDS ORDERED: Dextrose 50% SYRINGE Inj (50 ml) IV STA ×2 (09:22→18:46)
[2017-12-12] MEDS ORDERED: (Novolin R) Insulin Human Regular 100 units/ml vial IV ONE ×2 (09:22→18:46)
[2017-12-12] MEDS ORDERED: Calcium Gluconate 4.65 mEq/10 ml Inj IVP ONE (09:22)
[2017-12-12 09:28] LABS: ANISOCYTOSIS MODERATE; BANDS 5 % (0-2); LYMPHOCYTE 1 % (20-40); MONOCYTE 1 % (0-10); NEUTROPHIL 93 % (50-75); PLATELET ESTIMATE DECREASED (NORMAL); TOTAL CELLS COUNTED 100
[2017-12-12 09:29] LABS: BURR CELLS MODERATE; OVALOCYTES MODERATE; POIKILOCYTOSIS SLIGHT; TOXIC GRANULATION PRESENT
[2017-12-12] MEDS: Cefepime IV 1 gm in Dextrose 1 GM/50 ML BAG IVPB SCH ×2 (09:31→22:01)
[2017-12-12] MEDS: Sodium Bicarbonate 8.4% 100 MEQ in Dextrose 5%/0.45% NS 1,000 ML IV SCH ×2 (10:19→23:34)
--- NOTE | 2017-12-12 11:27 | CP.CCUPN ---
Addendum entered and electronically signed by Emelia Garrison DO 12/12/17 11:55: Had discussion with brother and sister at bedside and discussed prognosis of the patient. Brother and sister decided on DNR. PE +GCS=6T +Dilated Pupils +Scleral Icterus +Firm abdomen/Distended Original Note: <Emelia Garrison - Last Filed: 12/12/17 11:23> CCU Subjective - Physician Review Subjective (Free Text): Patient seen and examined at bedside. No overnight events reported. Currently Intubated. CCU Objective - Vital Signs / Intake & Output Vital Signs (Last 4 hours): Vital Signs Pulse Resp BP Pulse Ox 12/12/17 11:00 80 28 H 55/40 L 68 L 12/12/17 10:00 85 29 H 60/43 L 66 L 12/12/17 09:00 84 25 H 53/41 L 68 L 12/12/17 08:34 61/47 L 12/12/17 08:32 61/48 L 12/12/17 08:00 87 27 H 61/48 L 66 L Intake and Output (Last 8hrs): Intake & Output 12/11/17 12/12/17 12/12/17 22:59 06:59 14:59 Intake Total 2107.6 2723.0 1713.8 Output Total 0 0 Balance 2107.6 2723.0 1713.8 Weight 226 lb 9.6 oz Intake: IV 806 1011 759 Intake, IV Amount 1086.6 1502.0 954.8 Right Distal Port 464.8 522.9 225.2 Right Medial Port 75.0 637.5 300 Right Proximal Port 335 270 210 Right medial port y 60 Right proximal port y 150 right distal port y 211.8 71.6 9.6 Tube Feeding 215 210 0 Output: Urine 0 0 Urethral (Andersen) 0 0 - Physical Exam Head: Positive for: Atraumatic, Normocephalic. Negative for: Tenderness Extroacular Muscles: Positive for: EOMI Conjunctiva: Positive for: Normal Mouth: Positive for: Moist Mucous Membranes Respiratory/Chest: Positive for: Accessory Muscle Use, Decreased Breath Sounds, Rhonchi. Negative for: Clear to Auscultation, Wheezes Cardiovascular: Positive for: Regular Rate and Rhythm, Normal S1, S2 Abdomen: Positive for: Distention, Other (Firm with Hypoactive Bowel Sounds. ). Negative for: Tenderness Lower Extremity: Positive for: Edema Neurological: Negative for: GCS=15 (GCS =14) Psychiatric: Positive for: Anxious, Agitated. Negative for: Alert, Oriented x 3 - Medications Active Medications: Active Medications Generic Name Dose Route Start Last Admin Trade Name Freq PRN Reason Stop Dose Admin Brimonidine Tartrate 0.05 ml 12/03/17 10:00 12/12/17 09:18 Alphagan 0.2% Opht OU 1 drop TID SHAHEED Administration Clotrimazole 0 gm 12/08/17 10:00 12/12/17 09:19 Lotrimin 1% TOP 1 applic BID SHAHEED Administration Dextrose 0 ml 12/06/17 09:06 12/12/17 05:57 Dextrose 50% Inj IVP 50 ml .STAT PRN Administration Hypoglycemia Protocol Protocol Dextrose 0 gm 12/06/17 09:06 Glutose 15 PO .ONCE PRN Hypoglycemia Protocol Protocol Docusate Sodium 100 mg 12/03/17 04:34 Colace PO BID PRN Constipation Dorzolamide HCl 0.05 ml 12/03/17 10:00 12/12/17 09:17 Trusopt OU 1 drop AMPM SHAHEED Administration Glucagon 0 mg 12/06/17 09:06 Glucagen Diagnostic Kit IM .STAT PRN Hypoglycemia Protocol Protocol Hydrocortisone Sodium Succinate 100 mg 12/08/17 04:30 12/12/17 05:43 Solu-Cortef IV 100 mg Q8H SHAHEED Administration Norepinephrine Bitartrate 8 mg 258 mls @ 7.74 mls/hr 12/07/17 17:47 12/12/17 08:32 / Dextrose IV 30 mcg/min .Q24H PRN 58.05 mls/hr TITRATE PER MD ORDER Administration Protocol 4 MCG/MIN Vasopressin 40 units/ Sodium 42 mls @ 2.52 mls/hr 12/07/17 20:45 12/12/17 05: 44 Chloride IV 0.04 units/min .[id number] SHAHEED 2.52 mls/hr Protocol Administration 0.04 UNITS/MIN Dexmedetomidine HCl 200 mcg/ 50 mls @ 5.14 mls/hr 12/10/17 21:39 12/11/17 03: 30 Sodium Chloride IV 0 mcg/kg/hr TITR PRN 0 mls/hr Agitation Titration Protocol 0.2 MCG/KG/HR Cefepime HCl 1 gm in 50 mls @ 100 mls/hr 12/10/17 22:30 12/12/17 09:31 Maxipime Iv 1 Gm Premix IVPB 100 mls/hr Q12H SHAHEED Administration Protocol Doxycycline Hyclate 100 mg/ 100 mls @ 100 mls/hr 12/10/17 22:45 12/12/17 10: 19 Sodium Chloride IVPB 100 mls/hr Q12H SHAHEED Administration Protocol Dopamine HCl/Dextrose 400 mg in 250 mls @ 7.725 mls/hr 12/11/17 03:16 08:34 Dopamine 400mg/250ml D5w IV 20 mcg/kg/min .Q24H PRN 77.246 mls/hr TITRATE PER MD ORDER Administration Protocol 2 MCG/KG/MIN Epinephrine HCl 1 mg/ Sodium 251 mls @ 30.12 mls/hr 12/11/17 18:09 12/12/17 11:15 Chloride IV 2 mcg/min .[id number] PRN 30.12 mls/hr TITRATE PER MD ORDER Administration Protocol 2 MCG/MIN Sodium Bicarbonate 100 meq/ 1,100 mls @ 75 mls/hr 12/12/17 09:30 12/12/17 10: 19 Dextrose/Sodium Chloride IV 75 mls/hr .[id number] SHAHEED Administration Insulin Aspart 0 unit 12/11/17 16:30 12/12/17 07:26 Novolog SC Not Given Q6 SHAHEED Protocol Latanoprost 0.05 ml 12/03/17 22:00 12/11/17 21:04 Xalatan Opht OU 0.05 ml HS SHAHEED Administration Multivitamins/Minerals 1 tab 12/08/17 08:00 12/12/17 08:01 Therapeutic-M Tab PO Not Given 0800 SHAHEED Pantoprazole Sodium 40 mg 12/10/17 22:00 12/12/17 09:31 Protonix Inj IVP 40 mg Q12H SHAHEED Administration Rosuvastatin Calcium 10 mg 12/05/17 22:00 12/11/17 21:04 Crestor PO 10 mg HS SHAHEED Administration Sodium Bicarbonate 650 mg 12/11/17 18:00 12/12/17 05:43 Sodium Bicarbonate Tab NG 650 mg Q6 SHAHEED Administration - Patient Studies Lab Studies: Microbiology Studies 12/11/17 22:46 Gram Stain - Preliminary Trachasp 12/07/17 13:40 Blood Culture - Preliminary Blood-Venous NO GROWTH AFTER 4 DAYS 12/07/17 13:40 Blood Culture - Preliminary Blood-Venous NO GROWTH AFTER 4 DAYS 12/09/17 12:37 Blood Culture - Preliminary Blood NO GROWTH AFTER 48 HOURS 12/09/17 12:37 Gram Stain - Final Leg - Right Wound Culture - Final Staphylococcus Epidermidis 12/09/17 10:30 Blood Culture - Preliminary Blood NO GROWTH AFTER 48 HOURS 12/10/17 13:50 Urine Culture - Final Urine,Catheterized No Growth (<1,000 CFU/ML) Lab Studies 12/12/17 12/12/17 12/12/17 Range/Units 06:19 06:02 06:02 WBC (4.8-10.8) K/uL RBC (4.40-5.90) Mil/uL Hgb (12.0-18.0) g/dL Hct (35.0-51.0) % MCV (80.0-94.0) fL MCH (27.0-31.0) pg MCHC (33.0-37.0) g/dL RDW (11.5-14.5) % Plt Count (130-400) K/uL MPV (7.2-11.7) fL Neut % (Auto) (50.0-75.0) % Lymph % (Auto) (20.0-40.0) % [place] % (Auto) (0.0-10.0) % Eos % (Auto) (0.0-4.0) % Baso % (Auto) (0.0-2.0) % Neut # (Auto) (1.8-7.0) K/uL Lymph # (Auto) (1.0-4.3) K/uL [place] # (Auto) (0.0-0.8) K/uL Eos # (Auto) (0.0-0.7) K/uL Baso # (Auto) (0.0-0.2) K/uL Neutrophils % (Manual) (50-75) % Band Neutrophils % (0-2) % Lymphocytes % (Manual) (20-40) % Monocytes % (Manual) (0-10) % Toxic Granulation Platelet Estimate (NORMAL) Poikilocytosis (manual Anisocytosis (manual) Macrocytosis (manual) Ovalocytes [place] Cells Puncture Site pCO2 (35-45) mm/Hg pO2 (80-100) mm/Hg HCO3 (21-28) mmol/L ABG pH (7.35-7.45) ABG Total CO2 (22-28) mmol/L ABG O2 Saturation (95-98) % ABG Base Excess (-2.0-3.0) mmol/L ABG Hemoglobin (11.7-17.4) g/dL ABG Carboxyhemoglobin (0.5-1.5) % POC ABG HHb (Measured) (0.0-5.0) % ABG Methemoglobin (0.0-3.0) % Chavez Test A-a O2 Difference mm/Hg Respiratory Index Hgb O2 Saturation (95.0-98.0) % Vent Mode Mechanical Rate FiO2 % Tidal Volume PEEP Crit Value Called To Crit Value Called By Crit Value Read Back Blood Gas Notified Time Sodium 135 (132-148) mmol/L Potassium 7.0 H* (3.6-5.2) mmol/L Chloride 100 (98-107) mmol/L Carbon Dioxide 13 L (22-30) mmol/L Anion Gap 29 H (10-20) BUN 145 H* (9-20) mg/dL Creatinine 4.1 H (0.8-1.5) mg/dL Est GFR ( Amer) 17 Est GFR (Non-Af Amer) 14 POC Glucose (mg/dL) 141 H (65-110) mg/dL Random Glucose 22 L* D (75-110) mg/dL Lactic Acid 3.0 H (0.7-2.1) mmol/L Calcium 6.5 L (8.6-10.4) mg/dl Phosphorus 11.3 H (2.5-4.5) mg/dL Magnesium 3.1 H (1.6-2.3) mg/dL Total Bilirubin 7.4 H (0.2-1.3) mg/dL AST 629 H D (17-59) U/L ALT 148 H D (21-72) U/L Alkaline Phosphatase 136 H D (38-126) U/L Total Protein 6.1 L (6.3-8.3) g/dL Albumin 2.9 L D (3.5-5.0) g/dL Globulin 3.1 (2.2-3.9) gm/dL Albumin/Globulin Ratio 0.9 L (1.0-2.1) TSH 3rd Generation (0.46-4.68) mIU/L Plasma Cortisol PM (1.7-14.1) ug/dL Random Vancomycin ug/mL 12/12/17 12/12/17 12/12/17 Range/Units 05:59 05:55 05:51 WBC 22.5 H (4.8-10.8) K/uL RBC 3.33 L (4.40-5.90) Mil/uL Hgb 11.4 L (12.0-18.0) g/dL Hct 34.2 L (35.0-51.0) % MCV 102.7 H (80.0-94.0) fL MCH 34.1 H (27.0-31.0) pg MCHC 33.2 (33.0-37.0) g/dL RDW 18.8 H (11.5-14.5) % Plt Count 45 L (130-400) K/uL MPV 11.1 (7.2-11.7) fL Neut % (Auto) 98.2 H (50.0-75.0) % Lymph % (Auto) 1.0 L (20.0-40.0) % [place] % (Auto) 0.6 (0.0-10.0) % Eos % (Auto) 0.0 (0.0-4.0) % Baso % (Auto) 0.2 (0.0-2.0) % Neut # (Auto) 22.0 H (1.8-7.0) K/uL Lymph # (Auto) 0.2 L (1.0-4.3) K/uL [place] # (Auto) 0.1 (0.0-0.8) K/uL Eos # (Auto) 0.0 (0.0-0.7) K/uL Baso # (Auto) 0.0 (0.0-0.2) K/uL Neutrophils % (Manual) 93 H (50-75) % Band Neutrophils % 5 H (0-2) % Lymphocytes % (Manual) 1 L (20-40) % Monocytes % (Manual) 1 (0-10) % Toxic Granulation Present Platelet Estimate Decreased L (NORMAL) Poikilocytosis (manual Slight Anisocytosis (manual) Moderate Macrocytosis (manual) Moderate Ovalocytes Moderate Viv Cells Moderate Puncture Site pCO2 (35-45) mm/Hg pO2 (80-100) mm/Hg HCO3 (21-28) mmol/L ABG pH (7.35-7.45) ABG Total CO2 (22-28) mmol/L ABG O2 Saturation (95-98) % ABG Base Excess (-2.0-3.0) mmol/L ABG Hemoglobin (11.7-17.4) g/dL ABG Carboxyhemoglobin (0.5-1.5) % POC ABG HHb (Measured) (0.0-5.0) % ABG Methemoglobin (0.0-3.0) % Chavez Test A-a O2 Difference mm/Hg Respiratory Index Hgb O2 Saturation (95.0-98.0) % Vent Mode Mechanical Rate FiO2 % Tidal Volume PEEP Crit Value Called To Crit Value Called By Crit Value Read Back Blood Gas Notified Time Sodium (132-148) mmol/L Potassium (3.6-5.2) mmol/L Chloride (98-107) mmol/L Carbon Dioxide (22-30) mmol/L Anion Gap (10-20) BUN (9-20) mg/dL Creatinine (0.8-1.5) mg/dL Est GFR ( Amer) Est GFR (Non-Af Amer) POC Glucose (mg/dL) 52 L 30 L* (65-110) mg/dL Random Glucose (75-110) mg/dL Lactic Acid (0.7-2.1) mmol/L Calcium (8.6-10.4) mg/dl Phosphorus (2.5-4.5) mg/dL Magnesium (1.6-2.3) mg/dL Total Bilirubin (0.2-1.3) mg/dL AST (17-59) U/L ALT (21-72) U/L Alkaline Phosphatase (38-126) U/L Total Protein (6.3-8.3) g/dL Albumin (3.5-5.0) g/dL Globulin (2.2-3.9) gm/dL Albumin/Globulin Ratio (1.0-2.1) TSH 3rd Generation (0.46-4.68) mIU/L Plasma Cortisol PM (1.7-14.1) ug/dL Random Vancomycin ug/mL 12/12/17 12/12/17 12/12/17 Range/Units 05:21 00:50 00:48 WBC (4.8-10.8) K/uL RBC (4.40-5.90) Mil/uL Hgb (12.0-18.0) g/dL Hct (35.0-51.0) % MCV (80.0-94.0) fL MCH (27.0-31.0) pg MCHC (33.0-37.0) g/dL RDW (11.5-14.5) % Plt Count (130-400) K/uL MPV (7.2-11.7) fL Neut % (Auto) (50.0-75.0) % Lymph % (Auto) (20.0-40.0) % [place] % (Auto) (0.0-10.0) % Eos % (Auto) (0.0-4.0) % Baso % (Auto) (0.0-2.0) % Neut # (Auto) (1.8-7.0) K/uL Lymph # (Auto) (1.0-4.3) K/uL [place] # (Auto) (0.0-0.8) K/uL Eos # (Auto) (0.0-0.7) K/uL Baso # (Auto) (0.0-0.2) K/uL Neutrophils % (Manual) (50-75) % Band Neutrophils % (0-2) % Lymphocytes % (Manual) (20-40) % Monocytes % (Manual) (0-10) % Toxic Granulation Platelet Estimate (NORMAL) Poikilocytosis (manual Anisocytosis (manual) Macrocytosis (manual) Ovalocytes Viv Cells Puncture Site [place] pCO2 27 L (35-45) mm/Hg pO2 279 H (80-100) mm/Hg HCO3 11.6 L (21-28) mmol/L ABG pH 7.17 L* (7.35-7.45) ABG Total CO2 10.6 L (22-28) mmol/L ABG O2 Saturation 100.8 H (95-98) % ABG Base Excess -17.2 L (-2.0-3.0) mmol/L ABG Hemoglobin 11.2 L (11.7-17.4) g/dL ABG Carboxyhemoglobin 1.4 (0.5-1.5) % POC ABG HHb (Measured) -0.8 L (0.0-5.0) % ABG Methemoglobin 0.4 (0.0-3.0) % Chavez Test Na A-a O2 Difference 400.0 mm/Hg Respiratory Index 1.4 Hgb O2 Saturation 99.0 H (95.0-98.0) % Vent Mode Prvc Mechanical Rate 21 FiO2 100.0 % Tidal Volume 550 PEEP 5 Crit Value Called To Latoya mancini rn Crit Value Called By Adeline women's swim coach Crit Value Read Back Y Blood Gas Notified Time 543 Sodium (132-148) mmol/L Potassium (3.6-5.2) mmol/L Chloride (98-107) mmol/L Carbon Dioxide (22-30) mmol/L Anion Gap (10-20) BUN (9-20) mg/dL Creatinine (0.8-1.5) mg/dL Est GFR ( Amer) Est GFR (Non-Af Amer) POC Glucose (mg/dL) 78 < 20 L* (65-110) mg/dL Random Glucose (75-110) mg/dL Lactic Acid (0.7-2.1) mmol/L Calcium (8.6-10.4) mg/dl Phosphorus (2.5-4.5) mg/dL Magnesium (1.6-2.3) mg/dL Total Bilirubin (0.2-1.3) mg/dL AST (17-59) U/L ALT (21-72) U/L Alkaline Phosphatase (38-126) U/L Total Protein (6.3-8.3) g/dL Albumin (3.5-5.0) g/dL Globulin (2.2-3.9) gm/dL Albumin/Globulin Ratio (1.0-2.1) TSH 3rd Generation (0.46-4.68) mIU/L Plasma Cortisol PM (1.7-14.1) ug/dL Random Vancomycin ug/mL 12/11/17 12/11/17 12/11/17 Range/Units 19:08 17:36 16:10 WBC (4.8-10.8) K/uL RBC (4.40-5.90) Mil/uL Hgb (12.0-18.0) g/dL Hct (35.0-51.0) % MCV (80.0-94.0) fL MCH (27.0-31.0) pg MCHC (33.0-37.0) g/dL RDW (11.5-14.5) % Plt Count (130-400) K/uL MPV (7.2-11.7) fL Neut % (Auto) (50.0-75.0) % Lymph % (Auto) (20.0-40.0) % [place] % (Auto) (0.0-10.0) % Eos % (Auto) (0.0-4.0) % Baso % (Auto) (0.0-2.0) % Neut # (Auto) (1.8-7.0) K/uL Lymph # (Auto) (1.0-4.3) K/uL [place] # (Auto) (0.0-0.8) K/uL Eos # (Auto) (0.0-0.7) K/uL Baso # (Auto) (0.0-0.2) K/uL Neutrophils % (Manual) (50-75) % Band Neutrophils % (0-2) % Lymphocytes % (Manual) (20-40) % Monocytes % (Manual) (0-10) % Toxic Granulation Platelet Estimate (NORMAL) Poikilocytosis (manual Anisocytosis (manual) Macrocytosis (manual) Ovalocytes Viv Cells Puncture Site pCO2 (35-45) mm/Hg pO2 (80-100) mm/Hg HCO3 (21-28) mmol/L ABG pH (7.35-7.45) ABG Total CO2 (22-28) mmol/L ABG O2 Saturation (95-98) % ABG Base Excess (-2.0-3.0) mmol/L ABG Hemoglobin (11.7-17.4) g/dL ABG Carboxyhemoglobin (0.5-1.5) % POC ABG HHb (Measured) (0.0-5.0) % ABG Methemoglobin (0.0-3.0) % Chavez Test A-a O2 Difference mm/Hg Respiratory Index Hgb O2 Saturation (95.0-98.0) % Vent Mode Mechanical Rate FiO2 % Tidal Volume PEEP Crit Value Called To Crit Value Called By Crit Value Read Back Blood Gas Notified Time Sodium (132-148) mmol/L Potassium (3.6-5.2) mmol/L Chloride (98-107) mmol/L Carbon Dioxide (22-30) mmol/L Anion Gap (10-20) BUN (9-20) mg/dL Creatinine (0.8-1.5) mg/dL Est GFR ( Amer) Est GFR (Non-Af Amer) POC Glucose (mg/dL) 111 H > 500 H* (65-110) mg/dL Random Glucose (75-110) mg/dL Lactic Acid 2.8 H (0.7-2.1) mmol/L Calcium (8.6-10.4) mg/dl Phosphorus (2.5-4.5) mg/dL Magnesium (1.6-2.3) mg/dL Total Bilirubin (0.2-1.3) mg/dL AST (17-59) U/L ALT (21-72) U/L Alkaline Phosphatase (38-126) U/L Total Protein (6.3-8.3) g/dL Albumin (3.5-5.0) g/dL Globulin (2.2-3.9) gm/dL Albumin/Globulin Ratio (1.0-2.1) TSH 3rd Generation (0.46-4.68) mIU/L Plasma Cortisol PM (1.7-14.1) ug/dL Random Vancomycin ug/mL 12/11/17 12/11/17 12/11/17 Range/Units 15:19 15:19 12:10 WBC (4.8-10.8) K/uL RBC (4.40-5.90) Mil/uL Hgb (12.0-18.0) g/dL Hct (35.0-51.0) % MCV (80.0-94.0) fL MCH (27.0-31.0) pg MCHC (33.0-37.0) g/dL RDW (11.5-14.5) % Plt Count (130-400) K/uL MPV (7.2-11.7) fL Neut % (Auto) (50.0-75.0) % Lymph % (Auto) (20.0-40.0) % [place] % (Auto) (0.0-10.0) % Eos % (Auto) (0.0-4.0) % Baso % (Auto) (0.0-2.0) % Neut # (Auto) (1.8-7.0) K/uL Lymph # (Auto) (1.0-4.3) K/uL [place] # (Auto) (0.0-0.8) K/uL Eos # (Auto) (0.0-0.7) K/uL Baso # (Auto) (0.0-0.2) K/uL Neutrophils % (Manual) (50-75) % Band Neutrophils % (0-2) % Lymphocytes % (Manual) (20-40) % Monocytes % (Manual) (0-10) % Toxic Granulation Platelet Estimate (NORMAL) Poikilocytosis (manual Anisocytosis (manual) Macrocytosis (manual) Ovalocytes Viv Cells Puncture Site pCO2 (35-45) mm/Hg pO2 (80-100) mm/Hg HCO3 (21-28) mmol/L ABG pH (7.35-7.45) ABG Total CO2 (22-28) mmol/L ABG O2 Saturation (95-98) % ABG Base Excess (-2.0-3.0) mmol/L ABG Hemoglobin (11.7-17.4) g/dL ABG Carboxyhemoglobin (0.5-1.5) % POC ABG HHb (Measured) (0.0-5.0) % ABG Methemoglobin (0.0-3.0) % Chavez Test A-a O2 Difference mm/Hg Respiratory Index Hgb O2 Saturation (95.0-98.0) % Vent Mode Mechanical Rate FiO2 % Tidal Volume PEEP Crit Value Called To Crit Value Called By Crit Value Read Back Blood Gas Notified Time Sodium (132-148) mmol/L Potassium (3.6-5.2) mmol/L Chloride (98-107) mmol/L Carbon Dioxide (22-30) mmol/L Anion Gap (10-20) BUN (9-20) mg/dL Creatinine (0.8-1.5) mg/dL Est GFR ( Amer) Est GFR (Non-Af Amer) POC Glucose (mg/dL) 203 H (65-110) mg/dL Random Glucose (75-110) mg/dL Lactic Acid (0.7-2.1) mmol/L Calcium (8.6-10.4) mg/dl Phosphorus (2.5-4.5) mg/dL Magnesium (1.6-2.3) mg/dL Total Bilirubin (0.2-1.3) mg/dL AST (17-59) U/L ALT (21-72) U/L Alkaline Phosphatase (38-126) U/L Total Protein (6.3-8.3) g/dL Albumin (3.5-5.0) g/dL Globulin (2.2-3.9) gm/dL Albumin/Globulin Ratio (1.0-2.1) TSH 3rd Generation 3.78 (0.46-4.68) mIU/L Plasma Cortisol PM > 616 H (1.7-14.1) ug/dL Random Vancomycin ug/mL 12/11/17 12/11/17 12/11/17 Range/Units 12:02 12:00 11:11 WBC (4.8-10.8) K/uL RBC (4.40-5.90) Mil/uL Hgb (12.0-18.0) g/dL Hct (35.0-51.0) % MCV (80.0-94.0) fL MCH (27.0-31.0) pg MCHC (33.0-37.0) g/dL RDW (11.5-14.5) % Plt Count (130-400) K/uL MPV (7.2-11.7) fL Neut % (Auto) (50.0-75.0) % Lymph % (Auto) (20.0-40.0) % [place] % (Auto) (0.0-10.0) % Eos % (Auto) (0.0-4.0) % Baso % (Auto) (0.0-2.0) % Neut # (Auto) (1.8-7.0) K/uL Lymph # (Auto) (1.0-4.3) K/uL [place] # (Auto) (0.0-0.8) K/uL Eos # (Auto) (0.0-0.7) K/uL Baso # (Auto) (0.0-0.2) K/uL Neutrophils % (Manual) (50-75) % Band Neutrophils % (0-2) % Lymphocytes % (Manual) (20-40) % Monocytes % (Manual) (0-10) % Toxic Granulation Platelet Estimate (NORMAL) Poikilocytosis (manual Anisocytosis (manual) Macrocytosis (manual) Ovalocytes Viv Cells Puncture Site pCO2 (35-45) mm/Hg pO2 (80-100) mm/Hg HCO3 (21-28) mmol/L ABG pH (7.35-7.45) ABG Total CO2 (22-28) mmol/L ABG O2 Saturation (95-98) % ABG Base Excess (-2.0-3.0) mmol/L ABG Hemoglobin (11.7-17.4) g/dL ABG Carboxyhemoglobin (0.5-1.5) % POC ABG HHb (Measured) (0.0-5.0) % ABG Methemoglobin (0.0-3.0) % Chavez Test A-a O2 Difference mm/Hg Respiratory Index Hgb O2 Saturation (95.0-98.0) % Vent Mode Mechanical Rate FiO2 % Tidal Volume PEEP Crit Value Called To Crit Value Called By Crit Value Read Back Blood Gas Notified Time Sodium (132-148) mmol/L Potassium (3.6-5.2) mmol/L Chloride (98-107) mmol/L Carbon Dioxide (22-30) mmol/L Anion Gap (10-20) BUN (9-20) mg/dL Creatinine (0.8-1.5) mg/dL Est GFR ( Amer) Est GFR (Non-Af Amer) POC Glucose (mg/dL) 66 39 L (65-110) mg/dL Random Glucose (75-110) mg/dL Lactic Acid (0.7-2.1) mmol/L Calcium (8.6-10.4) mg/dl Phosphorus (2.5-4.5) mg/dL Magnesium (1.6-2.3) mg/dL Total Bilirubin (0.2-1.3) mg/dL AST (17-59) U/L ALT (21-72) U/L Alkaline Phosphatase (38-126) U/L Total Protein (6.3-8.3) g/dL Albumin (3.5-5.0) g/dL Globulin (2.2-3.9) gm/dL Albumin/Globulin Ratio (1.0-2.1) TSH 3rd Generation (0.46-4.68) mIU/L Plasma Cortisol PM (1.7-14.1) ug/dL Random Vancomycin 10.5 ug/mL Laboratory Results - last 24 hr 12/11/17 12/11/17 12/11/17 11:11 12:00 12:02 WBC RBC Hgb Hct MCV MCH MCHC RDW Plt Count MPV Neut % (Auto) Lymph % (Auto) [place] % (Auto) Eos % (Auto) Baso % (Auto) Neut # (Auto) Lymph # (Auto) [place] # (Auto) Eos # (Auto) Baso # (Auto) Neutrophils % (Manual) Band Neutrophils % Lymphocytes % (Manual) Monocytes % (Manual) Toxic Granulation Platelet Estimate Poikilocytosis (manual Anisocytosis (manual) Macrocytosis (manual) Ovalocytes Viv Cells Puncture Site pCO2 pO2 HCO3 ABG pH ABG Total CO2 ABG O2 Saturation ABG Base Excess ABG Hemoglobin ABG Carboxyhemoglobin POC ABG HHb (Measured) ABG Methemoglobin [place]avez Test A-a O2 Difference Respiratory Index Hgb O2 Saturation Vent Mode Mechanical Rate FiO2 Tidal Volume PEEP Crit Value Called To Crit Value Called By Crit Value Read Back Blood Gas Notified Time Sodium Potassium Chloride Carbon Dioxide Anion Gap BUN Creatinine Est GFR ( Amer) Est GFR (Non-Af Amer) POC Glucose (mg/dL) 39 L 66 Random Glucose Lactic Acid Calcium Phosphorus Magnesium Total Bilirubin AST ALT Alkaline Phosphatase Total Protein Albumin Globulin Albumin/Globulin Ratio TSH 3rd Generation Plasma Cortisol PM Random Vancomycin 10.5 12/11/17 12/11/17 12/11/17 12:10 15:19 15:19 WBC RBC Hgb Hct MCV MCH MCHC RDW Plt Count MPV Neut % (Auto) Lymph % (Auto) [place] % (Auto) Eos % (Auto) Baso % (Auto) Neut # (Auto) Lymph # (Auto) [place] # (Auto) Eos # (Auto) Baso # (Auto) Neutrophils % (Manual) Band Neutrophils % Lymphocytes % (Manual) Monocytes % (Manual) Toxic Granulation Platelet Estimate Poikilocytosis (manual Anisocytosis (manual) Macrocytosis (manual) Ovalocytes [place] Cells Puncture Site pCO2 pO2 HCO3 ABG pH ABG Total CO2 ABG O2 Saturation ABG Base Excess ABG Hemoglobin ABG Carboxyhemoglobin POC ABG HHb (Measured) ABG Methemoglobin [place] Test A-a O2 Difference Respiratory Index Hgb O2 Saturation Vent Mode Mechanical Rate FiO2 Tidal Volume PEEP Crit Value Called To Crit Value Called By Crit Value Read Back Blood Gas Notified Time Sodium Potassium Chloride Carbon Dioxide Anion Gap BUN Creatinine Est GFR ( Amer) Est GFR (Non-Af Amer) POC Glucose (mg/dL) 203 H Random Glucose Lactic Acid Calcium Phosphorus Magnesium Total Bilirubin AST ALT Alkaline Phosphatase Total Protein Albumin Globulin Albumin/Globulin Ratio TSH 3rd Generation 3.78 Plasma Cortisol PM > 616 H Random Vancomycin 12/11/17 12/11/17 12/11/17 16:10 17:36 19:08 WBC RBC Hgb Hct MCV MCH MCHC RDW Plt Count MPV Neut % (Auto) Lymph % (Auto) [place] % (Auto) Eos % (Auto) Baso % (Auto) Neut # (Auto) Lymph # (Auto) [place] # (Auto) Eos # (Auto) Baso # (Auto) Neutrophils % (Manual) Band Neutrophils % Lymphocytes % (Manual) Monocytes % (Manual) Toxic Granulation Platelet Estimate Poikilocytosis (manual Anisocytosis (manual) Macrocytosis (manual) Ovalocytes [place] Cells Puncture Site pCO2 pO2 HCO3 ABG pH ABG Total CO2 ABG O2 Saturation ABG Base Excess ABG Hemoglobin ABG Carboxyhemoglobin POC ABG HHb (Measured) ABG Methemoglobin [place] Test A-a O2 Difference Respiratory Index Hgb O2 Saturation Vent Mode Mechanical Rate FiO2 Tidal Volume PEEP Crit Value Called To Crit Value Called By Crit Value Read Back Blood Gas Notified Time Sodium Potassium Chloride Carbon Dioxide Anion Gap BUN Creatinine Est GFR ( Amer) Est GFR (Non-Af Amer) POC Glucose (mg/dL) > 500 H* 111 H Random Glucose Lactic Acid 2.8 H Calcium Phosphorus Magnesium Total Bilirubin AST ALT Alkaline Phosphatase Total Protein Albumin Globulin Albumin/Globulin Ratio TSH 3rd Generation Plasma Cortisol PM Random Vancomycin 12/12/17 12/12/17 12/12/17 00:48 00:50 05:21 WBC RBC Hgb Hct MCV MCH MCHC RDW Plt Count MPV Neut % (Auto) Lymph % (Auto) [place] % (Auto) Eos % (Auto) Baso % (Auto) Neut # (Auto) Lymph # (Auto) [place] # (Auto) Eos # (Auto) Baso # (Auto) Neutrophils % (Manual) Band Neutrophils % Lymphocytes % (Manual) Monocytes % (Manual) Toxic Granulation Platelet Estimate Poikilocytosis (manual Anisocytosis (manual) Macrocytosis (manual) Ovalocytes [place] Cells Puncture Site [place] pCO2 27 L pO2 279 H HCO3 11.6 L ABG pH 7.17 L* ABG Total CO2 10.6 L ABG O2 Saturation 100.8 H ABG Base Excess -17.2 L ABG Hemoglobin 11.2 L ABG Carboxyhemoglobin 1.4 POC ABG HHb (Measured) -0.8 L ABG Methemoglobin 0.4 Chavez Test Na A-a O2 Difference 400.0 Respiratory Index 1.4 Hgb O2 Saturation 99.0 H Vent Mode Prvc Mechanical Rate 21 FiO2 100.0 Tidal Volume 550 PEEP 5 Crit Value Called To Latoya mancini rn Crit Value Called By Adeline women's swim coach Crit Value Read Back Y Blood Gas Notified Time 543 Sodium Potassium Chloride Carbon Dioxide Anion Gap BUN Creatinine Est GFR ( Amer) Est GFR (Non-Af Amer) POC Glucose (mg/dL) < 20 L* 78 Random Glucose Lactic Acid Calcium Phosphorus Magnesium Total Bilirubin AST ALT Alkaline Phosphatase Total Protein Albumin Globulin Albumin/Globulin Ratio TSH 3rd Generation Plasma Cortisol PM Random Vancomycin 12/12/17 12/12/17 12/12/17 05:51 05:55 05:59 WBC 22.5 H RBC 3.33 L Hgb 11.4 L Hct 34.2 L MCV 102.7 H MCH 34.1 H MCHC 33.2 RDW 18.8 H Plt Count 45 L MPV 11.1 Neut % (Auto) 98.2 H Lymph % (Auto) 1.0 L [place] % (Auto) 0.6 Eos % (Auto) 0.0 Baso % (Auto) 0.2 Neut # (Auto) 22.0 H Lymph # (Auto) 0.2 L [place] # (Auto) 0.1 Eos # (Auto) 0.0 Baso # (Auto) 0.0 Neutrophils % (Manual) 93 H Band Neutrophils % 5 H Lymphocytes % (Manual) 1 L Monocytes % (Manual) 1 Toxic Granulation Present Platelet Estimate Decreased L Poikilocytosis (manual Slight Anisocytosis (manual) Moderate Macrocytosis (manual) Moderate Ovalocytes Moderate [place] Cells Moderate Puncture Site pCO2 pO2 HCO3 ABG pH ABG Total CO2 ABG O2 Saturation ABG Base Excess ABG Hemoglobin ABG Carboxyhemoglobin POC ABG HHb (Measured) ABG Methemoglobin [place] Test A-a O2 Difference Respiratory Index Hgb O2 Saturation Vent Mode Mechanical Rate FiO2 Tidal Volume PEEP Crit Value Called To Crit Value Called By Crit Value Read Back Blood Gas Notified Time Sodium Potassium Chloride Carbon Dioxide Anion Gap BUN Creatinine Est GFR ( Amer) Est GFR (Non-Af Amer) POC Glucose (mg/dL) 30 L* 52 L Random Glucose Lactic Acid Calcium Phosphorus Magnesium Total Bilirubin AST ALT Alkaline Phosphatase Total Protein Albumin Globulin Albumin/Globulin Ratio TSH 3rd Generation Plasma Cortisol PM Random Vancomycin 12/12/17 12/12/17 12/12/17 06:02 06:02 06:19 WBC RBC Hgb Hct MCV MCH MCHC RDW Plt Count MPV Neut % (Auto) Lymph % (Auto) [place] % (Auto) Eos % (Auto) Baso % (Auto) Neut # (Auto) Lymph # (Auto) [place] # (Auto) Eos # (Auto) Baso # (Auto) Neutrophils % (Manual) Band Neutrophils % Lymphocytes % (Manual) Monocytes % (Manual) Toxic Granulation Platelet Estimate Poikilocytosis (manual Anisocytosis (manual) Macrocytosis (manual) Ovalocytes Viv Cells Puncture Site pCO2 pO2 HCO3 ABG pH ABG Total CO2 ABG O2 Saturation ABG Base Excess ABG Hemoglobin ABG Carboxyhemoglobin POC ABG HHb (Measured) ABG Methemoglobin Chavez Test A-a O2 Difference Respiratory Index Hgb O2 Saturation Vent Mode Mechanical Rate FiO2 Tidal Volume PEEP Crit Value Called To Crit Value Called By Crit Value Read Back Blood Gas Notified Time Sodium 135 Potassium 7.0 H* Chloride 100 Carbon Dioxide 13 L Anion Gap 29 H BUN 145 H* Creatinine 4.1 H Est GFR ( Amer) 17 Est GFR (Non-Af Amer) 14 POC Glucose (mg/dL) 141 H Random Glucose 22 L* D Lactic Acid 3.0 H Calcium 6.5 L Phosphorus 11.3 H Magnesium 3.1 H Total Bilirubin 7.4 H AST 629 H D ALT 148 H D Alkaline Phosphatase 136 H D Total Protein 6.1 L Albumin 2.9 L D Globulin 3.1 Albumin/Globulin Ratio 0.9 L TSH 3rd Generation Plasma Cortisol PM Random Vancomycin Fingerstick Blood Sugar Results: 141 Assessment/Plan - Assessment and Plan (Free Text) Assessment: 77 year old male with PMHx of CKD, CHF, HTN admitted to ICU for evaluation and treatment of Hypotension. Currently on 4 pressors Intubated on 12/10 Plan: Neuro: GCS 9T Sedation: Precedex PRN Cardio A: Hypotension, Chronic End-Stage HF, HLD On Vasopressin/Levophed/Epinephrine/Dopamine Lasix DC'd ASA 81 Crestor Daily A-Line placed yesterday Pulm CXR (12/11): Endotracheal tube extending into the midthoracic trachea. NG tube extending into the stomach. Right central venous catheter extending into the proximal right SVC. Moderate venous congestion. Moderate loculated right pleural effusion. Patchy bibasilar airspace opacities. Cardiomegaly. Intubated on 1 ABG (12/10): 7.40/24/289/18.8 ABG (12/12): 7.17/27/279/11.6 - Started on Bicarb Drip. GI A: Abdominal Distension and Firmness, Elevated LFTs (Likely 2/2 to hypoperfusion ) Abdominal Flat Plate (12/10): Centralization of bowel loops suggestive of Ascites Consider Hepatits Panel. Renal A: CKD, Cardiorenal syndrome, Oligouric, Metabolic Acidosis, Hyperkalemia Avoid Nephrotoxic Agents US confrimed CKD Nephrology on Consulted, Recs Appreciated Urology Consulted,Recs Appreciated Patient will not be able to tolerated Hemodialysis Started on Sodium Bicarb Drip. Insulin, D50, Calcium Gluconate Given Today. 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 S/P Plt Transfusion. Hold Anti-coags. Consider Heme/Onc. Consult HgB stable. ID B/L Lower extremity Cellulitis, Leukocytosis (Improving) Band (improved), Sepsis /Right Lower Lobe PNA. Cont. Doxycycline, Meropenem, and Cefepime Wound Care Normal Lactic Acid today Wound Culture: Staph Epidermis Urine Cultures - NEGATIVE Blood Cultures NEGATIVE Blood Cultures (12/09): NEGATIVE. Sputum Cultures: PENDING Endo D50 PRN Proph SCD contraindicated due to lower extremety ulcers No pharmacological DVT proph due to low Plts. Diet: Nepro Tube feeding. Prognosis is poor. Patient discussed with ICU Attending Emelia Garrison, PGY -1 <Jefferson Ulrich S - Last Filed: 12/12/17 16:49> CCU Objective - Vital Signs / Intake & Output Vital Signs (Last 4 hours): Vital Signs Pulse Resp BP 12/12/17 16:00 86 26 H 55/42 L 12/12/17 15:00 85 25 H 56/43 L 12/12/17 14:00 86 28 H 51/40 L 12/12/17 13:45 50/39 L 12/12/17 13:00 86 27 H 49/39 L Intake and Output (Last 8hrs): Intake & Output 12/12/17 12/12/17 12/12/17 06:59 14:59 22:59 Intake Total 2723.0 2967.9 477.4 Output Total 0 0 Balance 2723.0 2967.9 477.4 Weight 226 lb 9.6 oz Intake: IV 1011 1267 Intake, IV Amount 1502.0 1670.9 477.4 Right Distal Port 522.9 394.1 112.6 Right Medial Port 637.5 525 150 Right Proximal Port 270 435 150 Right medial port y 150 60 Right proximal port y 150 right distal port y 71.6 16.8 4.8 Tube Feeding 210 30 0 Output: Urine 0 0 Urethral (Andersen) 0 0 - Medications Active Medications: Active Medications Generic Name Dose Route Start Last Admin Trade Name Freq PRN Reason Stop Dose Admin Brimonidine Tartrate 0.05 ml 12/03/17 10:00 12/12/17 13:51 Alphagan 0.2% Opht OU 1 drop TID SHAHEED Administration Clotrimazole 0 gm 12/08/17 10:00 12/12/17 09:19 Lotrimin 1% TOP 1 applic BID SHAHEED Administration Dextrose 0 ml 12/06/17 09:06 12/12/17 05:57 Dextrose 50% Inj IVP 50 ml .STAT PRN Administration Hypoglycemia Protocol Protocol Dextrose 0 gm 12/06/17 09:06 Glutose 15 PO .ONCE PRN Hypoglycemia Protocol Protocol Docusate Sodium 100 mg 12/03/17 04:34 Colace PO BID PRN Constipation Dorzolamide HCl 0.05 ml 12/03/17 10:00 12/12/17 09:17 Trusopt OU 1 drop AMPM SHAHEED Administration Glucagon 0 mg 12/06/17 09:06 Glucagen Diagnostic Kit IM .STAT PRN Hypoglycemia Protocol Protocol Hydrocortisone Sodium Succinate 100 mg 12/08/17 04:30 12/12/17 11:42 Solu-Cortef IV 100 mg Q8H SHAHEED Administration Norepinephrine Bitartrate 8 mg 258 mls @ 7.74 mls/hr 12/07/17 17:47 12/12/17 13:45 / Dextrose IV 30 mcg/min .Q24H PRN 58.05 mls/hr TITRATE PER MD ORDER Administration Protocol 4 MCG/MIN Vasopressin 40 units/ Sodium 42 mls @ 2.52 mls/hr 12/07/17 20:45 12/12/17 05: 44 Chloride IV 0.04 units/min .[id number] SHAHEED 2.52 mls/hr Protocol Administration 0.04 UNITS/MIN Dexmedetomidine HCl 200 mcg/ 50 mls @ 5.14 mls/hr 12/10/17 21:39 12/11/17 03: 30 Sodium Chloride IV 0 mcg/kg/hr TITR PRN 0 mls/hr Agitation Titration Protocol 0.2 MCG/KG/HR Cefepime HCl 1 gm in 50 mls @ 100 mls/hr 12/10/17 22:30 12/12/17 09:31 Maxipime Iv 1 Gm Premix IVPB 100 mls/hr Q12H SHAHEED Administration Protocol Doxycycline Hyclate 100 mg/ 100 mls @ 100 mls/hr 12/10/17 22:45 12/12/17 10: 19 Sodium Chloride IVPB 100 mls/hr Q12H SHAHEED Administration Protocol Dopamine HCl/Dextrose 400 mg in 250 mls @ 7.725 mls/hr 12/11/17 03:16 13:45 Dopamine 400mg/250ml D5w IV 20 mcg/kg/min .Q24H PRN 77.246 mls/hr TITRATE PER MD ORDER Administration Protocol 2 MCG/KG/MIN Epinephrine HCl 1 mg/ Sodium 251 mls @ 30.12 mls/hr 12/11/17 18:09 12/12/17 11:15 Chloride IV 2 mcg/min .[id number] PRN 30.12 mls/hr TITRATE PER MD ORDER Administration Protocol 2 MCG/MIN Sodium Bicarbonate 100 meq/ 1,100 mls @ 75 mls/hr 12/12/17 09:30 12/12/17 10: 19 Dextrose/Sodium Chloride IV 75 mls/hr .[id number] SHAHEED Administration Insulin Aspart 0 unit 12/11/17 16:30 12/12/17 11:39 Novolog SC Not Given Q6 [facility] Protocol Latanoprost 0.05 ml 12/03/17 22:00 12/11/17 21:04 Xalatan Opht OU 0.05 ml HS SHAHEED Administration Multivitamins/Minerals 1 tab 12/08/17 08:00 12/12/17 08:01 Therapeutic-M Tab PO Not Given 0800 SHAHEED Pantoprazole Sodium 40 mg 12/10/17 22:00 12/12/17 09:31 Protonix Inj IVP 40 mg Q12H SHAHEED Administration Rosuvastatin Calcium 10 mg 12/05/17 22:00 12/11/17 21:04 Crestor PO 10 mg HS SHAHEED Administration Sodium Bicarbonate 650 mg 12/11/17 18:00 12/12/17 11:42 Sodium Bicarbonate Tab NG 650 mg Q6 SHAHEED Administration - Patient Studies Lab Studies: Microbiology Studies 12/07/17 13:40 Blood Culture - Final Blood-Venous NO GROWTH AFTER 5 DAYS Gram Stain - Final TEST NOT PERFORMED 12/07/17 13:40 Blood Culture - Final Blood-Venous NO GROWTH AFTER 5 DAYS Gram Stain - Final TEST NOT PERFORMED 12/09/17 12:37 Blood Culture - Preliminary Blood NO GROWTH AFTER 3 DAYS 12/09/17 10:30 Blood Culture - Preliminary Blood NO GROWTH AFTER 3 DAYS 12/11/17 22:46 Gram Stain - Preliminary Trachasp Lab Studies 12/12/17 12/12/17 12/12/17 Range/Units 12:43 11:19 11:16 WBC (4.8-10.8) K/uL RBC (4.40-5.90) Mil/uL Hgb (12.0-18.0) g/dL Hct (35.0-51.0) % MCV (80.0-94.0) fL MCH (27.0-31.0) pg MCHC (33.0-37.0) g/dL RDW (11.5-14.5) % Plt Count (130-400) K/uL MPV (7.2-11.7) fL Neut % (Auto) (50.0-75.0) % Lymph % (Auto) (20.0-40.0) % [place] % (Auto) (0.0-10.0) % Eos % (Auto) (0.0-4.0) % Baso % (Auto) (0.0-2.0) % Neut # (Auto) (1.8-7.0) K/uL Lymph # (Auto) (1.0-4.3) K/uL [place] # (Auto) (0.0-0.8) K/uL Eos # (Auto) (0.0-0.7) K/uL Baso # (Auto) (0.0-0.2) K/uL Neutrophils % (Manual) (50-75) % Band Neutrophils % (0-2) % Lymphocytes % (Manual) (20-40) % Monocytes % (Manual) (0-10) % Toxic Granulation Platelet Estimate (NORMAL) Poikilocytosis (manual Anisocytosis (manual) Macrocytosis (manual) Ovalocytes Viv Cells Puncture Site pCO2 (35-45) mm/Hg pO2 (80-100) mm/Hg HCO3 (21-28) mmol/L ABG pH (7.35-7.45) ABG Total CO2 (22-28) mmol/L ABG O2 Saturation (95-98) % ABG Base Excess (-2.0-3.0) mmol/L ABG Hemoglobin (11.7-17.4) g/dL ABG Carboxyhemoglobin (0.5-1.5) % POC ABG HHb (Measured) (0.0-5.0) % ABG Methemoglobin (0.0-3.0) % Chavez Test A-a O2 Difference mm/Hg Respiratory Index Hgb O2 Saturation (95.0-98.0) % Vent Mode Mechanical Rate FiO2 % Tidal Volume PEEP Crit Value Called To Crit Value Called By Crit Value Read Back Blood Gas Notified Time Sodium 130 L (132-148) mmol/L Potassium 6.6 H* (3.6-5.2) mmol/L Chloride 98 (98-107) mmol/L Carbon Dioxide 14 L (22-30) mmol/L Anion Gap 25 H (10-20) BUN 146 H* (9-20) mg/dL Creatinine 3.9 H (0.8-1.5) mg/dL Est GFR ( Amer) 18 Est GFR (Non-Af Amer) 15 POC Glucose (mg/dL) 124 H < 20 L* (65-110) mg/dL Random Glucose 71 L (75-110) mg/dL Lactic Acid (0.7-2.1) mmol/L Calcium 6.7 L (8.6-10.4) mg/dl Phosphorus (2.5-4.5) mg/dL Magnesium (1.6-2.3) mg/dL Total Bilirubin (0.2-1.3) mg/dL AST (17-59) U/L ALT (21-72) U/L Alkaline Phosphatase (38-126) U/L Total Protein (6.3-8.3) g/dL Albumin (3.5-5.0) g/dL Globulin (2.2-3.9) gm/dL Albumin/Globulin Ratio (1.0-2.1) Plasma Cortisol PM (1.7-14.1) ug/dL 12/12/17 12/12/17 12/12/17 Range/Units 06:19 06:02 06:02 WBC (4.8-10.8) K/uL RBC (4.40-5.90) Mil/uL Hgb (12.0-18.0) g/dL Hct (35.0-51.0) % MCV (80.0-94.0) fL MCH (27.0-31.0) pg MCHC (33.0-37.0) g/dL RDW (11.5-14.5) % Plt Count (130-400) K/uL MPV (7.2-11.7) fL Neut % (Auto) (50.0-75.0) % Lymph % (Auto) (20.0-40.0) % [place] % (Auto) (0.0-10.0) % Eos % (Auto) (0.0-4.0) % Baso % (Auto) (0.0-2.0) % Neut # (Auto) (1.8-7.0) K/uL Lymph # (Auto) (1.0-4.3) K/uL [place] # (Auto) (0.0-0.8) K/uL Eos # (Auto) (0.0-0.7) K/uL Baso # (Auto) (0.0-0.2) K/uL Neutrophils % (Manual) (50-75) % Band Neutrophils % (0-2) % Lymphocytes % (Manual) (20-40) % Monocytes % (Manual) (0-10) % Toxic Granulation Platelet Estimate (NORMAL) Poikilocytosis (manual Anisocytosis (manual) Macrocytosis (manual) Ovalocytes [place] Cells Puncture Site pCO2 (35-45) mm/Hg pO2 (80-100) mm/Hg HCO3 (21-28) mmol/L ABG pH (7.35-7.45) ABG Total CO2 (22-28) mmol/L ABG O2 Saturation (95-98) % ABG Base Excess (-2.0-3.0) mmol/L ABG Hemoglobin (11.7-17.4) g/dL ABG Carboxyhemoglobin (0.5-1.5) % POC ABG HHb (Measured) (0.0-5.0) % ABG Methemoglobin (0.0-3.0) % Chavez Test A-a O2 Difference mm/Hg Respiratory Index Hgb O2 Saturation (95.0-98.0) % Vent Mode Mechanical Rate FiO2 % Tidal Volume PEEP Crit Value Called To Crit Value Called By Crit Value Read Back Blood Gas Notified Time Sodium 135 (132-148) mmol/L Potassium 7.0 H* (3.6-5.2) mmol/L Chloride 100 (98-107) mmol/L Carbon Dioxide 13 L (22-30) mmol/L Anion Gap 29 H (10-20) BUN 145 H* (9-20) mg/dL Creatinine 4.1 H (0.8-1.5) mg/dL Est GFR ( Amer) 17 Est GFR (Non-Af Amer) 14 POC Glucose (mg/dL) 141 H (65-110) mg/dL Random Glucose 22 L* D (75-110) mg/dL Lactic Acid 3.0 H (0.7-2.1) mmol/L Calcium 6.5 L (8.6-10.4) mg/dl Phosphorus 11.3 H (2.5-4.5) mg/dL Magnesium 3.1 H (1.6-2.3) mg/dL Total Bilirubin 7.4 H (0.2-1.3) mg/dL AST 629 H D (17-59) U/L ALT 148 H D (21-72) U/L Alkaline Phosphatase 136 H D (38-126) U/L Total Protein 6.1 L (6.3-8.3) g/dL Albumin 2.9 L D (3.5-5.0) g/dL Globulin 3.1 (2.2-3.9) gm/dL Albumin/Globulin Ratio 0.9 L (1.0-2.1) Plasma Cortisol PM (1.7-14.1) ug/dL 12/12/1718 12/12/17 Range/Units 05:59 05:55 05:51 WBC 22.5 H (4.8-10.8) K/uL RBC 3.33 L (4.40-5.90) Mil/uL Hgb 11.4 L (12.0-18.0) g/dL Hct 34.2 L (35.0-51.0) % MCV 102.7 H (80.0-94.0) fL MCH 34.1 H (27.0-31.0) pg MCHC 33.2 (33.0-37.0) g/dL RDW 18.8 H (11.5-14.5) % Plt Count 45 L (130-400) K/uL MPV 11.1 (7.2-11.7) fL Neut % (Auto) 98.2 H (50.0-75.0) % Lymph % (Auto) 1.0 L (20.0-40.0) % [place] % (Auto) 0.6 (0.0-10.0) % Eos % (Auto) 0.0 (0.0-4.0) % Baso % (Auto) 0.2 (0.0-2.0) % Neut # (Auto) 22.0 H (1.8-7.0) K/uL Lymph # (Auto) 0.2 L (1.0-4.3) K/uL [place] # (Auto) 0.1 (0.0-0.8) K/uL Eos # (Auto) 0.0 (0.0-0.7) K/uL Baso # (Auto) 0.0 (0.0-0.2) K/uL Neutrophils % (Manual) 93 H (50-75) % Band Neutrophils % 5 H (0-2) % Lymphocytes % (Manual) 1 L (20-40) % Monocytes % (Manual) 1 (0-10) % Toxic Granulation Present Platelet Estimate Decreased L (NORMAL) Poikilocytosis (manual Slight Anisocytosis (manual) Moderate Macrocytosis (manual) Moderate Ovalocytes Moderate [place] Cells Moderate Puncture Site pCO2 (35-45) mm/Hg pO2 (80-100) mm/Hg HCO3 (21-28) mmol/L ABG pH (7.35-7.45) ABG Total CO2 (22-28) mmol/L ABG O2 Saturation (95-98) % ABG Base Excess (-2.0-3.0) mmol/L ABG Hemoglobin (11.7-17.4) g/dL ABG Carboxyhemoglobin (0.5-1.5) % POC ABG HHb (Measured) (0.0-5.0) % ABG Methemoglobin (0.0-3.0) % Chavez Test A-a O2 Difference mm/Hg Respiratory Index Hgb O2 Saturation (95.0-98.0) % Vent Mode Mechanical Rate FiO2 % Tidal Volume PEEP Crit Value Called To Crit Value Called By Crit Value Read Back Blood Gas Notified Time Sodium (132-148) mmol/L Potassium (3.6-5.2) mmol/L Chloride (98-107) mmol/L Carbon Dioxide (22-30) mmol/L Anion Gap (10-20) BUN (9-20) mg/dL Creatinine (0.8-1.5) mg/dL Est GFR ( Amer) Est GFR (Non-Af Amer) POC Glucose (mg/dL) 52 L 30 L* (65-110) mg/dL Random Glucose (75-110) mg/dL Lactic Acid (0.7-2.1) mmol/L Calcium (8.6-10.4) mg/dl Phosphorus (2.5-4.5) mg/dL Magnesium (1.6-2.3) mg/dL Total Bilirubin (0.2-1.3) mg/dL AST (17-59) U/L ALT (21-72) U/L Alkaline Phosphatase (38-126) U/L Total Protein (6.3-8.3) g/dL Albumin (3.5-5.0) g/dL Globulin (2.2-3.9) gm/dL Albumin/Globulin Ratio (1.0-2.1) Plasma Cortisol PM (1.7-14.1) ug/dL 12/12/17 12/12/17 12/12/17 Range/Units 05:21 00:50 00:48 WBC (4.8-10.8) K/uL RBC (4.40-5.90) Mil/uL Hgb (12.0-18.0) g/dL Hct (35.0-51.0) % MCV (80.0-94.0) fL MCH (27.0-31.0) pg MCHC (33.0-37.0) g/dL RDW (11.5-14.5) % Plt Count (130-400) K/uL MPV (7.2-11.7) fL Neut % (Auto) (50.0-75.0) % Lymph % (Auto) (20.0-40.0) % [place] % (Auto) (0.0-10.0) % Eos % (Auto) (0.0-4.0) % Baso % (Auto) (0.0-2.0) % Neut # (Auto) (1.8-7.0) K/uL Lymph # (Auto) (1.0-4.3) K/uL [place] # (Auto) (0.0-0.8) K/uL Eos # (Auto) (0.0-0.7) K/uL Baso # (Auto) (0.0-0.2) K/uL Neutrophils % (Manual) (50-75) % Band Neutrophils % (0-2) % Lymphocytes % (Manual) (20-40) % Monocytes % (Manual) (0-10) % Toxic Granulation Platelet Estimate (NORMAL) Poikilocytosis (manual Anisocytosis (manual) Macrocytosis (manual) Ovalocytes Viv Cells Puncture Site [place] pCO2 27 L (35-45) mm/Hg pO2 279 H (80-100) mm/Hg HCO3 11.6 L (21-28) mmol/L ABG pH 7.17 L* (7.35-7.45) ABG Total CO2 10.6 L (22-28) mmol/L ABG O2 Saturation 100.8 H (95-98) % ABG Base Excess -17.2 L (-2.0-3.0) mmol/L ABG Hemoglobin 11.2 L (11.7-17.4) g/dL ABG Carboxyhemoglobin 1.4 (0.5-1.5) % POC ABG HHb (Measured) -0.8 L (0.0-5.0) % ABG Methemoglobin 0.4 (0.0-3.0) % Chavez Test Na A-a O2 Difference 400.0 mm/Hg Respiratory Index 1.4 Hgb O2 Saturation 99.0 H (95.0-98.0) % Vent Mode Prvc Mechanical Rate 21 FiO2 100.0 % Tidal Volume 550 PEEP 5 Crit Value Called To Latoya mancini rn Crit Value Called By Adeline women's swim coach Crit Value Read Back Y Blood Gas Notified Time 543 Sodium (132-148) mmol/L Potassium (3.6-5.2) mmol/L Chloride (98-107) mmol/L Carbon Dioxide (22-30) mmol/L Anion Gap (10-20) BUN (9-20) mg/dL Creatinine (0.8-1.5) mg/dL Est GFR ( Amer) Est GFR (Non-Af Amer) POC Glucose (mg/dL) 78 < 20 L* (65-110) mg/dL Random Glucose (75-110) mg/dL Lactic Acid (0.7-2.1) mmol/L Calcium (8.6-10.4) mg/dl Phosphorus (2.5-4.5) mg/dL Magnesium (1.6-2.3) mg/dL Total Bilirubin (0.2-1.3) mg/dL AST (17-59) U/L ALT (21-72) U/L Alkaline Phosphatase (38-126) U/L Total Protein (6.3-8.3) g/dL Albumin (3.5-5.0) g/dL Globulin (2.2-3.9) gm/dL Albumin/Globulin Ratio (1.0-2.1) Plasma Cortisol PM (1.7-14.1) ug/dL 12/11/17 12/11/17 12/11/17 Range/Units 19:08 17:36 15:19 WBC (4.8-10.8) K/uL RBC (4.40-5.90) Mil/uL Hgb (12.0-18.0) g/dL Hct (35.0-51.0) % MCV (80.0-94.0) fL MCH (27.0-31.0) pg MCHC (33.0-37.0) g/dL RDW (11.5-14.5) % Plt Count (130-400) K/uL MPV (7.2-11.7) fL Neut % (Auto) (50.0-75.0) % Lymph % (Auto) (20.0-40.0) % [place] % (Auto) (0.0-10.0) % Eos % (Auto) (0.0-4.0) % Baso % (Auto) (0.0-2.0) % Neut # (Auto) (1.8-7.0) K/uL Lymph # (Auto) (1.0-4.3) K/uL [place] # (Auto) (0.0-0.8) K/uL Eos # (Auto) (0.0-0.7) K/uL Baso # (Auto) (0.0-0.2) K/uL Neutrophils % (Manual) (50-75) % Band Neutrophils % (0-2) % Lymphocytes % (Manual) (20-40) % Monocytes % (Manual) (0-10) % Toxic Granulation Platelet Estimate (NORMAL) Poikilocytosis (manual Anisocytosis (manual) Macrocytosis (manual) Ovalocytes Viv Cells Puncture Site pCO2 (35-45) mm/Hg pO2 (80-100) mm/Hg HCO3 (21-28) mmol/L ABG pH (7.35-7.45) ABG Total CO2 (22-28) mmol/L ABG O2 Saturation (95-98) % ABG Base Excess (-2.0-3.0) mmol/L ABG Hemoglobin (11.7-17.4) g/dL ABG Carboxyhemoglobin (0.5-1.5) % POC ABG HHb (Measured) (0.0-5.0) % ABG Methemoglobin (0.0-3.0) % Chavez Test A-a O2 Difference mm/Hg Respiratory Index Hgb O2 Saturation (95.0-98.0) % Vent Mode Mechanical Rate FiO2 % Tidal Volume PEEP Crit Value Called To Crit Value Called By Crit Value Read Back Blood Gas Notified Time Sodium (132-148) mmol/L Potassium (3.6-5.2) mmol/L Chloride (98-107) mmol/L Carbon Dioxide (22-30) mmol/L Anion Gap (10-20) BUN (9-20) mg/dL Creatinine (0.8-1.5) mg/dL Est GFR ( Amer) Est GFR (Non-Af Amer) POC Glucose (mg/dL) 111 H (65-110) mg/dL Random Glucose (75-110) mg/dL Lactic Acid 2.8 H (0.7-2.1) mmol/L Calcium (8.6-10.4) mg/dl Phosphorus (2.5-4.5) mg/dL Magnesium (1.6-2.3) mg/dL Total Bilirubin (0.2-1.3) mg/dL AST (17-59) U/L ALT (21-72) U/L Alkaline Phosphatase (38-126) U/L Total Protein (6.3-8.3) g/dL Albumin (3.5-5.0) g/dL Globulin (2.2-3.9) gm/dL Albumin/Globulin Ratio (1.0-2.1) Plasma Cortisol PM > 616 H (1.7-14.1) ug/dL Laboratory Results - last 24 hr 12/11/17 12/11/17 12/11/17 15:19 17:36 19:08 WBC RBC Hgb Hct MCV MCH MCHC RDW Plt Count MPV Neut % (Auto) Lymph % (Auto) [place] % (Auto) Eos % (Auto) Baso % (Auto) Neut # (Auto) Lymph # (Auto) [place] # (Auto) Eos # (Auto) Baso # (Auto) Neutrophils % (Manual) Band Neutrophils % Lymphocytes % (Manual) Monocytes % (Manual) Toxic Granulation Platelet Estimate Poikilocytosis (manual Anisocytosis (manual) Macrocytosis (manual) Ovalocytes [place] Cells Puncture Site pCO2 pO2 HCO3 ABG pH ABG Total CO2 ABG O2 Saturation ABG Base Excess ABG Hemoglobin ABG Carboxyhemoglobin POC ABG HHb (Measured) ABG Methemoglobin [place]avez Test A-a O2 Difference Respiratory Index Hgb O2 Saturation Vent Mode Mechanical Rate FiO2 Tidal Volume PEEP Crit Value Called To Crit Value Called By Crit Value Read Back Blood Gas Notified Time Sodium Potassium Chloride Carbon Dioxide Anion Gap BUN Creatinine Est GFR ( Amer) Est GFR (Non-Af Amer) POC Glucose (mg/dL) 111 H Random Glucose Lactic Acid 2.8 H Calcium Phosphorus Magnesium Total Bilirubin AST ALT Alkaline Phosphatase Total Protein Albumin Globulin Albumin/Globulin Ratio Plasma Cortisol PM > 616 H 12/12/17 12/12/17 12/12/17 00:48 00:50 05:21 WBC RBC Hgb Hct MCV MCH MCHC RDW Plt Count MPV Neut % (Auto) Lymph % (Auto) [place] % (Auto) Eos % (Auto) Baso % (Auto) Neut # (Auto) Lymph # (Auto) [place] # (Auto) Eos # (Auto) Baso # (Auto) Neutrophils % (Manual) Band Neutrophils % Lymphocytes % (Manual) Monocytes % (Manual) Toxic Granulation Platelet Estimate Poikilocytosis (manual Anisocytosis (manual) Macrocytosis (manual) Ovalocytes Viv Cells Puncture Site [place] pCO2 27 L pO2 279 H HCO3 11.6 L ABG pH 7.17 L* ABG Total CO2 10.6 L ABG O2 Saturation 100.8 H ABG Base Excess -17.2 L ABG Hemoglobin 11.2 L ABG Carboxyhemoglobin 1.4 POC ABG HHb (Measured) -0.8 L ABG Methemoglobin 0.4 [place]avez Test Na A-a O2 Difference 400.0 Respiratory Index 1.4 Hgb O2 Saturation 99.0 H Vent Mode Prvc Mechanical Rate 21 FiO2 100.0 [place] Volume 550 PEEP 5 Crit Value Called To Latoya mancini rn Crit Value Called By Adeline women's swim coach Crit Value Read Back Y Blood Gas Notified Time 543 Sodium Potassium Chloride Carbon Dioxide Anion Gap BUN Creatinine Est GFR ( Amer) Est GFR (Non-Af Amer) POC Glucose (mg/dL) < 20 L* 78 Random Glucose Lactic Acid Calcium Phosphorus Magnesium Total Bilirubin AST ALT Alkaline Phosphatase Total Protein Albumin Globulin Albumin/Globulin Ratio Plasma Cortisol PM 12/12/17 12/12/17 12/12/17 05:51 05:55 05:59 WBC 22.5 H RBC 3.33 L Hgb 11.4 L Hct 34.2 L MCV 102.7 H MCH 34.1 H MCHC 33.2 RDW 18.8 H Plt Count 45 L MPV 11.1 Neut % (Auto) 98.2 H Lymph % (Auto) 1.0 L [place] % (Auto) 0.6 Eos % (Auto) 0.0 Baso % (Auto) 0.2 Neut # (Auto) 22.0 H Lymph # (Auto) 0.2 L [place] # (Auto) 0.1 Eos # (Auto) 0.0 Baso # (Auto) 0.0 Neutrophils % (Manual) 93 H Band Neutrophils % 5 H Lymphocytes % (Manual) 1 L Monocytes % (Manual) 1 Toxic Granulation Present Platelet Estimate Decreased L Poikilocytosis (manual Slight Anisocytosis (manual) Moderate Macrocytosis (manual) Moderate Ovalocytes Moderate Viv Cells Moderate Puncture Site pCO2 pO2 HCO3 ABG pH ABG Total CO2 ABG O2 Saturation ABG Base Excess ABG Hemoglobin ABG Carboxyhemoglobin POC ABG HHb (Measured) ABG Methemoglobin [place] Test A-a O2 Difference Respiratory Index Hgb O2 Saturation Vent Mode Mechanical Rate FiO2 [place] Volume PEEP Crit Value Called To Crit Value Called By Crit Value Read Back Blood Gas Notified Time Sodium Potassium Chloride Carbon Dioxide Anion Gap BUN Creatinine Est GFR ( Amer) Est GFR (Non-Af Amer) POC Glucose (mg/dL) 30 L* 52 L Random Glucose Lactic Acid Calcium Phosphorus Magnesium Total Bilirubin AST ALT Alkaline Phosphatase Total Protein Albumin Globulin Albumin/Globulin Ratio Plasma Cortisol PM 12/12/17 12/12/17 12/12/17 06:02 06:02 06:19 WBC RBC Hgb Hct MCV MCH MCHC RDW Plt Count MPV Neut % (Auto) Lymph % (Auto) [place] % (Auto) Eos % (Auto) Baso % (Auto) Neut # (Auto) Lymph # (Auto) [place] # (Auto) Eos # (Auto) Baso # (Auto) Neutrophils % (Manual) Band Neutrophils % Lymphocytes % (Manual) Monocytes % (Manual) Toxic Granulation Platelet Estimate Poikilocytosis (manual Anisocytosis (manual) Macrocytosis (manual) Ovalocytes Viv Cells Puncture Site pCO2 pO2 HCO3 ABG pH ABG Total CO2 ABG O2 Saturation ABG Base Excess ABG Hemoglobin ABG Carboxyhemoglobin POC ABG HHb (Measured) ABG Methemoglobin [place] Test A-a O2 Difference Respiratory Index Hgb O2 Saturation Vent Mode Mechanical Rate FiO2 Tidal Volume PEEP Crit Value Called To Crit Value Called By Crit Value Read Back Blood Gas Notified Time Sodium 135 Potassium 7.0 H* Chloride 100 Carbon Dioxide 13 L Anion Gap 29 H BUN 145 H* Creatinine 4.1 H Est GFR ( Amer) 17 Est GFR (Non-Af Amer) 14 POC Glucose (mg/dL) 141 H Random Glucose 22 L* D Lactic Acid 3.0 H Calcium 6.5 L Phosphorus 11.3 H Magnesium 3.1 H Total Bilirubin 7.4 H AST 629 H D ALT 148 H D Alkaline Phosphatase 136 H D Total Protein 6.1 L Albumin 2.9 L D Globulin 3.1 Albumin/Globulin Ratio 0.9 L Plasma Cortisol PM 12/12/17 12/12/17 12/12/17 11:16 11:19 12:43 WBC RBC Hgb Hct MCV MCH MCHC RDW Plt Count MPV Neut % (Auto) Lymph % (Auto) [place] % (Auto) Eos % (Auto) Baso % (Auto) Neut # (Auto) Lymph # (Auto) [place] # (Auto) Eos # (Auto) Baso # (Auto) Neutrophils % (Manual) Band Neutrophils % Lymphocytes % (Manual) Monocytes % (Manual) Toxic Granulation Platelet Estimate Poikilocytosis (manual Anisocytosis (manual) Macrocytosis (manual) Ovalocytes Viv Cells Puncture Site pCO2 pO2 HCO3 ABG pH ABG Total CO2 ABG O2 Saturation ABG Base Excess ABG Hemoglobin ABG Carboxyhemoglobin POC ABG HHb (Measured) ABG Methemoglobin Chavez Test A-a O2 Difference Respiratory Index Hgb O2 Saturation Vent Mode Mechanical Rate FiO2 Tidal Volume PEEP Crit Value Called To Crit Value Called By Crit Value Read Back Blood Gas Notified Time Sodium 130 L Potassium 6.6 H* Chloride 98 Carbon Dioxide 14 L Anion Gap 25 H BUN 146 H* Creatinine 3.9 H Est GFR ( Amer) 18 Est GFR (Non-Af Amer) 15 POC Glucose (mg/dL) < 20 L* 124 H Random Glucose 71 L Lactic Acid Calcium 6.7 L Phosphorus Magnesium Total Bilirubin AST ALT Alkaline Phosphatase Total Protein Albumin Globulin Albumin/Globulin Ratio Plasma Cortisol PM Attending/Attestation - Attestation I have personally seen and examined this patient.: Yes I have fully participated in the care of the patient.: Yes I have reviewed all pertinent clinical information: Yes Notes (Text): 12/12/17 16:48 Patient seen and examined in the intensive care unit. Case discussed with house staff in the morning. No response to tactile stimuli On ventilator support Hypotensive on 4 pressors Family signed DNR Prognosis poor
--- NOTE | 2017-12-12 12:04 | CP.PCM.PN ---
Subjective - Date & Time of Evaluation Date of Evaluation: 12/12/17 Time of Evaluation: 12:01 - Subjective Subjective: Seen earlier; now on 4 pressors- maxed out Anuric, less responsive Azotemia and hyperkalemia worsening- despite treatment Explained to brother that dialysis cannot be performed due to severe hypotension Objective - Vital Signs/Intake and Output Vital Signs (last 24 hours): Temp Pulse Resp BP Pulse Ox 97 F L 80 28 H 55/40 L 68 L 12/12/17 04:00 12/12/17 11:00 12/12/17 11:00 12/12/17 11:00 12/12/17 11:00 Intake and Output: 12/12/17 12/12/17 06:59 18:59 Intake Total 3959.6 1713.8 Output Total 0 0 Balance 3959.6 1713.8 - Medications Medications: Current Medications Brimonidine Tartrate (Alphagan 0.2% Opht) 0.05 ml OU TID [facility] Last Admin: 12/12/17 09:18 Dose: 1 drop Clotrimazole (Lotrimin 1%) 0 gm TOP BID [facility] Last Admin: 12/12/17 09:19 Dose: 1 applic Dextrose (Dextrose 50% Inj) 0 ml IVP .STAT PRN; Protocol PRN Reason: Hypoglycemia Protocol Last Admin: 12/12/17 05:57 Dose: 50 ml Dextrose (Glutose 15) 0 gm PO .ONCE PRN; Protocol PRN Reason: Hypoglycemia Protocol Docusate Sodium (Colace) 100 mg PO BID PRN PRN Reason: Constipation Dorzolamide HCl (Trusopt) 0.05 ml OU AMPM [facility] Last Admin: 12/12/17 09:17 Dose: 1 drop Glucagon (Glucagen Diagnostic Kit) 0 mg IM .STAT PRN; Protocol PRN Reason: Hypoglycemia Protocol Hydrocortisone Sodium Succinate (Solu-Cortef) 100 mg IV Q8H [facility] Last Admin: 12/12/17 11:42 Dose: 100 mg Norepinephrine Bitartrate 8 mg (/ Dextrose) 258 mls @ 7.74 mls/hr IV .Q24H PRN ; Protocol; 4 MCG/MIN PRN Reason: TITRATE PER MD ORDER Last Admin: 12/12/17 08:32 Dose: 30 mcg/min, 58.05 mls/hr Vasopressin 40 units/ Sodium (Chloride) 42 mls @ 2.52 mls/hr IV .[id number] SHAHEED; 0.04 UNITS/MIN PRN Reason: Protocol Last Admin: 12/12/17 05:44 Dose: 0.04 units/min, 2.52 mls/hr Dexmedetomidine HCl 200 mcg/ (Sodium Chloride) 50 mls @ 5.14 mls/hr IV TITR PRN ; Protocol; 0.2 MCG/KG/HR PRN Reason: Agitation Last Titration: 12/11/17 03:30 Dose: 0 mcg/kg/hr, 0 mls/hr Cefepime HCl (Maxipime Iv 1 Gm Premix) 1 gm in 50 mls @ 100 mls/hr IVPB Q12H [facility] PRN Reason: Protocol Last Admin: 12/12/17 09:31 Dose: 100 mls/hr Doxycycline Hyclate 100 mg/ (Sodium Chloride) 100 mls @ 100 mls/hr IVPB Q12H [facility] PRN Reason: Protocol Last Admin: 12/12/17 10:19 Dose: 100 mls/hr Dopamine HCl/Dextrose (Dopamine 400mg/250ml D5w) 400 mg in 250 mls @ 7.725 mls/ hr IV .Q24H PRN; Protocol; 2 MCG/KG/MIN PRN Reason: TITRATE PER MD ORDER Last Admin: 12/12/17 08:34 Dose: 20 mcg/kg/min, 77.246 mls/hr Epinephrine HCl 1 mg/ Sodium (Chloride) 251 mls @ 30.12 mls/hr IV .Q8H20M PRN; Protocol; 2 MCG/MIN PRN Reason: TITRATE PER MD ORDER Last Admin: 12/12/17 11:15 Dose: 2 mcg/min, 30.12 mls/hr Sodium Bicarbonate 100 meq/ (Dextrose/Sodium Chloride) 1,100 mls @ 75 mls/hr IV .[id number] [facility] Last Admin: 12/12/17 10:19 Dose: 75 mls/hr Insulin Aspart (Novolog) 0 unit SC Q6 [facility]ED PRN Reason: Protocol Last Admin: 12/12/17 11:39 Dose: Not Given Latanoprost (Xalatan Opht) 0.05 ml OU HS [facility] Last Admin: 12/11/17 21:04 Dose: 0.05 ml Multivitamins/Minerals (Therapeutic-M Tab) 1 tab PO 0800 [facility] Last Admin: 12/12/17 08:01 Dose: Not Given Pantoprazole Sodium (Protonix Inj) 40 mg IVP Q12H [facility] Last Admin: 12/12/17 09:31 Dose: 40 mg Rosuvastatin Calcium (Crestor) 10 mg PO HS [facility] Last Admin: 12/11/17 21:04 Dose: 10 mg Sodium Bicarbonate (Sodium Bicarbonate Tab) 650 mg NG Q6 [facility] Last Admin: 12/12/17 11:42 Dose: 650 mg - Labs Labs: 12/12/17 05:59 12/12/17 06:02 - Constitutional Appears: Toxic, In Acute Distress, Chronically Ill - Head Exam Head Exam: ATRAUMATIC, NORMAL INSPECTION - Eye Exam Pupil Exam: Fixed - Neck Exam Neck Exam: Normal Inspection. absent: Tenderness - Respiratory Exam Respiratory Exam: Rhonchi, Respiratory Distress - Cardiovascular Exam Cardiovascular Exam: Tachycardia, +S1 - GI/Abdominal Exam GI & Abdominal Exam: Distended - Extremities Exam Extremities Exam: Joint Swelling, Pedal Edema - Neurological Exam Neurological Exam: Altered - Skin Skin Exam: Dry, Warm Assessment and Plan (1) Hyperkalemia Status: Acute (2) Cardiorenal disease Status: Acute (3) CKD (chronic kidney disease) stage 3, GFR 30-59 ml/min Status: Acute (4) GINNA (acute kidney injury) Status: Acute (5) Cardiorenal disease Status: Acute - Assessment and Plan (Free Text) Plan: despite treatments prognosis grim no other treatments can reasonably be done
[2017-12-12 13:59] LABS: CALCIUM 6.7 mg/dl (8.6-10.4)
[2017-12-12] MEDS: Latanoprost 2.5 ml Opht Soln OU SCH (21:17)
[2017-12-12 22:41] VITALS: O2SAT 65
[2017-12-13 00:27] VITALS: TEMP 96
[2017-12-13] MEDS: (Novolog) Insulin Aspart, Recombinant 100 u/ml 10 ml vial SC SCH ×4 (00:47→17:32)
[2017-12-13] MEDS: DOPamine 400mg/250ml D5W 400 MG/250 ML BAG IV PRN ×5 (00:56→16:35)
[2017-12-13] MEDS: EPINEPHrine- 1 MG in Sodium Chloride 0.9% 250 ML IV PRN ×2 (03:21→15:36)
[2017-12-13] MEDS: Cefepime IV 1 gm in Dextrose 1 GM/50 ML BAG IVPB SCH (09:41)
[2017-12-13] MEDS: Multivitamin With Minerals Tab PO SCH (09:42)
[2017-12-13] MEDS: Dorzolamide 2% Opht Sol 10ml OU SCH ×2 (09:43→17:09)
[2017-12-13] MEDS: Clotrimazole 1% Cream(30 gm) TOP SCH ×2 (09:43→17:10)
[2017-12-13] MEDS: Brimonidine 0.2% Opth Sol (5ml) OU SCH ×3 (09:43→17:09)
--- NOTE | 2017-12-13 10:36 | CP.PCM.PN ---
Subjective - Date & Time of Evaluation Date of Evaluation: 12/13/17 Time of Evaluation: 10:33 - Subjective Subjective: Notes reviewed No family at bedside Patient remains critically ill Unresponsive DNR status noted ROS unobtainable Objective - Vital Signs/Intake and Output Vital Signs (last 24 hours): Temp Pulse Resp BP Pulse Ox 96 F L 72 24 51/42 L 65 L 12/13/17 00:00 12/13/17 10:00 12/13/17 10:00 12/13/17 10:00 12/12/17 22:00 Intake and Output: 12/13/17 12/13/17 06:59 18:59 Intake Total 4824.4 1662.8 Output Total 0 Balance 4824.4 1662.8 - Medications Medications: Current Medications Brimonidine Tartrate (Alphagan 0.2% Opht) 0.05 ml OU TID [facility] Last Admin: 12/13/17 09:43 Dose: 1 drop Clotrimazole (Lotrimin 1%) 0 gm TOP BID [facility] Last Admin: 12/13/17 09:43 Dose: 1 applic Dextrose (Dextrose 50% Inj) 0 ml IVP .STAT PRN; Protocol PRN Reason: Hypoglycemia Protocol Last Admin: 12/12/17 05:57 Dose: 50 ml Dextrose (Glutose 15) 0 gm PO .ONCE PRN; Protocol PRN Reason: Hypoglycemia Protocol Docusate Sodium (Colace) 100 mg PO BID PRN PRN Reason: Constipation Dorzolamide HCl (Trusopt) 0.05 ml OU AMPM [facility] Last Admin: 12/13/17 09:43 Dose: 1 drop Glucagon (Glucagen Diagnostic Kit) 0 mg IM .STAT PRN; Protocol PRN Reason: Hypoglycemia Protocol Hydrocortisone Sodium Succinate (Solu-Cortef) 100 mg IV Q8H [facility] Last Admin: 12/13/17 04:31 Dose: 100 mg Norepinephrine Bitartrate 8 mg (/ Dextrose) 258 mls @ 7.74 mls/hr IV .Q24H PRN ; Protocol; 4 MCG/MIN PRN Reason: TITRATE PER MD ORDER Last Admin: 12/13/17 09:53 Dose: 30 mcg/min, 58.05 mls/hr Vasopressin 40 units/ Sodium (Chloride) 42 mls @ 2.52 mls/hr IV .[id number] SHAHEED; 0.04 UNITS/MIN PRN Reason: Protocol Last Admin: 12/13/17 01:00 Dose: 0.04 units/min, 2.52 mls/hr Dexmedetomidine HCl 200 mcg/ (Sodium Chloride) 50 mls @ 5.14 mls/hr IV TITR PRN ; Protocol; 0.2 MCG/KG/HR PRN Reason: Agitation Last Titration: 12/11/17 03:30 Dose: 0 mcg/kg/hr, 0 mls/hr Cefepime HCl (Maxipime Iv 1 Gm Premix) 1 gm in 50 mls @ 100 mls/hr IVPB Q12H [facility] PRN Reason: Protocol Last Admin: 12/13/17 09:41 Dose: 100 mls/hr Doxycycline Hyclate 100 mg/ (Sodium Chloride) 100 mls @ 100 mls/hr IVPB Q12H [facility] PRN Reason: Protocol Last Admin: 12/13/17 09:53 Dose: 100 mls/hr Dopamine HCl/Dextrose (Dopamine 400mg/250ml D5w) 400 mg in 250 mls @ 7.725 mls/ hr IV .Q24H PRN; Protocol; 2 MCG/KG/MIN PRN Reason: TITRATE PER MD ORDER Last Admin: 12/13/17 09:03 Dose: 20 mcg/kg/min, 77.246 mls/hr Epinephrine HCl 1 mg/ Sodium (Chloride) 251 mls @ 30.12 mls/hr IV .Q8H20M PRN; Protocol; 2 MCG/MIN PRN Reason: TITRATE PER MD ORDER Last Admin: 12/13/17 03:21 Dose: 2 mcg/min, 30.12 mls/hr Sodium Bicarbonate 100 meq/ (Dextrose/Sodium Chloride) 1,100 mls @ 75 mls/hr IV .[id number] [facility] Last Admin: 12/12/17 23:34 Dose: 75 mls/hr Insulin Aspart (Novolog) 0 unit SC Q6 [facility] PRN Reason: Protocol Last Admin: 12/13/17 06:12 Dose: Not Given Latanoprost (Xalatan Opht) 0.05 ml OU HS [facility] Last Admin: 12/12/17 21:17 Dose: 0.05 ml Multivitamins/Minerals (Therapeutic-M Tab) 1 tab PO 0800 [facility] Last Admin: 12/13/17 09:42 Dose: Not Given Pantoprazole Sodium (Protonix Inj) 40 mg IVP Q12H [facility] Last Admin: 12/13/17 09:41 Dose: 40 mg Rosuvastatin Calcium (Crestor) 10 mg PO HS [facility] Last Admin: 12/12/17 21:03 Dose: 10 mg Sodium Bicarbonate (Sodium Bicarbonate Tab) 650 mg NG Q6 [facility] Last Admin: 12/13/17 06:12 Dose: 650 mg - Labs Labs: 12/12/17 05:59 12/12/17 12:43 - Constitutional Appears: Toxic, Other (unresponsive) - Eye Exam Pupil Exam: Fixed Additional comments: dilated pupils - ENT Exam Additional comments: ET tube in place, dried blood in oropharynx - Neck Exam Neck Exam: absent: Lymphadenopathy, Thyromegaly - Respiratory Exam Respiratory Exam: Decreased Breath Sounds, Rhonchi - Cardiovascular Exam Cardiovascular Exam: +S1, +S2 Additional comments: distant heart sounds - GI/Abdominal Exam GI & Abdominal Exam: Distended, Firm - Neurological Exam Neurological Exam: absent: Alert, Awake, Oriented x3 - Skin Skin Exam: Cyanosis, Mottled, Pallor Assessment and Plan (1) GINNA (acute kidney injury) Status: Acute (2) CHF (congestive heart failure) Status: Acute (3) CKD (chronic kidney disease) stage 3, GFR 30-59 ml/min Status: Acute (4) Cardiorenal disease Status: Acute (5) Hyperkalemia Status: Acute - Assessment and Plan (Free Text) Assessment: Multi organ failure not responding to ICU care DNR status noted 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 Withdrawal of care
[2017-12-13] MEDS: Sodium Bicarbonate 8.4% 100 MEQ in Dextrose 5%/0.45% NS 1,000 ML IV SCH (16:41)
[2017-12-13 18:01] VITALS: RESP 22
[2017-12-13] MEDS ORDERED: Norepinephrine 16 MG in Dextrose 5% In Water 500 ML IV PRN (18:30)
--- NOTE | 2017-12-13 18:45 | CP.PCM.PN ---
Subjective - Date & Time of Evaluation Date of Evaluation: 12/13/17 Time of Evaluation: 13:00 - Subjective Subjective: Patient on max pressors, not responsive to sternal rub. Patient's SBP near 50s- 60s, Family at bedside, DNR in effect, fentanyl for sedation Objective - Vital Signs/Intake and Output Vital Signs (last 24 hours): Temp Pulse Resp BP Pulse Ox 96 F L 58 L 22 34/27 L 65 L 12/13/17 00:00 12/13/17 18:00 12/13/17 18:00 12/13/17 18:00 12/12/17 22:00 Intake and Output: 12/13/17 12/13/17 06:59 18:59 Intake Total 4824.4 4443.4 Output Total 0 Balance 4824.4 4443.4 - Medications Medications: Current Medications Brimonidine Tartrate (Alphagan 0.2% Opht) 0.05 ml OU TID [facility] Last Admin: 12/13/17 17:09 Dose: 1 drop Clotrimazole (Lotrimin 1%) 0 gm TOP BID [facility] Last Admin: 12/13/17 17:10 Dose: 1 applic Dextrose (Dextrose 50% Inj) 0 ml IVP .STAT PRN; Protocol PRN Reason: Hypoglycemia Protocol Last Admin: 12/12/17 05:57 Dose: 50 ml Dextrose (Glutose 15) 0 gm PO .ONCE PRN; Protocol PRN Reason: Hypoglycemia Protocol Docusate Sodium (Colace) 100 mg PO BID PRN PRN Reason: Constipation Dorzolamide HCl (Trusopt) 0.05 ml OU AMPM [facility] Last Admin: 12/13/17 17:09 Dose: 1 drop Glucagon (Glucagen Diagnostic Kit) 0 mg IM .STAT PRN; Protocol PRN Reason: Hypoglycemia Protocol Hydrocortisone Sodium Succinate (Solu-Cortef) 100 mg IV Q8H [facility] Last Admin: 12/13/17 12:45 Dose: 100 mg Vasopressin 40 units/ Sodium (Chloride) 42 mls @ 2.52 mls/hr IV .[id number] [facility]HEED; 0.04 UNITS/MIN PRN Reason: Protocol Last Admin: 12/13/17 11:54 Dose: Not Given Dexmedetomidine HCl 200 mcg/ (Sodium Chloride) 50 mls @ 5.14 mls/hr IV TITR PRN ; Protocol; 0.2 MCG/KG/HR PRN Reason: Agitation Last Titration: 12/11/17 03:30 Dose: 0 mcg/kg/hr, 0 mls/hr Cefepime HCl (Maxipime Iv 1 Gm Premix) 1 gm in 50 mls @ 100 mls/hr IVPB Q12H [facility] PRN Reason: Protocol Last Admin: 12/13/17 09:41 Dose: 100 mls/hr Doxycycline Hyclate 100 mg/ (Sodium Chloride) 100 mls @ 100 mls/hr IVPB Q12H [facility] PRN Reason: Protocol Last Admin: 12/13/17 09:53 Dose: 100 mls/hr Dopamine HCl/Dextrose (Dopamine 400mg/250ml D5w) 400 mg in 250 mls @ 7.725 mls/ hr IV .Q24H PRN; Protocol; 2 MCG/KG/MIN PRN Reason: TITRATE PER MD ORDER Last Admin: 12/13/17 16:35 Dose: 20 mcg/kg/min, 77.246 mls/hr Epinephrine HCl 1 mg/ Sodium (Chloride) 251 mls @ 30.12 mls/hr IV .Q8H20M PRN; Protocol; 2 MCG/MIN PRN Reason: TITRATE PER MD ORDER Last Admin: 12/13/17 15:36 Dose: 2 mcg/min, 30.12 mls/hr Sodium Bicarbonate 100 meq/ (Dextrose/Sodium Chloride) 1,100 mls @ 75 mls/hr IV .[id number] [facility] Last Admin: 12/13/17 16:41 Dose: 75 mls/hr Fentanyl Citrate 2,500 mcg/ (Sodium Chloride) 250 mls @ 20.86 mls/hr IV .Q12H [facility]HE[facility]; 2 MCG/KG/HR PRN Reason: Protocol Last Admin: 12/13/17 12:57 Dose: 2 mcg/kg/hr, 20.86 mls/hr Norepinephrine Bitartrate 16 (mg/ Dextrose) 516 mls @ 7.74 mls/hr IV .Q24H PRN ; Protocol; 4 MCG/MIN PRN Reason: TITRATE PER MD ORDER Insulin Aspart (Novolog) 0 unit SC Q6 [facility]ED PRN Reason: Protocol Last Admin: 12/13/17 17:32 Dose: 2 unit Latanoprost (Xalatan Opht) 0.05 ml OU HS [facility] Last Admin: 12/12/17 21:17 Dose: 0.05 ml Multivitamins/Minerals (Therapeutic-M Tab) 1 tab PO 0800 [facility] Last Admin: 12/13/17 09:42 Dose: Not Given Pantoprazole Sodium (Protonix Inj) 40 mg IVP Q12H [facility] Last Admin: 12/13/17 09:41 Dose: 40 mg Rosuvastatin Calcium (Crestor) 10 mg PO HS [facility] Last Admin: 12/12/17 21:03 Dose: 10 mg Sodium Bicarbonate (Sodium Bicarbonate Tab) 650 mg NG Q6 [facility] Last Admin: 12/13/17 17:10 Dose: Not Given - Labs Labs: 12/12/17 05:59 12/12/17 12:43 - Constitutional Appears: Non-toxic - Head Exam Head Exam: ATRAUMATIC - ENT Exam ENT Exam: Mucous Membranes Moist - Respiratory Exam Respiratory Exam: Accessory Muscle Use, Rales, Respiratory Distress - Cardiovascular Exam Cardiovascular Exam: +S1, +S2, Murmur - GI/Abdominal Exam GI & Abdominal Exam: Hypoactive Bowel Sounds - Extremities Exam Extremities Exam: Pedal Edema - Neurological Exam Neurological Exam: Altered. absent: CN II-XII Intact, Oriented x3 - Skin Skin Exam: Dry Assessment and Plan - Assessment and Plan (Free Text) Assessment: -Shock: likely combination of cardiogenic and septic shock, family requested comfort measure, currently on max pressros and SBP near 50s -Severe systolic heart failure with cardiorenal syndrome: poor cardiac output -CKD with uremia: not a candidate for HD 2nd poor heart function -Chronic end stage heart failure:continue bicarb replacement -sepsis/Right lower lobe PNA: continue empirical abx -continue dvt/pud ppx Patient is at imminent risk of , despite max pressors and maximum medical therapy. Brother (Rosas) and Sister at bedside aware of patient'c condition. emotional support provided cc time 32 minutes
[2017-12-13 19:01] VITALS: PULSE 55
[2017-12-13 19:56] VITALS: BP 28/21
--- NOTE | 2017-12-13 20:58 | CP.PCM.PRO ---
Pronouncement of Note - Clinical Findings Physical Exam: No Response Verbal/Painful Stimuli, Absent Peripheral Pulses{ Carotid & Femoral}, Absent Heart & Breath Sounds, No Pupillary Light Reflex, No Corneal Reflex, Pupils Fixed & Dilated, Absence of Vital Signs - Pronouncement Time Time of Pronouncement of : 20:37 - Notifications Pronouncement Notifications: Family Notified, Atending Notified [employer] Notified: No - Autopsy Autopsy Requested: No - [place] [id number] Additional Comments: The Patient was a DNR
--- NOTE | 2017-12-15 07:56 | DS ---
HOSPITAL COURSE: The patient admitted to the hospital with chief complaint of shortness of breath, severe heart failure. The patient condition worsened, intubated, the patient . Leslie Dean MD
--- NOTE | 2017-12-15 08:05 | PN ---
DATE: 12/13/2017 SUBJECTIVE: The patient ventilated, supportive care, congestive heart failure. Continue current treatment. Leslie Dean MD
== END 2017-12-13 23:00 | DRG 291 ==
LOC: C.ER 23:52 → C.6T 12-03 04:34 → C.9I 12-07 08:40
PROVIDERS: ADMIT Internal Medicine Pulmonary Disease; ATTEND Internal Medicine Pulmonary Disease
PROC: 02HV33Z Insertion of Infusion Device into Superior Vena Cava, Percutaneous Approach (ICD-10-PCS; principal; 2017-12-07)
PROC: 3E033XZ Introduction of Vasopressor into Peripheral Vein, Percutaneous Approach (ICD-10-PCS; 2017-12-08)
PROC: 5A09457 Assistance with Respiratory Ventilation, 24-96 Consecutive Hours, Continuous Positive Airway Pressure (ICD-10-PCS; 2017-12-09)
PROC: 0BH17EZ Insertion of Endotracheal Airway into Trachea, Via Natural or Artificial Opening (ICD-10-PCS; 2017-12-10)
PROC: 5A1945Z Respiratory Ventilation, 24-96 Consecutive Hours (ICD-10-PCS; 2017-12-10)
PROC: 30233R1 Transfusion of Nonautologous Platelets into Peripheral Vein, Percutaneous Approach (ICD-10-PCS; 2017-12-10)
PROC: 02HV33Z Insertion of Infusion Device into Superior Vena Cava, Percutaneous Approach (ICD-10-PCS; 2017-12-11)
DX: I13.0 Hypertensive heart and chronic kidney disease with heart failure and stage 1 through stage 4 chronic kidney disease, or unspecified chronic kidney disease (principal); A41.9 Sepsis, unspecified organism; R65.21 Severe sepsis with septic shock; J18.9 Pneumonia, unspecified organism; I50.23 Acute on chronic systolic (congestive) heart failure; J96.00 Acute respiratory failure, unspecified whether with hypoxia or hypercapnia; I47.2 Ventricular tachycardia; N17.9 Acute kidney failure, unspecified; L03.115 Cellulitis of right lower limb; L03.116 Cellulitis of left lower limb; E87.2 Acidosis; I42.0 Dilated cardiomyopathy; F41.9 Anxiety disorder, unspecified; I27.20 Pulmonary hypertension, unspecified; R57.0 Cardiogenic shock; Z51.5 Encounter for palliative care; N18.3 Chronic kidney disease, stage 3 (moderate); Z66 Do not resuscitate; Z91.19 Patient's noncompliance with other medical treatment and regimen; N47.1 Phimosis; E87.5 Hyperkalemia; E83.41 Hypermagnesemia; E16.2 Hypoglycemia, unspecified; E78.5 Hyperlipidemia, unspecified; I87.8 Other specified disorders of veins; D69.59 Other secondary thrombocytopenia